=== PATIENT | male | born 1940 | race Caucasian/White ===

== ENCOUNTER 2018-11-05 20:20 | Inpatient (IN) | payer OTHER, MEDICARE ==
[2018-11-05] MEDS ORDERED: ONDANSETRON HCL INJ/PF 4 MG/2 ML SDV IV ONE (20:21)
[2018-11-05] MEDS ORDERED: NORMAL SALINE 1000 ML 1,000 ML IV ONE (20:21)
--- NOTE | 2018-11-05 20:28 | ER Document Report ---
ED Medical Screen (RME) - General Stated Complaint: VOMITING Time Seen by Provider: 11/05/18 20:21 Notes: Patient is a 78-year-old male who presents emergency department with vomiting. His son is at bedside to provide additional history. According to the son, the patient started to have right-sided abdominal pain yesterday. Today he started vomiting. Exam: Altered mental status. Tender abdomen. I have greeted and performed a rapid initial assessment of this patient. A comprehensive ED assessment and evaluation of the patient, analysis of test results and completion of medical decision making process will be conducted by an additional ED providers.
[2018-11-05] MEDS ORDERED: METHYLPREDNISOLONE INJ 125 MG/2 ML SDV IV ONE (20:29)
[2018-11-05] MEDS ORDERED: IPRATROPIUM/ALBUTEROL 0.5-2.5 MG/3 ML AMPUL NEB ONE ×2 (20:29→20:31)
[2018-11-05] MEDS ORDERED: METHYLPREDNISOLONE INJ 125 MG/2 ML SDV ONE (20:31)
[2018-11-05] MEDS ORDERED: ALBUTEROL SULFATE 0.083% NEB 2.5 MG/3 ML AMPUL NEB ONE (20:31)
[2018-11-05] MEDS: ALBUTEROL SULFATE 0.083% NEB 2.5 MG/3 ML AMPUL NEB SCH (20:34)
--- NOTE | 2018-11-05 20:57 | ER Document Report ---
ED General - General Stated Complaint: VOMITING Time Seen by Provider: 11/05/18 20:21 Information source: Relative Cannot obtain history due to: Dementia - HPI Patient complains to provider of: Abdominal pain, vomiting, respiratory distress. Associated symptoms: denies: Chest pain, Nonproductive cough, Fever Notes: This is a 38-year-old gentleman who presents today with a complaint of abdominal pain, vomiting, respiratory distress. Patient is demented and cannot give me good history. Patient's son states that he was complaining of right lower quad rant pain earlier today. He did not have any cardiopulmonary complaints at the time. Later on this evening, the patient started doing worse. He appeared confused and was moaning according to son. He was then brought to the emergency department. In route to the ED, he was vomiting. No fever or chills reported. Patient is unable to give any history. - Related Data Allergies/Adverse Reactions: No Known Allergies Allergy (Unverified 11/05/18 21:21) Past Medical History - Social History Smoking Status: Former Smoker Frequency of alcohol use: None Drug Abuse: None Family History: COPD Review of Systems - Review of Systems -: Yes ROS unobtainable due to patient's medical condition Physical Exam - Vital signs Vitals: Pulse Ox 84 L 11/05/18 20:23 Vital signs reviewed in nurse's notes. - General General appearance: Alert In distress: Moderate - Respiratory Respiratory status: Respiratory distress, Labored Chest status: Accessory muscle use Breath sounds: Rhonchi, Wheezing - Cardiovascular Rhythm: Regular Heart sounds: Normal auscultation - Abdominal Inspection: Normal Distension: No distension Bowel sounds: Normal Tenderness: Tender - Slight tenderness in the right lower quadrant. No guarding or rebound. - Back Back: Normal - Extremities General upper extremity: No: Edema - Neurological Cognition: Other - Unable to get a good neuro exam given patient distress. Nonfocal neurologic exam at this time. Course - Re-evaluation Re-evalutation: Differential diagnosis includes pneumonia versus COPD exacerbation versus bowel obstruction versus diverticulitis versus AAA rupture versus ischemic bowel. Will get CT of the abdomen and pelvis will get head CT given difficulty to give a good exam of this patient. We will also do a cardiac work-up in this patient. EKG shows normal sinus rhythm at 84 bpm. First-degree AV block. Right axis deviation. Lateral ST depression but no ST elevation. 11/05/18 20:55 11/05/18 21:27 Patient referred. He appears anxious. Blood gas suggests respiratory alkalosis secondary to hyperventilation. We will give him a small dose of Ativan. 11/05/18 22:41 Patient reevaluated. Patient states he feels better. He denies any chest pain or dyspnea. Complains of right lower quadrant/suprapubic pain. Labs reviewed. Elevated troponin may be secondary to his renal function. Will get Noncon CT given his elevated creatinine. 11/06/18 00:09 Patient has not been able to tolerate CT scan. Twice is meant to CT and he does not want to lay down flat. We absolutely need to get an abdominal CT since he complains of abdominal pain. He is not uncomfortable. He looks well. However, given his presentation, it is important. Consequently, we will place soft restraints to allow us to get a CT scan done. 11/06/18 01:38 Patient is doing well. Labs and imaging reviewed. No EKG changes to suggest hyperkalemia. Patient's care discussed with the hospitalist. Will admit. - Vital Signs Vital signs: Temp Pulse Resp BP Pulse Ox 98.6 F 85 20 112/62 91 L 11/05/18 21:02 11/05/18 20:56 11/05/18 22:16 11/05/18 22:16 11/05/18 22:16 - Laboratory Result Diagrams: 11/05/18 20:50 11/05/18 20:50 Laboratory results interpreted by me: 11/05/18 11/05/18 11/05/18 20:48 20:50 20:50 WBC 17.3 H RDW 17.4 H Lymph % (Auto) 9.4 L Absolute Neuts (auto) 14.6 H Seg Neutrophils % 84.2 H Carbonic Acid 0.93 L ABG pH 7.33 L ABG pCO2 31.0 L ABG pO2 62.4 L ABG HCO3 15.9 L ABG Total CO2 16.9 L ABG O2 Saturation 90.7 L Sodium 136.4 L Potassium 5.5 H Carbon Dioxide 17 L BUN 31 H Creatinine 2.10 H Est GFR ( Amer) 37 L Est GFR (MDRD) Non-Af 31 L Glucose 171 H Creatine Kinase 291 H CK-MB (CK-2) NT-Pro-B Natriuret Pep Total Protein 8.6 H 11/05/18 20:50 WBC RDW Lymph % (Auto) Absolute Neuts (auto) Seg Neutrophils % Carbonic Acid ABG pH ABG pCO2 ABG pO2 ABG HCO3 ABG Total CO2 ABG O2 Saturation Sodium Potassium Carbon Dioxide BUN Creatinine Est GFR ( Amer) Est GFR (MDRD) Non-Af Glucose Creatine Kinase CK-MB (CK-2) 5.16 H NT-Pro-B Natriuret Pep 969 H Total Protein Discharge - Discharge Clinical Impression: Acute kidney injury, Elevated troponin Pneumonia Qualifiers: Pneumonia type: due to unspecified organism Laterality: unspecified laterality Lung location: unspecified part of lung Qualified Code(s): J18.9 - Pneumonia, unspecified organism Condition: Fair Disposition: ADMITTED INPATIENT Admitting Provider: Margarita (Hospitalist) Unit Admitted: Telemetry
--- NOTE | 2018-11-05 21:06 | RADIOLOGY REPORT (SQ) ---
XR CHEST 1 VIEW CLINICAL STATEMENT: vomiting/abd pain COMPARISON: None FINDINGS: Heart is mildly enlarged. Aorta is uncoiled. There is no focal lung consolidation or pleural effusion. No evidence of pulmonary edema or pneumothorax. Mild left basilar atelectatic changes. IMPRESSION: No acute cardiopulmonary disease.
[2018-11-05 21:12] LABS: ARTERIAL BLOOD BASE EXCESS -8.6 mmol/L; ARTERIAL BLOOD H2CO3 0.93 mmol/L (1.05-1.35); ARTERIAL BLOOD HCO3 15.9 mmol/L (20-24); ARTERIAL BLOOD O2 SATURATION 90.7 % (94-98); ARTERIAL BLOOD PH 7.33 (7.35-7.45); ARTERIAL BLOOD PO2 62.4 mmHg (80-100); ARTERIAL BLOOD TOTAL CO2 16.9 mmol/L (23-27)
[2018-11-05 21:13] LABS: ARTERIAL BLOOD FIO2 100%
[2018-11-05] MEDS ORDERED: LORAZEPAM INJ 2 MG/1 ML VIAL IV ONE ×2 (21:16→23:16)
[2018-11-05] MEDS ORDERED: NORMAL SALINE 500 ML IV ONE (21:24)
[2018-11-05 21:41] LABS: ABSOLUTE LYMPHOCYTES (AUTO) 1.6 10^3/uL (0.5-4.7); ABSOLUTE MONOCYTES (AUTO) 1.1 10^3/uL (0.1-1.4); ABSOLUTE NEUT (AUTO) 14.6 10^3/uL (1.7-8.2); BASOPHILS % (AUTO) 0.1 % (0-2); EOSINOPHILS % (AUTO) 0.1 % (0-6); HEMATOCRIT 42.3 % (37.9-51.0); HEMOGLOBIN 14.1 g/dL (13.5-17.0); LYMPHOCYTES % (AUTO) 9.4 % (13-45); MEAN CORPUSCULAR HEMOGLOBIN 29.8 pg (27.0-33.4); MEAN CORPUSCULAR HGB CONC 33.3 g/dL (32.0-36.0); MEAN CORPUSCULAR VOLUME 89 fl (80-97); MONOCYTES % (AUTO) 6.2 % (3-13); PLATELET COUNT 256 10^3/uL (150-450); RED BLOOD COUNT 4.73 10^6/uL (4.35-5.55); RED CELL DISTRIBUTION WIDTH 17.4 % (11.5-14.0); SEGMENTED NEUTROPHILS % (AUTO) 84.2 % (42-78); TOTAL CELLS COUNTED % (AUTO) 100 %; WHITE BLOOD COUNT 17.3 10^3/uL (4.0-10.5)
[2018-11-05 21:55] LABS: ALBUMIN 4.9 g/dL (3.5-5.0); ALKALINE PHOSPHATASE 95 U/L (38-126); ASPARTATE AMINO TRANSFERASE 43 U/L (17-59); BILIRUBIN,DIRECT 0.4 mg/dL (0.0-0.4); BILIRUBIN,TOTAL 0.9 mg/dL (0.2-1.3); BLOOD UREA NITROGEN 31 mg/dL (7-20); CALCIUM 9.2 mg/dL (8.4-10.2); CREATINE KINASE 291 U/L (55-170); GLUCOSE 171 mg/dL (75-110); POTASSIUM 5.5 mmol/L (3.6-5.0); TOTAL PROTEIN 8.6 g/dL (6.3-8.2)
[2018-11-05 22:00] LABS: ANION GAP 19 (5-19); CARBON DIOXIDE 17 mmol/L (22-30); CHLORIDE 100 mmol/L (98-107)
[2018-11-05 22:18] LABS: CREATINE KINASE MB 5.16 ng/mL (<4.55)
[2018-11-05 22:19] LABS: TROPONIN I 0.496 ng/mL
[2018-11-05] MEDS ORDERED: NORMAL SALINE 1000 ML 1,000 ML IV PRN (22:39)
--- NOTE | 2018-11-05 23:55 | EKG REPORT ---
SEVERITY:- ABNORMAL ECG - SINUS RHYTHM NONSPECIFIC INTRAVENTRICULAR CONDUCTION DELAY LOW VOLTAGE IN FRONTAL LEADS ST DEPRESSION, CONSIDER ISCHEMIA, ANT-LAT LDS : Confirmed by: Cody Cummins MD 05-Nov-2018 23:54:52
--- NOTE | 2018-11-05 23:56 | EKG REPORT ---
SEVERITY:- ABNORMAL ECG - SINUS RHYTHM FIRST DEGREE AV BLOCK RIGHT AXIS DEVIATION REPOL ABNRM SUGGESTS ISCHEMIA, ANT-LAT LEADS : Confirmed by: Cody Cummins MD 05-Nov-2018 23:55:28
--- NOTE | 2018-11-06 00:09 | RADIOLOGY REPORT (SQ) ---
EXAM DESCRIPTION: CT HEAD WITHOUT IV CONTRAST COMPLETED DATE/TME: 11/05/2018 20:23 CLINICAL HISTORY: 78 years, Male, AMS COMPARISON: None. TECHNIQUE: 205 Images stored on PACS. All CT scanners at this facility use dose modulation, iterative reconstruction, and/or weight based dosing when appropriate to reduce radiation dose to as low as reasonably achievable (ALARA). [facility]: Dose Right [facility]: CareDose [facility]: Dose Right [facility]: Teradose 4D [facility]: [employer] LIMITATIONS: None. FINDINGS: Motion artifact degrades image quality. The globes appear intact. The paranasal sinuses and mastoid air cells are unremarkable. There is no displaced or depressed skull fracture. There is no intra or extra-axial hemorrhage. CT is limited for evaluation of acute infarct. There is no CT evidence for large or territorial acute infarct. There is no mass or midline shift. Mild age-appropriate atrophy and minor small vessel ischemic change IMPRESSION: Mild atrophy and small vessel ischemic change TECHNICAL DOCUMENTATION: Quality ID # 436: Final reports with documentation of one or more dose reduction techniques (e.g., Automated exposure control, adjustment of the mA and/or kV according to patient size, use of iterative reconstruction technique) copyright 2010 [employer]- All Rights Reserved
--- NOTE | 2018-11-06 01:04 | RADIOLOGY REPORT (SQ) ---
EXAM DESCRIPTION: [facility]: CT ABDOMEN PELVIS WITHOUT IV CONTRAST CLINICAL HISTORY: 78 years Male; RLQ pain. elevated creatinine TECHNIQUE: CT of the abdomen and pelvis without contrast. All CT scans at this facility use dose modulation, iterative reconstruction, and/or weight based dosing when appropriate to reduce radiation dose to as low as reasonably achievable. COMPARISON: None. FINDINGS: Partial infiltrate/atelectasis in the posterior and medial right lower lobe is noted. Moderate coronary artery calcifications as well as aortic calcifications are also partially visualized. Abdomen: Liver:No focal lesions. No intrahepatic ductal distention. Gallbladder:Nondistended Pancreas:Within normal limits Spleen:Within normal limits Right kidney:No hydronephrosis. No renal or ureteral calculi. Left kidney:No hydronephrosis. No renal or ureteral calculi. Adrenal glands:Within normal limits Vascular structures: A femoral-femoral bypass graft as well as a graft in the right lateral anterior abdominal wall are noted. There is extensive aortic and iliac calcification as well as a distal aortic stent. No retroperitoneal hematoma. Pelvis: Fat-containing 2.2 cm wide ventral hernia is noted, without acute edema or bowel involvement. Small bowel:No significant distention. Appendix: Not reliably identified. No regional edema. Colon:No distention or acute pericolonic edema. No free intraperitoneal fluid or air. Bones: Old L1 vertebral body fracture is noted. No acute bone findings. Bladder: Moderately distended, estimated 630 mL. No calculi. No pelvic mass or adenopathy. Note that evaluation of the bowel and solid organs is somewhat limited due to lack of intravenous and oral contrast. IMPRESSION: 1. Medial right lower lobe infiltrate/atelectasis, possibly a focal pneumonia. Please correlate with clinical symptoms. 2. Atherosclerosis, with partially visualized bypass grafts. 3. Moderately distended bladder (630 mL) 4. No acute inflammatory changes.
[2018-11-06] MEDS ORDERED: AZITHROMYCIN INJ 500 MG VIAL IV ONE (01:35)
[2018-11-06] MEDS ORDERED: DEXTROSE 50%-WATER 25 GM/50 ML DISP.SYRIN IV ONE (01:39)
[2018-11-06] MEDS ORDERED: INSULIN REG, HUMAN 100 UNIT/ML 3 ML VIAL (PYX) IV ONE (01:39)
[2018-11-06] MEDS ORDERED: CEFTRIAXONE 1 GM/D5W RTU 1 GM/50 ML RTUPB IV ONE (02:00)
[2018-11-06] MEDS ORDERED: LEVALBUTEROL HCL NEB 0.63 MG/3 ML AMPUL NEB PRN (02:14)
[2018-11-06] MEDS ORDERED: GUAIFENESIN SYRP 200 MG/10 ML UDC PO PRN (02:14)
[2018-11-06] MEDS ORDERED: ACETAMINOPHEN 325 MG TABLET PO PRN (02:14)
[2018-11-06] MEDS ORDERED: INSULIN REG, HUMAN 100 UNIT/ML 3 ML VIAL (PYX) SUBCUT PRN (02:25)
[2018-11-06] MEDS ORDERED: MAG HYDROX/AL HYDROX/SIMETH SUSP 30 ML UDCUP PO PRN (02:25)
[2018-11-06] MEDS ORDERED: ACETAMINOPHEN 650 MG SUPP.RECT PR PRN (02:25)
[2018-11-06] MEDS ORDERED: MAGNESIUM HYDROXIDE SUSP 30 ML UDCUP PO PRN (02:25)
[2018-11-06] MEDS ORDERED: NALBUPHINE HCL INJ 10 MG/1 ML AMPULE IV PRN ×3 (02:25→03:34)
[2018-11-06] MEDS ORDERED: DEXTROSE 50%-WATER 25 GM/50 ML DISP.SYRIN IV PRN ×2 (02:27)
[2018-11-06] MEDS ORDERED: GLUCAGON,HUMAN RECOMB 1 MG INJ IM PRN (02:27)
[2018-11-06] MEDS ORDERED: DEXTROSE 40% GEL 15 GM TUBE PO PRN ×2 (02:27)
[2018-11-06 03:46] LABS: CREATINE KINASE MB 11.6 ng/mL (<4.55)
[2018-11-06 03:52] LABS: FREE T3 2.17 pg/mL (2.77-5.27); FREE T4 (FREE THYROXINE) 0.96 ng/dL (0.78-2.19); TROPONIN I 1.24 ng/mL
[2018-11-06] MEDS ORDERED: TUBERCULIN,PURIF.PROT.DERIV. 5 TU/0.1 ML TEST 1 ML VIAL ID ONE ×2 (04:00→05:26)
[2018-11-06] MEDS: RINGERS SOLUTION,LACTATED 1,000 ML IV PRN ×3 (05:27→15:17)
[2018-11-06 05:41] LABS: APPEARANCE,URINE SLIGHTLY-CLOUDY; BILIRUBIN,URINE NEGATIVE (NEGATIVE); COLOR,URINE YELLOW; GLUCOSE, URINE 50 mg/dL (NEGATIVE); KETONES,URINE NEGATIVE (NEGATIVE); LEUKOCYTE ESTERASE,URINE NEGATIVE (NEGATIVE); NITRITE,URINE NEGATIVE (NEGATIVE); PROTEIN,URINE 30 mg/dL (NEGATIVE); URINE SPECIFIC GRAVITY 1.018; UROBILINOGEN,URINE NEGATIVE mg/dL (<2.0)
[2018-11-06] MEDS ORDERED: PANTOPRAZOLE SODIUM 40 MG TABLET.DR PO SCH (06:00)
[2018-11-06] MEDS ORDERED: HEPARIN SOD (PORCINE) 5,000 UNIT/ML 1 ML VIAL SUBCUT SCH (06:00)
--- NOTE | 2018-11-06 06:39 | PDOC H&P ---
History of Present Illness Admission Date/PCP: 11/06/2018 01:40 History of Present Illness: GAVINO PEDRAZA is a 78 year old male who presented to the emergency room from home with a 1 day history of abdominal pain. Patient has chronic dementia and is unable to provide accurate or meaningful historical data. His son provided data to the emergency room staff and at the time of my evaluation there is no one with patient. The information recorded here is the best and most reliable information available. The patient developed abdominal pain on the evening of 11/04/2018 and persisted through 11/05/2018 with a gradual increase in intensity accompanied by increased confusion and vomiting. With his worsening condition his son brought him to the emergency room. In the emergency room he was found to have an elevated white blood count of 17,000, an elevated serum troponin, an elevated creatinine and a CT scan of the abdomen and pelvis which revealed a right lower lobe pneumonia. Patient was subsequently admitted to the hospital for further evaluation treatment. Past Medical History Past Medical History: Patient has chronic dementia and is unable to provide accurate or meaningful historical data. The information recorded here is the best and most reliable information available. Cardiac Medical History: Reports: Coronary Artery Disease, Peripheral Vascular Disease Pulmonary Medical History: Denies: Asthma, Chronic Obstructive Pulmonary Disease (COPD) EENT Medical History: Denies: Eyes - Prescription lenses, Ears - Hearing aids Neurological Medical History: Denies: Multiple Sclerosis, Seizures Endocrine Medical History: Reports: Diabetes Mellitus Type 2 Denies: Diabetes Mellitus Type 1 Renal/ Medical History: Reports: Chronic Kidney Disease Denies: Nephrolithiasis Malignancy Medical History: Reports: None GI Medical History: Denies: Crohn's Disease, Ulcerative Colitis Musculoskeltal Medical History: Denies: Fibromyalgia, Gout Skin Medical History: Denies: Eczema, Psoriasis Psychiatric Medical History: Reports: Dementia Denies: Alcohol Dependency, Substance Abuse, Tobacco Dependency Traumatic Medical History: Reports: None Hematology: Reports: Anemia Denies: Bleeding Tendencies Infectious Medical History: Reports: None Past Surgical History Past Surgical History: Patient has chronic dementia and is unable to provide accurate or meaningful historical data. The information recorded here is the best and most reliable information available. Past Surgical History: Reports: Cardiac Catheterization, Coronary Stent Social History Information Source: Emergency Med Personnel, [facility] Records Lives with: Family Smoking Status: Former Smoker Frequency of Alcohol Use: None Hx Recreational Drug Use: No Drugs: None Hx Prescription Drug Abuse: No Past Social History Note: Patient has chronic dementia and is unable to provide accurate or meaningful historical data. The information recorded here is the best and most reliable information available. - Advance Directive Resuscitation Status: Full Code Surrogate healthcare decision maker:: Naveed Gonzalezruben Family History Family History: COPD Family History: Patient has chronic dementia and is unable to provide accurate or meaningful historical data. The information recorded here is the best and most reliable in formation available. Parental Family History Reviewed: Yes Children Family History Reviewed: No Sibling(s) Family History Reviewed.: Yes Medication/Allergy Allergies/Adverse Reactions: No Known Allergies Allergy (Unverified 11/05/18 21:21) Review of Systems ROS unobtainable: Due to mental status - Chronic dementia Physical Exam Vital Signs: Temp Pulse Resp BP Pulse Ox 98.6 F 85 20 112/62 91 L 11/05/18 21:02 11/05/18 20:56 11/05/18 22:16 11/05/18 22:16 11/05/18 22:16 Intake & Output 11/04/18 11/05/18 11/06/18 23:59 23:59 23:59 Intake Total 1500 Balance 1500 Results Laboratory Results: 11/05/18 20:50 11/05/18 20:50 11/05/18 11/05/18 11/05/18 20:48 20:50 20:50 WBC 17.3 H RBC 4.73 Hgb 14.1 Hct 42.3 MCV 89 MCH 29.8 MCHC 33.3 RDW 17.4 H Plt Count 256 Seg Neutrophils % 84.2 H Carbonic Acid 0.93 L HCO3/H2CO3 Ratio 17:1 ABG pH 7.33 L ABG pCO2 31.0 L ABG pO2 62.4 L ABG HCO3 15.9 L ABG O2 Saturation 90.7 L ABG Base Excess -8.6 FiO2 100% Sodium 136.4 L Potassium 5.5 H Chloride 100 Carbon Dioxide 17 L Anion Gap 19 BUN 31 H Creatinine 2.10 H Est GFR ( Amer) 37 L Glucose 171 H Calcium 9.2 Total Bilirubin 0.9 AST 43 Alkaline Phosphatase 95 Total Protein 8.6 H Albumin 4.9 11/05/18 11/05/18 20:50 20:50 Creatine Kinase 291 H CK-MB (CK-2) 5.16 H Troponin I 0.496 NT-Pro-B Natriuret Pep 969 H Impressions: Chest X-Ray 11/05/18 20:22 IMPRESSION: No acute cardiopulmonary disease. Head CT 11/05/18 20:23 IMPRESSION: Mild atrophy and small vessel ischemic change TECHNICAL DOCUMENTATION: Quality ID # 436: Final reports with documentation of one or more dose reduction techniques (e.g., Automated exposure control, adjustment of the mA and/or kV according to patient size, use of iterative reconstruction technique) copyright 2011 [employer]- All Rights Reserved Abdomen/Pelvis CT 11/05/18 22:38 IMPRESSION: 1. Medial right lower lobe infiltrate/atelectasis, possibly a focal pneumonia. Please correlate with clinical symptoms. 2. Atherosclerosis, with partially visualized bypass grafts. 3. Moderately distended bladder (630 mL) 4. No acute inflammatory changes. Assessment and Plan - Diagnosis (1) Community acquired pneumonia of right lower lobe of lung Is this a current diagnosis for this admission?: Yes Plan: Patient will be treated with intravenous azithromycin and ceftriaxone. Supplemental oxygen will be provided as required to maintain an O2 sat of greater than 93%. Nebulized treatments with Xopenex will be available on an as- needed basis and Mucomyst will be delivered via nebulizer twice daily. Daily metabolic profiles and CBCs will be obtained. (2) Abdominal pain Qualifiers: Abdominal location: right lower quadrant Qualified Code(s): R10.31 - Right lower quadrant pain Is this a current diagnosis for this admission?: Yes Plan: Patient will be observed closely throughout his hospital course. Serial CBCs will be obtained. Patient will receive Nubain 5 to 10 mg IV every three hours as needed for pain control. (3) Elevated troponin Is this a current diagnosis for this admission?: Yes Plan: Serial cardiac enzymes will be obtained. (4) Chronic renal insufficiency, stage III (moderate) Is this a current diagnosis for this admission?: Yes Plan: The patient will be treated with IV fluids. Daily metabolic profiles will be o btained. (5) Chronic dementia without behavioral disturbance Is this a current diagnosis for this admission?: Yes Plan: Patient will be carefully managed with efforts at redirection in order to avoid any need for the use of medical or physical restraints. - Time Time Spent with patient: 15-24 minutes Anticipated discharge: Home with Homehealth - Inpatient Certification Based on my medical assessment, after consideration of the patient's comorbidities, presenting symptoms, or acuity I expect that the services needed warrant INPATIENT care.: Yes I certify that my determination is in accordance with my understanding of Medicare's requirements for reasonable and necessary INPATIENT services [42 CFR 412.3e].: Yes Medical Necessity: Need Close Monitoring Due to Risk of Patient Decompensation, Need For IV Fluids, Need for Nebulizer Therapy and Monitoring of Response, Need for Pain Control, Need for IV Antibiotics, Risk of Complication if Not Cared For in Hospital
[2018-11-06] MEDS ORDERED: LEVALBUTEROL HCL NEB 1.25 MG/3 ML AMPUL NEB SCH (08:00)
[2018-11-06] MEDS: IPRATROPIUM BROMIDE 0.02% NEB 0.5 MG/2.5 ML AMPUL NEB SCH ×2 (08:09→15:22)
[2018-11-06] MEDS: ACETYLCYSTEINE 20% SOLN 800 MG/4 ML VIAL.NEB NEB SCH ×2 (08:10→20:44)
--- NOTE | 2018-11-06 08:41 | Progress Note ---
Provider Note Provider Note: Patient admitted early a.m. I have evaluated patient and reviewed labs. Will wait for the records per cardiology and make change plan of care as appropriate
[2018-11-06] MEDS ORDERED: LORAZEPAM INJ 2 MG/1 ML VIAL IV PRN (09:25)
[2018-11-06] MEDS ORDERED: LORAZEPAM INJ 2 MG/1 ML VIAL ONE (09:32)
[2018-11-06] MEDS ORDERED: DOCUSATE SODIUM 100 MG CAPSULE PO SCH (10:00)
[2018-11-06 10:45] LABS: CREATINE KINASE MB 19.3 ng/mL (<4.55)
[2018-11-06 10:47] LABS: TROPONIN I 1.87 ng/mL
[2018-11-06] MEDS ORDERED: CARVEDILOL 3.125 MG TABLET PO SCH (12:00)
[2018-11-06] MEDS ORDERED: ASPIRIN 81 MG TABLET, ENT COATED PO SCH (12:00)
[2018-11-06] MEDS ORDERED: ISOSORBIDE MONONITRATE 30 MG TAB.ER.24H PO SCH (12:00)
[2018-11-06] MEDS ORDERED: CLOPIDOGREL BISULFATE 75 MG TABLET PO SCH (12:00)
[2018-11-06] MEDS ORDERED: HEPARIN SOD (PORCINE) 1,000 UNIT/ML 10 ML VIAL IV ONE (12:00)
[2018-11-06 12:01] LABS: ARTERIAL BLOOD BASE EXCESS -10.1 mmol/L; ARTERIAL BLOOD HCO3 19.6 mmol/L (20-24); ARTERIAL BLOOD O2 SATURATION 49.9 % (94-98); ARTERIAL BLOOD PCO2 59.8 mmHg (35-45); ARTERIAL BLOOD TOTAL CO2 21.4 mmol/L (23-27)
[2018-11-06 12:04] LABS: ARTERIAL BLOOD FIO2 60%; ARTERIAL BLOOD PH 7.13 (7.35-7.45)
[2018-11-06] MEDS ORDERED: NITROGLYCERIN 2% OINTMENT 1 GM PACKET ONE ×2 (12:04→22:09)
[2018-11-06] MEDS: MORPHINE SULFATE 10 MG/ML INJ ONE ×2 (12:08→14:05)
[2018-11-06] MEDS ORDERED: MIDAZOLAM 2 MG/2 ML INJ ONE (12:12)
[2018-11-06 12:31] LABS: ABSOLUTE MONOCYTES (AUTO) 0.9 10^3/uL (0.1-1.4); ABSOLUTE NEUT (AUTO) 14.4 10^3/uL (1.7-8.2); BASOPHILS % (AUTO) 0.1 % (0-2); HEMATOCRIT 36.9 % (37.9-51.0); HEMOGLOBIN 12.2 g/dL (13.5-17.0); MEAN CORPUSCULAR HEMOGLOBIN 29.8 pg (27.0-33.4); MEAN CORPUSCULAR HGB CONC 33.2 g/dL (32.0-36.0); MEAN CORPUSCULAR VOLUME 90 fl (80-97); MONOCYTES % (AUTO) 5.8 % (3-13); PLATELET COUNT 187 10^3/uL (150-450); RED BLOOD COUNT 4.11 10^6/uL (4.35-5.55); RED CELL DISTRIBUTION WIDTH 17.2 % (11.5-14.0); SEGMENTED NEUTROPHILS % (AUTO) 88.1 % (42-78); TOTAL CELLS COUNTED % (AUTO) 100 %; WHITE BLOOD COUNT 16.4 10^3/uL (4.0-10.5)
[2018-11-06 12:37] LABS: INTERNATIONAL RATION (INR) 1.18
[2018-11-06] MEDS ORDERED: FENTANYL CITRATE INJ/PF 100 MCG/2 ML AMPUL ONE (12:37)
[2018-11-06] MEDS ORDERED: PROPOFOL 1,000 MG/100 ML INFUS..BTL IV ONE (12:38)
[2018-11-06] MEDS: PROPOFOL 1,000 MG/100 ML INFUS..BTL IV PRN ×2 (12:40→18:24)
--- NOTE | 2018-11-06 12:54 | Progress Note ---
Provider Note Provider Note: Rapid response call patient patient is very agitated on BiPAP at this time. Patient blood gas shows a pH of 7.13 PCO2 59 PO2 of 35. Decision was made to intubate patient send patient to ICU. Patient was given 6 mg of IV Versed and 5 mg of succinylcholine. Patient was intubated with a #7.5 ET tube 22 his lip. P atient was emergently transferred to ICU. Report was given to Dr. Dias back facer.
[2018-11-06] MEDS ORDERED: PHARMACY COMMUNICATION ORDER MC NR (13:15)
[2018-11-06] MEDS ORDERED: VANCOMYCIN HCL 0 MG in DEXTROSE 5%-WATER 250 ML IV NR (13:30)
[2018-11-06] MEDS ORDERED: MAGNESIUM HYDROXIDE SUSP 30 ML UDCUP NG PRN (13:30)
[2018-11-06] MEDS ORDERED: GUAIFENESIN SYRP 200 MG/10 ML UDC NG PRN (13:30)
[2018-11-06] MEDS ORDERED: MAG HYDROX/AL HYDROX/SIMETH SUSP 30 ML UDCUP NG PRN (13:30)
--- NOTE | 2018-11-06 13:42 | CRITICAL CARE ADMISSION REPORT ---
HPI Date:: 11/06/18 Time:: 13:23 Reason for ICU Reason:: acute respiratory failure HPI: Pt is a 78 yo man with dementia, CAD, COPD who presented to the ED last night with abdominal pain, nausea,and vomiting. Pt was found to have PNA and was given Rocephin and azithromycin. He was placed on bipap and admitted to the floor. He was also found to have BEBE and a NSTEMI. Today a rapid response was called for altered mental status and hypoxia. Pt was intubated on the floor by the DRUG SAFETY ASSISTANT and was transferred to the ICU. Past Medical History Cardiac Medical History: Reports: Coronary Artery Disease, Peripheral Vascular Disease Pulmonary Medical History: Reports: Chronic Obstructive Pulmonary Disease (COPD) EENT Medical History: Denies: Eyes - Prescription lenses, Ears - Hearing aids Neurological Medical History: Denies: Multiple Sclerosis, Seizures Endocrine Medical History: Reports: Diabetes Mellitus Type 2 Denies: Diabetes Mellitus Type 1 Renal/ Medical History: Reports: Chronic Kidney Disease Denies: Nephrolithiasis Malignancy Medical History: Reports: None GI Medical History: Denies: Crohn's Disease, Ulcerative Colitis Musculoskeltal Medical History: Denies: Fibromyalgia, Gout Skin Medical History: Denies: Eczema, Psoriasis Psychiatric Medical History: Reports: Dementia Denies: Alcohol Dependency, Substance Abuse, Tobacco Dependency Traumatic Medical History: Reports: None Hematology: Reports: Anemia Denies: Bleeding Tendencies Infectious Medical History: Reports: None Past Surgical History Past Surgical History: fem-fem bypass, aortic stent Past Surgical History: Reports: Cardiac Catheterization, Coronary Stent Social/Family History - Social History Lives with: Family Smoking Status: Former Smoker Cigarettes Packs Per Day: 1 Number of Years Smokin Last Time Smoked: 2007 Frequency of Alcohol Use: None Hx Recreational Drug Use: No Drugs: None Hx Prescription Drug Abuse: No - Medication/Allergies Home Medications: Acetaminophen [Tylenol 325 mg Tablet] 650 mg PO Q6HP PRN 11/06/18 Aspirin [Ecotrin 81 mg EC Tablet] 81 mg PO DAILY 11/06/18 Atorvastatin Calcium [Lipitor 80 mg Tablet] 40 mg PO QHS 11/06/18 Budesonide/Formoterol Fumarate [Symbicort Hfa 160-4.5 Mcg Inhaler 6 gm] 2 puff IH Q12 11/06/18 Cholecalciferol (Vitamin D3) [Vitamin D3] 1,000 unit PO DAILY 11/06/18 Clopidogrel Bisulfate [Plavix 75 mg Tablet] 75 mg PO DAILY 11/06/18 Docusate Sodium [Colace 100 mg Capsule] 200 mg PO BIDP PRN 11/06/18 Ferrous Sulfate 324 mg PO BID 11/06/18 Furosemide [Lasix 20 mg Tablet] 20 mg PO DAILY 11/06/18 Isosorbide Mononitrate [Imdur 30 mg Tablet.er] 30 mg PO DAILY 11/06/18 Melatonin [Melatonin 3 mg Tablet] 6 mg PO QHS 11/06/18 Metoprolol Tartrate [Lopressor 25 mg Tablet] 25 mg PO Q12 11/06/18 Nitroglycerin [Nitrostat 0.4 mg (1/150 Gr) Tabs 25/Bottle] 1 tab SL Q5MP PRN Omeprazole 40 mg PO QAM 11/06/18 Polyethylene Glycol 3350 [Gavilax] 17 gm PO DAILYP PRN 11/06/18 Prochlorperazine Maleate 5 mg PO DAILYP PRN 11/06/18 Quetiapine Fumarate [Seroquel 25 mg Tablet] 37.5 mg PO QHS 11/06/18 Tiotropium [place] [Spiriva Handihaler 5 Cap/Kit (18 Mcg/Cap)] 1 cap IH DAILY 11/06/18 Allergies/Adverse Reactions: No Known Allergies Allergy (Unverified 11/05/18 21:21) Review of Systems ROS unobtainable: Due to endotracheal tube Physical Exam Vital Signs: Temp Pulse Resp BP Pulse Ox 99.1 F 106 H 24 H 131/99 H 100 11/06/18 12:59 11/06/18 12:59 11/06/18 12:59 11/06/18 12:59 11/06/18 12:59 Intake & Output 11/05/18 11/06/18 11/07/18 06:59 06:59 06:59 Intake Total 2203 941 Output Total 1100 Balance 2203 -159 Weight 76.2 kg Weight/Height Weight 76.2 kg Height 5 ft 7 in General appearance: PRESENT: no acute distress, well-developed, well-nourished, other - intubated Head exam: PRESENT: atraumatic, normocephalic Respiratory exam: PRESENT: decreased breath sounds, unlabored Cardiovascular exam: PRESENT: RRR GI/Abdominal exam: PRESENT: soft, other - ventral hernia Extremities exam: PRESENT: other - no edema Laboratory/Radiographs Laboratory Results: 11/06/18 12:22 11/05/18 20:50 11/05/18 11/05/18 11/05/18 20:48 20:50 20:50 WBC 17.3 H RBC 4.73 Hgb 14.1 Hct 42.3 MCV 89 MCH 29.8 MCHC 33.3 RDW 17.4 H Plt Count 256 Seg Neutrophils % 84.2 H Carbonic Acid 0.93 L HCO3/H2CO3 Ratio 17:1 ABG pH 7.33 L ABG pCO2 31.0 L ABG pO2 62.4 L ABG HCO3 15.9 L ABG O2 Saturation 90.7 L ABG Base Excess -8.6 FiO2 100% Sodium 136.4 L Potassium 5.5 H Chloride 100 Carbon Dioxide 17 L Anion Gap 19 BUN 31 H Creatinine 2.10 H Est GFR ( Amer) 37 L Glucose 171 H Calcium 9.2 Total Bilirubin 0.9 AST 43 Alkaline Phosphatase 95 Total Protein 8.6 H Albumin 4.9 Free T4 Free T3 pg/mL Urine Color Urine Appearance Urine pH Ur Specific [place] Urine Protein Urine Glucose (UA) Urine Ketones Urine Blood Urine Nitrite Ur Leukocyte Esterase Urine WBC (Auto) Urine RBC (Auto) 11/06/18 11/06/18 11/06/18 03:13 05:00 11:42 WBC RBC Hgb Hct MCV MCH MCHC RDW Plt Count Seg Neutrophils % Carbonic Acid 1.80 H HCO3/H2CO3 Ratio 10:1 ABG pH 7.13 L* ABG pCO2 59.8 H ABG pO2 35.0 L* ABG HCO3 19.6 L ABG O2 Saturation 49.9 L ABG Base Excess -10.1 FiO2 60% Sodium Potassium Chloride Carbon Dioxide Anion Gap BUN Creatinine Est GFR ( Amer) Glucose Calcium Total Bilirubin AST Alkaline Phosphatase Total Protein Albumin Free T4 0.96 Free T3 pg/mL 2.17 L Urine Color YELLOW Urine Appearance SLIGHTLY-CLOUDY Urine pH 5.0 Ur Specific [place] 1.018 Urine Protein 30 H Urine Glucose (UA) 50 H Urine Ketones NEGATIVE Urine Blood SMALL H Urine Nitrite NEGATIVE Ur Leukocyte Esterase NEGATIVE Urine WBC (Auto) 11 Urine RBC (Auto) 1 11/06/18 12:22 WBC 16.4 H RBC 4.11 L Hgb 12.2 L Hct 36.9 L MCV 90 MCH 29.8 MCHC 33.2 RDW 17.2 H Plt Count 187 Seg Neutrophils % 88.1 H Carbonic Acid HCO3/H2CO3 Ratio ABG pH ABG pCO2 ABG pO2 ABG HCO3 ABG O2 Saturation ABG Base Excess FiO2 Sodium Potassium Chloride Carbon Dioxide Anion Gap BUN Creatinine Est GFR ( Amer) Glucose Calcium Total Bilirubin AST Alkaline Phosphatase Total Protein Albumin Free T4 Free T3 pg/mL Urine Color Urine Appearance Urine pH Ur Specific [place] Urine Protein Urine Glucose (UA) Urine Ketones Urine Blood Urine Nitrite Ur Leukocyte Esterase Urine WBC (Auto) Urine RBC (Auto) 11/05/18 11/05/18 11/06/18 20:50 20:50 03:13 Creatine Kinase 291 H 458 H CK-MB (CK-2) 5.16 H Troponin I 0.496 NT-Pro-B Natriuret Pep 969 H 11/06/18 11/06/18 11/06/18 03:13 09:39 09:39 Creatine Kinase 549 H CK-MB (CK-2) 11.60 H 19.30 H Troponin I 1.240 1.870 NT-Pro-B Natriuret Pep Impressions: Head CT 11/05/18 20:23 IMPRESSION: Mild atrophy and small vessel ischemic change TECHNICAL DOCUMENTATION: Quality ID # [id number]: Final reports with documentation of one or more dose reduction techniques (e.g., Automated exposure control, adjustment of the mA and/or kV according to patient size, use of iterative reconstruction technique) copyright 2011 [employer]- All Rights Reserved Abdomen/Pelvis CT 11/05/18 22:38 IMPRESSION: 1. Medial right lower lobe infiltrate/atelectasis, possibly a focal pneumonia. Please correlate with clinical symptoms. 2. Atherosclerosis, with partially visualized bypass grafts. 3. Moderately distended bladder (630 mL) 4. No acute inflammatory changes. EKG: no ST elevation Critical Time -: The care of a critically ill patient is dynamic. This note represents a static moment in the admission process. orders and treatments may be given simulataneously and urgentl, and time is not commercial sales representative of the treatment process. This patient requires Critical Care secondary to life threating organ or limb dysfunction. Without the need for Critical Care services, the patient is at risk for increasid mortality and morbidity. Provider Note Provider Note: Assessment: Critically ill 78 yo man with acute respiratory failure, aspiration PNA, BEBE, acute urinary retention, COPD, NSTEMI, dementia, PVD, severe sepsis Plan: 1. Respiratory: acute respiratory failure. Pt intubated on the floor during the rapid response by the DRUG SAFETY ASSISTANT. CXR and ABG pending 2. Pulmonary: aspiration PNA. Will start vanc, cefepime, azithromycin. COPD, wi ll continue duonebs and will resume steroids. WIll check sputum cultures. 3. CV: NSTEMI. CAD. PVD. Continue asa and plavix. Heart rate and BP acceptable. Continue home asa, plavix,lopressor. CHange imdur to another nitrate that can be given via NGT. Start heparin drip. Dr. Fields consulted. Order echo 4. Renal: BEBE, acute urinary retention. CT of abdomen and pelvis done yesterday showed around 600 cc urine in bladder. When osman was placed in the ICU, over 1 liter of urine was obtained. Renally dose meds. Monitor renal function 5. ID: severe sepsis, aspiration PNA. Vanc, cefepime, azithromycin. Cultures pending. Check for influenza 6. Neuro/psych: dementia. Resume home seroquel. 7. Nutrition: NPO. Dietary consult for tube feeds 8. Endocrine: accuchecks, SSI 9.Prophylaxis: no pharmacologic DVT neccessary b/c of heparin drip. Critical care time= 60 min, excluding procedures
--- NOTE | 2018-11-06 13:46 | RADIOLOGY REPORT (SQ) ---
EXAM DESCRIPTION: CHEST SINGLE VIEW COMPLETED DATE/TIME: 11/06/2018 1:33 pm REASON FOR STUDY: resp failure, PNA, s/p intubation COMPARISON: None. EXAM PARAMETERS: NUMBER OF VIEWS: One view. TECHNIQUE: Single frontal radiographic view of the chest acquired. RADIATION DOSE: NA LIMITATIONS: None. FINDINGS: LUNGS AND PLEURA: Mildly increased interstitial markings at the lung bases is unchanged. No focal consolidation, pleural effusion, or pneumothorax. MEDIASTINUM AND HILAR STRUCTURES: No masses. Contour normal. HEART AND VASCULAR STRUCTURES: Heart normal in size. Normal vasculature. BONES: No acute findings. HARDWARE: An endotracheal tube terminates approximately 1.5 cm cranial to the soledad. An apparent en teric tube is seen along the expected course of the esophagus, terminating subdiaphragmatically out o f the field of view. OTHER: No other significant finding. IMPRESSION: 1. No acute pulmonary findings. 2. Endotracheal tube terminates approximately 1.5 cm cranial to the soledad. Partially imaged enteri c tube without evidence of complication. TECHNICAL DOCUMENTATION: JOB ID: [id number] [employer]- All Rights Reserved Reading location - IP/workstation name: [email or web address]
--- NOTE | 2018-11-06 13:48 | RADIOLOGY REPORT (SQ) ---
EXAM DESCRIPTION: KUB/ABDOMEN (SINGLE VIEW) COMPLETED DATE/TIME: 11/06/2018 1:33 pm REASON FOR STUDY: Check Placement of NG Tube COMPARISON: None. NUMBER OF VIEWS: One view. TECHNIQUE: Supine radiographic image of the abdomen acquired. LIMITATIONS: None. FINDINGS: BOWEL GAS PATTERN: Normal bowel gas pattern. No dilated loops. CALCIFICATIONS: No suspicious calcifications. SOFT TISSUES: No gross mass or suggestion of organomegaly. HARDWARE: Endovascular stent graft is in place. NG tube is been added. Tip lies in the left upper q uadrant overlying the stomach. BONES: No acute fracture. No worrisome bone lesions. OTHER: No other significant finding. IMPRESSION: NG tube has been placed as described. Gas pattern is nonspecific. TECHNICAL DOCUMENTATION: JOB ID: [id number] [employer]- All Rights Reserved Reading location - IP/workstation name: [email or web address]
[2018-11-06] MEDS: METOPROLOL TARTRATE 25 MG TABLET NG SCH ×2 (14:33→21:22)
[2018-11-06] MEDS ORDERED: HEPARIN SOD (PORCINE) 5,000 UNIT/ML 1 ML VIAL ONE (14:53)
[2018-11-06] MEDS: METHYLPREDNISOLONE INJ 40 MG/1 ML SDV IV SCH ×3 (15:00→23:57)
[2018-11-06] MEDS ORDERED: HEPARIN SOD (PORCINE) 1,000 UNIT/ML 10 ML VIAL IV PRN ×2 (15:15→16:14)
[2018-11-06] MEDS: HEPARIN SODIUM,PORCINE/D5W 25,000 UNIT/250 ML RTUINJ IV PRN ×2 (15:33→21:36)
[2018-11-06] MEDS: INSULIN LISPRO 100 UNIT/ML 3 ML VIAL SUBCUT SCH ×2 (15:36→18:30)
[2018-11-06] MEDS: VANCOMYCIN HCL 1,000 MG in DEXTROSE 5%-WATER 250 ML IV SCH (16:06)
[2018-11-06 16:17] LABS: ARTERIAL BLOOD BASE EXCESS -3.3 mmol/L; ARTERIAL BLOOD HCO3 21.9 mmol/L (20-24); ARTERIAL BLOOD O2 SATURATION 97.2 % (94-98); ARTERIAL BLOOD PCO2 39.9 mmHg (35-45); ARTERIAL BLOOD PH 7.36 (7.35-7.45); ARTERIAL BLOOD PO2 97.8 mmHg (80-100); ARTERIAL BLOOD TOTAL CO2 23.2 mmol/L (23-27)
[2018-11-06 16:18] LABS: ARTERIAL BLOOD FIO2 80%
--- NOTE | 2018-11-06 16:39 | Progress Note ---
Provider Note Provider Note: 11/06/2018-during morning rounds I discussed patient with Dr. Benitez in regards to non-STEMI. Dr. Benitez decided to treat patient medically. Patient placed on aspirin, Plavix, beta-abner, isosorbide and heparin drip. Dr. Benitez will continue to follow
[2018-11-06 17:19] LABS: CREATINE KINASE MB 23.7 ng/mL (<4.55)
[2018-11-06 17:25] LABS: TROPONIN I 2.77 ng/mL
[2018-11-06] MEDS: DOCUSATE SODIUM 100 MG/10 ML UDC NG SCH (18:05)
[2018-11-06] MEDS ORDERED: SUCCINYLCHOLINE CHLORIDE INJ 200 MG/10 ML VIAL ONE ×2 (18:28→20:38)
--- NOTE | 2018-11-06 20:41 | XCELERA REPORT ---
[address] [address] Transthoracic Echocardiogram Report Name: GAVINO PEDRAZA Age: 78 yrs Gender: Male : 1940 Patient Status: Inpatient Patient Location: ICU^605^A Study Date: 11/06/2018 01:45 PM Height: 67 in Weight: 167 lb BSA: 1.9 m2 Procedure: A two-dimensional transthoracic echocardiogram with color flow and Doppler was performed. Study Quality: Fair. Reason For Study: NSTEMI, History: NSTEMI,. Ordering Physician: HERACLIO WILLIS Performed By: Kenna Melara Interpretation Summary The left ventricle is normal in size. There is normal left ventricular wall thickness. The left ventricular ejection fraction is within normal limits. LV EF is > than 60% Doppler measurements suggest impaired left ventricular relaxation, which is associated with grade I/IV or mild diastolic dysfunction The left ventricular wall motion is normal. There is no thrombus. No ASD ,VSD , or PFO seen. The right ventricle is mildly dilated. There is mild right ventricular hypertrophy. The right ventricular systolic function is borderline reduced. The right atrium is normal. The left atrium is mildly dilated. There is moderate mitral annular calcification. There is no evidence of mitral valve prolapse. There is no vegetation seen on the mitral valve. There is no mitral valve stenosis. There is a moderate to severe amount of mitral regurgitation There is no aortic valvular vegetation. There is aortic sclerosis without aortic stenosis. There is a moderate amount of aortic regurgitation There is no tricuspid stenosis. There is a moderate amount of tricuspid regurgitation There is moderate pulmonary hypertension by echo RVSP is at least 56 mm of HG , with at least RA mean of 20. There is no pulmonic valvular stenosis. There is no pulmonic valvular regurgitation. The aortic root is normal size. The inferior vena cava appeared dilated and did not change with respiration (RAP > 20 mmHg) There is no pericardial effusion. Small left pleural effusion. MMode/2D Measurements & Calculations RVDd: 3.8 cm LVIDd: 4.6 cm FS: 34.2 % Ao root diam: 3.6 cm IVSd: 1.1 cm LVIDs: 3.0 cm EDV(Teich): Ao root area: LVPWd: 1.0 cm 95.6 ml 10.0 cm2 ESV(Teich): LA dimension: 3.7 cm 35.1 ml EF(Teich): 63.3 % LVLd ap4: 7.6 cm SV(MOD-sp4): EDV(MOD-sp4): 67.0 ml 100.0 ml LVLs ap4: 6.1 cm ESV(MOD-sp4): 33.0 ml EF(MOD-sp4): 67.0 % Doppler Measurements & Calculations MV E max jerod: MV P1/2t max jerod: Ao V2 max: AI max jerod: 80.9 cm/sec 81.9 cm/sec 147.7 cm/sec 382.6 cm/sec MV A max jerod: MV P1/2t: 60.6 msec Ao max PG: AI max P.5 mmHg 91.3 cm/sec MVA(P1/2t): 3.6 cm2 8.7 mmHg AI dec slope: MV E/A: 0.89 MV dec slope: 247.9 cm/sec2 396.0 cm/sec2 AI P1/2t: 452.0 msec MV dec time: 0.20 sec LV V1 max PG: PA V2 max: TR max jerod: AV P1/2t-pr_phl: 2.6 mmHg 62.2 cm/sec 299.7 cm/sec 452.0 msec LV V1 max: PA max P.5 mmHg TR max P.0 cm/sec 35.9 mmHg MV P1/2t-pr_phl: 60.6 msec Left Ventricle The left ventricle is normal in size. There is normal left ventricular wall thickness. The left ventricular ejection fraction is within normal limits. LV EF is > than 60%. Doppler measurements suggest impaired left ventricular relaxation, which is associated with grade I/IV or mild diastolic dysfunction. The left ventricular wall motion is normal. There is no thrombus. No ASD ,VSD , or PFO seen. Right Ventricle The right ventricle is mildly dilated. There is mild right ventricular hypertrophy. The right ventricular systolic function is borderline reduced. Atria The right atrium is normal. The left atrium is mildly dilated. Mitral Valve There is moderate mitral annular calcification. There is no evidence of mitral valve prolapse. There is no vegetation seen on the mitral valve. There is no mitral valve stenosis. There is a moderate to severe amount of mitral regurgitation. Aortic Valve There is no aortic valvular vegetation. There is aortic sclerosis without aortic stenosis. There is a moderate amount of aortic regurgitation. Tricuspid Valve There is no tricuspid stenosis. There is a moderate amount of tricuspid regurgitation. There is moderate pulmonary hypertension by echo. RVSP is at least 56 mm of HG , with at least RA mean of 20. Pulmonic Valve There is no pulmonic valvular stenosis. There is no pulmonic valvular regurgitation. Great Vessels The aortic root is normal size. The inferior vena cava appeared dilated and did not change with respiration (RAP > 20 mmHg). Effusions There is no pericardial effusion. Small left pleural effusion. : HERACLIO WILLIS, Elvira
[2018-11-06] MEDS: IPRATROPIUM/ALBUTEROL 0.5-2.5 MG/3 ML AMPUL NEB PRN (20:44)
[2018-11-06] MEDS: AZITHROMYCIN 500 MG in DEXTROSE 5%-WATER 250 ML IV SCH (21:21)
[2018-11-06] MEDS: QUETIAPINE FUMARATE 25 MG TABLET NG SCH (21:21)
[2018-11-06] MEDS: CEFEPIME 2 GM/D5W RTU 2 GM/50 ML RTUPB IV SCH (21:21)
[2018-11-06] MEDS: ATORVASTATIN CALCIUM 80 MG TABLET NG SCH (21:22)
[2018-11-06] MEDS ORDERED: CEFTRIAXONE 1 GM/D5W RTU 1 GM/50 ML RTUPB IV SCH (22:00)
--- NOTE | 2018-11-06 22:14 | PDOC CONSULTATION ---
Consultation-Blank Consultation: CARDIOLOGY CONSULTATION Dr. Elvira Benitez on 11/06/2018. Patient seen at 1500 on 11/06/2018. REASON FOR CONSULTATION: Patient admitted with pneumonia and respiratory failure with ongoing elevations of troponin and abnormal EKG. CONSULT REQUESTING PHYSICIAN: Dr. Briseno, [facility]. HISTORY PRESENT ILLNESS: Note unable to obtain history from the patient's incident intubated. History obtained from the patient's gravity prospecting observer helper. The patient recently moved from [facility] to [place] about 3 weeks ago. The patient has a 1 day history of abdominal pain which the caregiver says that it is in the right mid quadrant to the side of the abdomen and subsequently had some confusion and vomiting. Although it is mentioned in the chart that the patient has chronic dementia, the gravity prospecting observer helper states that the patient has no evidence of dementia except when he gets acutely ill or when he is treated with narcotics or sedatives. The patient had a CAT scan which apart from urinary retention also showed that there is a right lower lobe pneumonia. The patient subsequently was on telemetry where he went into acute respiratory distress with severe respiratory acidosis and hypoxemia and was intubated. The patient's EKG shows anterolateral ST-T changes suggestive of ischemia and also the troponin is elevated and is on the rise. The patient at present is intubated and appears to be comfortable. There is no arrhythmia seen on the monitor. As per the gravity prospecting observer helper the patient is most recent chest pains or discomfort. He has no history of fever chills or Reiger's.. There is no wheezing or cough. PAST MEDICAL HISTORY: The patient has a history of coronary artery disease and a s per the gravity prospecting observer helper about a year ago he had a cardiac catheterization in the [facility] in [place], and was found to have significant coronary artery disease, but was advised against coronary bypass graft surgery in view of the patient's age and vasculopathy. The details of this are awaited. The gravity prospecting observer helper states that he will get the records from the [facility] in [place]. The patient has no history of COPD or asthma. There is no history of sleep apnea. There is a history of hypertension hyperlipidemia. The patient has a history of significant vasculopathy, and has had femoral bypass grafts and also has a right axillary artery to femoral artery bypass graft surgery which is working well. He is also had a history of abdominal aortic aneurysm that was repaired. The gravity prospecting observer helper states that the patient has significant blockages in the lower aorta and the arteries of the legs and hence the bypass. The patient does not walk much or ambulate much. As per the gravity prospecting observer helper there is no prior history of NM or anginal symptoms. There is no history of coronary bypass graft surgery or coronary percutaneous intervention. Of note the gravity prospecting observer helper states that the patient has intermittent episodes of aspiration. There is no prior history of thyroid disease, or TIA or CVA. There is no history of anxiety or depression. Although the gravity prospecting observer helper states that the patient has not been told that he has chronic kidney disease, the patient's renal function are compromised this admission it is not clear whether this is acute on chronic kidney disease or acute renal failure. PAST SURGICAL HISTORY: History of right axillofemoral bypass surgery, right femoral bypass surgery femorofemoral crossover surgery. SOCIAL HISTORY: The patient is normally smoked. There is no history of EtOH abuse. family HISTORY: Is positive for peripheral vascular disease and coronary artery disease. RESUSCITATION STATUS: The patient is a full code his gravity prospecting observer helper Mr. Naveed Cosme. is his surrogate healthcare decision maker. REVIEW SYSTEMS: Is limited as per the K gravity prospecting observer helper no anginal symptoms. No history of congestive heart failure no history of syncope or cardiac arrhythmia. History of aspiration episodes as mentioned earlier. Intermittent episodes of confusion most likely secondary to the effects of narcotics and sedatives, and also secondary to delirium due to acute infectious process. There is no history of cough or sputum production or wheezing. There is no symptoms of seizures headaches or migraines or TIA CVA. There is no history of anxiety or depression. There is no history of diabetes mellitus or thyroid disease. No no symptoms of UTI. He states that in the past there is no history of urinary retention. But the CAT scan this admission showed that the patient had 6 and 30 mL of urine in his bladder and subsequently had a Garcia placed. The patient is said to have a history of chronic constipation. He takes laxatives regularly. There is no history of GI bleed or bleeding diathesis. Hence no contraindication for full dose IV heparin or dual platelet agent therapy. Acetaminophen [Tylenol 325 mg Tablet] 650 mg PO Q6HP PRN 11/06/18 Aspirin [Ecotrin 81 mg EC Tablet] 81 mg PO DAILY 11/06/18 Atorvastatin Calcium [Lipitor 80 mg Tablet] 40 mg PO QHS 11/06/18 Budesonide/Formoterol Fumarate [Symbicort Hfa 160-4.5 Mcg Inhaler 6 gm] 2 puff IH Q12 11/06/18 Cholecalciferol (Vitamin D3) [Vitamin D3] 1,000 unit PO DAILY 11/06/18 Clopidogrel Bisulfate [Plavix 75 mg Tablet] 75 mg PO DAILY 11/06/18 Docusate Sodium [Colace 100 mg Capsule] 200 mg PO BIDP PRN 11/06/18 Ferrous Sulfate 324 mg PO BID 11/06/18 Furosemide [Lasix 20 mg Tablet] 20 mg PO DAILY 11/06/18 Isosorbide Mononitrate [Imdur 30 mg Tablet.er] 30 mg PO DAILY 11/06/18 Melatonin [Melatonin 3 mg Tablet] 6 mg PO QHS 11/06/18 Metoprolol Tartrate [Lopressor 25 mg Tablet] 25 mg PO Q12 11/06/18 Nitroglycerin [Nitrostat 0.4 mg (1/150 Gr) Tabs 25/Bottle] 1 tab SL Q5MP PRN 11/06/18 Omeprazole 40 mg PO QAM 11/06/18 Polyethylene Glycol 3350 [Gavilax] 17 gm PO DAILYP PRN 11/06/18 Prochlorperazine Maleate 5 mg PO DAILYP PRN 11/06/18 Quetiapine Fumarate [Seroquel 25 mg Tablet] 37.5 mg PO QHS 11/06/18 Tiotropium [place] [Spiriva Handihaler 5 Cap/Kit (18 Mcg/Cap)] 1 cap IH DAILY 11/06/18 Current Medications Acetaminophen (Tylenol 650 Mg Supp) 650 mg LA Q4HP PRN PRN Reason: For headache, pain or fever Stop: 12/06/18 02:24 Acetaminophen (Tylenol 325 Mg Tablet) 650 mg NG Q4HP PRN PRN Reason: Temperature greater than 101F Stop: 12/06/18 02:13 Acetylcysteine (Mucomist 20% Soln 800 Mg/4 Ml) 600 mg NEB RTBID MARGARET Stop: 12/06/18 07:59 Last Admin: 11/06/18 20:44 Dose: 600 mg Documented by: Al Hydrox/Mg Hydrox/Simethicone (Maalox Plus Susp 30 Udcup) 30 ml NG Q6HP PRN PRN Reason: HEARTBURN Stop: 12/06/18 02:24 Albuterol/Ipratropium (Duoneb 3 Ml Ampul) 3 ml NEB RTQ4HP PRN PRN Reason: SHORTNESS OF BREATH Stop: 12/06/18 13:02 Last Admin: 11/06/18 20:44 Dose: 3 ml Documented by: Aspirin (Aspirin 81 Mg Chewable Tablet) 81 mg NG DAILY MARGARET Stop: 12/07/18 09:59 Atorvastatin Calcium (Lipitor 80 Mg Tablet) 80 mg NG QHS MARGARET Stop: 12/06/18 21:59 Last Admin: 11/06/18 21:22 Dose: 80 mg Documented by: Clopidogrel Bisulfate (Plavix 75 Mg Tablet) 75 mg NG DAILY MARGARET Stop: 12/06/18 11:59 Dextrose (Dextrose Inj 50% Syringe (25 Gm/50 Ml)) 12.5 gm IV PRN PRN; Protocol PRN Reason: FOR BG 50-69 IN ALERT PATIENT Stop: 12/06/18 02:26 Dextrose (Dextrose Inj 50% Syringe (25 Gm/50 Ml)) 25 gm IV PRN PRN; Protocol PRN Reason: PER PROTOCOL Stop: 12/06/18 02:26 Docusate Sodium (Colace Udc 100 Mg/10 Ml Oral Soln) 100 mg NG BID MARGARET Stop: 12/06/18 17:59 Last Admin: 11/06/18 18:05 Dose: 100 mg Documented by: Glucagon (Glucagen Inj 1 Mg Vial) 1 mg IM PRN PRN; Protocol PRN Reason: Evaluate for BG < 70 Stop: 12/06/18 02:26 Glucose (Glutose 40% Gel 15 Gm Tube) 15 gm PO PRN PRN; Protocol PRN Reason: FOR BG 50-69 IN ALERT PATIENT Stop: 12/06/18 02:26 Glucose (Glutose 40% Gel 15 Gm Tube) 30 gm PO PRN PRN; Protocol PRN Reason: FOR BG < 50 IN ALERT PATIENT Stop: 12/06/18 02:26 Guaifenesin (Robitussin Syrup 200 Mg/10 Ml Ud Cup) 200 mg NG QIDP PRN PRN Reason: COUGH Stop: 12/06/18 02:13 Heparin Sodium (Porcine) (Heparin Inj 1,000 Unit/Ml 10 Ml Vial) 0 - 12,000 unit IV .BOLUS PER PROTOCOL PRN; Protocol PRN Reason: RESPOND TO aPTT VALUE Stop: 12/06/18 15:14 Sodium Chloride (Nacl 0.9% 1000 Ml Iv Soln) 1,000 mls @ 100 mls/hr IV ONCE PRN PRN Reason: PER PROTOCOL Stop: 12/05/18 22:38 Last Infusion: 11/06/18 05:32 Dose: Infused Documented by: Azithromycin 500 mg/ Dextrose 250 mls @ 250 mls/hr IV QHS [facility] Stop: 11/13/18 21:59 Last Infusion: 11/06/18 22:29 Dose: Infused Documented by: Cefepime HCl (Maxipime Rtu 2 Gm-D5w 50 Ml Premix Bag) 2 gm in 50 mls @ 100 mls/hr IV Q12 [facility] Stop: 11/13/18 21:59 Last Infusion: 11/06/18 21:55 Dose: Infused Documented by: Heparin Sodium/Dextrose (Heparin Rtu 25,000 Unit/250 Ml D5w Premix) 25,000 unit in 250 mls @ 0 mls/hr IV CONTINUOUS PRN; Protocol PRN Reason: THIS MED IS NOT "PRN" Stop: 12/06/18 13:11 Last Admin: 11/06/18 21:36 Dose: 10 unit/kg/hr, 7.62 mls/hr Documented by: Vancomycin HCl 1,000 mg/ (Dextrose) 250 mls @ 166.667 mls/hr IV DAILY [facility] Stop: 11/13/18 15:59 Last Infusion: 11/06/18 17:36 Dose: Infused Documented by: Propofol (Diprivan Rtu 1000 Mg/100 Ml Inf.Bottle) 1,000 mg in 100 mls @ 2.286 mls/hr IV CONTINUOUS PRN; Protocol PRN Reason: THIS MED IS NOT "PRN" Stop: 12/06/18 14:18 Last Admin: 11/06/18 18:24 Dose: 30 mcg/kg/min, 13.72 mls/hr Documented by: Lactated Ringer's (Lactated Ringers 1000 Ml Iv Soln) 1,000 mls @ 100 mls/hr IV CONTINUOUS PRN PRN Reason: THIS MED IS NOT "PRN" Stop: 12/06/18 14:53 Last Admin: 11/06/18 15:17 Dose: 100 mls/hr Documented by: Insulin Human Regular (Humulin R (Pyxis) Insulin 100 Unit/Ml 3ml) 0 - 15 unit SUBCUT [facility]; Protocol Stop: 12/06/18 02:24 Ipratropium [place] (Atrovent 0.02% Neb 0.5 Mg/2.5 Ml Ampul) 0.5 mg NEB RTQ8 MARGARET Stop: 12/06/18 07:59 Last Admin: 11/06/18 15:22 Dose: 0.5 mg Documented by: Magnesium Hydroxide (Milk Of Magnesia 30 Ml Udcup) 30 ml NG HSP PRN PRN Reason: FOR CONSTIPATION Stop: 12/06/18 02:24 Methylprednisolone Sodium Succinate (Solu-Medrol Inj/Pf 40 Mg/1 Ml Sdv) 60 mg IV Q6 [facility] Stop: 12/06/18 13:44 Last Admin: 11/06/18 18:06 Dose: 60 mg Documented by: Metoprolol Tartrate (Lopressor 25 Mg Tablet) 25 mg NG Q12 [facility] Stop: 12/06/18 13:29 Last Admin: 11/06/18 21:22 Dose: 25 mg Documented by: Nitroglycerin (Nitrol 2% Ointment 1gm Packet) 0.5 gm TP Q6 [facility]ARGARET Stop: 12/07/18 00:00 Pantoprazole Sodium (Protonix [address] Packet) 40 mg NG Q6AM MARGARET Stop: 12/07/18 05:59 Pharmacy Profile Note (Medication Communication Order) 1 each .NOTICE NR Stop: 12/06/18 13:14 Quetiapine Fumarate (Seroquel 25 Mg Tablet) 25 mg NG QHS [facility] Stop: 12/06/18 21:59 Last Admin: 11/06/18 21:21 Dose: 25 mg Documented by: Sodium Chloride (Saline Flush 2.5 Ml Monoject Prefil Syrin) 2.5 ml IV Q8 [facility]ARG[facility]ET Stop: 12/06/18 05:59 Last Admin: 11/06/18 21:22 Dose: Not Given Documented by: Discontinued Medications Acetaminophen (Tylenol 325 Mg Tablet) 650 mg PO Q4HP PRN PRN Reason: Temperature greater than 101F Stop: 12/06/18 02:13 Al Hydrox/Mg Hydrox/Simethicone (Maalox Plus Susp 30 Udcup) 30 ml PO Q6HP PRN PRN Reason: HEARTBURN Stop: 12/06/18 02:24 Albuterol (Ventolin 0.083% Neb 2.5 Mg/3 Ml Ampul) 2.5 mg NEB Q15M MARGARET Stop: 11/05/18 21:00 Last Admin: 11/05/18 20:34 Dose: 2.5 mg Documented by: Albuterol (Ventolin 0.083% Neb 2.5 Mg/3 Ml Ampul) Confirm Administered Dose 2.5 mg NEB .STK-MED ONE Stop: 11/05/18 20:32 Last Admin: 11/05/18 20:44 Dose: Not Given Documented by: Albuterol/Ipratropium (Duoneb 3 Ml Ampul) 3 ml NEB NOW ONE Stop: 11/05/18 20:30 Last Admin: 11/05/18 20:34 Dose: 3 ml Documented by: Albuterol/Ipratropium (Duoneb 3 Ml Ampul) Confirm Administered Dose 3 ml NEB .STK-MED ONE Stop: 11/05/18 20:32 Last Admin: 11/05/18 20:43 Dose: Not Given Documented by: Aspirin (Ecotrin 81 Mg Ec Tablet) 81 mg PO DAILY [facility] Stop: 12/06/18 11:59 Last Admin: 11/06/18 18:59 Dose: Not Given Documented by: Azithromycin (Zithromax Inj 500 Mg Vial) 500 mg IV IVBAG (ED) ONE Stop: 11/06/18 01:36 Last Admin: 11/06/18 02:59 Dose: 500 mg Documented by: Carvedilol (Coreg 3.125 Mg Tablet) 3.125 mg PO Q12 MARGARET Stop: 12/06/18 11:59 Last Admin: 11/06/18 18:59 Dose: Not Given Documented by: Clopidogrel Bisulfate (Plavix 75 Mg Tablet) 75 mg PO DAILY MARGARET Stop: 12/06/18 11:59 Last Admin: 11/06/18 18:59 Dose: Not Given Documented by: Dextrose (Dextrose Inj 50% Syringe (25 Gm/50 Ml)) 25 gm IV NOW ONE Stop: 11/06/18 01:40 Last Admin: 11/06/18 02:25 Dose: 25 gm Documented by: Docusate Sodium (Colace 100 Mg Capsule) 100 mg PO BID [facility] Stop: 12/06/18 09:59 Last Admin: 11/06/18 09:38 Dose: 100 mg Documented by: Fentanyl Citrate (Sublimaze Inj/Pf 100 Mcg/2 Ml Ampule) Confirm Administered Dose 100 mcg .ROUTE .STK-MED ONE Stop: 11/06/18 12:38 Last Admin: 11/06/18 12:40 Dose: 50 mcg Documented by: Guaifenesin (Robitussin Syrup 200 Mg/10 Ml Ud Cup) 200 mg PO QIDP PRN PRN Reason: COUGH Stop: 12/06/18 02:13 Heparin Sodium (Porcine) (Heparin Inj 5,000 Units/Ml 1 Ml Vial) 5,000 unit SUBCUT Q8 MARGARET Stop: 12/06/18 05:59 Last Admin: 11/06/18 05:25 Dose: 5,000 unit Documented by: Heparin Sodium (Porcine) (Heparin Inj 1,000 Unit/Ml 10 Ml Vial) 4,000 unit IV NOW ONE Stop: 11/06/18 12:01 Last Admin: 11/06/18 14:05 Dose: Not Given Documented by: Heparin Sodium (Porcine) (Heparin Inj 1,000 Unit/Ml 10 Ml Vial) 0 - 12,000 unit IV .BOLUS PER PROTOCOL PRN; Protocol PRN Reason: RESPOND TO aPTT VALUE Stop: 12/06/18 16:13 Last Admin: 11/06/18 15:24 Dose: 4,000 units Documented by: Heparin Sodium (Porcine) (Heparin Inj 5,000 Units/Ml 1 Ml Vial) Confirm Administered Dose 5,000 unit .ROUTE .STK-MED ONE Stop: 11/06/18 14:54 Last Admin: 11/06/18 15:01 Dose: Not Given Documented by: Sodium Chloride (Nacl 0.9% 1000 Ml Iv Soln) 1,000 mls @ 0 mls/hr IV BOLUS ONE Stop: 11/05/18 20:22 Last Infusion: 11/05/18 21:45 Dose: Infused Documented by: Sodium Chloride (Nacl 0.9% 500 Ml Iv Soln) 500 mls @ 0 mls/hr IV NOW ONE Stop: 11/05/18 21:25 Last Infusion: 11/05/18 21:58 Dose: Infused Documented by: Ceftriaxone Sodium/Dextrose (Rocephin Rtu 1 Gm/D5w 50 Ml Premix) 1 gm in 50 mls @ 100 mls/hr IV NOW ONE Stop: 11/06/18 02:29 Last Infusion: 11/06/18 03:05 Dose: Infused Documented by: Lactated Ringer's (Lactated Ringers 1000 Ml Iv Soln) 1,000 mls @ 167 mls/hr IV CONTINUOUS PRN PRN Reason: THIS MED IS NOT "PRN" Stop: 12/06/18 02:13 Last Infusion: 11/06/18 12:29 Dose: Infused Documented by: Ceftriaxone Sodium/Dextrose (Rocephin Rtu 1 Gm/D5w 50 Ml Premix) 1 gm in 50 mls @ 100 mls/hr IV QHS MARGARET Stop: 11/13/18 21:59 Propofol (Diprivan Rtu 1000 Mg/100 Ml Inf.Bottle) Confirm Administered Dose 1,000 mg in 100 mls @ ud IV .STK-MED ONE Stop: 11/06/18 12:39 Last Admin: 11/06/18 15:01 Dose: Not Given Documented by: Insulin Human Lispro (Humalog Insulin 100 Unit/1 Ml 3 Ml Vial) 0 - 12 unit SUBCUT Q6 MARGARET; Protocol Stop: 12/06/18 13:44 Last Admin: 11/06/18 18:30 Dose: 2 unit Documented by: Insulin Human Regular (Humulin R (Pyxis) Insulin 100 Unit/Ml 3ml) 10 unit IV NOW ONE Stop: 11/06/18 01:40 Last Admin: 11/06/18 02:25 Dose: 10 unit Documented by: Insulin Human Regular (Humulin R (Pyxis) Insulin 100 Unit/Ml 3ml) 0 - 15 unit SUBCUT ACHSP PRN; Protocol PRN Reason: PER PROTOCOL Stop: 12/06/18 02:24 Isosorbide Mononitrate (Imdur 30 Mg Tablet.Er) 30 mg PO DAILY [facility] Stop: 12/06/18 11:59 Last Admin: 11/06/18 18:59 Dose: Not Given Documented by: Levalbuterol HCl (Xopenex Neb 0.63 Mg/3 Ml Ampul) 0.63 mg NEB RTQ2HP PRN PRN Reason: SHORTNESS OF BREATH Stop: 12/06/18 02:13 Levalbuterol HCl (Xopenex Neb 1.25 Mg/3 Ml Ampul) 1.25 mg NEB RTQ8 MARGARET Stop: 12/06/18 07:59 Last Admin: 11/06/18 08:09 Dose: 1.25 mg Documented by: Lorazepam (Ativan Inj 2 Mg/1 Ml Vial) 0.5 mg IV NOW ONE Stop: 11/05/18 21:17 Last Admin: 11/05/18 21:21 Dose: 0.5 mg Documented by: Lorazepam (Ativan Inj 2 Mg/1 Ml Vial) 0.5 mg IV NOW ONE Stop: 11/05/18 23:17 Last Admin: 11/05/18 23:20 Dose: 0.5 mg Documented by: Lorazepam (Ativan Inj 2 Mg/1 Ml Vial) 1 mg IV Q4HP PRN PRN Reason: ANXIETY Stop: 11/13/18 09:24 Last Admin: 11/06/18 09:38 Dose: 1 mg Documented by: Lorazepam (Ativan Inj 2 Mg/1 Ml Vial) Confirm Administered Dose 2 mg .ROUTE .STK-MED ONE Stop: 11/06/18 09:33 Last Admin: 11/06/18 09:43 Dose: Not Given Documented by: Magnesium Hydroxide (Milk Of Magnesia 30 Ml Udcup) 30 ml PO HSP PRN PRN Reason: FOR CONSTIPATION Stop: 12/06/18 02:24 Methylprednisolone Sodium Succinate (Solu-Medrol Inj/Pf 125 Mg/2 Ml Sdv) 125 mg IV NOW ONE Stop: 11/05/18 20:30 Last Admin: 11/05/18 20:38 Dose: 125 mg Documented by: Methylprednisolone Sodium Succinate (Solu-Medrol Inj/Pf 125 Mg/2 Ml Sdv) Confirm Administered Dose 125 mg .ROUTE .STK-MED ONE Stop: 11/05/18 20:32 Last Admin: 11/05/18 20:43 Dose: Not Given Documented by: Midazolam HCl (Versed 2 Mg/2 Ml Inj) Confirm Administered Dose 2 mg .ROUTE .STK- MED ONE Stop: 11/06/18 12:13 Last Admin: 11/06/18 14:04 Dose: Not Given Documented by: Morphine Sulfate (Morphine 10 Mg/Ml Inj) Confirm Administered Dose 10 mg .ROUTE .STK-MED ONE Stop: 11/06/18 12:05 Last Admin: 11/06/18 12:08 Dose: 4 mg Documented by: Nalbuphine HCl (Nubain Inj 10 Mg/1 Ml Ampule) 5 mg IV Q3HP PRN PRN Reason: PAIN SCALE 1-3/5 Stop: 11/13/18 03:32 Nalbuphine HCl (Nubain Inj 10 Mg/1 Ml Ampule) 10 mg IV Q3HP PRN PRN Reason: PAIN SCALE 4-5/5 Stop: 11/13/18 03:33 Last Admin: 11/06/18 11:57 Dose: 10 mg Documented by: Nitroglycerin (Nitrol 2% Ointment 1gm Packet) Confirm Administered Dose 1 gm .ROUTE .STK-MED ONE Stop: 11/06/18 12:05 Last Admin: 11/06/18 14:04 Dose: Not Given Documented by: Nitroglycerin (Nitrol 2% Ointment 1gm Packet) 0.5 gm TP NOW ONE Stop: 11/06/18 23:01 Last Admin: 11/06/18 22:51 Dose: Not Given Documented by: Nitroglycerin (Nitrol 2% Ointment 1gm Packet) Confirm Administered Dose 1 gm .ROUTE .STK-MED ONE Stop: 11/06/18 22:10 Last Admin: 11/06/18 22:26 Dose: 0.5 gm Documented by: Ondansetron HCl (Zofran Inj/Pf 4 Mg/2 Ml Sdv) 8 mg IV NOW ONE Stop: 11/05/18 20:22 Last Admin: 11/05/18 20:36 Dose: 8 mg Documented by: Pantoprazole Sodium (Protonix [address] Tablet) 40 mg PO Q6AM [facility]ARGARET Stop: 12/06/18 05:59 Last Admin: 11/06/18 05:25 Dose: 40 mg Documented by: Succinylcholine Chloride (Anectine Inj 200 Mg/10 Ml Vial) 200 mg .ROUTE .STK- MED ONE Stop: 11/06/18 18:29 Succinylcholine Chloride (Anectine Inj 200 Mg/10 Ml Vial) 200 mg .ROUTE .STK- MED ONE Stop: 11/06/18 20:39 Tuberculin PPD (Tubersol Inj 5 Tu/0.1 Ml 1 Ml Vial) 5 tu ID NOW ONE Stop: 11/06/18 04:01 Last Admin: 11/06/18 05:42 Dose: 5 tu Documented by: Tuberculin PPD (Tubersol Inj 5 Tu/0.1 Ml 1 Ml Vial) Confirm Administered Dose 50 tu ID .STK-MED ONE Stop: 11/06/18 05:27 Last Admin: 11/06/18 05:40 Dose: Not Given Documented by: PHYSICAL EXAMINATION: The patient appears to be older than his stated age. He appears to be chronically ill. He is not fighting the ventilator. Selected Entries 11/06/18 11/06/18 17:35 18:00 Temperature 97.0 F Heart Rate ( 65 Monitors) Respiratory 15 Rate Blood Pressure 106/63 Blood Pressure 77 Mean Oxygen Delivery Mechanical Method ( Ventilator includes room air) Percent of 80 Oxygen HEAD: Is atraumatic normocephalic. EYES: Pupils equal regular reactive to light. ENT is negative. NECK: Is supple. There is no JVD. Carotids are equal there is no bruit there is no lymphadenopathy. There is no accessory muscle respiration use. There is no lymphadenopathy. Trachea central. LUNGS: Shows a few dry crackles in the right base. The rest of the lungs show few scattered rhonchi. There is no wheezing or rales of CHF. HEART: S1-S2 is heard. There is no S3 gallop. There is no S4 gallop. There is murmur of mitral regurgitation and tricuspid regurgitation present. The mitral regurgitation murmur is heard and the apex with radiation to the left axilla. There is no rub. ABDOMEN: Soft. There is nontender. There is no hepatospleno megaly bowel sounds are well heard. EXTREMITIES: Femoral pulses are very difficult to palpate leg pulses are absent. There is no pedal edema. There is no DVT or cellulitis. There is no signs or clubbing. Note there is a right axillofemoral bypass graft surgery on the right side which is working well. P[employer] AND COMPOSITES INSPECTOR and PSYCHIATRIC not examined since patient is intubated and sedated. EKG: The first EKG shows sinus rhythm ST depression anterolateral leads consistent with ischemia. The second EKG shows slightly improved ST changes in the anterolateral area with the patient being sinus rhythm. Labs- Entire Visit 11/05/18 11/05/18 11/05/18 20:48 20:50 20:50 WBC 17.3 H RBC 4.73 Hgb 14.1 Hct 42.3 MCV 89 MCH 29.8 MCHC 33.3 RDW 17.4 H Plt Count 256 Lymph % (Auto) 9.4 L [place] % (Auto) 6.2 Eos % (Auto) 0.1 Baso % (Auto) 0.1 Absolute Neuts (auto) 14.6 H Absolute Lymphs (auto) 1.6 Absolute Monos (auto) 1.1 Absolute Eos (auto) 0.0 Absolute Basos (auto) 0.0 Seg Neutrophils % 84.2 H PT INR APTT Carbonic Acid 0.93 L HCO3/H2CO3 Ratio 17:1 ABG pH 7.33 L ABG pCO2 31.0 L ABG pO2 62.4 L ABG HCO3 15.9 L ABG Total CO2 16.9 L ABG O2 Saturation 90.7 L ABG Base Excess -8.6 FiO2 100% Sodium 136.4 L Potassium 5.5 H Chloride 100 Carbon Dioxide 17 L Anion Gap 19 BUN 31 H Creatinine 2.10 H Est GFR ( Amer) 37 L Est GFR (MDRD) Non-Af 31 L Glucose 171 H POC Glucose Calcium 9.2 Total Bilirubin 0.9 Direct Bilirubin 0.4 Neonat Total Bilirubin Not Reportable Neonat Direct Bilirubin Not Reportable Neonat Indirect Bili Not Reportable AST 43 ALT 20 Alkaline Phosphatase 95 Creatine Kinase 291 H CK-MB (CK-2) Troponin I NT-Pro-B Natriuret Pep Total Protein 8.6 H Albumin 4.9 Free T4 Free T3 pg/mL Urine Color Urine Appearance Urine pH Ur Specific [place] Urine Protein Urine Glucose (UA) Urine Ketones Urine Blood Urine Nitrite Urine Bilirubin Urine Urobilinogen Ur Leukocyte Esterase Urine WBC (Auto) Urine RBC (Auto) U Hyaline Cast (Auto) Urine Bacteria (Auto) Squamous Epi Cells Auto Urine Mucus (Auto) Urine Ascorbic Acid 11/05/18 11/06/18 11/06/18 20:50 03:13 03:13 WBC RBC Hgb Hct MCV MCH MCHC RDW Plt Count Lymph % (Auto) [place] % (Auto) Eos % (Auto) Baso % (Auto) Absolute Neuts (auto) Absolute Lymphs (auto) Absolute Monos (auto) Absolute Eos (auto) Absolute Basos (auto) Seg Neutrophils % PT INR APTT Carbonic Acid HCO3/H2CO3 Ratio ABG pH ABG pCO2 ABG pO2 ABG HCO3 ABG Total CO2 ABG O2 Saturation ABG Base Excess FiO2 Sodium Potassium Chloride Carbon Dioxide Anion Gap BUN Creatinine Est GFR ( Amer) Est GFR (MDRD) Non-Af Glucose POC Glucose Calcium Total Bilirubin Direct Bilirubin Neonat Total Bilirubin Neonat Direct Bilirubin Neonat Indirect Bili AST ALT Alkaline Phosphatase Creatine Kinase 458 H CK-MB (CK-2) 5.16 H 11.60 H Troponin I 0.496 1.240 NT-Pro-B Natriuret Pep 969 H Total Protein Albumin Free T4 Free T3 pg/mL Urine Color Urine Appearance Urine pH Ur Specific [place] Urine Protein Urine Glucose (UA) Urine Ketones Urine Blood Urine Nitrite Urine Bilirubin Urine Urobilinogen Ur Leukocyte Esterase Urine WBC (Auto) Urine RBC (Auto) U Hyaline Cast (Auto) Urine Bacteria (Auto) Squamous Epi Cells Auto Urine Mucus (Auto) Urine Ascorbic Acid 11/06/18 11/06/18 11/06/18 03:13 03:16 05:00 WBC RBC Hgb Hct MCV MCH MCHC RDW Plt Count Lymph % (Auto) [place] % (Auto) Eos % (Auto) Baso % (Auto) Absolute Neuts (auto) Absolute Lymphs (auto) Absolute Monos (auto) Absolute Eos (auto) Absolute Basos (auto) Seg Neutrophils % PT INR APTT Carbonic Acid HCO3/H2CO3 Ratio ABG pH ABG pCO2 ABG pO2 ABG HCO3 ABG Total CO2 ABG O2 Saturation ABG Base Excess FiO2 Sodium Potassium Chloride Carbon Dioxide Anion Gap BUN Creatinine Est GFR ( Amer) Est GFR (MDRD) Non-Af Glucose POC Glucose 270 H Calcium Total Bilirubin Direct Bilirubin Neonat Total Bilirubin Neonat Direct Bilirubin Neonat Indirect Bili AST ALT Alkaline Phosphatase Creatine Kinase CK-MB (CK-2) Troponin I NT-Pro-B Natriuret Pep Total Protein Albumin Free T4 0.96 Free T3 pg/mL 2.17 L Urine Color YELLOW Urine Appearance SLIGHTLY-CLOUDY Urine pH 5.0 Ur Specific [place] 1.018 Urine Protein 30 H Urine Glucose (UA) 50 H Urine Ketones NEGATIVE Urine Blood SMALL H Urine Nitrite NEGATIVE Urine Bilirubin NEGATIVE Urine Urobilinogen NEGATIVE Ur Leukocyte Esterase NEGATIVE Urine WBC (Auto) 11 Urine RBC (Auto) 1 U Hyaline Cast (Auto) 4 Urine Bacteria (Auto) TRACE Squamous Epi Cells Auto 5 Urine Mucus (Auto) RARE Urine Ascorbic Acid NEGATIVE 11/06/18 11/06/18 11/06/18 07:32 09:39 09:39 WBC RBC Hgb Hct MCV MCH MCHC RDW Plt Count Lymph % (Auto) [place] % (Auto) Eos % (Auto) Baso % (Auto) Absolute Neuts (auto) Absolute Lymphs (auto) Absolute Monos (auto) Absolute Eos (auto) Absolute Basos (auto) Seg Neutrophils % PT INR APTT Carbonic Acid HCO3/H2CO3 Ratio ABG pH ABG pCO2 ABG pO2 ABG HCO3 ABG Total CO2 ABG O2 Saturation ABG Base Excess FiO2 Sodium Potassium Chloride Carbon Dioxide Anion Gap BUN Creatinine Est GFR ( Amer) Est GFR (MDRD) Non-Af Glucose POC Glucose 163 H Calcium Total Bilirubin Direct Bilirubin Neonat Total Bilirubin Neonat Direct Bilirubin Neonat Indirect Bili AST ALT Alkaline Phosphatase Creatine Kinase 549 H CK-MB (CK-2) 19.30 H Troponin I 1.870 NT-Pro-B Natriuret Pep Total Protein Albumin Free T4 Free T3 pg/mL Urine Color Urine Appearance Urine pH Ur Specific [place] Urine Protein Urine Glucose (UA) Urine Ketones Urine Blood Urine Nitrite Urine Bilirubin Urine Urobilinogen Ur Leukocyte Esterase Urine WBC (Auto) Urine RBC (Auto) U Hyaline Cast (Auto) Urine Bacteria (Auto) Squamous Epi Cells Auto Urine Mucus (Auto) Urine Ascorbic Acid 11/06/18 11/06/18 11/06/18 11:20 11:42 12:22 WBC 16.4 H RBC 4.11 L Hgb 12.2 L Hct 36.9 L MCV 90 MCH 29.8 MCHC 33.2 RDW 17.2 H Plt Count 187 Lymph % (Auto) 6.0 L [place] % (Auto) 5.8 Eos % (Auto) 0.0 Baso % (Auto) 0.1 Absolute Neuts (auto) 14.4 H Absolute Lymphs (auto) 1.0 Absolute Monos (auto) 0.9 Absolute Eos (auto) 0.0 Absolute Basos (auto) 0.0 Seg Neutrophils % 88.1 H PT INR APTT Carbonic Acid 1.80 H HCO3/H2CO3 Ratio 10:1 ABG pH 7.13 L* ABG pCO2 59.8 H ABG pO2 35.0 L* ABG HCO3 19.6 L ABG Total CO2 21.4 L ABG O2 Saturation 49.9 L ABG Base Excess -10.1 FiO2 60% Sodium Potassium Chloride Carbon Dioxide Anion Gap BUN Creatinine Est GFR ( Amer) Est GFR (MDRD) Non-Af Glucose POC Glucose 167 H Calcium Total Bilirubin Direct Bilirubin Neonat Total Bilirubin Neonat Direct Bilirubin Neonat Indirect Bili AST ALT Alkaline Phosphatase Creatine Kinase CK-MB (CK-2) Troponin I NT-Pro-B Natriuret Pep Total Protein Albumin Free T4 Free T3 pg/mL Urine Color Urine Appearance Urine pH Ur Specific [place] Urine Protein Urine Glucose (UA) Urine Ketones Urine Blood Urine Nitrite Urine Bilirubin Urine Urobilinogen Ur Leukocyte Esterase Urine WBC (Auto) Urine RBC (Auto) U Hyaline Cast (Auto) Urine Bacteria (Auto) Squamous Epi Cells Auto Urine Mucus (Auto) Urine Ascorbic Acid 11/06/18 11/06/18 11/06/18 12:22 15:05 15:50 WBC RBC Hgb Hct MCV MCH MCHC RDW Plt Count Lymph % (Auto) [place] % (Auto) Eos % (Auto) Baso % (Auto) Absolute Neuts (auto) Absolute Lymphs (auto) Absolute Monos (auto) Absolute Eos (auto) Absolute Basos (auto) Seg Neutrophils % PT 15.0 INR 1.18 APTT 29.0 Carbonic Acid 1.20 HCO3/H2CO3 Ratio 18:1 ABG pH 7.36 ABG pCO2 39.9 ABG pO2 97.8 ABG HCO3 21.9 ABG Total CO2 23.2 ABG O2 Saturation 97.2 ABG Base Excess -3.3 FiO2 80% Sodium Potassium Chloride Carbon Dioxide Anion Gap BUN Creatinine Est GFR ( Amer) Est GFR (MDRD) Non-Af Glucose POC Glucose 138 H Calcium Total Bilirubin Direct Bilirubin Neonat Total Bilirubin Neonat Direct Bilirubin Neonat Indirect Bili AST ALT Alkaline Phosphatase Creatine Kinase CK-MB (CK-2) Troponin I NT-Pro-B Natriuret Pep Total Protein Albumin Free T4 Free T3 pg/mL Urine Color Urine Appearance Urine pH Ur Specific [place] Urine Protein Urine Glucose (UA) Urine Ketones Urine Blood Urine Nitrite Urine Bilirubin Urine Urobilinogen Ur Leukocyte Esterase Urine WBC (Auto) Urine RBC (Auto) U Hyaline Cast (Auto) Urine Bacteria (Auto) Squamous Epi Cells Auto Urine Mucus (Auto) Urine Ascorbic Acid 11/06/18 11/06/18 11/06/18 16:20 16:20 18:08 WBC RBC Hgb Hct MCV MCH MCHC RDW Plt Count Lymph % (Auto) [place] % (Auto) Eos % (Auto) Baso % (Auto) Absolute Neuts (auto) Absolute Lymphs (auto) Absolute Monos (auto) Absolute Eos (auto) Absolute Basos (auto) Seg Neutrophils % PT INR APTT Carbonic Acid HCO3/H2CO3 Ratio ABG pH ABG pCO2 ABG pO2 ABG HCO3 ABG Total CO2 ABG O2 Saturation ABG Base Excess FiO2 Sodium Potassium Chloride Carbon Dioxide Anion Gap BUN Creatinine Est GFR ( Amer) Est GFR (MDRD) Non-Af Glucose POC Glucose 188 H Calcium Total Bilirubin Direct Bilirubin Neonat Total Bilirubin Neonat Direct Bilirubin Neonat Indirect Bili AST ALT Alkaline Phosphatase Creatine Kinase 618 H CK-MB (CK-2) 23.70 H Troponin I 2.770 NT-Pro-B Natriuret Pep Total Protein Albumin Free T4 Free T3 pg/mL Urine Color Urine Appearance Urine pH Ur Specific [place] Urine Protein Urine Glucose (UA) Urine Ketones Urine Blood Urine Nitrite Urine Bilirubin Urine Urobilinogen Ur Leukocyte Esterase Urine WBC (Auto) Urine RBC (Auto) U Hyaline Cast (Auto) Urine Bacteria (Auto) Squamous Epi Cells Auto Urine Mucus (Auto) Urine Ascorbic Acid 11/06/18 11/06/18 11/06/18 21:05 21:05 22:53 WBC RBC Hgb Hct MCV MCH MCHC RDW Plt Count Lymph % (Auto) [place] % (Auto) Eos % (Auto) Baso % (Auto) Absolute Neuts (auto) Absolute Lymphs (auto) Absolute Monos (auto) Absolute Eos (auto) Absolute Basos (auto) Seg Neutrophils % PT INR APTT 120.1 H D Carbonic Acid HCO3/H2CO3 Ratio ABG pH ABG pCO2 ABG pO2 ABG HCO3 ABG Total CO2 ABG O2 Saturation ABG Base Excess FiO2 Sodium Potassium Chloride Carbon Dioxide Anion Gap BUN Creatinine Est GFR ( Amer) Est GFR (MDRD) Non-Af Glucose POC Glucose 184 H Calcium Total Bilirubin Direct Bilirubin Neonat Total Bilirubin Neonat Direct Bilirubin Neonat Indirect Bili AST ALT Alkaline Phosphatase Creatine Kinase CK-MB (CK-2) Troponin I 4.020 NT-Pro-B Natriuret Pep Total Protein Albumin Free T4 Free T3 pg/mL Urine Color Urine Appearance Urine pH Ur Specific [place] Urine Protein Urine Glucose (UA) Urine Ketones Urine Blood Urine Nitrite Urine Bilirubin Urine Urobilinogen Ur Leukocyte Esterase Urine WBC (Auto) Urine RBC (Auto) U Hyaline Cast (Auto) Urine Bacteria (Auto) Squamous Epi Cells Auto Urine Mucus (Auto) Urine Ascorbic Acid Chest X-Ray 11/05/18 20:22 IMPRESSION: No acute cardiopulmonary disease. Head CT 11/05/18 20:23 IMPRESSION: Mild atrophy and small vessel ischemic change TECHNICAL DOCUMENTATION: Quality ID # [id number]: Final reports with documentation of one or more dose reduction techniques (e.g., Automated exposure control, adjustment of the mA and/or kV according to patient size, use of iterative reconstruction technique) copyright 2011 [employer]- All Rights Reserved Abdomen/Pelvis CT 11/05/18 22:38 IMPRESSION: 1. Medial right lower lobe infiltrate/atelectasis, possibly a focal pneumonia. Please correlate with clinical symptoms. 2. Atherosclerosis, with partially visualized bypass grafts. 3. Moderately distended bladder (630 mL) 4. No acute inflammatory changes. Chest X-Ray 11/06/18 00:00 IMPRESSION: 1. No acute pulmonary findings. 2. Endotracheal tube terminates approximately 1.5 cm cranial to the soledad. Partially imaged enteric tube without evidence of complication. ECHOCARDIOGRAM: Normal left ventricular chamber size with no regional wall motion of normality. Normal left and ejection fraction of 60%. There is mild left ventricular diastolic dysfunction. Moderate to severe mitral regurgitation. Moderate aortic regurgitation. Moderate tricuspid regurgitation. Moderate pulmonary hypertension with right ventricle systolic pressure of at least 56 mmHg KUB X-Ray 11/06/18 13:03 IMPRESSION: NG tube has been placed as described. Gas pattern is nonspecific. IMPRESSION/RECOMMENDATION: 1. Non-ST elevation NM in a patient with history of coronary artery disease. Agree with aspirin and metoprolol by the NG tube. Will add nitrates. Agree with full dose IV heparin for at least 48 hours. Will add Brilinta. The bleeding complications of multiple agents such as heparin and aspirin and Brilinta have been discussed with the patient's gravity prospecting observer helper. 2. Acute respiratory failure with hypoxia [acute hypoxemic respiratory failure] most likely secondary to pneumonia right lower lobe. Continue ventilator, antibiotics and bronchodilators. 3. Aspiration pneumonia with right lower lobe pneumonia. 4. Moderate pulmonary hypertension with right ventricle systolic pressure of at least 56 mmHg. Moderate tricuspid regurgitation 5. Moderate to severe mitral regurgitation. We will watch out for arrhythmias or heart failure. Later we will cautiously add afterload reducing agents. 6.Coronary artery disease: We will get details from the [place] in [place]. Note patient patient will be at very high risk for cardiac catheterization in view of his vasculopathy and also in view of the patient's renal failure. This has been discussed explicitly with the gravity prospecting observer helper. Hence will maximize medical treatment. 7. Moderate aortic regurgitation: There is no peripheral signs of aortic re gurgitation. Later we will try the patient on afterload reducing agents. 8.History of hypertension: Current blood pressure reasonable at present 9. Peripheral vascular disease of significance. At present seems to be stable. 10. Renal failure. The patient's GFR is 31 mL/min which is stage III chronic kidney disease. Whether this is acute on chronic kidney disease versus acute renal failure is at present not known since no prior labs available. Medications reviewed. Medications and management plan discussed with attending providers on the case. Medical decision making is of high complexity. Detailed discussions were done with the patient's gravity prospecting observer helper Mr. Cosme. Will follow. Discussed with the jitterbug operator in the ICU.
--- NOTE | 2018-11-06 22:28 | EKG REPORT ---
SEVERITY:- BORDERLINE ECG - SINUS RHYTHM LOW VOLTAGE IN FRONTAL LEADS NONSPECIFIC ANTERIOR ST-T CHANGES : Confirmed by: Cody Cummins MD 06-Nov-2018 22:27:53
[2018-11-06] MEDS ORDERED: NITROGLYCERIN 2% OINTMENT 1 GM PACKET TP ONE (23:00)
[2018-11-06] MEDS ORDERED: TICAGRELOR 90 MG TABLET ONE (23:53)
[2018-11-06] MEDS: NITROGLYCERIN 2% OINTMENT 1 GM PACKET TP SCH (23:58)
[2018-11-07] MEDS: IPRATROPIUM BROMIDE 0.02% NEB 0.5 MG/2.5 ML AMPUL NEB SCH ×3 (00:37→15:44)
[2018-11-07] MEDS: PROPOFOL 1,000 MG/100 ML INFUS..BTL IV PRN ×2 (00:51→05:50)
[2018-11-07 03:44] LABS: HEMATOCRIT 33.1 % (37.9-51.0); MEAN CORPUSCULAR HEMOGLOBIN 29.5 pg (27.0-33.4); MEAN CORPUSCULAR HGB CONC 33.4 g/dL (32.0-36.0); MEAN CORPUSCULAR VOLUME 88 fl (80-97); PLATELET COUNT 162 10^3/uL (150-450); RED BLOOD COUNT 3.75 10^6/uL (4.35-5.55); RED CELL DISTRIBUTION WIDTH 17.1 % (11.5-14.0); WHITE BLOOD COUNT 9.1 10^3/uL (4.0-10.5)
[2018-11-07 04:20] LABS: ANION GAP 9 (5-19); BLOOD UREA NITROGEN 22 mg/dL (7-20); CALCIUM 9.2 mg/dL (8.4-10.2); CARBON DIOXIDE 23 mmol/L (22-30); CHLORIDE 108 mmol/L (98-107); CHOLESTEROL 140.32 mg/dL (0-200); GLUCOSE 146 mg/dL (75-110); POTASSIUM 4.5 mmol/L (3.6-5.0); TRIGLYCERIDES 227 mg/dL (<150)
[2018-11-07 04:26] LABS: VLDL CHOLESTEROL 45.4 mg/dL (10-31)
[2018-11-07 04:54] LABS: DIRECT LDL 72 mg/dL (<100)
[2018-11-07] MEDS: RINGERS SOLUTION,LACTATED 1,000 ML IV PRN ×2 (05:14→18:44)
[2018-11-07] MEDS: PANTOPRAZOLE SODIUM 40 MG PACKET.DR NG SCH (05:16)
[2018-11-07] MEDS: NITROGLYCERIN 2% OINTMENT 1 GM PACKET TP SCH ×2 (05:17→13:16)
[2018-11-07] MEDS: METHYLPREDNISOLONE INJ 40 MG/1 ML SDV IV SCH (05:17)
[2018-11-07 05:43] LABS: ARTERIAL BLOOD BASE EXCESS -1.2 mmol/L; ARTERIAL BLOOD H2CO3 1.07 mmol/L (1.05-1.35); ARTERIAL BLOOD HCO3 22.8 mmol/L (20-24); ARTERIAL BLOOD O2 SATURATION 92.9 % (94-98); ARTERIAL BLOOD PCO2 35.4 mmHg (35-45); ARTERIAL BLOOD PH 7.43 (7.35-7.45); ARTERIAL BLOOD PO2 63.4 mmHg (80-100); ARTERIAL BLOOD TOTAL CO2 23.8 mmol/L (23-27)
[2018-11-07 05:44] LABS: ARTERIAL BLOOD FIO2 45%
[2018-11-07] MEDS ORDERED: HYDRALAZINE HCL 10 MG TABLET NG SCH (06:00)
[2018-11-07] MEDS: INSULIN REG, HUMAN 100 UNIT/ML 3 ML VIAL (PYX) SUBCUT SCH ×4 (07:23→21:40)
[2018-11-07] MEDS: ACETYLCYSTEINE 20% SOLN 800 MG/4 ML VIAL.NEB NEB SCH ×2 (08:28→20:29)
--- NOTE | 2018-11-07 08:40 | RADIOLOGY REPORT (SQ) ---
EXAM DESCRIPTION: CHEST SINGLE VIEW COMPLETED DATE/TIME: 11/07/2018 5:42 am REASON FOR STUDY: resp failure, PNA COMPARISON: 11/06/2018, 11/05/2018 EXAM PARAMETERS: NUMBER OF VIEWS: One view. TECHNIQUE: Single frontal radiographic view of the chest acquired. RADIATION DOSE: NA LIMITATIONS: None. FINDINGS: LUNGS AND PLEURA: Air bronchograms in the medial right lung base from consolidation. Lung s otherwise clear. No pleural effusions or pneumothorax. MEDIASTINUM AND HILAR STRUCTURES: No masses. Contour normal. HEART AND VASCULAR STRUCTURES: Heart normal in size. Normal vasculature. BONES: No acute findings. HARDWARE: Endotracheal tube tip 5 cm above the soledad. Nasogastric tube tip and side port in the sto mach OTHER: No other significant finding. IMPRESSION: Air bronchograms in the medial right lung base from consolidation, atelectasis versus pn eumonia Endotracheal tube, nasogastric tube in good positioning TECHNICAL DOCUMENTATION: JOB ID: [id number] [employer]- All Rights Reserved Reading location - IP/workstation name: [email or web address]
--- NOTE | 2018-11-07 09:02 | EKG REPORT ---
SEVERITY:- BORDERLINE ECG - SINUS RHYTHM LOW VOLTAGE IN FRONTAL LEADS BORDERLINE PROLONGED QT INTERVAL DIFFUSE NONSPECIFIC ST-T CHANGES. : Confirmed by: Cody Cummins MD 07-Nov-2018 09:01:20
--- NOTE | 2018-11-07 09:30 | PDOC PROGRESS REPORT ---
Subjective Progress Note for:: 11/07/18 Subjective:: Pt had no acute overnight events. I placed pt on an SBT this am. He passed, therefore I extubated the pt. Reason For Visit: COMMUNITY ACQUIRED RIGHT LOWER LOBE PNUEMONIA Physical Exam Vital Signs: Temp Pulse Resp BP Pulse Ox 98.1 F 75 20 135/66 H 95 11/07/18 07:48 11/07/18 08:25 11/07/18 08:25 11/07/18 07:48 11/07/18 08:25 Intake & Output 11/06/18 11/07/18 11/08/18 06:59 06:59 06:59 Intake Total 2203 3518 21 Output Total 3425 150 Balance 2203 93 -129 Weight 76.2 kg 78.1 kg General appearance: PRESENT: no acute distress, well-developed, well-nourished Head exam: PRESENT: atraumatic, normocephalic Cardiovascular exam: PRESENT: RRR GI/Abdominal exam: PRESENT: soft - non-tender, non distended Gentrourinary exam: PRESENT: indwelling catheter Extremities exam: PRESENT: other - no edema Neurological exam: PRESENT: awake - won't answer questions verbally, but uses hand gestures. Gives a "thumbs up". Results Laboratory Results: 11/07/18 03:29 11/07/18 03:29 11/06/18 11/06/18 11/06/18 11:42 12:22 15:50 WBC 16.4 H RBC 4.11 L Hgb 12.2 L Hct 36.9 L MCV 90 MCH 29.8 MCHC 33.2 RDW 17.2 H Plt Count 187 Seg Neutrophils % 88.1 H Carbonic Acid 1.80 H 1.20 HCO3/H2CO3 Ratio 10:1 18:1 ABG pH 7.13 L* 7.36 ABG pCO2 59.8 H 39.9 ABG pO2 35.0 L* 97.8 ABG HCO3 19.6 L 21.9 ABG O2 Saturation 49.9 L 97.2 ABG Base Excess -10.1 -3.3 FiO2 60% 80% Sodium Potassium Chloride Carbon Dioxide Anion Gap BUN Creatinine Est GFR ( Amer) Glucose Calcium Magnesium Triglycerides Cholesterol LDL Cholesterol Direct VLDL Cholesterol HDL Cholesterol 11/07/18 11/07/18 11/07/18 03:29 03:29 04:50 WBC 9.1 RBC 3.75 L Hgb 11.0 L Hct 33.1 L MCV 88 MCH 29.5 MCHC 33.4 RDW 17.1 H Plt Count 162 Seg Neutrophils % Carbonic Acid 1.07 HCO3/H2CO3 Ratio 21:1 ABG pH 7.43 ABG pCO2 35.4 ABG pO2 63.4 L ABG HCO3 22.8 ABG O2 Saturation 92.9 L ABG Base Excess -1.2 FiO2 45% Sodium 140.3 Potassium 4.5 Chloride 108 H Carbon Dioxide 23 Anion Gap 9 BUN 22 H Creatinine 0.91 Est GFR ( Amer) > 60 Glucose 146 H Calcium 9.2 Magnesium 2.6 H Triglycerides 227 H Cholesterol 140.32 LDL Cholesterol Direct 72 VLDL Cholesterol 45.4 H HDL Cholesterol 39 L 11/05/18 11/05/18 11/06/18 20:50 20:50 03:13 Creatine Kinase 291 H 458 H CK-MB (CK-2) 5.16 H Troponin I 0.496 NT-Pro-B Natriuret Pep 969 H 11/06/18 11/06/18 11/06/18 03:13 09:39 09:39 Creatine Kinase 549 H CK-MB (CK-2) 11.60 H 19.30 H Troponin I 1.240 1.870 NT-Pro-B Natriuret Pep 11/06/18 11/06/18 11/06/18 16:20 16:20 21:05 Creatine Kinase 618 H CK-MB (CK-2) 23.70 H Troponin I 2.770 4.020 NT-Pro-B Natriuret Pep 11/07/18 03:29 Creatine Kinase CK-MB (CK-2) Troponin I 4.400 NT-Pro-B Natriuret Pep Impressions: Head CT 11/05/18 20:23 IMPRESSION: Mild atrophy and small vessel ischemic change TECHNICAL DOCUMENTATION: Quality ID # [id number]: Final reports with documentation of one or more dose reduction techniques (e.g., Automated exposure control, adjustment of the mA and/or kV according to patient size, use of iterative reconstruction technique) copyright 2011 [employer]- All Rights Reserved Abdomen/Pelvis CT 11/05/18 22:38 IMPRESSION: 1. Medial right lower lobe infiltrate/atelectasis, possibly a focal pneumonia. Please correlate with clinical symptoms. 2. Atherosclerosis, with partially visualized bypass grafts. 3. Moderately distended bladder (630 mL) 4. No acute inflammatory changes. KUB X-Ray 11/06/18 13:03 IMPRESSION: NG tube has been placed as described. Gas pattern is nonspecific. Chest X-Ray 11/07/18 06:00 IMPRESSION: Air bronchograms in the medial right lung base from consolidation, atelectasis versus pneumonia Endotracheal tube, nasogastric tube in good positioning Assessment & Plan - Diagnosis (1) Acute respiratory failure Qualifiers: Respiratory failure complication: unspecified whether with hypoxia or hypercapnia Qualified Code(s): J96.00 - Acute respiratory failure, unspecified whether with hypoxia or hypercapnia Is this a current diagnosis for this admission?: Yes (2) Pneumonia Qualifiers: Pneumonia type: aspiration pneumonia Laterality: right Lung location: lower lobe of lung Qualified Code(s): J18.9 - Pneumonia, unspecified organism Is this a current diagnosis for this admission?: Yes (3) NSTEMI (non-ST elevated myocardial infarction) Is this a current diagnosis for this admission?: Yes (4) Acute kidney injury Is this a current diagnosis for this admission?: Yes (5) COPD (chronic obstructive pulmonary disease) Qualifiers: COPD type: COPD with acute lower respiratory infection Qualified Code(s): J44.0 - Chronic obstructive pulmonary disease with acute lower respiratory infection Is this a current diagnosis for this admission?: Yes (6) Encephalopathy acute Is this a current diagnosis for this admission?: Yes (7) Pulmonary hypertension Is this a current diagnosis for this admission?: Yes (8) Mitral regurgitation Qualifiers: Cardiac valve disease etiology: nonrheumatic Qualified Code(s): I34.0 - Nonrheumatic mitral (valve) insufficiency Is this a current diagnosis for this admission?: Yes (9) Aortic regurgitation Qualifiers: Cardiac valve disease etiology: nonrheumatic Qualified Code(s): I35.1 - Nonrheumatic aortic (valve) insufficiency Is this a current diagnosis for this admission?: Yes (10) Peripheral vascular disease Is this a current diagnosis for this admission?: Yes (11) Urinary retention Is this a current diagnosis for this admission?: Yes - Plan Summary Plan Summary: Assessment: Critically ill 78 yo man with acute respiratory failure, aspiration PNA, BBEE, acute urinary retention, COPD, NSTEMI, encephalopathy, PVD, severe sepsis Plan: 1. Respiratory: acute respiratory failure. Pt intubated yesterday. Did well on his SBT this am. I extubated the pt. He is doing well on nasal cannula 2. Pulmonary: aspiration PNA. Day 2 vanc, cefepime, azithromycin. COPD, will continue duonebs and will wean steroids. 3. CV: NSTEMI. CAD. PVD. Echo shows pul HTN, mod-sever MR, moderate AR. Continue heparin drip for a total of 48 hours. On asa, brilinta,lopressor, lisinopril, nitropaste. Care per Dr. Fields 4. Renal: BEBE, acute urinary retention. BEBE resolved. Cr has decrease to 0.97. Continue osman. Add flomax 5. ID: severe sepsis, aspiration PNA. Day Vanc, cefepime, azithromycin. 6. Neuro/psych: encephalopathy, resolving. Probably caused by acute urinary retention. Continue home seroquel. 7. Nutrition: bedside swallow eval 8. Endocrine: accuchecks, SSI 9.Prophylaxis: no pharmacologic DVT neccessary b/c of heparin drip. Critical care time= 50 min, excluding procedures
[2018-11-07] MEDS ORDERED: LISINOPRIL 5 MG TABLET PO SCH (10:00)
[2018-11-07] MEDS ORDERED: CLOPIDOGREL BISULFATE 75 MG TABLET NG SCH (10:00)
[2018-11-07] MEDS: METOPROLOL TARTRATE 25 MG TABLET NG SCH ×2 (10:25→21:21)
[2018-11-07] MEDS: CEFEPIME 2 GM/D5W RTU 2 GM/50 ML RTUPB IV SCH ×2 (10:25→23:30)
[2018-11-07] MEDS: ASPIRIN 81 MG TABLET, CHEWABLE NG SCH (10:26)
[2018-11-07] MEDS: VANCOMYCIN HCL 1,000 MG in DEXTROSE 5%-WATER 250 ML IV SCH (10:28)
[2018-11-07] MEDS: DOCUSATE SODIUM 100 MG/10 ML UDC NG SCH (10:28)
[2018-11-07] MEDS: TICAGRELOR 90 MG TABLET NG SCH ×2 (10:28→21:27)
[2018-11-07] MEDS ORDERED: METHYLPREDNISOLONE INJ 40 MG/1 ML SDV IV SCH (12:00)
[2018-11-07] MEDS: DOCUSATE SODIUM 100 MG CAPSULE PO SCH (17:36)
[2018-11-07] MEDS: TAMSULOSIN HCL 0.4 MG CAP.SR.24H PO SCH (17:36)
[2018-11-07] MEDS: NITROGLYCERIN 15 MG (0.6 MG/1 HR) PATCH.TD24 TD SCH (17:40)
[2018-11-07] MEDS: IPRATROPIUM/ALBUTEROL 0.5-2.5 MG/3 ML AMPUL NEB PRN (20:29)
[2018-11-07] MEDS: LISINOPRIL 5 MG TABLET PO SCH (21:22)
[2018-11-07] MEDS ORDERED: QUETIAPINE FUMARATE 25 MG TABLET ONE (21:25)
[2018-11-07] MEDS ORDERED: TICAGRELOR 90 MG TABLET ONE (21:25)
[2018-11-07] MEDS: QUETIAPINE FUMARATE 25 MG TABLET NG SCH (21:27)
[2018-11-07] MEDS ORDERED: HALOPERIDOL LACTATE INJ 5 MG/1 ML VIAL ONE (21:31)
[2018-11-07] MEDS ORDERED: HALOPERIDOL LACTATE INJ 5 MG/1 ML VIAL IV PRN (21:38)
[2018-11-07] MEDS: ATORVASTATIN CALCIUM 80 MG TABLET NG SCH (21:42)
[2018-11-07] MEDS ORDERED: HALOPERIDOL LACTATE INJ 5 MG/1 ML VIAL IV ONE (21:45)
--- NOTE | 2018-11-07 22:17 | EKG REPORT ---
SEVERITY:- ABNORMAL ECG - SINUS TACHYCARDIA LOW VOLTAGE IN FRONTAL LEADS REPOL ABNRM SUGGESTS ISCHEMIA, DIFFUSE LEADS , NEW SINCE 7:03 AM TODAY PROLONGED QT INTERVAL : Confirmed by: Cody Cummins MD 07-Nov-2018 22:17:12
--- NOTE | 2018-11-07 22:18 | Progress Note ---
Provider Note Provider Note: CARDIOLOGY PROGRESS NOTE by Dr. Elvira Benitez on 11/07/2018. SUBJECTIVE. The patient has been extubated. He seems to be in no acute distress. He states that he has a history of COPD and is on 5 L home oxygen. He denies any chest pain or discomfort. There is no PND orthopnea. He denies any shortness of breath. He denies any cough or sputum production. There is no TIA CVA symptoms. There is no bleeding on full dose IV heparin or dual antiplatelet agents. Physical EXAMINATION: The patient is well-built. In no acute distress. Selected Entries 11/07/18 11/07/18 11/07/18 14:39 15:00 15:45 Temperature 98.6 F Heart Rate ( 74 Monitors) Respiratory 22 H Rate Blood Pressure 105/64 Blood Pressure 77 Mean O2 Sat by Pulse 96 Oximetry Oxygen Flow 5 Rate HEAD: Is atraumatic normocephalic. EYES: Pupils equal regular reactive to light. ENT is negative. NECK: Is supple. There is no JVD. Carotids are equal there is no bruit there is no lymphadenopathy. There is no accessory muscle respiration use. There is no lymphadenopathy. Trachea central. LUNGS: Shows a few dry crackles in the right base. The rest of the lungs show few scattered rhonchi. There is no wheezing or rales of CHF. HEART: S1-S2 is heard. There is no S3 gallop. There is no S4 gallop. There is murmur of mitral regurgitation and tricuspid regurgitation present. The mitral regurgitation murmur is heard and the apex with radiation to the left axilla. There is no rub. ABDOMEN: Soft. There is nontender. There is no hepatospleno megaly bowel sounds are well heard. EXTREMITIES: Femoral pulses are very difficult to palpate leg pulses are absent. There is no pedal edema. There is no DVT or cellulitis. There is no signs or clubbing. Note there is a right axillofemoral bypass graft surgery on the right side which is working well. ASSISTANT CREDIT MANAGER and PSYCHIATRIC not examined since patient is intubated and sedated. Caps EKG done this morning shows sinus rhythm. Minor nonspecific ST-T changes. ST segment depression earlier EKGs is now much improved. Labs- All tests 24 hr 11/07/18 11/07/18 11/07/18 03:29 03:29 03:29 WBC 9.1 RBC 3.75 L Hgb 11.0 L Hct 33.1 L MCV 88 MCH 29.5 MCHC 33.4 RDW 17.1 H Plt Count 162 APTT Carbonic Acid HCO3/H2CO3 Ratio ABG pH ABG pCO2 ABG pO2 ABG HCO3 ABG Total CO2 ABG O2 Saturation ABG Base Excess FiO2 Sodium 140.3 Potassium 4.5 Chloride 108 H Carbon Dioxide 23 Anion Gap 9 BUN 22 H Creatinine 0.91 Est GFR ( Amer) > 60 Est GFR (MDRD) Non-Af > 60 Glucose 146 H POC Glucose Hemoglobin A1c % 6.2 H Calcium 9.2 Magnesium 2.6 H Troponin I Triglycerides 227 H Cholesterol 140.32 LDL Cholesterol Direct 72 VLDL Cholesterol 45.4 H HDL Cholesterol 39 L 11/07/18 11/07/18 11/07/18 03:29 03:29 04:50 WBC RBC Hgb Hct MCV MCH MCHC RDW Plt Count APTT 89.3 H Carbonic Acid 1.07 HCO3/H2CO3 Ratio 21:1 ABG pH 7.43 ABG pCO2 35.4 ABG pO2 63.4 L ABG HCO3 22.8 ABG Total CO2 23.8 ABG O2 Saturation 92.9 L ABG Base Excess -1.2 FiO2 45% Sodium Potassium Chloride Carbon Dioxide Anion Gap BUN Creatinine Est GFR ( Amer) Est GFR (MDRD) Non-Af Glucose POC Glucose Hemoglobin A1c % Calcium Magnesium Troponin I 4.400 Triglycerides Cholesterol LDL Cholesterol Direct VLDL Cholesterol HDL Cholesterol 11/07/18 11/07/18 11/07/18 07:01 09:00 13:10 WBC RBC Hgb Hct MCV MCH MCHC RDW Plt Count APTT 74.9 H Carbonic Acid HCO3/H2CO3 Ratio ABG pH ABG pCO2 ABG pO2 ABG HCO3 ABG Total CO2 ABG O2 Saturation ABG Base Excess FiO2 Sodium Potassium Chloride Carbon Dioxide Anion Gap BUN Creatinine Est GFR ( Amer) Est GFR (MDRD) Non-Af Glucose POC Glucose 128 H 122 H Hemoglobin A1c % Calcium Magnesium Troponin I Triglycerides Cholesterol LDL Cholesterol Direct VLDL Cholesterol HDL Cholesterol 11/07/18 11/07/18 11/07/18 17:23 20:00 21:36 WBC RBC Hgb Hct MCV MCH MCHC RDW Plt Count APTT Carbonic Acid HCO3/H2CO3 Ratio ABG pH ABG pCO2 ABG pO2 ABG HCO3 ABG Total CO2 ABG O2 Saturation ABG Base Excess FiO2 Sodium Potassium Chloride Carbon Dioxide Anion Gap BUN Creatinine Est GFR ( Amer) Est GFR (MDRD) Non-Af Glucose POC Glucose 135 H 136 H Hemoglobin A1c % Calcium Magnesium Troponin I 2.950 Triglycerides Cholesterol LDL Cholesterol Direct VLDL Cholesterol HDL Cholesterol Chest X-Ray 11/05/18 20:22 IMPRESSION: No acute cardiopulmonary disease. Head CT 11/05/18 20:23 IMPRESSION: Mild atrophy and small vessel ischemic change TECHNICAL DOCUMENTATION: Quality ID # 436: Final reports with documentation of one or more dose reduction techniques (e.g., Automated exposure control, adjustment of the mA and/or kV according to patient size, use of iterative reconstruction technique) copyright 2011 [employer]- All Rights Reserved Abdomen/Pelvis CT 11/05/18 22:38 IMPRESSION: 1. Medial right lower lobe infiltrate/atelectasis, possibly a focal pneumonia. Please correlate with clinical symptoms. 2. Atherosclerosis, with partially visualized bypass grafts. 3. Moderately distended bladder (630 mL) 4. No acute inflammatory changes. Chest X-Ray 11/06/18 00:00 IMPRESSION: 1. No acute pulmonary findings. 2. Endotracheal tube terminates approximately 1.5 cm cranial to the soledad. Partially imaged enteric tube without evidence of complication. KUB X-Ray 11/06/18 13:03 IMPRESSION: NG tube has been placed as described. Gas pattern is nonspecific. Chest X-Ray 11/07/18 06:00 IMPRESSION: Air bronchograms in the medial right lung base from consolidation, atelectasis versus pneumonia Endotracheal tube, nasogastric tube in good positioning IMPRESSION/RECOMMENDATION: 1. Non-ST elevation CT in a patient with history of coronary artery disease. The patient is without anginal symptoms. The troponin is trending down. Hence will stop the patient's IV heparin. We will continue patient on aspirin and Brilinta. Continue metoprolol. Change to Transderm-Nitro patch 0.6 mg/h. Daily 2. Acute respiratory failure with hypoxia [acute hypoxemic respiratory failure] most likely secondary to pneumonia right lower lobe. The patient has been extubated and is in no acute respiratory distress. His respiratory status he seems to be stable. 3. Aspiration pneumonia with right lower lobe pneumonia. Later would get a swallow study to see if indeed the patient has risk of aspiration. 4. Moderate pulmonary hypertension with right ventricle systolic pressure of at least 56 mmHg. Moderate tricuspid regurgitation that is inhibitors. 5. Moderate to severe mitral regurgitation. Patient has been started on VEL inhibitor, and this has been increased 6.Coronary artery disease: As per records from the [place] the patient in April 2018 had a elevated troponin I and was diagnosed as secondary to type II CT due to supply demand mismatch. His echocardiogram at that time was normal at 55 to 60% LV ejection fraction. There was moderate pulmonary hypertension with right ventricle systolic pressure of 59 mmHg. 7. COPD: Oxygen dependent. Continue bronchodilators oxygen and steroids. 8. Moderate aortic regurgitation: There is no peripheral signs of aortic regurgitation. Later we will try the patient on afterload reducing agents. 9..History of hypertension: Current blood pressure reasonable at present 10. Peripheral vascular disease of significance. At present seems to be stable. 11. Renal failure. This is resolved. Patient's GFR is now within normal limits. 12.? Dementia. At present patient seems to be awake alert and oriented x3. Patient denies any history of dementia. Medications reviewed medications adjusted. Medications and management plan discussed with marketing producer and the other caregiving providers on the case. Medical decision making is of high complexity. 40 minutes spent on this patient more than 50% time spent in direct patient care. Will follow
[2018-11-07] MEDS: AZITHROMYCIN 500 MG in DEXTROSE 5%-WATER 250 ML IV SCH (23:37)
[2018-11-08] MEDS: IPRATROPIUM BROMIDE 0.02% NEB 0.5 MG/2.5 ML AMPUL NEB SCH ×3 (00:35→15:37)
[2018-11-08] MEDS ORDERED: HALOPERIDOL LACTATE INJ 5 MG/1 ML VIAL IV PRN (00:43)
[2018-11-08] MEDS: HALOPERIDOL LACTATE INJ 5 MG/1 ML VIAL IV PRN ×3 (01:30→19:54)
[2018-11-08] MEDS ORDERED: GUAIFENESIN SYRP 200 MG/10 ML UDC PO PRN (02:00)
[2018-11-08] MEDS ORDERED: IPRATROPIUM BROMIDE 0.02% NEB 0.5 MG/2.5 ML AMPUL NEB PRN (02:00)
[2018-11-08] MEDS: PANTOPRAZOLE SODIUM 40 MG PACKET.DR NG SCH (06:06)
[2018-11-08 06:23] LABS: HEMATOCRIT 29.8 % (37.9-51.0); HEMOGLOBIN 10.3 g/dL (13.5-17.0); MEAN CORPUSCULAR HEMOGLOBIN 30.3 pg (27.0-33.4); MEAN CORPUSCULAR HGB CONC 34.4 g/dL (32.0-36.0); MEAN CORPUSCULAR VOLUME 88 fl (80-97); PLATELET COUNT 179 10^3/uL (150-450); RED BLOOD COUNT 3.39 10^6/uL (4.35-5.55); RED CELL DISTRIBUTION WIDTH 17.2 % (11.5-14.0); WHITE BLOOD COUNT 10.8 10^3/uL (4.0-10.5)
[2018-11-08 06:44] LABS: ANION GAP 11 (5-19); BLOOD UREA NITROGEN 25 mg/dL (7-20); CALCIUM 8.8 mg/dL (8.4-10.2); CARBON DIOXIDE 20 mmol/L (22-30); CHLORIDE 111 mmol/L (98-107); GLUCOSE 112 mg/dL (75-110); POTASSIUM 3.9 mmol/L (3.6-5.0)
[2018-11-08] MEDS: INSULIN REG, HUMAN 100 UNIT/ML 3 ML VIAL (PYX) SUBCUT SCH ×4 (07:41→22:17)
--- NOTE | 2018-11-08 09:03 | PDOC PROGRESS REPORT ---
Subjective Progress Note for:: 11/08/18 Subjective:: ICU Progress Note. Pt restless and agitated overnight. Today is awake and alert. Has no complaints. Reason For Visit: COMMUNITY ACQUIRED RIGHT LOWER LOBE PNUEMONIA Physical Exam Vital Signs: Temp Pulse Resp BP Pulse Ox 98.2 F 63 26 H 115/93 H 96 11/08/18 06:00 11/08/18 07:50 11/08/18 06:00 11/08/18 05:39 11/08/18 06:00 Intake & Output 11/07/18 11/08/18 11/09/18 06:59 06:59 06:59 Intake Total 3518 2175 Output Total 3425 4100 Balance 93 -1925 Weight 78.1 kg 77.5 kg General appearance: PRESENT: no acute distress, well-developed, well-nourished Head exam: PRESENT: atraumatic, normocephalic Respiratory exam: PRESENT: decreased breath sounds, unlabored Cardiovascular exam: PRESENT: RRR GI/Abdominal exam: PRESENT: soft Gentrourinary exam: PRESENT: indwelling catheter Additonal comments: ext: no edema Results Laboratory Results: 11/08/18 06:00 11/08/18 06:00 11/08/18 11/08/18 06:00 06:00 WBC 10.8 H RBC 3.39 L Hgb 10.3 L Hct 29.8 L MCV 88 MCH 30.3 MCHC 34.4 RDW 17.2 H Plt Count 179 Sodium 142.2 Potassium 3.9 Chloride 111 H Carbon Dioxide 20 L Anion Gap 11 BUN 25 H Creatinine 0.89 Est GFR ( Amer) > 60 Glucose 112 H Calcium 8.8 Magnesium 2.6 H 11/05/18 11/05/18 11/06/18 20:50 20:50 03:13 Creatine Kinase 291 H 458 H CK-MB (CK-2) 5.16 H Troponin I 0.496 NT-Pro-B Natriuret Pep 969 H 11/06/18 11/06/18 11/06/18 03:13 09:39 09:39 Creatine Kinase 549 H CK-MB (CK-2) 11.60 H 19.30 H Troponin I 1.240 1.870 NT-Pro-B Natriuret Pep 11/06/18 11/06/18 11/06/18 16:20 16:20 21:05 Creatine Kinase 618 H CK-MB (CK-2) 23.70 H Troponin I 2.770 4.020 NT-Pro-B Natriuret Pep 11/07/18 11/07/18 03:29 20:00 Creatine Kinase CK-MB (CK-2) Troponin I 4.400 2.950 NT-Pro-B Natriuret Pep Impressions: Head CT 11/05/18 20:23 IMPRESSION: Mild atrophy and small vessel ischemic change TECHNICAL DOCUMENTATION: Quality ID # 436: Final reports with documentation of one or more dose reduction techniques (e.g., Automated exposure control, adjustment of the mA and/or kV according to patient size, use of iterative reconstruction technique) copyright 2011 [employer]- All Rights Reserved Abdomen/Pelvis CT 11/05/18 22:38 IMPRESSION: 1. Medial right lower lobe infiltrate/atelectasis, possibly a focal pneumonia. Please correlate with clinical symptoms. 2. Atherosclerosis, with partially visualized bypass grafts. 3. Moderately distended bladder (630 mL) 4. No acute inflammatory changes. KUB X-Ray 11/06/18 13:03 IMPRESSION: NG tube has been placed as described. Gas pattern is nonspecific. Assessment & Plan - Diagnosis (1) Acute respiratory failure Qualifiers: Respiratory failure complication: unspecified whether with hypoxia or hypercapnia Qualified Code(s): J96.00 - Acute respiratory failure, unspecified whether with hypoxia or hypercapnia Is this a current diagnosis for this admission?: Yes (2) Pneumonia Qualifiers: Pneumonia type: aspiration pneumonia Laterality: right Lung location: lower lobe of lung Qualified Code(s): J18.9 - Pneumonia, unspecified organism Is this a current diagnosis for this admission?: Yes (3) NSTEMI (non-ST elevated myocardial infarction) Is this a current diagnosis for this admission?: Yes (4) Acute kidney injury Is this a current diagnosis for this admission?: Yes (5) COPD (chronic obstructive pulmonary disease) Qualifiers: COPD type: COPD with acute lower respiratory infection Qualified Code(s): J44.0 - Chronic obstructive pulmonary disease with acute lower respiratory in fection Is this a current diagnosis for this admission?: Yes (6) Encephalopathy acute Is this a current diagnosis for this admission?: Yes (7) Pulmonary hypertension Is this a current diagnosis for this admission?: Yes (8) Mitral regurgitation Qualifiers: Cardiac valve disease etiology: nonrheumatic Qualified Code(s): I34.0 - Nonrheumatic mitral (valve) insufficiency Is this a current diagnosis for this admission?: Yes (9) Aortic regurgitation Qualifiers: Cardiac valve disease etiology: nonrheumatic Qualified Code(s): I35.1 - Nonrheumatic aortic (valve) insufficiency Is this a current diagnosis for this admission?: Yes (10) Peripheral vascular disease Is this a current diagnosis for this admission?: Yes (11) Urinary retention Is this a current diagnosis for this admission?: Yes - Plan Summary Plan Summary: Assessment: l 78 yo man with acute respiratory failure, aspiration PNA, BEBE, acute urinary retention, COPD, NSTEMI, encephalopathy, PVD, severe sepsis Plan: 1. Respiratory: acute respiratory failure, resolved. Pt extubated yesterday. Stable on nasal cannula. Is on home O2. 2. Pulmonary: aspiration PNA. ATBX Day 3 vanc, cefepime. D/C azithromycin due to QTC prolongation on EKG. COPD, will continue duonebs and will wean steroids. 3. CV: NSTEMI. CAD. PVD. Echo shows pul HTN, mod-sever MR, moderate AR. Heparin drip stopped. On asa, brilinta,lopressor, lisinopril, nitropaste. Care per Dr. Fields 4. Renal: BEBE, acute urinary retention. BEBE resolved. Cr continues to decrease. Continue osman. Continue flomax 5. ID: sepsis, aspiration PNA. ATBX day 3. Continue vanc and cefepime. BCX positive for GPC, ?contaminant. Will repeat. 6. Neuro/psych: encephalopathy, resolved. Probably caused by acute urinary retention. Continue home seroquel. 7. Nutrition: clear liquid diet. Swallow eval pending 8. Endocrine: accuchecks, SSI 9.Prophylaxis: lovenox. 10. Disposition: stable for transfer out of ICU
--- NOTE | 2018-11-08 09:14 | RADIOLOGY REPORT (SQ) ---
EXAM DESCRIPTION: CHEST SINGLE VIEW COMPLETED DATE/TIME: 11/08/2018 5:10 am REASON FOR STUDY: resp failure, PNA COMPARISON: Chest films 11/07/2018, 11/06/2018, 11/05/2018 EXAM PARAMETERS: NUMBER OF VIEWS: One view. TECHNIQUE: Single frontal radiographic view of the chest acquired. RADIATION DOSE: NA LIMITATIONS: None. FINDINGS: LUNGS AND PLEURA: There is patchy airspace disease at the left lung base atelectasis versu s pneumonia. Minimal patchy airspace disease in the medial right lung base atelectasis versus pneumonia. No pleural effusions or pneumothorax. MEDIASTINUM AND HILAR STRUCTURES: No masses. Contour normal. HEART AND VASCULAR STRUCTURES: Heart normal in size. Normal vasculature. BONES: No acute findings. HARDWARE: None in the chest. OTHER: No other significant finding. IMPRESSION: Persistent mild bibasilar airspace atelectasis versus pneumonia TECHNICAL DOCUMENTATION: JOB ID: [id number] [employer]- All Rights Reserved Reading location - IP/workstation name: [email or web address]
[2018-11-08] MEDS ORDERED: PREDNISONE 20 MG TABLET PO SCH (10:00)
[2018-11-08] MEDS: CEFEPIME 2 GM/D5W RTU 2 GM/50 ML RTUPB IV SCH ×2 (10:47→22:14)
[2018-11-08] MEDS: ENOXAPARIN SODIUM INJ 40 MG/0.4 ML DISP.SYRIN SUBCUT SCH (10:47)
[2018-11-08] MEDS: VANCOMYCIN HCL 1,000 MG in DEXTROSE 5%-WATER 250 ML IV SCH (10:47)
[2018-11-08] MEDS: TICAGRELOR 90 MG TABLET NG SCH ×2 (10:48→22:14)
[2018-11-08] MEDS: METOPROLOL TARTRATE 25 MG TABLET NG SCH ×2 (10:48→22:15)
[2018-11-08] MEDS: ASPIRIN 81 MG TABLET, CHEWABLE NG SCH (10:48)
[2018-11-08] MEDS: DOCUSATE SODIUM 100 MG CAPSULE PO SCH ×2 (10:48→17:45)
[2018-11-08] MEDS: LISINOPRIL 5 MG TABLET PO SCH (10:48)
[2018-11-08] MEDS: NITROGLYCERIN 15 MG (0.6 MG/1 HR) PATCH.TD24 TD SCH (12:34)
[2018-11-08] MEDS ORDERED: LORAZEPAM INJ 2 MG/1 ML VIAL ONE (16:58)
[2018-11-08] MEDS ORDERED: FUROSEMIDE INJ/PF 40 MG/4 ML SDV ONE (16:58)
[2018-11-08] MEDS: LEVALBUTEROL HCL NEB 0.63 MG/3 ML AMPUL NEB PRN (17:03)
[2018-11-08] MEDS ORDERED: FUROSEMIDE INJ/PF 40 MG/4 ML SDV IV ONE (17:45)
[2018-11-08] MEDS ORDERED: LORAZEPAM INJ 2 MG/1 ML VIAL IV ONE (17:45)
--- NOTE | 2018-11-08 20:22 | Progress Note ---
Provider Note Provider Note: CARDIOLOGY PROGRESS NOTE by Dr. Elvira Benitez on 11/08/2018. Subjective: The patient is slightly anxious and appears to be slightly short of breath. But denies any cough or wheezing. There is no chest pain or discomfort. There is no arrhythmia seen on the monitor. There is no PND orthopnea. There is no bleeding on dual antiplatelet agents. The patient's heparin has been stopped. His troponin is trending down. Physical EXAMINATION: The patient is well-built. At present in no acute distress. Selected Entries 11/08/18 11/08/18 11/08/18 14:40 14:41 16:00 Temperature 98.4 F Heart Rate ( 77 Monitors) Respiratory 22 H Rate Blood Pressure 126/79 H Blood Pressure 94 Mean O2 Sat by Pulse 98 Oximetry Oxygen Flow 6 Rate HEAD: Is atraumatic normocephalic. EYES: Pupils equal regular reactive to light. ENT is negative. NECK: Is supple. There is no JVD. Carotids are equal there is no bruit there is no lymphadenopathy. There is no accessory muscle respiration use. There is no lymphadenopathy. Trachea central. LUNGS: Shows a few dry crackles in the right base. The rest of the lungs show few scattered rhonchi. There is no wheezing or rales of CHF. HEART: S1-S2 is heard. There is no S3 gallop. There is no S4 gallop. There is murmur of mitral regurgitation and tricuspid regurgitation present. The mitral regurgitation murmur is heard and the apex with radiation to the left axilla. There is no rub. ABDOMEN: Soft. There is nontender. There is no hepatospleno megaly bowel sounds are well heard. EXTREMITIES: Femoral pulses are very difficult to palpate leg pulses are absent. There is no pedal edema. There is no DVT or ce llulitis. There is no signs or clubbing. Note there is a right axillofemoral bypass graft surgery on the right side which is working well. SENIOR CATEGORY MANAGER : The patient is conscious awake alert at present with no focal deficits. PSYCHIATRIC: Patient at present does not appear to be demented. He is not agitated. His judgment and insight seem to be intact. Labs- All tests 24 hr 11/08/18 11/08/18 11/08/18 06:00 06:00 06:00 WBC 10.8 H RBC 3.39 L Hgb 10.3 L Hct 29.8 L MCV 88 MCH 30.3 MCHC 34.4 RDW 17.2 H Plt Count 179 APTT 29.3 Sodium 142.2 Potassium 3.9 Chloride 111 H Carbon Dioxide 20 L Anion Gap 11 BUN 25 H Creatinine 0.89 Est GFR ( Amer) > 60 Est GFR (MDRD) Non-Af > 60 Glucose 112 H POC Glucose Calcium 8.8 Magnesium 2.6 H 11/08/18 11/08/18 11/08/18 10:42 16:02 22:13 WBC RBC Hgb Hct MCV MCH MCHC RDW Plt Count APTT Sodium Potassium Chloride Carbon Dioxide Anion Gap BUN Creatinine Est GFR ( Amer) Est GFR (MDRD) Non-Af Glucose POC Glucose 112 H 116 H 113 H Calcium Magnesium Chest X-Ray 11/05/18 20:22 IMPRESSION: No acute cardiopulmonary disease. Head CT 11/05/18 20:23 IMPRESSION: Mild atrophy and small vessel ischemic change TECHNICAL DOCUMENTATION: Quality ID # 436: Final reports with documentation of one or more dose reduction techniques (e.g., Automated exposure control, adjustment of the mA and/or kV according to patient size, use of iterative reconstruction technique) copyright 2011 [employer]- All Rights Reserved Abdomen/Pelvis CT 11/05/18 22:38 IMPRESSION: 1. Medial right lower lobe infiltrate/atelectasis, possibly a focal pneumonia. Please correlate with clinical symptoms. 2. Atherosclerosis, with partially visualized bypass grafts. 3. Moderately distended bladder (630 mL) 4. No acute inflammatory changes. Chest X-Ray 11/06/18 00:00 IMPRESSION: 1. No acute pulmonary findings. 2. Endotracheal tube terminates approximately 1.5 cm cranial to the soledad. Partially imaged enteric tube without evidence of complication. KUB X-Ray 11/06/18 13:03 IMPRESSION: NG tube has been placed as described. Gas pattern is nonspecific. Chest X-Ray 11/07/18 06:00 IMPRESSION: Air bronchograms in the medial right lung base from consolidation, atelectasis versus pneumonia Endotracheal tube, nasogastric tube in good positioning Chest X-Ray 11/08/18 06:00 IMPRESSION: Persistent mild bibasilar airspace atelectasis versus pneumonia IMPRESSION/RECOMMENDATION: 1. Non-ST elevation ID in a patient with history of coronary artery disease. The patient is without anginal symptoms. The troponin is trending down. Hence will stop the patient's IV heparin. We will continue patient on aspirin and Brilinta. Continue metoprolol. Change to Transderm-Nitro patch 0.6 mg/h. Daily. Will rest check the patient's troponin in the morning. We will repeat an EKG in the morning. 2. Acute respiratory failure with hypoxia [acute hypoxemic respiratory failure] most likely secondary to pneumonia right lower lobe. The patient has been extubated and is in no acute respiratory distress. His respiratory status he seems to be stable. 3. Aspiration pneumonia with right lower lobe pneumonia. Later would get a swallow study to see if indeed the patient has risk of aspiration. 4. Moderate pulmonary hypertension with right ventricle systolic pressure of at least 56 mmHg. Moderate tricuspid regurgitation that is inhibitors. 5. Moderate to severe mitral regurgitation. Patient has been started on VEL inhibitor, and this has been increased 6.Coronary artery disease: As per records from the [place] the patient in April 2018 had a elevated troponin I and was diagnosed as secondary to type II ID due to supply demand mismatch. His echocardiogram at that time was normal at 55 to 60% LV ejection fraction. There was moderate pulmonary hypertension with right ventricle systolic pressure of 59 mmHg. 7. COPD: Oxygen dependent. Continue bronchodilators oxygen and steroids. 8. Moderate aortic regurgitation: There is no peripheral signs of aortic regurgitation. Later we will try the patient on afterload reducing agents. 9..History of hypertension: Current blood pressure reasonable at present 10. Peripheral vascular disease of significance. At present seems to be stable. 11. Renal failure. This is resolved. Patient's GFR is now within normal limits. 12.? Dementia. At present patient seems to be awake alert and oriented x3. Patient denies any history of dementia. Medications reviewed medications adjusted. Medications and management plan discussed with camp tender and the other caregiving providers on the case. Medical decision making is of high complexity. 40 minutes spent on this patient more than 50% time spent in direct patient care. Will follow.
[2018-11-08] MEDS ORDERED: VANCOMYCIN HCL 1,000 MG in DEXTROSE 5%-WATER 250 ML IV SCH (22:00)
[2018-11-08] MEDS: ATORVASTATIN CALCIUM 80 MG TABLET NG SCH (22:15)
[2018-11-08] MEDS: QUETIAPINE FUMARATE 25 MG TABLET NG SCH (22:15)
[2018-11-08] MEDS: LISINOPRIL 5 MG TABLET NG SCH (22:16)
[2018-11-08] MEDS: TAMSULOSIN HCL 0.4 MG CAP.SR.24H PO SCH (22:17)
[2018-11-09] MEDS: IPRATROPIUM BROMIDE 0.02% NEB 0.5 MG/2.5 ML AMPUL NEB SCH ×3 (00:44→16:29)
[2018-11-09] MEDS: HALOPERIDOL LACTATE INJ 5 MG/1 ML VIAL IV PRN ×4 (01:10→23:26)
[2018-11-09] MEDS ORDERED: CLONAZEPAM 1 MG TABLET ONE (02:37)
[2018-11-09] MEDS ORDERED: CLONAZEPAM 1 MG TABLET PO ONE (02:45)
[2018-11-09 03:00] LABS: HEMATOCRIT 33.2 % (37.9-51.0); HEMOGLOBIN 11.1 g/dL (13.5-17.0); MEAN CORPUSCULAR HEMOGLOBIN 29.5 pg (27.0-33.4); MEAN CORPUSCULAR HGB CONC 33.5 g/dL (32.0-36.0); MEAN CORPUSCULAR VOLUME 88 fl (80-97); PLATELET COUNT 225 10^3/uL (150-450); RED BLOOD COUNT 3.77 10^6/uL (4.35-5.55); RED CELL DISTRIBUTION WIDTH 17.1 % (11.5-14.0); WHITE BLOOD COUNT 11.4 10^3/uL (4.0-10.5)
[2018-11-09 03:03] LABS: ANION GAP 10 (5-19); BLOOD UREA NITROGEN 26 mg/dL (7-20); CALCIUM 9.1 mg/dL (8.4-10.2); CARBON DIOXIDE 26 mmol/L (22-30); CHLORIDE 107 mmol/L (98-107); GLUCOSE 103 mg/dL (75-110); POTASSIUM 3.6 mmol/L (3.6-5.0)
[2018-11-09] MEDS: PANTOPRAZOLE SODIUM 40 MG PACKET.DR NG SCH (07:37)
--- NOTE | 2018-11-09 09:23 | PDOC PROGRESS REPORT ---
Subjective Progress Note for:: 11/09/18 Subjective:: Pt agitated overnight. Was also c/o shortness of air and was started on bipap last night. Is back on nasal cannula this am and is more calm. Reason For Visit: COMMUNITY ACQUIRED RIGHT LOWER LOBE PNUEMONIA Physical Exam Vital Signs: Temp Pulse Resp BP Pulse Ox 98.4 F 74 24 H 107/68 93 11/09/18 08:00 11/09/18 08:00 11/09/18 08:00 11/09/18 08:00 11/09/18 08:00 Intake & Output 11/08/18 11/09/18 11/10/18 06:59 06:59 06:59 Intake Total 2475 3524 Output Total 4100 5300 Balance -1625 -1776 Weight 77.5 kg 73.5 kg General appearance: PRESENT: no acute distress, well-developed, well-nourished Head exam: PRESENT: atraumatic, normocephalic Respiratory exam: PRESENT: unlabored, wheezes Cardiovascular exam: PRESENT: RRR GI/Abdominal exam: PRESENT: soft, other - soft, non-tender, non-distended, ventral hernia Gentrourinary exam: PRESENT: indwelling catheter Extremities exam: PRESENT: other - no edema Results Laboratory Results: 11/09/18 02:15 11/09/18 02:15 11/09/18 11/09/18 02:15 02:15 WBC 11.4 H RBC 3.77 L Hgb 11.1 L Hct 33.2 L MCV 88 MCH 29.5 MCHC 33.5 RDW 17.1 H Plt Count 225 Sodium 142.7 Potassium 3.6 Chloride 107 Carbon Dioxide 26 Anion Gap 10 BUN 26 H Creatinine 0.98 Est GFR ( Amer) > 60 Glucose 103 Calcium 9.1 Magnesium 2.2 11/06/18 15:56 Tracheal Aspirate Gram Stain - Final 11/06/18 15:56 Tracheal Aspirate Sputum Culture - Final Staphylococcus Aureus Normal Starr 11/05/18 20:50 Blood Blood Culture - Final Staphylococcus Aureus 11/05/18 20:30 Blood Blood Culture - Final Staphylococcus Aureus 11/05/18 11/05/18 11/06/18 20:50 20:50 03:13 Creatine Kinase 291 H 458 H CK-MB (CK-2) 5.16 H Troponin I 0.496 NT-Pro-B Natriuret Pep 969 H 11/06/18 11/06/18 11/06/18 03:13 09:39 09:39 Creatine Kinase 549 H CK-MB (CK-2) 11.60 H 19.30 H Troponin I 1.240 1.870 NT-Pro-B Natriuret Pep 11/06/18 11/06/18 11/06/18 16:20 16:20 21:05 Creatine Kinase 618 H CK-MB (CK-2) 23.70 H Troponin I 2.770 4.020 NT-Pro-B Natriuret Pep 11/07/18 11/07/18 11/09/18 03:29 20:00 02:15 Creatine Kinase CK-MB (CK-2) Troponin I 4.400 2.950 2.980 NT-Pro-B Natriuret Pep Impressions: Head CT 11/05/18 20:23 IMPRESSION: Mild atrophy and small vessel ischemic change TECHNICAL DOCUMENTATION: Quality ID # 436: Final reports with documentation of one or more dose reduction techniques (e.g., Automated exposure control, adjustment of the mA and/or kV according to patient size, use of iterative reconstruction technique) copyright 2011 [facility]- All Rights Reserved Abdomen/Pelvis CT 11/05/18 22:38 IMPRESSION: 1. Medial right lower lobe infiltrate/atelectasis, possibly a focal pneumonia. Please correlate with clinical symptoms. 2. Atherosclerosis, with partially visualized bypass grafts. 3. Moderately distended bladder (630 mL) 4. No acute inflammatory changes. KUB X-Ray 11/06/18 13:03 IMPRESSION: NG tube has been placed as described. Gas pattern is nonspecific. Chest X-Ray 11/08/18 06:00 IMPRESSION: Persistent mild bibasilar airspace atelectasis versus pneumonia Assessment & Plan - Diagnosis (1) Acute respiratory failure Qualifiers: Respiratory failure complication: unspecified whether with hypoxia or hyperca pnia Qualified Code(s): J96.00 - Acute respiratory failure, unspecified w hether with hypoxia or hypercapnia Is this a current diagnosis for this admission?: Yes (2) Pneumonia Qualifiers: Pneumonia type: aspiration pneumonia Laterality: right Lung location: lower lobe of lung Is this a current diagnosis for this admission?: Yes (3) NSTEMI (non-ST elevated myocardial infarction) Is this a current diagnosis for this admission?: Yes (4) Acute kidney injury Is this a current diagnosis for this admission?: Yes (5) COPD (chronic obstructive pulmonary disease) Qualifiers: COPD type: COPD with acute lower respiratory infection Qualified Code(s): J44.0 - Chronic obstructive pulmonary disease with acute lower respiratory infection Is this a current diagnosis for this admission?: Yes (6) Encephalopathy acute Is this a current diagnosis for this admission?: Yes (7) Pulmonary hypertension Is this a current diagnosis for this admission?: Yes (8) Mitral regurgitation Qualifiers: Cardiac valve disease etiology: nonrheumatic Qualified Code(s): I34.0 - Nonrheumatic mitral (valve) insufficiency Is this a current diagnosis for this admission?: Yes (9) Aortic regurgitation Qualifiers: Cardiac valve disease etiology: nonrheumatic Qualified Code(s): I35.1 - Nonrheumatic aortic (valve) insufficiency Is this a current diagnosis for this admission?: Yes (10) Peripheral vascular disease Is this a current diagnosis for this admission?: Yes (11) Urinary retention Is this a current diagnosis for this admission?: Yes (12) MSSA bacteremia Is this a current diagnosis for this admission?: Yes - Plan Summary Plan Summary: Assessment: l 78 yo man with acute respiratory failure, aspiration PNA, BEBE, acute urinary retention, COPD, NSTEMI, encephalopathy, PVD, severe sepsis Plan: 1. Respiratory: acute respiratory failure, resolved. Pt extubated 2 days ago. Stable on nasal cannula 5 liters NC. Is on home O2. Continue bipap prn 2. Pulmonary: aspiration PNA. ATBX Day 4 vanc, cefepime. COPD, will continue duonebs and continue to wean steroids 3. CV: NSTEMI. CAD. PVD. Echo shows pul HTN, mod-sever MR, moderate AR. Heparin drip stopped yesterday. On asa, brilinta,lopressor, lisinopril, nitropaste. Care per Dr. Fields 4. Renal: BEBE, acute urinary retention. BEBE resolved. Continue osman. Continue flomax 5. ID: sepsis, aspiration PNA, MSSA bacteremia. ATBX day 4. Continue vanc and cefepime. WBC increasing. Persistent MSSA bacteremia. Pt may have an endograft infection. Pt needs an ID consult. Will arrange transfer to a facility with an infectious disease specialist. 6. Vascular: PVD. h/o femoral bypass, h/o right axillary to femoral artery bypass, h/o AAA repair 7 Neuro/psych: acute toxic metabolic encephalopathy, ICU delirium. Will increase seroquel to 50 mg po BID. 7. Nutrition: clear liquid diet. Swallow eval pending 8. Endocrine: accuchecks, SSI 9.Prophylaxis: lovenox. 10. Disposition: pt needs Infectious Disease consultation for possible endograft infection with MSSA. Will arrange transfer to another facility.
[2018-11-09] MEDS: INSULIN REG, HUMAN 100 UNIT/ML 3 ML VIAL (PYX) SUBCUT SCH ×4 (09:26→21:22)
[2018-11-09] MEDS: ASPIRIN 81 MG TABLET, CHEWABLE NG SCH (09:57)
[2018-11-09] MEDS: PREDNISONE 20 MG TABLET NG SCH (09:57)
[2018-11-09] MEDS: ENOXAPARIN SODIUM INJ 40 MG/0.4 ML DISP.SYRIN SUBCUT SCH (09:57)
[2018-11-09] MEDS: CEFEPIME 2 GM/D5W RTU 2 GM/50 ML RTUPB IV SCH ×2 (09:58→21:21)
[2018-11-09] MEDS: NITROGLYCERIN 15 MG (0.6 MG/1 HR) PATCH.TD24 TD SCH (09:58)
[2018-11-09] MEDS: TICAGRELOR 90 MG TABLET NG SCH ×2 (10:00→21:18)
[2018-11-09] MEDS ORDERED: CLONAZEPAM 1 MG TABLET PO SCH (10:00)
[2018-11-09] MEDS: METOPROLOL TARTRATE 25 MG TABLET NG SCH ×2 (10:00→21:16)
[2018-11-09] MEDS: DOCUSATE SODIUM 100 MG CAPSULE PO SCH ×2 (10:00→17:14)
[2018-11-09] MEDS: LISINOPRIL 5 MG TABLET NG SCH ×2 (10:06→21:18)
[2018-11-09] MEDS: QUETIAPINE FUMARATE 25 MG TABLET NG SCH ×2 (10:07→17:12)
--- NOTE | 2018-11-09 14:00 | Progress Note ---
Provider Note Provider Note: Pt has been accepted into the [facility] system. They will call back with a hospital and bed assignment.
[2018-11-09 15:43] LABS: APPEARANCE,URINE CLEAR; BILIRUBIN,URINE NEGATIVE (NEGATIVE); COLOR,URINE STRAW; GLUCOSE, URINE NEGATIVE (NEGATIVE); KETONES,URINE NEGATIVE (NEGATIVE); LEUKOCYTE ESTERASE,URINE SMALL (NEGATIVE); NITRITE,URINE NEGATIVE (NEGATIVE); PROTEIN,URINE NEGATIVE (NEGATIVE); URINE SPECIFIC GRAVITY 1.008; UROBILINOGEN,URINE NEGATIVE mg/dL (<2.0)
[2018-11-09] MEDS: TAMSULOSIN HCL 0.4 MG CAP.SR.24H PO SCH (17:13)
[2018-11-09] MEDS: VANCOMYCIN HCL 750 MG in DEXTROSE 5%-WATER 250 ML IV SCH (17:14)
[2018-11-09] MEDS: ATORVASTATIN CALCIUM 80 MG TABLET NG SCH (21:16)
[2018-11-09] MEDS: ACETAMINOPHEN 325 MG TABLET NG PRN (21:30)
--- NOTE | 2018-11-09 22:16 | EKG REPORT ---
SEVERITY:- ABNORMAL ECG - SINUS RHYTHM LOW VOLTAGE IN FRONTAL LEADS REPOL ABNRM SUGGESTS ISCHEMIA, DIFFUSE LEADS BORDERLINE PROLONGED QT INTERVAL : Confirmed by: Teresita Brady 09-Nov-2018 22:16:10
--- NOTE | 2018-11-09 23:46 | Progress Note ---
Provider Note Provider Note: [facility] cardiology PROGRESS NOTE by Dr. Elvira Benitez on 11/09/2018. SUBJECTIVE: The patient is confused and agitated. His troponin is slightly elevated compared to yesterday, but only marginally. His EKG continues to show diffuse ischemia.. There is no arrhythmia seen on the monitor. The patient's blood cultures positive for MSSA bacteremia, and hence the concern for endograft infection. He does not seem to be having any chest pain or increased shortness of breath. He is moving all 4 extremities, but is very agitated and confused. PHYSICAL EXAMINATION: The patient is agitated and confused. Apart from that he is and does not seem to be in any major distress. Selected Entries 11/09/18 16:00 Temperature 98.8 F Temperature Oral Source Pulse Rate 99 Heart Rate ( 96 Monitors) Respiratory 22 H Rate Blood Pressure 143/81 H [Right Upper Arm] Blood Pressure 101 Mean [Right Upper Arm] Blood Pressure Sitting Position [Right Upper Arm] O2 Sat by Pulse 92 Oximetry Oxygen Delivery Nasal Cannula Method ( includes room air) Oxygen Flow 6 Rate HEAD: Is atraumatic normocephalic. EYES: Pupils equal regular reactive to light. ENT is negative. NECK: Is supple. There is no JVD. Carotids are equal there is no bruit there is no lymphadenopathy. There is no accessory muscle respiration use. There is no lymphadenopathy. Trachea central. LUNGS: Shows a few dry crackles in the right base. The rest of the lungs show few scattered r honchi. There is no wheezing or rales of CHF. HEART: S1-S2 is heard. There is no S3 gallop. There is no S4 gallop. There is murmur of mitral regurgitation and tricuspid regurgitation present. The mitral regurgitation murmur is heard and the apex with radiation to the left axilla. There is no rub. ABDOMEN: Soft. There is nontender. There is no hepatospleno megaly bowel sounds are well heard. EXTREMITIES: Femoral pulses are very difficult to palpate leg pulses are absent. There is no pedal edema. There is no DVT or cellulitis. There is no signs or clubbing. Note there is a right axillofemoral bypass graft surgery on the right side which is working well. HARBOR PILOT : The patient is conscious awake alert at present with no focal deficits. PSYCHIATRIC: Patient at present does not appear to be demented. He is agitated. No further psych exam possible. Labs- All tests 24 hr 11/09/18 11/09/18 11/09/18 02:15 02:15 02:15 WBC 11.4 H RBC 3.77 L Hgb 11.1 L Hct 33.2 L MCV 88 MCH 29.5 MCHC 33.5 RDW 17.1 H Plt Count 225 Sodium 142.7 Potassium 3.6 Chloride 107 Carbon Dioxide 26 Anion Gap 10 BUN 26 H Creatinine 0.98 Est GFR ( Amer) > 60 Est GFR (MDRD) Non-Af > 60 Glucose 103 POC Glucose Calcium 9.1 Magnesium 2.2 Troponin I 2.980 Urine Color Urine Appearance Urine pH Ur Specific [place] Urine Protein Urine Glucose (UA) Urine Ketones Urine Blood Urine Nitrite Urine Bilirubin Urine Urobilinogen Ur Leukocyte Esterase Urine WBC (Auto) Urine RBC (Auto) Urine Ascorbic Acid 11/09/18 11/09/18 11/09/18 15:10 16:25 20:46 WBC RBC Hgb Hct MCV MCH MCHC RDW Plt Count Sodium Potassium Chloride Carbon Dioxide Anion Gap BUN Creatinine Est GFR ( Amer) Est GFR (MDRD) Non-Af Glucose POC Glucose 118 H 135 H Calcium Magnesium Troponin I Urine Color STRAW Urine Appearance CLEAR Urine pH 7.0 Ur Specific [place] 1.008 Urine Protein NEGATIVE Urine Glucose (UA) NEGATIVE Urine Ketones NEGATIVE Urine Blood SMALL H Urine Nitrite NEGATIVE Urine Bilirubin NEGATIVE Urine Urobilinogen NEGATIVE Ur Leukocyte Esterase SMALL H Urine WBC (Auto) 2 Urine RBC (Auto) 2 Urine Ascorbic Acid NEGATIVE Chest X-Ray 11/05/18 20:22 IMPRESSION: No acute cardiopulmonary disease. Head CT 11/05/18 20:23 IMPRESSION: Mild atrophy and small vessel ischemic change TECHNICAL DOCUMENTATION: Quality ID # 436: Final reports with documentation of one or more dose reduction techniques (e.g., Automated exposure control, adjustment of the mA and/or kV according to patient size, use of iterative reconstruction technique) copyright 2011 [email or web address]- All Rights Reserved Abdomen/Pelvis CT 11/05/18 22:38 IMPRESSION: 1. Medial right lower lobe infiltrate/atelectasis, possibly a focal pneumonia. Please correlate with clinical symptoms. 2. Atherosclerosis, with partially visualized bypass grafts. 3. Moderately distended bladder (630 mL) 4. No acute inflammatory changes. Chest X-Ray 11/06/18 00:00 IMPRESSION: 1. No acute pulmonary findings. 2. Endotracheal tube terminates approximately 1.5 cm cranial to the soledad. Partially imaged enteric tube without evidence of complication. KUB X-Ray 11/06/18 13:03 IMPRESSION: NG tube has been placed as described. Gas pattern is nonspecific. Chest X-Ray 11/07/18 06:00 IMPRESSION: Air bronchograms in the medial right lung base from consolidation, atelectasis versus pneumonia Endotracheal tube, nasogastric tube in good positioning Chest X-Ray 11/08/18 06:00 IMPRESSION: Persistent mild bibasilar airspace atelectasis versus pneumonia SINUS RHYTHM [MVSPC] . MULTIPLE PREMATURE COMPLEXES, VENT & SUPRAVEN [LVOLF] . LOW VOLTAGE IN FRONTAL LEADS [REPIDI] . REPOL ABNRM SUGGESTS ISCHEMIA, DIFFUSE LEADS [LQTB] . BORDERLINE PROLONGED QT INTERVAL IMPRESSION/RECOMMENDATION: 1. Non-ST elevation FL in a patient with history of coronary artery disease. The patient is without anginal symptoms. The troponin is trending down. Hence will stop the patient's IV heparin. We will continue patient on aspirin and Brilinta. Continue metoprolol. Change to Transderm-Nitro patch 0.6 mg/h. Daily. 2. Acute respiratory failure with hypoxia [acute hypoxemic respiratory failure] most likely secondary to pneumonia right lower lobe. The patient has been extubated and is in no acute respiratory distress. His respiratory status he seems to be stable. 3. Aspiration pneumonia with right lower lobe pneumonia. Later would get a swallow study to see if indeed the patient has risk of aspiration. 4. Moderate pulmonary hypertension with right ventricle systolic pressure of at least 56 mmHg. Moderate tricuspid regurgitation that is inhibitors. 5. Moderate to severe mitral regurgitation. Patient has been started on VEL inhibitor, and this has been increased 6.Coronary artery disease: [facility] 2018 had a elevated troponin I and was diagnosed as secondary to type II FL due to supply demand mismatch. His echocardiogram at that time was normal at 55 to 60% LV ejection fraction. There was moderate pulmonary hypertension with right ventricle systolic pressure of 59 mmHg. 7. COPD: Oxygen dependent. Continue bronchodilators oxygen and steroids. 8. Moderate aortic regurgitation: There is no peripheral signs of aortic regurgitation. Later we will try the patient on afterload reducing agents. 9..History of hypertension: Current blood pressure reasonable at present 10. Peripheral vascular disease of significance. With the positive MSSA blood cultures the concern for endograft infection has risen. Hence being made for the patient to be transferred to tertiary care center. 11. Renal failure. This is resolved. Patient's GFR is now within normal limits. 12.? Dementia. At present patient seems to be awake alert and oriented x3. Patient denies any history of dementia. Medications reviewed. Management plan discussed with fast brim pouncer. Medical decision making is of moderate to high complexity. Patient awaiting bed for transfer. 40 minutes spent on this patient more than 50% of time spent in direct patient care. Will follow.
[2018-11-10] MEDS: LEVALBUTEROL HCL NEB 0.63 MG/3 ML AMPUL NEB PRN (00:27)
[2018-11-10] MEDS: IPRATROPIUM BROMIDE 0.02% NEB 0.5 MG/2.5 ML AMPUL NEB SCH ×3 (00:27→15:48)
[2018-11-10] MEDS: HALOPERIDOL LACTATE INJ 5 MG/1 ML VIAL IV PRN (04:53)
[2018-11-10] MEDS: PANTOPRAZOLE SODIUM 40 MG PACKET.DR NG SCH (05:08)
[2018-11-10] MEDS: VANCOMYCIN HCL 750 MG in DEXTROSE 5%-WATER 250 ML IV SCH ×2 (05:09→17:16)
[2018-11-10] MEDS: INSULIN REG, HUMAN 100 UNIT/ML 3 ML VIAL (PYX) SUBCUT SCH ×4 (08:39→23:30)
[2018-11-10] MEDS: CEFEPIME 2 GM/D5W RTU 2 GM/50 ML RTUPB IV SCH ×2 (10:36→23:27)
[2018-11-10] MEDS: ENOXAPARIN SODIUM INJ 40 MG/0.4 ML DISP.SYRIN SUBCUT SCH (10:38)
[2018-11-10] MEDS: NITROGLYCERIN 15 MG (0.6 MG/1 HR) PATCH.TD24 TD SCH (10:38)
[2018-11-10] MEDS: ASPIRIN 81 MG TABLET, CHEWABLE NG SCH (10:39)
[2018-11-10] MEDS: DOCUSATE SODIUM 100 MG/10 ML UDC NG SCH ×2 (10:39→17:15)
[2018-11-10] MEDS: TICAGRELOR 90 MG TABLET NG SCH ×2 (10:39→23:27)
[2018-11-10] MEDS: METOPROLOL TARTRATE 25 MG TABLET NG SCH ×2 (10:40→23:25)
[2018-11-10] MEDS: QUETIAPINE FUMARATE 25 MG TABLET NG SCH ×2 (10:40→17:15)
[2018-11-10] MEDS: PREDNISONE 20 MG TABLET NG SCH (10:40)
[2018-11-10] MEDS: LISINOPRIL 5 MG TABLET NG SCH ×2 (10:41→23:26)
[2018-11-10] MEDS: TAMSULOSIN HCL 0.4 MG CAP.SR.24H PO SCH (17:16)
[2018-11-10] MEDS: ATORVASTATIN CALCIUM 80 MG TABLET NG SCH (23:27)
[2018-11-11] MEDS: IPRATROPIUM BROMIDE 0.02% NEB 0.5 MG/2.5 ML AMPUL NEB SCH ×3 (00:15→16:14)
[2018-11-11 06:27] LABS: ABSOLUTE EOSINOPHILS # (AUTO) 0.1 10^3/uL (0.0-0.6); ABSOLUTE LYMPHOCYTES (AUTO) 1.3 10^3/uL (0.5-4.7); ABSOLUTE MONOCYTES (AUTO) 0.8 10^3/uL (0.1-1.4); ABSOLUTE NEUT (AUTO) 9.2 10^3/uL (1.7-8.2); BASOPHILS % (AUTO) 0.3 % (0-2); EOSINOPHILS % (AUTO) 0.6 % (0-6); HEMATOCRIT 37.4 % (37.9-51.0); HEMOGLOBIN 12.5 g/dL (13.5-17.0); LYMPHOCYTES % (AUTO) 11.4 % (13-45); MEAN CORPUSCULAR HEMOGLOBIN 29.2 pg (27.0-33.4); MEAN CORPUSCULAR HGB CONC 33.5 g/dL (32.0-36.0); MEAN CORPUSCULAR VOLUME 87 fl (80-97); MONOCYTES % (AUTO) 7.4 % (3-13); PLATELET COUNT 277 10^3/uL (150-450); RED BLOOD COUNT 4.29 10^6/uL (4.35-5.55); RED CELL DISTRIBUTION WIDTH 16.3 % (11.5-14.0); SEGMENTED NEUTROPHILS % (AUTO) 80.3 % (42-78); TOTAL CELLS COUNTED % (AUTO) 100 %; WHITE BLOOD COUNT 11.4 10^3/uL (4.0-10.5)
[2018-11-11 06:42] LABS: ALBUMIN 3.6 g/dL (3.5-5.0); ALKALINE PHOSPHATASE 92 U/L (38-126); ANION GAP 10 (5-19); ASPARTATE AMINO TRANSFERASE 28 U/L (17-59); BILIRUBIN,DIRECT 0.2 mg/dL (0.0-0.4); BILIRUBIN,TOTAL 1.3 mg/dL (0.2-1.3); BLOOD UREA NITROGEN 29 mg/dL (7-20); CALCIUM 9.1 mg/dL (8.4-10.2); CARBON DIOXIDE 25 mmol/L (22-30); CHLORIDE 106 mmol/L (98-107); GLUCOSE 103 mg/dL (75-110); POTASSIUM 3.2 mmol/L (3.6-5.0); TOTAL PROTEIN 6.7 g/dL (6.3-8.2)
[2018-11-11 06:43] LABS: VANCOMYCIN,TROUGH 13.7 ug/mL (5.0-20.0)
--- NOTE | 2018-11-11 08:41 | Progress Note ---
Provider Note Provider Note: ID Consult - Brief Note Asked to review chart. Pt not seen or examined. Mr. Pulliam is a 78 year old man with PMH/PSH including CAD and PVD s/p R axillofemoral bypass and femoral- femoral bypass graft and aortic stent placement who was admitted on 11/06/18 to [facility] with 1 day hx of abdominal pain, increased confusion and vomiting reported by his son. He was afebrile. On exam no wheezing or rales, few dry crackles noted, scattered rhonchi. MR murmur was appreciated. No lower extremity cellulitis. Labs included leukocytosis, evidence of BEBE. Initial imaging - CXR w/o focal lung consolidation, only mild L basilar atelectatic changes. CT abd/pelvis w/o contrast was read as showing partial infiltr ate/atelectasis posterior and medial RML, no acute inflammatory changes, moderately distended bladder. Pt developed acute hypercapneic and hypoxic respiratory failure and required intubation after failing BiPAP and ICU transfer on 11/06/18. Was able to be extubated the following day. He was also felt to have a NSTEMI. BEBE resolved with osman placement. Was given vancomycin, cefepime and azithromycin empirically for pneumonia. Cultures showed growth in both sets (3/4 bottles) on 11/05 of MSSA. Tracheal aspirate on 11/06 had 2+ GPCs in pairs, few GPCs in clusters and few small GNRs on Gram stain and in cx grew 2+ normal wally and 2+ MSSA. Repeat BCx from 11/08 have no growth in one set x 72h and in the other set preliminarily reported GPCs in clusters. TTE on 11/06 showed mitral annual calcifications, moderate/severe MR, aortic sclerosis, moderate AR. Impression/Recommendations Complicated MSSA bacteremia in a pt with h/o vascular grafts - No other bacteria isolated from blood cultures, tracheal aspirate besides normal respiratory wally. Would focus on MSSA. - Recommend discontinuing vancomycin and cefepime and treating the patient with cefazolin 2 grams q8h IV. - Await identification of the GPCs in clusters from 11/08. Agree with plans for repeat BCx. Ryan Bhakta MD [facility] Infectious Diseases pager [phone]
[2018-11-11] MEDS: INSULIN REG, HUMAN 100 UNIT/ML 3 ML VIAL (PYX) SUBCUT SCH ×4 (09:21→21:23)
[2018-11-11] MEDS: ACETAMINOPHEN 325 MG TABLET NG PRN (09:22)
[2018-11-11] MEDS: ASPIRIN 81 MG TABLET, CHEWABLE NG SCH (09:22)
[2018-11-11] MEDS: LISINOPRIL 5 MG TABLET NG SCH ×2 (09:22→21:13)
[2018-11-11] MEDS: PREDNISONE 20 MG TABLET PO SCH (09:22)
[2018-11-11] MEDS: METOPROLOL TARTRATE 25 MG TABLET NG SCH ×2 (09:22→21:13)
[2018-11-11] MEDS: DIAZEPAM 5 MG TABLET PO SCH ×2 (09:22→17:38)
[2018-11-11] MEDS: NITROGLYCERIN 15 MG (0.6 MG/1 HR) PATCH.TD24 TD SCH (09:23)
[2018-11-11] MEDS: QUETIAPINE FUMARATE 25 MG TABLET NG SCH ×2 (09:23→17:38)
[2018-11-11] MEDS: ENOXAPARIN SODIUM INJ 40 MG/0.4 ML DISP.SYRIN SUBCUT SCH (09:23)
[2018-11-11] MEDS: CEFEPIME 2 GM/D5W RTU 2 GM/50 ML RTUPB IV SCH (09:27)
[2018-11-11] MEDS: TICAGRELOR 90 MG TABLET NG SCH ×2 (09:30→21:14)
[2018-11-11] MEDS ORDERED: PREDNISONE 10 MG TABLET PO SCH (10:00)
--- NOTE | 2018-11-11 11:00 | EKG REPORT ---
SEVERITY:- ABNORMAL ECG - SINUS RHYTHM VENTRICULAR AND ATRIAL PREMATURE COMPLEX LEFT AXIS DEVIATION REPOL ABNRM SUGGESTS ISCHEMIA, DIFFUSE LEADS PROLONGED QT INTERVAL : Confirmed by: Teresita Brady 11-Nov-2018 10:59:59
[2018-11-11] MEDS ORDERED: CEFAZOLIN 2 GM/D5W RTU 2 GM/50 ML RTUPB IV SCH (11:30)
[2018-11-11] MEDS: DOCUSATE SODIUM 100 MG/10 ML UDC NG SCH ×2 (12:01→17:38)
[2018-11-11] MEDS: CEFAZOLIN SODIUM 2 GM in DEXTROSE 5%-WATER 100 ML IV SCH ×2 (15:33→21:10)
[2018-11-11] MEDS: TAMSULOSIN HCL 0.4 MG CAP.SR.24H PO SCH (17:38)
[2018-11-11] MEDS: ATORVASTATIN CALCIUM 80 MG TABLET NG SCH (21:13)
[2018-11-11 21:42] LABS: APPEARANCE,URINE CLEAR; BILIRUBIN,URINE NEGATIVE (NEGATIVE); COLOR,URINE STRAW; GLUCOSE, URINE NEGATIVE (NEGATIVE); KETONES,URINE NEGATIVE (NEGATIVE); LEUKOCYTE ESTERASE,URINE NEGATIVE (NEGATIVE); NITRITE,URINE NEGATIVE (NEGATIVE); PROTEIN,URINE NEGATIVE (NEGATIVE); URINE SPECIFIC GRAVITY 1.008; UROBILINOGEN,URINE NEGATIVE mg/dL (<2.0)
--- NOTE | 2018-11-11 23:00 | Progress Note ---
Provider Note Provider Note: CARDIOLOGY PROGRESS NOTE by Dr. Elvira Benitez on 11/11/2018. SUBJECTIVE: The patient is intermittently confused. At present appears to be slightly short of breath. But he denies being short of breath. He denies any chest pain or discomfort. There is no PND. He has orthopnea. He has no TIA CVA symptoms. There is no leg edema. There is no arrhythmia seen on the monitor. PHYSICAL EXAMINATION: The patient is well-built in no acute distress at present. Selected Entries 11/11/18 11/11/18 11/11/18 07:14 07:18 08:45 Temperature 98.6 F Heart Rate ( 92 Monitors) Respiratory 28 H Rate Blood Pressure 105/68 Blood Pressure 80 Mean O2 Sat by Pulse 94 93 Oximetry Oxygen Delivery Nasal Cannula Method ( includes room air) Oxygen Flow 5 Rate HEAD: Is atraumatic normocephalic. EYES: Pupils equal regular reactive to light. ENT is negative. NECK: Is supple. There is no JVD. Carotids are equal there is no bruit there is no lymphadenopathy. There is no accessory muscle respiration use. There is no lymphadenopathy. Trachea central. LUNGS: Shows a few dry crackles in the right base. The rest of the lungs show few scattered rhonchi. There is no wheezing or rales of CHF. HEART: S1-S2 is heard. There is no S3 gallop. There is no S4 gallop. There is murmur of mitral regurgitation and tricuspid regurgitation present. The mitral regurgitation murmur is heard and the apex with radiation to the left axilla. There is no rub. ABDOMEN: Soft. There is nontender. There is no hepatospleno megaly bowel sounds are well heard. EXTREMITIES: Femoral pulses are very difficult to palpate leg pulses are absent. There is no pedal edema. There is no DVT or cellulitis. There is no signs or clubbing. Note there is a right axillofemoral bypass graft surgery on the right side which is working well. MASTIC MAN : The patient is conscious awake alert at present with no focal deficits. PSYCHIATRIC: Patient at present does not appear to be demented. He is agitated. No further psych exam possible. Labs- All tests 24 hr 11/10/18 11/11/18 11/11/18 23:30 06:00 06:00 WBC 11.4 H RBC 4.29 L Hgb 12.5 L Hct 37.4 L MCV 87 MCH 29.2 MCHC 33.5 RDW 16.3 H Plt Count 277 Lymph % (Auto) 11.4 L [place] % (Auto) 7.4 Eos % (Auto) 0.6 Baso % (Auto) 0.3 Absolute Neuts (auto) 9.2 H Absolute Lymphs (auto) 1.3 Absolute Monos (auto) 0.8 Absolute Eos (auto) 0.1 Absolute Basos (auto) 0.0 Seg Neutrophils % 80.3 H Sodium Potassium Chloride Carbon Dioxide Anion Gap BUN Creatinine Est GFR ( Amer) Est GFR (MDRD) Non-Af Glucose POC Glucose 130 H Calcium Total Bilirubin Direct Bilirubin Neonat Total Bilirubin Neonat Direct Bilirubin Neonat Indirect Bili AST ALT Alkaline Phosphatase Total Protein Albumin Urine Color Urine Appearance Urine pH Ur Specific [place] Urine Protein Urine Glucose (UA) Urine Ketones Urine Blood Urine Nitrite Urine Bilirubin Urine Urobilinogen Ur Leukocyte Esterase Urine WBC (Auto) Urine Mucus (Auto) Urine Ascorbic Acid Time Trough Drawn 0600 Vancomycin Trough 13.7 11/11/18 11/11/18 11/11/18 06:00 09:04 11:41 WBC RBC Hgb Hct MCV MCH MCHC RDW Plt Count Lymph % (Auto) [place] % (Auto) Eos % (Auto) Baso % (Auto) Absolute Neuts (auto) Absolute Lymphs (auto) Absolute Monos (auto) Absolute Eos (auto) Absolute Basos (auto) Seg Neutrophils % Sodium 140.8 Potassium 3.2 L Chloride 106 Carbon Dioxide 25 Anion Gap 10 BUN 29 H Creatinine 1.04 Est GFR ( Amer) > 60 Est GFR (MDRD) Non-Af > 60 Glucose 103 POC Glucose 139 H 169 H Calcium 9.1 Total Bilirubin 1.3 Direct Bilirubin 0.2 Neonat Total Bilirubin Not Reportable Neonat Direct Bilirubin Not Reportable Neonat Indirect Bili Not Reportable AST 28 ALT 36 Alkaline Phosphatase 92 Total Protein 6.7 Albumin 3.6 Urine Color Urine Appearance Urine pH Ur Specific [place] Urine Protein Urine Glucose (UA) Urine Ketones Urine Blood Urine Nitrite Urine Bilirubin Urine Urobilinogen Ur Leukocyte Esterase Urine WBC (Auto) Urine Mucus (Auto) Urine Ascorbic Acid Time Trough Drawn Vancomycin Trough 11/11/18 11/11/18 11/11/18 16:32 21:19 21:20 WBC RBC Hgb Hct MCV MCH MCHC RDW Plt Count Lymph % (Auto) [place] % (Auto) Eos % (Auto) Baso % (Auto) Absolute Neuts (auto) Absolute Lymphs (auto) Absolute Monos (auto) Absolute Eos (auto) Absolute Basos (auto) Seg Neutrophils % Sodium Potassium Chloride Carbon Dioxide Anion Gap BUN Creatinine Est GFR ( Amer) Est GFR (MDRD) Non-Af Glucose POC Glucose 149 H 128 H Calcium Total Bilirubin Direct Bilirubin Neonat Total Bilirubin Neonat Direct Bilirubin Neonat Indirect Bili AST ALT Alkaline Phosphatase Total Protein Albumin Urine Color STRAW Urine Appearance CLEAR Urine pH 7.0 Ur Specific [place] 1.008 Urine Protein NEGATIVE Urine Glucose (UA) NEGATIVE Urine Ketones NEGATIVE Urine Blood SMALL H Urine Nitrite NEGATIVE Urine Bilirubin NEGATIVE Urine Urobilinogen NEGATIVE Ur Leukocyte Esterase NEGATIVE Urine WBC (Auto) 0 Urine Mucus (Auto) RARE Urine Ascorbic Acid NEGATIVE Time Trough Drawn Vancomycin Trough Chest X-Ray 11/05/18 20:22 IMPRESSION: No acute cardiopulmonary disease. Head CT 11/05/18 20:23 IMPRESSION: Mild atrophy and small vessel ischemic change TECHNICAL DOCUMENTATION: Quality ID # 436: Final reports with documentation of one or more dose reduction techniques (e.g., Automated exposure control, adjustment of the mA and/or kV according to patient size, use of iterative reconstruction technique) copyright 2011 [employer]- All Rights Reserved Abdomen/Pelvis CT 11/05/18 22:38 IMPRESSION: 1. Medial right lower lobe infiltrate/atelectasis, possibly a focal pneumonia. Please correlate with clinical symptoms. 2. Atherosclerosis, with partially visualized bypass grafts. 3. Moderately distended bladder (630 mL) 4. No acute inflammatory changes. Chest X-Ray 11/06/18 00:00 IMPRESSION: 1. No acute pulmonary findings. 2. Endotracheal tube terminates approximately 1.5 cm cranial to the soledad. Partially imaged enteric tube without evidence of complication. KUB X-Ray 11/06/18 13:03 IMPRESSION: NG tube has been placed as described. Gas pattern is nonspecific. Chest X-Ray 11/07/18 06:00 IMPRESSION: Air bronchograms in the medial right lung base from consolidation, atelectasis versus pneumonia Endotracheal tube, nasogastric tube in good positioning Chest X-Ray 11/08/18 06:00 IMPRESSION: Persistent mild bibasilar airspace atelectasis versus pneumonia IMPRESSION/RECOMMENDATION: 1. Non-ST elevation MA in a patient with history of coronary artery disease. The patient is without anginal symptoms. The troponin is trending down. Hence will stop the patient's IV heparin. We will continue patient on aspirin and Brilinta. Continue metoprolol. Change to Transderm-Nitro patch 0.6 mg/h. Daily. 2. Acute respiratory failure with hypoxia [acute hypoxemic respiratory failure] most likely secondary to pneumonia right lower lobe. The patient has been extubated and is in no acute respiratory distress. His respiratory status he seems to be stable. 3. Aspiration pneumonia with right lower lobe pneumonia. Later would get a swallow study to see if indeed the patient has risk of aspiration. 4. Moderate pulmonary hypertension with right ventricle systolic pressure of at least 56 mmHg. Moderate tricuspid regurgitation that is inhibitors. 5. Moderate to severe mitral regurgitation. Patient has been started on VEL inhibitor, and this has been increased 6.Coronary artery disease: As per records from the [place] the patient in April 2018 had a elevated troponin I and was diagnosed as secondary to type II MA due to supply demand mismatch. His echocardiogram at that time was normal at 55 to 60% LV ejection fraction. There was moderate pulmonary hypertension with right ventricle systolic pressure of 59 mmHg. 7. COPD: Oxygen dependent. Continue bronchodilators oxygen and steroids. 8. Moderate aortic regurgitation: There is no peripheral signs of aortic regurgitation. Later we will try the patient on afterload reducing agents. 9..History of hypertension: Current blood pressure reasonable at present 10. Peripheral vascular disease of significance. With the positive MSSA blood cultures which is now thought to be a contaminant. Hence patient not being transferred 11. Renal failure. This is resolved. Patient's GFR is now within normal limits. 12.? Dementia. At present patient seems to be awake alert and oriented x3. Patient denies any history of dementia. Medications reviewed. Management plan discussed with high school biology teacher. Medical decision making is of moderate to high complexity. Patient awaiting bed for transfer. 40 minutes spent on this patient more than 50% of time spent in direct patient care. Will follow.
[2018-11-12] MEDS: IPRATROPIUM BROMIDE 0.02% NEB 0.5 MG/2.5 ML AMPUL NEB SCH ×3 (00:21→16:13)
[2018-11-12] MEDS ORDERED: LORAZEPAM INJ 2 MG/1 ML VIAL IV ONE (03:00)
[2018-11-12] MEDS: CEFAZOLIN SODIUM 2 GM in DEXTROSE 5%-WATER 100 ML IV SCH ×3 (05:54→21:34)
[2018-11-12] MEDS: INSULIN REG, HUMAN 100 UNIT/ML 3 ML VIAL (PYX) SUBCUT SCH ×4 (08:35→21:37)
--- NOTE | 2018-11-12 09:06 | EKG REPORT ---
SEVERITY:- ABNORMAL ECG - SINUS RHYTHM BORDERLINE LEFT AXIS DEVIATION NONSPECIFIC REPOL ABNORMALITY, LATERAL LEADS BORDERLINE PROLONGED QT INTERVAL : Confirmed by: Teresita Brady 12-Nov-2018 09:05:55
[2018-11-12] MEDS: NITROGLYCERIN 15 MG (0.6 MG/1 HR) PATCH.TD24 TD SCH (10:05)
[2018-11-12] MEDS: ENOXAPARIN SODIUM INJ 40 MG/0.4 ML DISP.SYRIN SUBCUT SCH (10:05)
[2018-11-12] MEDS: PREDNISONE 20 MG TABLET PO SCH (10:06)
[2018-11-12] MEDS: DIAZEPAM 5 MG TABLET PO SCH ×2 (10:06→17:40)
[2018-11-12] MEDS: TICAGRELOR 90 MG TABLET NG SCH ×2 (10:07→21:35)
[2018-11-12] MEDS: LISINOPRIL 5 MG TABLET NG SCH ×2 (10:07→21:36)
[2018-11-12] MEDS: QUETIAPINE FUMARATE 25 MG TABLET NG SCH ×2 (10:08→17:40)
[2018-11-12] MEDS: DOCUSATE SODIUM 100 MG/10 ML UDC NG SCH ×2 (10:08→17:40)
[2018-11-12] MEDS: METOPROLOL TARTRATE 25 MG TABLET NG SCH ×2 (10:08→21:35)
[2018-11-12] MEDS: ASPIRIN 81 MG TABLET, CHEWABLE NG SCH (10:08)
--- NOTE | 2018-11-12 12:31 | PDOC PROGRESS REPORT ---
Subjective Progress Note for:: 11/12/18 Subjective:: No complaints, wants to go home. Reason For Visit: COMMUNITY ACQUIRED RIGHT LOWER LOBE PNUEMONIA Physical Exam Vital Signs: Temp Pulse Resp BP Pulse Ox 98.1 F 64 18 115/65 93 11/12/18 08:00 11/12/18 08:31 11/12/18 08:31 11/12/18 08:00 11/12/18 08:31 Intake & Output 11/11/18 11/12/18 11/13/18 06:59 06:59 06:59 Intake Total 400 1007 Output Total 415 2105 Balance -15 -6444 Weight 71.5 kg 71.7 kg General appearance: PRESENT: no acute distress, hard of hearing Eye exam: PRESENT: EOMI, PERRLA Ear exam: PRESENT: normal external ear exam Mouth exam: PRESENT: moist Respiratory exam: PRESENT: clear to auscultation cristobal, prolonged expiratory phas Cardiovascular exam: PRESENT: RRR Vascular exam: PRESENT: normal capillary refill GI/Abdominal exam: PRESENT: soft Rectal exam: PRESENT: deferred Extremities exam: PRESENT: full ROM Musculoskeletal exam: PRESENT: full ROM, other - weak Neurological exam: PRESENT: alert, altered Additional comments: Normal dementia state Skin exam: PRESENT: normal color Results Laboratory Results: 11/11/18 06:00 11/11/18 06:00 11/11/18 11/12/18 21:19 10:53 C-Reactive Protein 31.5 H Urine Color STRAW Urine Appearance CLEAR Urine pH 7.0 Ur Specific [place] 1.008 Urine Protein NEGATIVE Urine Glucose (UA) NEGATIVE Urine Ketones NEGATIVE Urine Blood SMALL H Urine Nitrite NEGATIVE Ur Leukocyte Esterase NEGATIVE Urine WBC (Auto) 0 11/05/18 11/05/18 11/06/18 20:50 20:50 03:13 Creatine Kinase 291 H 458 H CK-MB (CK-2) 5.16 H Troponin I 0.496 NT-Pro-B Natriuret Pep 969 H 11/06/18 11/06/18 11/06/18 03:13 09:39 09:39 Creatine Kinase 549 H CK-MB (CK-2) 11.60 H 19.30 H Troponin I 1.240 1.870 NT-Pro-B Natriuret Pep 11/06/18 11/06/18 11/06/18 16:20 16:20 21:05 Creatine Kinase 618 H CK-MB (CK-2) 23.70 H Troponin I 2.770 4.020 NT-Pro-B Natriuret Pep 11/07/18 11/07/18 11/09/18 03:29 20:00 02:15 Creatine Kinase CK-MB (CK-2) Troponin I 4.400 2.950 2.980 NT-Pro-B Natriuret Pep 11/10/18 11/12/18 03:13 03:56 Creatine Kinase CK-MB (CK-2) Troponin I 1.670 0.985 NT-Pro-B Natriuret Pep Impressions: Head CT 11/05/18 20:23 IMPRESSION: Mild atrophy and small vessel ischemic change TECHNICAL DOCUMENTATION: Quality ID # 436: Final reports with documentation of one or more dose reduction techniques (e.g., Automated exposure control, adjustment of the mA and/or kV according to patient size, use of iterative reconstruction technique) copyright 2011 [employer]- All Rights Reserved Abdomen/Pelvis CT 11/05/18 22:38 IMPRESSION: 1. Medial right lower lobe infiltrate/atelectasis, possibly a focal pneumonia. Please correlate with clinical symptoms. 2. Atherosclerosis, with partially visualized bypass grafts. 3. Moderately distended bladder (630 mL) 4. No acute inflammatory changes. KUB X-Ray 11/06/18 13:03 IMPRESSION: NG tube has been placed as described. Gas pattern is nonspecific. Chest X-Ray 11/08/18 06:00 IMPRESSION: Persistent mild bibasilar airspace atelectasis versus pneumonia Assessment & Plan - Diagnosis (1) Aspiration into airway Qualifiers: Encounter type: initial encounter Qualified Code(s): T17.908A - Unspecified foreign body in respiratory tract, part unspecified causing other injury, initial encounter Is this a current diagnosis for this admission?: Yes Plan: Pt aspirates according to son. Aspiration witnessed while eating. Son said 'If I dont always watch him this will happen'. Pt coughed several times during lunch. On mechanical soft diet per speech therapy. No other treatmant (2) Acute kidney injury Is this a current diagnosis for this admission?: Yes Plan: Resolved. Cr 1.04. (3) Acute respiratory failure Qualifiers: Respiratory failure complication: unspecified whether with hypoxia or hypercapnia Qualified Code(s): J96.00 - Acute respiratory failure, unspecified whether with hypoxia or hypercapnia Is this a current diagnosis for this admission?: Yes Plan: Resolved. Pt has baseline COPD 5l O2 dependant. Aspiration a risk. (4) COPD (chronic obstructive pulmonary disease) Qualifiers: COPD type: COPD with acute lower respiratory infection Qualified Code(s): J44.0 - Chronic obstructive pulmonary disease with acute lower respiratory infection Is this a current diagnosis for this admission?: Yes Plan: Continue current treatment and O2 (5) Chronic dementia without behavioral disturbance Is this a current diagnosis for this admission?: Yes Plan: Seems to be at baseline according to son. (6) MSSA bacteremia Is this a current diagnosis for this admission?: Yes Plan: Plan to continue chcf abf (Ancef 2 gms Q8H) for at least a month. ID appt Friday. ESR Protein S and ESR drawn for baseline. - Time Time Spent with patient: 25-34 minutes Total Critical Time (Minutes): 0 Medications reviewed and adjusted accordingly: Yes Anticipated discharge: Home with Homehealth - Inpatient Certification Medical Necessity: Failure to Improve With Outpatient Therapy, Significant Comorbidiites Make Outpatient Treatment Too Risky
--- NOTE | 2018-11-12 12:52 | RADIOLOGY REPORT (SQ) ---
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 1 month antibiotics; IV ACCESS; JAIL ABX COMPARISON: Chest films 11/05/2018, 11/06/2018, 11/07/2018, 11/08/2018 FLUOROSCOPY TIME: 2 minutes 28 seconds 1 digital fluoroscopic, and 1 ultrasound image saved to PACS. TECHNIQUE: Fluoroscopic and ultrasound guided PICC placement. LIMITATIONS: None. PROCEDURE: After written consent and assessment were obtained, the patient was brought into the fluo roscopy room and placed supine on the table. Ultrasound evaluation of potential access sites were per formed. After successfully identifying a patent left basilic vein, the left arm was prepped and drape d in a sterile fashion along with the ultrasound probe. The entry site was anesthetized with 1% lidoc zechariah. A 21 gauge 7 cm needle was advanced through the skin and into the basilic vein under live ultra sound guidance. An ultrasound image was saved to PACS confirming access site. A .018 guide wire was then inserted through the needle and into the venous system. The needle was then removed and an 11 b lade scalpel was used to make a 1cm skin incision. A 5 fr peel-away sheath was advanced over the wir e and into the venous system. A measurement was then made using the existing wire and live fluoroscop ic guidance. The wire was then removed and trimmed. The PICC was advanced through the peel-away sheat h and into the venous system. The peel-away sheath was removed and the catheter was adhered to the pa tients arm with a stat lock. The catheter was then aspirated and flushed and a sterile bandage was pl aced over the access site. A fluoroscopic spot image was saved to PACS confirming the catheter tip w ithin the superior vena cava. IMPRESSION: SUCCESSFUL PLACEMENT OF A 5 FR DUAL LUMEN 44 CM PICC IN THE LEFT BASILIC VEIN. COMMENT: Patient medication list reviewed: Yes- Quality ID# 130:Eligible professional attests to doc umenting in the medical record they obtained, updated, or reviewed the patient's current medications. . Quality ID 145: Final reports for procedures using fluoroscopy that document radiation exposure ginny vargas, or exposure time and number of fluorographic images (if radiation exposure indices are not avail able) Quality ID #76: The patient was prepped and draped using maximum sterile barrier technique including cap, mask, sterile gown, sterile gloves, a large sterile sheet, hand hygiene, and 2% Chlorhexidine fo r cutaneous antisepsis. When ultrasound is used, sterile ultrasound techniques are followed requiring sterile gel and sterile probes. TECHNICAL DOCUMENTATION: JOB ID: [id number] [employer]- All Rights Reserved rev-07/04 Reading location - IP/workstation name: [email or web address]
--- NOTE | 2018-11-12 12:52 | RADIOLOGY REPORT (SQ) ---
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 1 month antibiotics; IV ACCESS; [facility] ABX COMPARISON: Chest films 11/05/2018, 11/06/2018, 11/07/2018, 11/08/2018 FLUOROSCOPY TIME: 2 minutes 28 seconds 1 digital fluoroscopic, and 1 ultrasound image saved to PACS. TECHNIQUE: Fluoroscopic and ultrasound guided PICC placement. LIMITATIONS: None. PROCEDURE: After written consent and assessment were obtained, the patient was brought into the fluo roscopy room and placed supine on the table. Ultrasound evaluation of potential access sites were per formed. After successfully identifying a patent left basilic vein, the left arm was prepped and drape d in a sterile fashion along with the ultrasound probe. The entry site was anesthetized with 1% lidoc zechariah. A 21 gauge 7 cm needle was advanced through the skin and into the basilic vein under live ultra sound guidance. An ultrasound image was saved to PACS confirming access site. A .018 guide wire was then inserted through the needle and into the venous system. The needle was then removed and an 11 b lade scalpel was used to make a 1cm skin incision. A 5 fr peel-away sheath was advanced over the wir e and into the venous system. A measurement was then made using the existing wire and live fluoroscop ic guidance. The wire was then removed and trimmed. The PICC was advanced through the peel-away sheat h and into the venous system. The peel-away sheath was removed and the catheter was adhered to the pa tients arm with a stat lock. The catheter was then aspirated and flushed and a sterile bandage was pl aced over the access site. A fluoroscopic spot image was saved to PACS confirming the catheter tip w ithin the superior vena cava. IMPRESSION: SUCCESSFUL PLACEMENT OF A 5 FR DUAL LUMEN 44 CM PICC IN THE LEFT BASILIC VEIN. COMMENT: Patient medication list reviewed: Yes- Quality ID# 130:Eligible professional attests to doc umenting in the medical record they obtained, updated, or reviewed the patient's current medications. . Quality ID 145: Final reports for procedures using fluoroscopy that document radiation exposure ginny vargas, or exposure time and number of fluorographic images (if radiation exposure indices are not avail able) Quality ID #76: The patient was prepped and draped using maximum sterile barrier technique including cap, mask, sterile gown, sterile gloves, a large sterile sheet, hand hygiene, and 2% Chlorhexidine fo r cutaneous antisepsis. When ultrasound is used, sterile ultrasound techniques are followed requiring sterile gel and sterile probes. TECHNICAL DOCUMENTATION: JOB ID: [id number] [employer]- All Rights Reserved rev-07/04 Reading location - IP/workstation name: [email or web address]
--- NOTE | 2018-11-12 12:52 | RADIOLOGY REPORT (SQ) ---
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 1 month antibiotics; IV ACCESS; LONG-TERM ABX COMPARISON: Chest films 11/05/2018, 11/06/2018, 11/07/2018, 11/08/2018 FLUOROSCOPY TIME: 2 minutes 28 seconds 1 digital fluoroscopic, and 1 ultrasound image saved to PACS. TECHNIQUE: Fluoroscopic and ultrasound guided PICC placement. LIMITATIONS: None. PROCEDURE: After written consent and assessment were obtained, the patient was brought into the fluo roscopy room and placed supine on the table. Ultrasound evaluation of potential access sites were per formed. After successfully identifying a patent left basilic vein, the left arm was prepped and drape d in a sterile fashion along with the ultrasound probe. The entry site was anesthetized with 1% lidoc zechariah. A 21 gauge 7 cm needle was advanced through the skin and into the basilic vein under live ultra sound guidance. An ultrasound image was saved to PACS confirming access site. A .018 guide wire was then inserted through the needle and into the venous system. The needle was then removed and an 11 b lade scalpel was used to make a 1cm skin incision. A 5 fr peel-away sheath was advanced over the wir e and into the venous system. A measurement was then made using the existing wire and live fluoroscop ic guidance. The wire was then removed and trimmed. The PICC was advanced through the peel-away sheat h and into the venous system. The peel-away sheath was removed and the catheter was adhered to the pa tients arm with a stat lock. The catheter was then aspirated and flushed and a sterile bandage was pl aced over the access site. A fluoroscopic spot image was saved to PACS confirming the catheter tip w ithin the superior vena cava. IMPRESSION: SUCCESSFUL PLACEMENT OF A 5 FR DUAL LUMEN 44 CM PICC IN THE LEFT BASILIC VEIN. COMMENT: Patient medication list reviewed: Yes- Quality ID# 130:Eligible professional attests to doc umenting in the medical record they obtained, updated, or reviewed the patient's current medications. . Quality ID 145: Final reports for procedures using fluoroscopy that document radiation exposure ginny vargas, or exposure time and number of fluorographic images (if radiation exposure indices are not avail able) Quality ID #76: The patient was prepped and draped using maximum sterile barrier technique including cap, mask, sterile gown, sterile gloves, a large sterile sheet, hand hygiene, and 2% Chlorhexidine fo r cutaneous antisepsis. When ultrasound is used, sterile ultrasound techniques are followed requiring sterile gel and sterile probes. TECHNICAL DOCUMENTATION: JOB ID: [id number] [employer]- All Rights Reserved rev-07/04 Reading location - IP/workstation name: [email or web address]
[2018-11-12] MEDS ORDERED: NORMAL SALINE 10 ML SDV (AFTER EACH USE) IV PRN (14:30)
[2018-11-12] MEDS: TAMSULOSIN HCL 0.4 MG CAP.SR.24H PO SCH (17:40)
[2018-11-12] MEDS: ACETAMINOPHEN 325 MG TABLET NG PRN (19:58)
--- NOTE | 2018-11-12 20:04 | Progress Note ---
Provider Note Provider Note: ID Consult - Brief Note Pt not seen or examined. Reviewed recent results and notes. Pt has complicated MSSA bacteremia. Source - ? Bacteremic pneumonia is certainly possible. Staph aureus is an infrequent cause of community acquired pneumonia, but pt had MSSA cultured from sputum, no imaging findings c/w septic pulmonary emboli, and R lung base consolidation seen on chest imaging, and severity of illness was such that he required intubation and ICU admission. Pt son reports aspiration as a risk factor for pneumonia. ISAEL showed no valvular vegetations. Involvement of the aortic stent or vascular grafts is another possibility, which would be best evaluated with CTA. Even if not the origin of bacteremia, hematogenous infection can occur of grafts and other endovascular prosthetic material. Earlier CT scan could not be performed with contrast due to BEBE, which has since resolved. Would consider CTA. If there is no radiographic evidence of such, agree - treatment duration should be 4 weeks of treatment from date of negative blood cultures with cefazolin 2 g q8h IV for complicated MSSA bacteremia. For a four week treatment duration, the end date should be Dec 06 (provided that the blood cultures from 11/08 are negative for MSSA). While on cefazolin, weekly monitoring of CBC and CMP would be appropriate. PICC line should be removed after completion of treatment unless otherwise directed by a provider. Ryan Bhakta MD [facility] Infectious Diseases pager [phone]
[2018-11-12] MEDS: NORMAL SALINE 10 ML SDV (SCHEDULED) IV SCH (21:36)
[2018-11-12] MEDS: ATORVASTATIN CALCIUM 80 MG TABLET NG SCH (21:36)
--- NOTE | 2018-11-12 22:32 | Progress Note ---
Provider Note Provider Note: Cardiology progress note by Dr. Elvira Britt on 11/12/2018 SUBJECTIVE: The patient is less confused. He denies any chest pain or discomfort. There is no there is no PND orthopnea or leg edema. There is no arrhythmia seen on the monitor. There is no chest pain or discomfort. Shortness of breath is much improved. The patient is EKG ST changes have improved. The patient troponin is trending down. As mentioned earlier the patient is a very high risk for cardiac catheterization. Unless the patient has intractable chest pain/angina unrelieved with medications, would not recommend cardiac catheterization. The patient also agrees with this. PHYSICAL EXAMINATION: The patient is of fair build, with no acute distress at present. Selected Entries 11/12/18 11/12/18 16:13 16:27 Temperature 98.6 F Heart Rate ( 66 Monitors) Respiratory 22 H Rate Blood Pressure 111/64 Blood Pressure 79 Mean O2 Sat by Pulse 91 L Oximetry Oxygen Flow 4 Rate HEAD: Is atraumatic normocephalic. EYES: Pupils equal regular reactive to light. ENT is negative. NECK: Is supple. There is no JVD. Carotids are equal there is no bruit there is no lymphadenopathy. There is no accessory muscle respiration use. There is no lymphadenopathy. Trachea central. LUNGS: Shows a few dry crackles in the right base. The rest of the lungs show few scattered rhonchi. There is no wheezing or rales of CHF. HEART: S1-S2 is heard. There is no S3 gallop. There is no S4 gallop. There is murmur of mitral regurgitation and tricuspid regurgitation present. The mitral regurgitation murmur is heard and the apex with radiation to the left axilla. There is no rub. ABDOMEN: Soft. There is nontender. There is no hepatospleno megaly bowel sounds are well heard. EXTREMITIES: Femoral pulses are very difficult to palpate leg pulses are absent. There is no pedal edema. There is no DVT or cellulitis. There is no signs or clubbing. Note there is a right axillofemoral bypass graft surgery on the right side which is working well. RN HOME CARE : The patient is conscious awake alert at present with no focal deficits. PSYCHIATRIC: Patient at present does not appear to be demented. He is agitated. No further psych exam possible. Labs- All tests 24 hr 11/12/18 11/12/1811/12/19 03:56 08:33 10:14 ESR POC Glucose 79 98 Troponin I 0.985 C-Reactive Protein Stl Occult Blood (ICT) 11/12/18 11/12/18 11/12/18 10:53 10:53 15:16 ESR 46 H POC Glucose 105 Troponin I C-Reactive Protein 31.5 H Stl Occult Blood (ICT) 11/12/18 17:33 ESR POC Glucose Troponin I C-Reactive Protein Stl Occult Blood (ICT) POSITIVE Chest X-Ray 11/05/18 20:22 IMPRESSION: No acute cardiopulmonary disease. Head CT 11/05/18 20:23 IMPRESSION: Mild atrophy and small vessel ischemic change TECHNICAL DOCUMENTATION: Quality ID # 436: Final reports with documentation of one or more dose reduction techniques (e.g., Automated exposure control, adjustment of the mA and/or kV according to patient size, use of iterative reconstruction technique) copyright 2011 [employer]- All Rights Reserved Abdomen/Pelvis CT 11/05/18 22:38 IMPRESSION: 1. Medial right lower lobe infiltrate/atelectasis, possibly a focal pneumonia. Please correlate with clinical symptoms. 2. Atherosclerosis, with partially visualized bypass grafts. 3. Moderately distended bladder (630 mL) 4. No acute inflammatory changes. Chest X-Ray 11/06/18 00:00 IMPRESSION: 1. No acute pulmonary findings. 2. Endotracheal tube terminates approximately 1.5 cm cranial to the soledad. Partially imaged enteric tube without evidence of complication. KUB X-Ray 11/06/18 13:03 IMPRESSION: NG tube has been placed as described. Gas pattern is nonspecific. Chest X-Ray 11/07/18 06:00 IMPRESSION: Air bronchograms in the medial right lung base from consolidation, atelectasis versus pneumonia Endotracheal tube, nasogastric tube in good positioning Chest X-Ray 11/08/18 06:00 IMPRESSION: Persistent mild bibasilar airspace atelectasis versus pneumonia Guidance Fluoroscopy 11/12/18 00:00 IMPRESSION: SUCCESSFUL PLACEMENT OF A 5 FR DUAL LUMEN 44 CM PICC IN THE LEFT BASILIC VEIN. Interventional Vascular Procedure 11/12/18 00:00 IMPRESSION: SUCCESSFUL PLACEMENT OF A 5 FR DUAL LUMEN 44 CM PICC IN THE LEFT BASILIC VEIN. PICC Line Insertion 11/12/18 10:19 IMPRESSION: SUCCESSFUL PLACEMENT OF A 5 FR DUAL LUMEN 44 CM PICC IN THE LEFT BASILIC VEIN. . SINUS RHYTHM [VALENTINE] . BORDERLINE LEFT AXIS DEVIATION [REPLA] . NONSPECIFIC REPOL ABNORMALITY, LATERAL LEADS [LQTB] . BORDERLINE PROLONGED QT INTERVAL IMPRESSION/RECOMMENDATION: 1. Non-ST elevation SC in a patient with history of coronary artery disease. The patient is without anginal symptoms. The troponin is trending down. Hence will stop the patient's IV heparin. We will continue patient on aspirin and Brilinta. Continue metoprolol. Change to Transderm-Nitro patch 0.6 mg/h. Daily. 2. Acute respiratory failure with hypoxia [acute hypoxemic respiratory failure] most likely secondary to pneumonia right lower lobe. The patient has been extubated and is in no acute respiratory distress. His respiratory status he seems to be stable. 3. Aspiration pneumonia with right lower lobe pneumonia. Later would get a swallow study to see if indeed the patient has risk of aspiration. 4. Moderate pulmonary hypertension with right ventricle systolic pressure of at least 56 mmHg. Moderate tricuspid regurgitation that is inhibitors. 5. Moderate to severe mitral regurgitation. Patient has been started on VEL inhibitor, and this has been increased 6.Coronary artery disease: [facility] 2018 had a elevated troponin I and was diagnosed as secondary to type II SC due to supply demand mismatch. His echocardiogram at that time was normal at 55 to 60% LV ejection fraction. There was moderate pulmonary hypertension with right ventricle systolic pressure of 59 mmHg. 7. COPD: Oxygen dependent. Continue bronchodilators oxygen and steroids. 8. Moderate aortic regurgitation: There is no peripheral signs of aortic regurgitation. Later we will try the patient on afterload reducing agents. 9..History of hypertension: Current blood pressure reasonable at present 10. Peripheral vascular disease of significance. With the positive MSSA blood cultures which is now thought to be a contaminant. Hence patient not being tra nsferred 11. Renal failure. This is resolved. Patient's GFR is now within normal limits. 12.? Dementia. Indications reviewed. Medication treatment and management plan discussed with the attending physician and other providers on the case. Medical decision making is of moderate complexity. 40 minutes spent on this patient more than 50% time spent in direct patient care. Will follow.
[2018-11-13] MEDS: IPRATROPIUM BROMIDE 0.02% NEB 0.5 MG/2.5 ML AMPUL NEB SCH ×3 (00:33→16:03)
[2018-11-13] MEDS ORDERED: DOCUSATE SODIUM 100 MG/10 ML UDC NG PRN (01:32)
[2018-11-13 05:03] LABS: ABSOLUTE BASOPHILS # (AUTO) 0.1 10^3/uL (0.0-0.2); ABSOLUTE EOSINOPHILS # (AUTO) 0.2 10^3/uL (0.0-0.6); ABSOLUTE LYMPHOCYTES (AUTO) 1.4 10^3/uL (0.5-4.7); ABSOLUTE MONOCYTES (AUTO) 0.7 10^3/uL (0.1-1.4); ABSOLUTE NEUT (AUTO) 10.5 10^3/uL (1.7-8.2); BASOPHILS % (AUTO) 0.8 % (0-2); EOSINOPHILS % (AUTO) 1.2 % (0-6); HEMATOCRIT 38.2 % (37.9-51.0); HEMOGLOBIN 12.8 g/dL (13.5-17.0); LYMPHOCYTES % (AUTO) 10.9 % (13-45); MEAN CORPUSCULAR HEMOGLOBIN 29.5 pg (27.0-33.4); MEAN CORPUSCULAR HGB CONC 33.6 g/dL (32.0-36.0); MEAN CORPUSCULAR VOLUME 88 fl (80-97); MONOCYTES % (AUTO) 5.4 % (3-13); PLATELET COUNT 276 10^3/uL (150-450); RED BLOOD COUNT 4.35 10^6/uL (4.35-5.55); RED CELL DISTRIBUTION WIDTH 16.2 % (11.5-14.0); SEGMENTED NEUTROPHILS % (AUTO) 81.7 % (42-78); TOTAL CELLS COUNTED % (AUTO) 100 %; WHITE BLOOD COUNT 12.8 10^3/uL (4.0-10.5)
[2018-11-13 05:19] LABS: ANION GAP 9 (5-19); BLOOD UREA NITROGEN 27 mg/dL (7-20); CARBON DIOXIDE 27 mmol/L (22-30); CHLORIDE 105 mmol/L (98-107); GLUCOSE 94 mg/dL (75-110); POTASSIUM 3.9 mmol/L (3.6-5.0)
[2018-11-13] MEDS: CEFAZOLIN SODIUM 2 GM in DEXTROSE 5%-WATER 100 ML IV SCH ×2 (06:28→13:54)
[2018-11-13] MEDS: INSULIN REG, HUMAN 100 UNIT/ML 3 ML VIAL (PYX) SUBCUT SCH ×2 (09:08→11:39)
[2018-11-13] MEDS: NITROGLYCERIN 15 MG (0.6 MG/1 HR) PATCH.TD24 TD SCH (09:08)
[2018-11-13] MEDS: METOPROLOL TARTRATE 25 MG TABLET NG SCH (09:09)
[2018-11-13] MEDS: ASPIRIN 81 MG TABLET, CHEWABLE NG SCH (09:09)
[2018-11-13] MEDS: LISINOPRIL 5 MG TABLET NG SCH (09:09)
[2018-11-13] MEDS: DIAZEPAM 5 MG TABLET PO SCH (09:09)
[2018-11-13] MEDS: QUETIAPINE FUMARATE 25 MG TABLET NG SCH (09:09)
[2018-11-13] MEDS: TICAGRELOR 90 MG TABLET NG SCH (09:09)
[2018-11-13] MEDS: PREDNISONE 20 MG TABLET PO SCH (09:09)
[2018-11-13] MEDS: NORMAL SALINE 10 ML SDV (SCHEDULED) IV SCH (09:10)
[2018-11-13] MEDS: ENOXAPARIN SODIUM INJ 40 MG/0.4 ML DISP.SYRIN SUBCUT SCH (09:10)
[2018-11-13 09:39] LABS: C DIFFICILE GDH POSITIVE (NEGATIVE)
[2018-11-13] MEDS ORDERED: VANCOMYCIN HCL INJ 500 MG VIAL PO SCH (12:00)
[2018-11-13 12:18] VITALS: BP 99/61
--- NOTE | 2018-11-13 14:53 | RADIOLOGY REPORT (SQ) ---
EXAM DESCRIPTION: CT CHEST WITH; CT ABD/PELVIS WITH IV ONLY COMPLETED DATE/TIME: 11/13/2018 1:44 pm; 11/13/2018 1:42 pm REASON FOR STUDY: Evaluate vascular grafts for infection COMPARISON: CT abdomen pelvis 11/14/2018 CONTRAST TYPE AND DOSE: contrast/concentration: Isovue 350.00 mg/ml; Total Contrast Delivered: 81.0 ml; Total Saline Delivered: 68.0 ml RENAL FUNCTION: Creatinine 0.8 TECHNIQUE: CT scan of the chest performed using helical scanning technique with dynamic intravenous contrast injection. Images reviewed with lung, soft tissue and bone windows. Reconstructed coronal a nd sagittal MPR images reviewed. All images stored on PACS. CT scan of the abdomen and pelvis performed with intravenous and without oral contrastusing helical s danielle technique with dynamic intravenous contrast injection. Images reviewed with lung, soft tissu e and bone windows. Reconstructed coronal and sagittal MPR images reviewed. Delayed images for eval uation of the urinary system also acquired and evaluated. All images stored on PACS. All CT scanners at this facility use dose modulation, iterative reconstruction, and/or weight based d osing when appropriate to reduce radiation dose to as low as reasonably achievable (ALARA). [facility]: Dose Right [facility]: CareDose [facility]: Dose Right [facility]: Teradose 4D [facility]: [employer] RADIATION DOSE: CT Rad equipment meets quality standard of care and radiation dose reduction techniq ues were employed. CTDIvol: 6.0 - 7.0 mGy. DLP: 939 mGy-cm. . LIMITATIONS: None. FINDINGS: The patient has a right sided axillary to femoral bypass. There is contrast enhancement t hroughout the right axillary to femoral bypass graft. A thin rim of fluid around the graft is presen t along the right flank on axial images 21-28 just lateral to the right 9th and 10th ribs. There is a second area of perigraft fluid, thin rim of fluid surrounds the patent graft in the right anterior superior iliac spine region on axial images 62-68. Distal anastomosis of the right axillary to femoral graft is along the right common femoral artery re gion. There is a femoral to femoral graft (right to left) which is widely patent. Retrograde filling of the bilateral distal external iliac arteries. 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 Uppermost metall ic struts from a previous aortic stent graft are seen at the level of the SMA/celiac/renal arteries o n coronal images 49-54. Moderate narrowing of the proximal celiac, SMA, and bilateral renal arteries is suspected. CHEST: LUNGS AND PLEURA: Minimal consolidation in the right posterior costophrenic sulcus atelectasis versus pneumonia. Lungs are hyperinflated and hyperlucent from obstructive disease. No pleural effusion o r pneumothorax. No worrisome pulmonary nodules. HILAR AND MEDIASTINAL STRUCTURES: No identified masses or abnormal nodes. HEART AND VASCULAR STRUCTURES: Heavily calcified thoracic aorta without aneurysm or dissection. Heav kait calcified sycuan coronary arteries. No cardiomegaly or pericardial effusion HARDWARE: Right axillary to femoral bypass graft. Left-sided pacemaker THYROID AND OTHER SOFT TISSUES: No masses. No adenopathy. BONES: Sclerosis inferior endplate of T10 with minimal central endplate depression, likely a chronic osteoporotic defect. OTHER: No other significant finding. ABDOMEN AND PELVIS: LIVER: Normal size. No masses. No dilated ducts. SPLEEN: Normal size. No focal lesions. PANCREAS: No masses. No significant calcifications. No adjacent inflammation or peripancreatic fluid collections. Pancreatic duct not dilated. GALLBLADDER: No identified stones by CT criteria. No inflammatory changes to suggest cholecystitis. ADRENAL GLANDS: No significant masses or asymmetry. RIGHT KIDNEY AND URETER: No solid masses. No significant calcification. No hydronephrosis or hydroure ter. LEFT KIDNEY AND URETER: No solid masses. No significant calcification. No hydronephrosis or hydrouret er. AORTA AND VESSELS: As above RETROPERITONEUM: No retroperitoneal adenopathy, hemorrhage or masses. BOWEL AND PERITONEAL CAVITY: No masses or inflammatory changes. No free fluid or peritoneal masses. Sigmoid colon diverticuli without CT signs of acute diverticulitis APPENDIX: Not identified. No right lower quadrant inflammatory change ABDOMINAL WALL: There are fat containing anterior abdominal wall hernias along the periumbilical suzi on PELVIS: No mass or free fluid. Normal bladder. BONES: Biconcave compression deformity at L1 with about 25% anterior loss of height. This is similar compared to 11/06/2018 CT abdomen pelvis OTHER: No other significant finding. IMPRESSION: Patent right axillary to femoral graft with trace perigraft fluid along the right lower ribs and right anterior superior iliac spine region Right basilar airspace disease atelectasis versus pneumonia TECHNICAL DOCUMENTATION: JOB ID: [id number] Quality ID # [id number]: Final reports with documentation of one or more dose reduction techniques (e.g., Au tomated exposure control, adjustment of the mA and/or kV according to patient size, use of iterative reconstruction technique) 2010 [employer]- All Rights Reserved Reading location - IP/workstation name: [email or web address]
[2018-11-13] MEDS: ACETAMINOPHEN 325 MG TABLET NG PRN (15:43)
[2018-11-14 17:35] LABS: PROTEIN S FREE 110 % (57-157); PROTEIN S FUNCTIONAL 89 % (63-140); PROTEIN S TOTAL 129 % (60-150)
--- NOTE | 2018-11-15 15:16 | Progress Note ---
Provider Note Provider Note: Pt inadvertantly discharged without vanco for Cdif. Still has diarreah. No fever or abd pain. Son coming to pick and shovel worker vanco prescription.
--- NOTE | 2018-11-17 11:16 | Progress Note Acknowledgement ---
Progress Note Acknowledgement Progess Note Acknowledgement: I, the undersigned member of the medical staff with appropriate privileges and with supervisory authority over [Milo Saeed ], a dependent practice allied health professional, acknowledge that I have reviewed the progress notes entered on this patient, and in my professional judgment believe that the assessment made and/or any care evidenced was appropriate
--- NOTE | 2018-11-24 14:21 | PDOC DISCHARGE SUMMARY ---
Impression - Admit/DC Date/PCP Admission Date/Primary Care Provider: 11/06/18 01:47 Discharge Date: 11/13/18 - Discharge Diagnosis (1) Aspiration into airway Is this a current diagnosis for this admission?: Yes (2) Acute kidney injury Is this a current diagnosis for this admission?: Yes (3) Acute respiratory failure Is this a current diagnosis for this admission?: Yes (4) COPD (chronic obstructive pulmonary disease) Is this a current diagnosis for this admission?: Yes (5) Chronic dementia without behavioral disturbance Is this a current diagnosis for this admission?: Yes (6) MSSA bacteremia Is this a current diagnosis for this admission?: Yes - Assessment Summary: This patient is a 78 yo man, recently moved here from [place]. NO primary care yet. He presented with abd pain, nausea, vomiting, posible aspiratin but treated for CAP. One day 2 he decompensated, was intubated for a day. Has been in the ICU since, awaiting transfer to [facility] which never happened but was refused tx to the [facility] 11/12. He has grown MSSA from sputum and blood 11/05, 11/08 with another set pending. 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 He will be on Ancef 2gm via PICC q8H for a month, ESR 41 and follow up with ID after he obtains a primary. Friday AM appt. He also chronically aspirate, is on a mechanical soft diet. He had a troponin leak c/w NSTEMI and has been folled by cardiology. He has severe COPD and is on 5L O2 at home. He was at the [facility] in May 2018 also for abd pain. He then moved to [place] with son and brother. Also had a remote consult by Dr. Bhakta of ID - Additional Information Resuscitation Status: Full Code Discharge Diet: As Tolerated Discharge Activity: Activity As Tolerated Prescriptions: Cefazolin Sodium [Ancef Inj 1 gm Vial] 2 gm IV Q8 #90 vial Ticagrelor [Brilinta 90 mg Tablet] 90 mg NG Q12 #60 tablet Tamsulosin HCl [Flomax 0.4 mg Cap.sr] 0.4 mg PO PCSUPPER #30 cap.sr.24h Atorvastatin Calcium [Lipitor 80 mg Tablet] 80 mg NG QHS #30 tablet Nitroglycerin [Nitro-Dur 15 mg (0.6 mg/1 Hr) Transderm Patch] 1 each TD DAILY #30 patch.td24 Lisinopril [Prinivil 5 mg Tablet] 5 mg NG Q12 #30 tablet Home Medications: Acetaminophen [Tylenol 325 mg Tablet] 650 mg PO Q6HP PRN 11/06/18 Aspirin [Ecotrin 81 mg EC Tablet] 81 mg PO DAILY 11/06/18 Budesonide/Formoterol Fumarate [Symbicort HFA 160-4.5 mcg Inhaler 6 gm] 2 puff IH Q12 11/06/18 Cholecalciferol (Vitamin D3) [Vitamin D3] 1,000 unit PO DAILY 11/06/18 Docusate Sodium [Colace 100 mg Capsule] 200 mg PO BIDP PRN 11/06/18 Ferrous Sulfate 324 mg PO BID 11/06/18 Furosemide [Lasix 20 mg Tablet] 20 mg PO DAILY 11/06/18 Melatonin [Melatonin 3 mg Tablet] 6 mg PO QHS 11/06/18 Metoprolol Tartrate [Lopressor 25 mg Tablet] 25 mg PO Q12 11/06/18 Nitroglycerin [Nitrostat 0.4 mg (1/150 Gr) Tabs 25/Bottle] 1 tab SL Q5MP PRN 11/06/18 Omeprazole 40 mg PO QAM 11/06/18 Polyethylene Glycol 3350 [Gavilax] 17 gm PO DAILYP PRN 11/06/18 Prochlorperazine Maleate 5 mg PO DAILYP PRN 11/06/18 Quetiapine Fumarate [Seroquel 25 mg Tablet] 37.5 mg PO QHS 11/06/18 Tiotropium [place] [Spiriva Handihaler 5 Cap/Kit (18 Mcg/Cap)] 1 cap IH DAILY 11/06/18 Atorvastatin Calcium [Lipitor 80 mg Tablet] 80 mg NG QHS #30 tablet 11/13/18 Cefazolin Sodium [Ancef Inj 1 gm Vial] 2 gm IV Q8 #90 vial 11/13/18 Lisinopril [Prinivil 5 mg Tablet] 5 mg NG Q12 #30 tablet 11/13/18 Nitroglycerin [Nitro-Dur 15 mg (0.6 mg/1 Hr) Transderm Patch] 1 each TD DAILY #30 patch.td24 11/13/18 Tamsulosin HCl [Flomax 0.4 mg Cap.sr] 0.4 mg PO PCSUPPER #30 cap.sr.24h 11/13/18 Ticagrelor [Brilinta 90 mg Tablet] 90 mg NG Q12 #60 tablet 11/13/18 History of Present Illiness History of Present Illness: GAVINO PEDRAZA is a 78 year old male See admission note. Hospital Course Hospital Course: His course marked by admision for abd pain N/V. No pathology note but likely aspirated. NSTEMI without symptoms. Persistent bacteremia with an echo showing no vegatations (TT echo) but with xillo-fem graft on R and cross fem. Also has had aortic stent. Will be on Ancef via PICC as described. He has severe COPD on 5L O2, dementia, delirium resolved. Wanted to get formal ID consult but never got a bed at [facility] and refused by the [facility]. Physical Exam Vital Signs: Temp Pulse Resp BP Pulse Ox 98.2 F 74 23 H 99/61 L 95 11/13/18 12:00 11/13/18 12:00 11/13/18 14:00 11/13/18 12:00 11/13/18 13:00 Intake & Output 11/12/18 11/13/18 11/14/18 06:59 06:59 06:59 Intake Total 1107 300 Output Total 2105 920 150 Balance -998 -620 -150 Weight 71.7 kg 71.3 kg General appearance: PRESENT: cooperative Head exam: PRESENT: atraumatic Eye exam: PRESENT: EOMI, PERRLA Ear exam: PRESENT: normal external ear exam Mouth exam: PRESENT: moist Respiratory exam: PRESENT: clear to auscultation cristobal, decreased breath sounds Cardiovascular exam: PRESENT: RRR Pulses: PRESENT: normal radial pulses Vascular exam: PRESENT: normal capillary refill GI/Abdominal exam: PRESENT: soft Rectal exam: PRESENT: deferred Extremities exam: PRESENT: full ROM Musculoskeletal exam: PRESENT: ambulatory Neurological exam: PRESENT: alert, altered, oriented to person Psychiatric exam: PRESENT: appropriate affect Additional comments: Ax-fem graft felt on R some pain to palpation in upper abd region no swelling or redness. Cross-fem not red either Results Laboratory Results: WBC 12.8 10^3/uL (4.0-10.5) H 11/13/18 04:55 RBC 4.35 10^6/uL (4.35-5.55) 11/13/18 04:55 Hgb 12.8 g/dL (13.5-17.0) L 11/13/18 04:55 Hct 38.2 % (37.9-51.0) 11/13/18 04:55 MCV 88 fl (80-97) 11/13/18 04:55 MCH 29.5 pg (27.0-33.4) 11/13/18 04:55 MCHC 33.6 g/dL (32.0-36.0) 11/13/18 04:55 RDW 16.2 % (11.5-14.0) H 11/13/18 04:55 Plt Count 276 10^3/uL (150-450) 11/13/18 04:55 Lymph % (Auto) 10.9 % (13-45) L 11/13/18 04:55 [place] % (Auto) 5.4 % (3-13) 11/13/18 04:55 Eos % (Auto) 1.2 % (0-6) 11/13/18 04:55 Baso % (Auto) 0.8 % (0-2) 11/13/18 04:55 Absolute Neuts (auto) 10.5 10^3/uL (1.7-8.2) H 11/13/18 04:55 Absolute Lymphs (auto) 1.4 10^3/uL (0.5-4.7) 11/13/18 04:55 Absolute Monos (auto) 0.7 10^3/uL (0.1-1.4) 11/13/18 04:55 Absolute Eos (auto) 0.2 10^3/uL (0.0-0.6) 11/13/18 04:55 Absolute Basos (auto) 0.1 10^3/uL (0.0-0.2) 11/13/18 04:55 Seg Neutrophils % 81.7 % (42-78) H 11/13/18 04:55 ESR 46 mm/hr (0-20) H 11/12/18 10:53 PT 15.0 SEC (11.4-15.4) 11/06/18 12:22 INR 1.18 11/06/18 12:22 APTT 29.3 SEC (23.5-35.8) 11/08/18 06:00 Carbonic Acid 1.07 mmol/L (1.05-1.35) 11/07/18 04:50 HCO3/H2CO3 Ratio 21:1 11/07/18 04:50 ABG pH 7.43 (7.35-7.45) 11/07/18 04:50 ABG pCO2 35.4 mmHg (35-45) 11/07/18 04:50 ABG pO2 63.4 mmHg (80-100) L 11/07/18 04:50 ABG HCO3 22.8 mmol/L (20-24) 11/07/18 04:50 ABG Total CO2 23.8 mmol/L (23-27) 11/07/18 04:50 ABG O2 Saturation 92.9 % (94-98) L 11/07/18 04:50 ABG Base Excess -1.2 mmol/L 11/07/18 04:50 FiO2 45% 11/07/18 04:50 Sodium 141.3 mmol/L (137-145) 11/13/18 04:55 Potassium 3.9 mmol/L (3.6-5.0) 11/13/18 04:55 Chloride 105 mmol/L (98-107) 11/13/18 04:55 Carbon Dioxide 27 mmol/L (22-30) 11/13/18 04:55 Anion Gap 9 (5-19) 11/13/18 04:55 BUN 27 mg/dL (7-20) H 11/13/18 04:55 Creatinine 0.84 mg/dL (0.52-1.25) 11/13/18 04:55 Est GFR ( Amer) > 60 (>60) 11/13/18 04:55 Est GFR (MDRD) Non-Af > 60 (>60) 11/13/18 04:55 Glucose 94 mg/dL (75-110) 11/13/18 04:55 POC Glucose 89 mg/dL (70-110) 11/13/18 11:13 Hemoglobin A1c % 6.2 % (4.7-6.0) H 11/07/18 03:29 Calcium 9.0 mg/dL (8.4-10.2) 11/13/18 04:55 Magnesium 2.2 mg/dL (1.6-2.3) 11/09/18 02:15 Total Bilirubin 1.3 mg/dL (0.2-1.3) 11/11/18 06:00 Direct Bilirubin 0.2 mg/dL (0.0-0.4) 11/11/18 06:00 Neonat Total Bilirubin Not Reportable 11/11/18 06:00 Neonat Direct Bilirubin Not Reportable 11/11/18 06:00 Neonat Indirect Bili Not Reportable 11/11/18 06:00 AST 28 U/L (17-59) 11/11/18 06:00 ALT 36 U/L (<50) 11/11/18 06:00 Alkaline Phosphatase 92 U/L (38-126) 11/11/18 06:00 Creatine Kinase 618 U/L (55-170) H 11/06/18 16:20 CK-MB (CK-2) 23.70 ng/mL (<4.55) H 11/06/18 16:20 Troponin I 0.985 ng/mL 11/12/18 03:56 C-Reactive Protein 31.5 mg/L (<10.0) H 11/12/18 10:53 NT-Pro-B Natriuret Pep 969 pg/mL (<450) H 11/05/18 20:50 Total Protein 6.7 g/dL (6.3-8.2) 11/11/18 06:00 Albumin 3.6 g/dL (3.5-5.0) 11/11/18 06:00 Triglycerides 227 mg/dL (<150) H 11/07/18 03:29 Cholesterol 140.32 mg/dL (0-200) 11/07/18 03:29 LDL Cholesterol Direct 72 mg/dL (<100) 11/07/18 03:29 VLDL Cholesterol 45.4 mg/dL (10-31) H 11/07/18 03:29 HDL Cholesterol 39 mg/dL (>40) L 11/07/18 03:29 Free T4 0.96 ng/dL (0.78-2.19) 11/06/18 03:13 Free T3 pg/mL 2.17 pg/mL (2.77-5.27) L 11/06/18 03:13 Urine Color STRAW 11/11/18 21:19 Urine Appearance CLEAR 11/11/18 21:19 Urine pH 7.0 (5.0-9.0) 11/11/18 21:19 Ur Specific [place] 1.008 11/11/18 21:19 Urine Protein NEGATIVE mg/dL (NEGATIVE) 11/11/18 21:19 Urine Glucose (UA) NEGATIVE mg/dL (NEGATIVE) 11/11/18 21:19 Urine Ketones NEGATIVE mg/dL (NEGATIVE) 11/11/18 21:19 Urine Blood SMALL (NEGATIVE) H 11/11/18 21:19 Urine Nitrite NEGATIVE (NEGATIVE) 11/11/18 21:19 Urine Bilirubin NEGATIVE (NEGATIVE) 11/11/18 21: Urine Urobilinogen NEGATIVE mg/dL (<2.0) 11/11/18 21:19 Ur Leukocyte Esterase NEGATIVE (NEGATIVE) 11/11/18 21:19 Urine WBC (Auto) 0 /HPF 11/11/18 21:19 Urine RBC (Auto) 2 /HPF 11/09/18 15:10 U Hyaline Cast (Auto) 4 /LPF 11/06/18 05:00 Urine Bacteria (Auto) TRACE /HPF 11/06/18 05:00 Squamous Epi Cells Auto 5 /HPF 11/06/18 05:00 Urine Mucus (Auto) RARE /LPF 11/11/18 21:19 Urine Ascorbic Acid NEGATIVE (NEGATIVE) 11/11/18 21:19 Stl Occult Blood (ICT) POSITIVE (NEGATIVE) 11/12/18 17:33 Stl C. Difficile GDH Ag POSITIVE (NEGATIVE) 11/13/18 05:30 Stl C.difficile Tox A&B NEGATIVE (NEGATIVE) 11/13/18 05:30 Stl C.difficile Tox PCR POSITIVE (NEGATIVE) 11/13/18 05:30 Time Trough Drawn 0600 11/11/18 06:00 Vancomycin Trough 13.7 ug/mL (5.0-20.0) 11/11/18 06:00 11/05/18 11/06/18 11/06/18 20:50 03:13 09:39 CK-MB (CK-2) 5.16 H 11.60 H 19.30 H Troponin I 0.496 1.240 1.870 NT-Pro-B Natriuret Pep 969 H 09/20/19 09/20/19 09/21/19 16:20 21:05 03:29 CK-MB (CK-2) 23.70 H Troponin I 2.770 4.020 4.400 NT-Pro-B Natriuret Pep 11/07/18 11/09/18 11/10/18 20:00 02:15 03:13 CK-MB (CK-2) Troponin I 2.950 2.980 1.670 NT-Pro-B Natriuret Pep 11/12/18 03:56 CK-MB (CK-2) Troponin I 0.985 NT-Pro-B Natriuret Pep Impressions: Chest X-Ray 11/05/18 20:22 IMPRESSION: No acute cardiopulmonary disease. Head CT 11/05/18 20:23 IMPRESSION: Mild atrophy and small vessel ischemic change TECHNICAL DOCUMENTATION: Quality ID # [id number]: Final reports with documentation of one or more dose reduction techniques (e.g., Automated exposure control, adjustment of the mA and/or kV according to patient size, use of iterative reconstruction technique) copyright 2011 [employer]- All Rights Reserved Abdomen/Pelvis CT 11/05/18 22:38 IMPRESSION: 1. Medial right lower lobe infiltrate/atelectasis, possibly a focal pneumonia. Please correlate with clinical symptoms. 2. Atherosclerosis, with partially visualized bypass grafts. 3. Moderately distended bladder (630 mL) 4. No acute inflammatory changes. Chest X-Ray 11/06/18 00:00 IMPRESSION: 1. No acute pulmonary findings. 2. Endotracheal tube terminates approximately 1.5 cm cranial to the soledad. Partially imaged enteric tube without evidence of complication. KUB X-Ray 11/06/18 13:03 IMPRESSION: NG tube has been placed as described. Gas pattern is nonspecific. Chest X-Ray 11/07/18 06:00 IMPRESSION: Air bronchograms in the medial right lung base from consolidation, atelectasis versus pneumonia Endotracheal tube, nasogastric tube in good positioning Chest X-Ray 11/08/18 06:00 IMPRESSION: Persistent mild bibasilar airspace atelectasis versus pneumonia Guidance Fluoroscopy 11/12/18 00:00 IMPRESSION: SUCCESSFUL PLACEMENT OF A 5 FR DUAL LUMEN 44 CM PICC IN THE LEFT BASILIC VEIN. Interventional Vascular Procedure 11/12/18 00:00 IMPRESSION: SUCCESSFUL PLACEMENT OF A 5 FR DUAL LUMEN 44 CM PICC IN THE LEFT BASILIC VEIN. PICC Line Insertion 11/12/18 10:19 IMPRESSION: SUCCESSFUL PLACEMENT OF A 5 FR DUAL LUMEN 44 CM PICC IN THE LEFT BASILIC VEIN. Abdomen/Pelvis CT 11/13/18 00:00 IMPRESSION: Patent right axillary to femoral graft with trace perigraft fluid along the right lower ribs and right anterior superior iliac spine region Right basilar airspace disease atelectasis versus pneumonia Chest CT 11/13/18 00:00 IMPRESSION: Patent right axillary to femoral graft with trace perigraft fluid along the right lower ribs and right anterior superior iliac spine region Right basilar airspace disease atelectasis versus pneumonia Plan Health Concerns: COPD, recent NSTEMI, infected vascular graft. Plan of Treatment: New cardiac medications, Ancef x 30 days to start for graft infection. Follow op at [facility] Friday AM and ID referral. Goals: Eridicate infection. Make sure cardiac status is stable. Secure primary care, ID. Time Spent: Greater than 30 Minutes Stroke Is this a Stroke Patient?: No Acute Heart Failure - Is this a Heart Failure Patient?: No
== END 2018-11-13 17:22 | disposition home or self-care (01) | DRG 208 ==
LOC: ER 20:20 → EH 11-06 01:47 → 3N 11-06 03:58 → ICU 11-06 12:27
PROVIDERS: ADMIT Emergency Medicine; ATTEND Internal Medicine
PROC: 5A1935Z Respiratory Ventilation, Less than 24 Consecutive Hours (ICD-10-PCS; principal; 2018-11-06)
PROC: 0BH17EZ Insertion of Endotracheal Airway into Trachea, Via Natural or Artificial Opening (ICD-10-PCS; 2018-11-06)
PROC: 5A09357 Assistance with Respiratory Ventilation, Less than 24 Consecutive Hours, Continuous Positive Airway Pressure (ICD-10-PCS; 2018-11-08)
PROC: 02HV33Z Insertion of Infusion Device into Superior Vena Cava, Percutaneous Approach (ICD-10-PCS; 2018-11-12)
DX: J69.0 Pneumonitis due to inhalation of food and vomit (principal); I21.4 Non-ST elevation (NSTEMI) myocardial infarction; J96.01 Acute respiratory failure with hypoxia; N17.9 Acute kidney failure, unspecified; G93.40 Encephalopathy, unspecified; A04.72 Enterocolitis due to Clostridium difficile, not specified as recurrent; E87.2 Acidosis; J44.9 Chronic obstructive pulmonary disease, unspecified; Z99.81 Dependence on supplemental oxygen; E11.22 Type 2 diabetes mellitus with diabetic chronic kidney disease; E11.51 Type 2 diabetes mellitus with diabetic peripheral angiopathy without gangrene; I27.20 Pulmonary hypertension, unspecified; I36.1 Nonrheumatic tricuspid (valve) insufficiency; N18.3 Chronic kidney disease, stage 3 (moderate); I34.0 Nonrheumatic mitral (valve) insufficiency; I35.1 Nonrheumatic aortic (valve) insufficiency; F03.90 Unspecified dementia, unspecified severity, without behavioral disturbance, psychotic disturbance, mood disturbance, and anxiety; D63.1 Anemia in chronic kidney disease; I25.10 Atherosclerotic heart disease of native coronary artery without angina pectoris; I12.9 Hypertensive chronic kidney disease with stage 1 through stage 4 chronic kidney disease, or unspecified chronic kidney disease; E78.5 Hyperlipidemia, unspecified; K59.09 Other constipation; K43.9 Ventral hernia without obstruction or gangrene; R33.9 Retention of urine, unspecified; R10.31 Right lower quadrant pain; Z22.321 Carrier or suspected carrier of Methicillin susceptible Staphylococcus aureus; Z79.02 Long term (current) use of antithrombotics/antiplatelets; Z79.82 Long term (current) use of aspirin; Z79.51 Long term (current) use of inhaled steroids; Z95.820 Peripheral vascular angioplasty status with implants and grafts; Z95.5 Presence of coronary angioplasty implant and graft; Z87.891 Personal history of nicotine dependence; Z82.49 Family history of ischemic heart disease and other diseases of the circulatory system
CPT/HCPCS: 31500; 36415; 36569; 36600; 70450; 71045; 71260; 74018; 74176; 74177; 76937; 77001; 80048; 80053; 80061; 80202; 81001; 82272; 82550; 82553; 82803; 82962; 83036; 83735; 83880; 84439; 84481; 84484; 85025; 85027; 85305; 85306; 85610; 85652; 85730; 86140; 87040; 87070; 87077; 87186; 87205; 87324; 87449; 87493; 93005; 93010; 93306; 94002; 94003; 94640; 94660; 96361; 96374; 96375; 96376; 99285; C1769; J0330; J0456; J0690; J0692; J0696; J1630; J1642; J1644; J1650; J1815; J1940; J2060; J2270; J2300; J2405; J2704; J2920; J2930; J3010; J3370; J3490; J7030; J7040; J7060; J7120; J7512; J7614; J7620

== ENCOUNTER 2018-11-25 10:59 | Emergency (ER) | payer OTHER, MEDICARE ==
--- NOTE | 2018-11-25 11:25 | ER Document Report ---
ED Medical Screen (RME) - General Chief Complaint: Other Stated Complaint: FOLLOW UP Time Seen by Provider: 11/25/18 11:21 Primary Care Provider: ALICIA BROWN MD [Primary Care Provider] - Follow up as needed Notes: Patient is a 78-year-old male who presents the emergency department for a follow-up visit. He was discharged from our ICU 5 days ago. Patient was supposed to follow[place]up with the [place] clinic, but since the [place] has not set up his primary care provider, he was referred to come to the emergency department for follow-up. Patient has been treated for pneumonia and C. difficile. He was started on Ancef and vancomycin. He has finished his vancomycin, but is currently on Ancef at home. He is getting IV infusions of his Ancef and his next dose is at 1400. Patient denies any diarrhea, chest pain, lethargy, or any other symptoms. His concert manager is at bedside and states that his diarrhea is much better than before. Denies any foul smelling stools. Exam: Alert and oriented. Oxygen dependent. Nontender abdomen. I have greeted and performed a rapid initial assessment of this patient. A comprehensive ED assessment and evaluation of the patient, analysis of test results and completion of medical decision making process will be conducted by an additional ED providers. TRAVEL OUTSIDE OF THE [place] IN LAST 30 DAYS: No - Related Data Allergies/Adverse Reactions: No Known Allergies Allergy (Verified 11/25/18 11:13) Past Medical History - Social History Chew tobacco use (# tins/day): No Frequency of alcohol use: None Drug Abuse: None - Past Medical History Cardiac Medical History: Reports: Hx Coronary Artery Disease, Hx Peripheral Vascular Disease Pulmonary Medical History: Reports: Hx COPD Denies: Hx Asthma Neurological Medical History: Denies: Hx Seizures Endocrine Medical History: Reports: Hx Diabetes Mellitus Type 2. Denies: Hx Diabetes Mellitus Type 1 GI Medical History: Denies: Hx Crohn's Disease, Hx Ulcerative Colitis Musculoskeltal Medical History: Denies Hx Fibromyalgia, Denies Hx Gout Skin Medical History: Denies Hx Eczema, Denies Hx Psoriasis Psychiatric Medical History: Reports: Hx Dementia Past Surgical History: Reports: Hx Cardiac Catheterization, Hx Coronary Stent Physical Exam - Vital signs Vitals: Temp Pulse Resp BP Pulse Ox 98.4 F 71 18 95/39 L 95 11/25/18 11:07 11/25/18 11:07 11/25/18 11:07 11/25/18 11:07 11/25/18 11:07 Course - Vital Signs Vital signs: Temp Pulse Resp BP Pulse Ox 98.4 F 71 18 95/39 L 95 11/25/18 11:07 11/25/18 11:07 11/25/18 11:07 11/25/18 11:07 11/25/18 11:07 Doctor's Discharge - Discharge Referrals: ALICIA BROWN MD [Primary Care Provider] - Follow up as needed
[2018-11-25 13:26] LABS: ABSOLUTE EOSINOPHILS # (AUTO) 0.1 10^3/uL (0.0-0.6); ABSOLUTE LYMPHOCYTES (AUTO) 1.2 10^3/uL (0.5-4.7); ABSOLUTE MONOCYTES (AUTO) 0.4 10^3/uL (0.1-1.4); ABSOLUTE NEUT (AUTO) 4.8 10^3/uL (1.7-8.2); BASOPHILS % (AUTO) 0.5 % (0-2); EOSINOPHILS % (AUTO) 1.7 % (0-6); HEMATOCRIT 36.8 % (37.9-51.0); HEMOGLOBIN 12.1 g/dL (13.5-17.0); LYMPHOCYTES % (AUTO) 17.7 % (13-45); MEAN CORPUSCULAR HEMOGLOBIN 29.7 pg (27.0-33.4); MEAN CORPUSCULAR VOLUME 90 fl (80-97); MONOCYTES % (AUTO) 6.7 % (3-13); PLATELET COUNT 243 10^3/uL (150-450); RED BLOOD COUNT 4.08 10^6/uL (4.35-5.55); RED CELL DISTRIBUTION WIDTH 16.4 % (11.5-14.0); SEGMENTED NEUTROPHILS % (AUTO) 73.4 % (42-78); TOTAL CELLS COUNTED % (AUTO) 100 %; WHITE BLOOD COUNT 6.6 10^3/uL (4.0-10.5)
[2018-11-25 13:44] LABS: ALBUMIN 4.3 g/dL (3.5-5.0); ALKALINE PHOSPHATASE 117 U/L (38-126); ANION GAP 11 (5-19); ASPARTATE AMINO TRANSFERASE 27 U/L (17-59); BILIRUBIN,DIRECT 0.1 mg/dL (0.0-0.4); BILIRUBIN,TOTAL 0.3 mg/dL (0.2-1.3); BLOOD UREA NITROGEN 17 mg/dL (7-20); CALCIUM 9.8 mg/dL (8.4-10.2); CARBON DIOXIDE 23 mmol/L (22-30); CHLORIDE 104 mmol/L (98-107); GLUCOSE 94 mg/dL (75-110); POTASSIUM 4.7 mmol/L (3.6-5.0); TOTAL PROTEIN 8.1 g/dL (6.3-8.2)
[2018-11-25] MEDS ORDERED: CEFAZOLIN 2 GM/D5W RTU 2 GM/50 ML RTUPB IV ONE (13:56)
[2018-11-25] MEDS ORDERED: CEFAZOLIN INJ 1 GM VIAL ONE (14:18)
[2018-11-25] MEDS ORDERED: CEFAZOLIN INJ 1 GM VIAL IV ONE (14:22)
--- NOTE | 2018-11-25 16:02 | ER Document Report ---
Entered by ARMANI RUIZ SCRIBE 11/25/18 1232 Acting as scribe for:JERSON KEARNEY MD ED General - General Chief Complaint: Other Stated Complaint: FOLLOW UP Time Seen by Provider: 11/25/18 11:21 Primary Care Provider: ALICIA BROWN MD [Primary Care Provider] - Follow up as needed Mode of Arrival: Ambulatory Information source: Patient, Relative, H Records Notes: Patient is a 78-year-old male that presents from the [place] "for an infectious disease doctor" according to someone from the [place] facility who called here. Patient states "I have no clue" when asked why he was sent here. The patient came to the emergency room on 11/05/2018 with low abdominal pain. He was found to have urinary retention with over liter of fluid in his bladder when a catheter was placed. At the same time he was found to have lower lobe pneumonia, felt to be aspiration pneumonia. He deteriorated quite quickly and ended up intubated in the intensive care unit. Son at bedside states that the patient gets aspiration pneumonia about once a year. Patient was empirically started on vancomycin, cefepime, and azithromycin. He was having loose stools which his son reports is a common problem. A C. difficile test was done on 11/12/2018 after he had been on vancomycin for 7 days. It tested positive for C. difficile on the PCR test, so follow-up testing was done showing positive antigen but negative A and B toxins, suggesting previous infection, and probable colonization without active infection. The patient was inadvertently discharged without the C. difficile diagnosis or the vancomycin. 2 days later his son was called back to grain picker a prescription for a 10-day course of oral vancomycin. He finished the 10-day course of vancomycin yesterday. Patient and his son at bedside state that the patient chronically has loose or runny stools, but they did notice that the day he was discharged and for the next few days at home his stool was very foul-smelling and black which is not normal for him. His stool is now back to baseline. Patient had a PICC line placed in his left upper extremity because of a possible staph infection in the right axillofemoral graft. Patient has been getting PICC line infusions of Ancef every 8 hours and has not missed any of these dosages. He has not been having any diarrhea recently. Patient states "I do not feel bad at all anymore, I feel great". TRAVEL OUTSIDE OF THE [place] IN LAST 30 DAYS: No - Related Data Allergies/Adverse Reactions: No Known Allergies Allergy (Verified 11/25/18 11:13) Past Medical History - General Information source: [facility] Records - Social History Smoking Status: Former Smoker Cigarette use (# per day): No Chew tobacco use (# tins/day): No Frequency of alcohol use: None Drug Abuse: None Lives with: Family Family History: Reviewed & Not Pertinent, COPD Patient has suicidal ideation: No Patient has homicidal ideation: No - Past Medical History Cardiac Medical History: Reports: Hx Coronary Artery Disease, Hx Peripheral Vascular Disease Pulmonary Medical History: Reports: Hx COPD Endocrine Medical History: Reports: Hx Diabetes Mellitus Type 2 Musculoskeletal Medical History: Denies Hx Fibromyalgia, Denies Hx Gout Skin Medical History: Denies Hx Eczema, Denies Hx Psoriasis Psychiatric Medical History: Reports: Hx Dementia Past Surgical History: Reports: Hx Cardiac Catheterization, Hx Coronary Stent Review of Systems - Review of Systems Constitutional: No symptoms reported EENT: No symptoms reported Cardiovascular: No symptoms reported Respiratory: No symptoms reported Gastrointestinal: No symptoms reported Genitourinary: No symptoms reported Male Genitourinary: No symptoms reported Musculoskeletal: No symptoms reported Skin: No symptoms reported Hematologic/Lymphatic: No symptoms reported Neurological/Psychological: No symptoms reported -: Yes All other systems reviewed and negative Physical Exam - Vital signs Vitals: Temp Pulse Resp BP Pulse Ox 98.4 F 71 18 95/39 L 95 11/25/18 11:07 11/25/18 11:07 11/25/18 11:07 11/25/18 11:07 11/25/18 11:07 - Notes Notes: Physical Exam: General: Alert, appears at baseline according to son. Patient resting comfortably on 3L oxygen via nasal cannula which is what he is on at home as well. Patient has absolutely no complaints at all and he states he feels great today. HEENT: Normocephalic. Atraumatic. PERRL. Extraocular movements intact. Oropharynx clear. Neck: Supple. Non-tender. Respiratory: No respiratory distress after being put on 3L nasal cannula. Clear and equal breath sounds bilaterally. Cardiovascular: Regular rate and rhythm. Abdominal: Normal Inspection. Non-tender. No distension. Normal Bowel Sounds. Back: No gross abnormalities. Extremities: Moves all four extremities. Upper extremities: Normal inspection. Normal ROM. Lower extremities: Normal inspection. No edema. Normal ROM. Neurological: Normal cognition. AAOx4. Normal speech. Psychological: Normal affect. Normal Mood. Skin: Warm. Dry. Normal color. Course - Re-evaluation Re-evalutation: 11/25/18 16:33 [address] to [address]. Mancilla who is the infectious disease doctor with the [place] system in [place]. He is aware of the patient, but will not take on his care because he was not properly discharged from the hospital after his most recent admission. He was discharged with instructions to follow-up with the [place] clinic in [place] on November 16, he went to the [place] clinic in [place] on November 16 and was scheduled for a follow-up appointment on December 10. I did have our counter caser Freddy Robertson involved to on sort the problems. The [facility] home care system that was caring for his PICC line and antibiotics, with sending his lab work to 1 of our legal officer on staff, I suspect this is because the computerized medical record lists this legal officer as the patient's primary care provider, even though he was only a consult on the patient's most recent admission. She talked with the [place] [facility] and [facility] the [place] [facility] for management of this problem, and they are making arrangements for him to see Dr. Wadsworth in [place] who is an infectious disease doctor. I also learned that the patient did see a PA within the [place] system who will be his primary care provider, and at this time I was told that the patient needs to see that PA to get a referral to the infectious disease doctor in [place]. The patient does not look ill at all, he is not had diarrhea now and a few days, his lab work is normal. He is anxious to go home, and despite the recommendation from Dr. Saravia to admit the patient for echoes and further evaluation of his graft, I do think it safe for him to return home and continue his Ancef infusions, and follow-up with his doctors to get all of his appropriate appointments set up in a timely fashion. - Vital Signs Vital signs: Temp Pulse Resp BP Pulse Ox 98.4 F 71 18 95/39 L 95 11/25/18 11:07 11/25/18 11:07 11/25/18 11:07 11/25/18 11:07 11/25/18 11:07 - Laboratory Result Diagrams: 11/25/18 13:05 11/25/18 13:05 Laboratory results interpreted by me: 11/25/18 13:05 RBC 4.08 L Hgb 12.1 L Hct 36.8 L RDW 16.4 H Discharge - Discharge Clinical Impression: Bacteremia due to methicillin susceptible Staphylococcus aureus (MSSA), History of Clostridium difficile infection Condition: Stable Disposition: HOME, SELF-CARE Additional Instructions: Continue your Ancef infusions through the PICC line. Follow-up with your primary care provider tomorrow to arrange referral to Dr. Andrade in [place]. RETURN TO THE EMERGENCY ROOM IF ANY NEW OR WORSENING SYMPTOMS. Scribe Attestation: 11/25/18 16:40 I personally performed the services described in the documentation, reviewed and edited the documentation which was dictated to the scribe in my presence, and it accurately records my words and actions. I personally performed the services described in the documentation, reviewed and edited the documentation which was dictated to the scribe in my presence, and it accurately records my words and actions.
[2018-11-25 16:59] VITALS: BP 103/42
== END 2018-11-25 16:50 | disposition home or self-care (01) ==
LOC: ER 10:59
DX: A49.01 Methicillin susceptible Staphylococcus aureus infection, unspecified site (principal); R78.81 Bacteremia; I25.10 Atherosclerotic heart disease of native coronary artery without angina pectoris; J44.9 Chronic obstructive pulmonary disease, unspecified; E11.9 Type 2 diabetes mellitus without complications
CPT/HCPCS: 99283; 96365; 36415; 85025; 80053; J0690

== ENCOUNTER 2019-01-02 01:03 | Inpatient (IN) | payer OTHER, MEDICARE ==
--- NOTE | 2019-01-02 01:56 | RADIOLOGY REPORT (SQ) ---
CLINICAL HISTORY: pain COMPARISON: None. TECHNIQUE: XR KNEE 4 OR MORE VIEWS 01/02/2019 1:25 AM CASHIER RECEPTIONIST FINDINGS: There is no fracture. Joint spaces are preserved. Soft tissues are unremarkable. IMPRESSION: No acute osseous findings.
[2019-01-02] MEDS ORDERED: NORMAL SALINE 500 ML IV ONE (01:58)
[2019-01-02] MEDS ORDERED: DEXAMETHASONE SOD PHOS INJ 10 MG/1 ML VIAL IV ONE (01:59)
[2019-01-02] MEDS ORDERED: KETOROLAC TROMETHAMINE INJ/PF 30 MG/1 ML SDV IV ONE (01:59)
--- NOTE | 2019-01-02 02:27 | RADIOLOGY REPORT (SQ) ---
EXAM DESCRIPTION: XR KNEE 3 VIEWS COMPLETED DATE/TME: 01/02/2019 02:00 CLINICAL HISTORY: 78 years, Male, Pain COMPARISON: None. NUMBER OF VIEWS: 1 TECHNIQUE: Sunset view of the left knee LIMITATIONS: None. FINDINGS: Osteopenia. No evidence for patellar dislocation or subluxation. IMPRESSION: Unremarkable sunrise view copyright 2010 [employer]- All Rights Reserved
--- NOTE | 2019-01-02 04:17 | ER Document Report ---
ED Extremity Problem, Lower - General Mode of Arrival: Ambulatory Information source: Patient TRAVEL OUTSIDE OF THE [place] IN LAST 30 DAYS: No - Related Data Home Medications: albuterol, ASA, atorvastatin, ancef, doxepin, ferrous sulfate, ptotonix, flomax, ticagrelor <LCU SEBASTIAN - Last Filed: 01/02/19 06:35> <TICO BAUMAN IV - Last Filed: 01/02/19 11:04> - General Chief Complaint: Knee Pain Stated Complaint: LEFT KNEE PAIN Time Seen by Provider: 01/02/19 01:58 Primary Care Provider: ALICIA BROWN MD [Primary Care Provider] - Follow up as needed Notes: 78-year-old male presents to the emergency department with a complaint of left knee pain. Apparently fell yesterday onto his left knee and has been having pain since the occurrence. He states that it hurts to bend the knee and it also hurts to touch. He denies any other associated injuries. (LUC SEBASTIAN) - Related Data Allergies/Adverse Reactions: No Known Allergies Allergy (Verified 01/02/19 01:23) Past Medical History - Social History Smoking Status: Unknown if Ever Smoked Family History: Reviewed & Not Pertinent, COPD Patient has suicidal ideation: No Patient has homicidal ideation: No - Past Medical History Cardiac Medical History: Reports: Hx Coronary Artery Disease, Hx Peripheral Vascular Disease Pulmonary Medical History: Reports: Hx COPD Denies: Hx Asthma Neurological Medical History: Denies: Hx Seizures Endocrine Medical History: Reports: Hx Diabetes Mellitus Type 2. Denies: Hx Diabetes Mellitus Type 1 GI Medical History: Denies: Hx Crohn's Disease, Hx Ulcerative Colitis Musculoskeletal Medical History: Denies Hx Fibromyalgia, Denies Hx Gout Skin Medical History: Denies Hx Eczema, Denies Hx Psoriasis Psychiatric Medical History: Reports: Hx Dementia Past Surgical History: Reports: Hx Cardiac Catheterization, Hx Coronary Stent <LUC SEBASTIAN - Last Filed: 01/02/19 06:35> Review of Systems <LUC SEBASTIAN - Last Filed: 01/02/19 06:35> - Review of Systems Notes: Constitutional: Negative for fever. HENT: Negative for sore throat. Eyes: Negative for visual changes. Cardiovascular: Negative for chest pain. Respiratory: Negative for shortness of breath. Gastrointestinal: Negative for abdominal pain, vomiting or diarrhea. Genitourinary: Negative for dysuria. Musculoskeletal: + Tenderness left knee Skin: Negative for rash. Neurological: Negative for headaches, weakness or numbness. 10 point ROS negative except as marked above and in HPI. (LUC SEBASTIAN) Physical Exam <LUC SEBASTIAN - Last Filed: 01/02/19 06:35> - Vital signs Vitals: Temp Pulse Resp BP Pulse Ox 97.9 F 99 18 124/73 93 01/02/19 01:15 01/02/19 01:15 01/02/19 01:15 01/02/19 01:15 01/02/19 01:15 - Notes Notes: Reviewed vital signs and nursing note as charted by RN. CONSTITUTIONAL: Chronically ill appearing 78-year-old male HEAD: Normocephalic; atraumatic; No swelling EYES: PERRL; Conjunctivae clear, no drainage; EOMI ENT: External ears without lesions; External auditory canal is patent; TMs without erythema, landmarks clear and well visualized; no rhinorrhea; Pharynx without erythema or lesions, no tonsillar hypertrophy, airway patent, mucous membranes pink and moist NECK: Supple, no cervical lymphadenopathy, no masses CARD: Regular rate and rhythm; no murmurs, no rubs, no gallops, capillary refill < 2 seconds, symmetric pulses RESP: Respiratory rate and effort are normal. There is normal chest excursion. No respiratory distress, no retractions, no stridor, no nasal flaring, no accessory muscle use. The lungs are clear to auscultation bilaterally, no wheezing, no rales, no rhonchi. ABD/GI: Normal bowel sounds; non-distended; soft, non-tender, no rebound, no guarding, no palpable organomegaly EXT: Tenderness in the left anterior patellar region, erythema on the top of the patella, tenderness along the joint line, decreased range of motion secondary to tenderness, no ballotable fluid noted. Stable knee joint. SKIN: Normal color for age and race; warm; dry; good turgor; no acute lesions noted NEURO: No facial asymmetry; Moves all extremities equally; Motor and sensory function intact (LUC SEBASTIAN) Course - Diagnostic Test Radiology reviewed: Image reviewed, Reports reviewed - X-ray left knee: No fracture no dislocation, osteopenia. X-ray left knee sunrise: No acute patella injury. <LUC SEBASTIAN - Last Filed: 01/02/19 06:35> - Laboratory Result Diagrams: 01/02/19 06:43 01/02/19 09:55 - Consults DR. VAUGHN Consulted provider: will see as inpatient <TICO BAUMAN IV - Last Filed: 01/02/19 11:04> - Re-evaluation Re-evalutation: 01/02/19 04:24 Patient is resting quietly in bed, states that the medication has helped his pain and I have informed him that the x-rays negative. He will be discharged home with left knee pain, inflammation/arthritis, patella chondritis, he is instructed to follow-up with his primary doctor as needed. 01/02/19 05:58 Patient's family arrived to take him home and states that they cannot take him home like this. Apparently, he has had a history of recurrent infections when he has had dental work performed. They states that he had dental work earlier in the week and is been on a declining course since that time. It is felt that the fall that occurred yesterday was due to weakness related to the post dental procedure. Patient had a PICC line until last week and completed a 6-week course of IV antibiotics., 01/02/19 06:35 Dr Bauman will assume the care of this patient and discussed the details as relayed from the family member. (LUC SEBASTIAN) - Vital Signs Vital signs: Temp Pulse Resp BP Pulse Ox 97.9 F 74 19 126/85 H 96 01/02/19 06:38 01/02/19 05:20 01/02/19 10:01 01/02/19 10:00 01/02/19 10:01 - Laboratory Laboratory results interpreted by me: 01/02/19 01/02/19 01/02/19 06:18 06:43 06:43 WBC 12.4 H RBC 4.34 L Hgb 13.0 L RDW 16.5 H Lymph % (Auto) 6.5 L Absolute Neuts (auto) 10.8 H Seg Neutrophils % 87.4 H Carbonic Acid 1.03 L ABG pCO2 34.3 L ABG pO2 37.5 L* ABG Total CO2 21.6 L ABG O2 Saturation 71.7 L Chloride Carbon Dioxide BUN Glucose POC Glucose 134 H Albumin Urine Protein Urine Blood 01/02/19 01/02/19 06:55 09:55 WBC RBC Hgb RDW Lymph % (Auto) Absolute Neuts (auto) Seg Neutrophils % Carbonic Acid ABG pCO2 ABG pO2 ABG Total CO2 ABG O2 Saturation Chloride 114 H Carbon Dioxide 16 L BUN 25 H Glucose 144 H POC Glucose Albumin 3.2 L Urine Protein 100 H Urine Blood SMALL H - Consults DR. VAUGHN Reason for consultation: 01/02/19 11:02 ADMISSION FOR AMS, LEUKOCYTOSIS (TICO BAUMAN IV) Discharge <LUC SEBASTIAN - Last Filed: 01/02/19 06:35> - Discharge Admitting Provider: Lucie (Hospitalist) Unit Admitted: Medical Floor <TICO BAUMAN IV - Last Filed: 01/02/19 11:04> - Discharge Clinical Impression: Left anterior knee pain, Leukocytosis, unspecified, Altered mental status, unspecified Disposition: ADMITTED INPATIENT Instructions: Sprained Knee ([facility]) Prescriptions: Naproxen [Naprosyn 375 Mg Tablet] 375 mg PO BID #14 tablet Referrals: ALICIA BROWN MD [Primary Care Provider] - Follow up as needed
[2019-01-02] MEDS ORDERED: NORMAL SALINE IV PRN (05:53)
--- NOTE | 2019-01-02 06:39 | RADIOLOGY REPORT (SQ) ---
CT head without contrast on 01/02/2019 at 6:00 AM CLINICAL INDICATION: Altered mental status TECHNIQUE: Multiple axial images are obtained throughout the head without the administration of contrast. This exam was performed according to our departmental dose-optimization program, which includes automated exposure control, adjustment of the mA and/or kV according to patient size and/or use of iterative reconstruction technique. Total DLP is 963.96 mGy*cm. COMPARISON: 11/05/2018 FINDINGS: There is generalized cerebral atrophy. There is low density in the periventricular white matter consistent with chronic small vessel ischemic changes. There is no hydrocephalus. There is no hemorrhage. There are no abnormal extra-axial fluid collections. There is no mass, mass effect or midline shift. There is no CT evidence of acute infarct. No bony abnormality is noted. Mild right sphenoid sinus disease is noted. IMPRESSION: Atrophy and chronic small vessel ischemic changes with no acute intracranial abnormality.
[2019-01-02] MEDS: PIPERACILLIN SODIUM/TAZOBACTAM 3.375 GM in NORMAL SALINE 100 ML IV SCH ×4 (06:52→23:30)
[2019-01-02 06:59] LABS: ARTERIAL BLOOD BASE EXCESS -3.6 mmol/L; ARTERIAL BLOOD H2CO3 1.03 mmol/L (1.05-1.35); ARTERIAL BLOOD HCO3 20.5 mmol/L (20-24); ARTERIAL BLOOD O2 SATURATION 71.7 % (94-98); ARTERIAL BLOOD PCO2 34.3 mmHg (35-45); ARTERIAL BLOOD TOTAL CO2 21.6 mmol/L (23-27)
[2019-01-02 07:03] LABS: ABSOLUTE LYMPHOCYTES (AUTO) 0.8 10^3/uL (0.5-4.7); ABSOLUTE MONOCYTES (AUTO) 0.7 10^3/uL (0.1-1.4); ABSOLUTE NEUT (AUTO) 10.8 10^3/uL (1.7-8.2); BASOPHILS % (AUTO) 0.1 % (0-2); HEMATOCRIT 38.9 % (37.9-51.0); LYMPHOCYTES % (AUTO) 6.5 % (13-45); MEAN CORPUSCULAR HGB CONC 33.5 g/dL (32.0-36.0); MEAN CORPUSCULAR VOLUME 90 fl (80-97); PLATELET COUNT 177 10^3/uL (150-450); RED BLOOD COUNT 4.34 10^6/uL (4.35-5.55); RED CELL DISTRIBUTION WIDTH 16.5 % (11.5-14.0); SEGMENTED NEUTROPHILS % (AUTO) 87.4 % (42-78); TOTAL CELLS COUNTED % (AUTO) 100 %; WHITE BLOOD COUNT 12.4 10^3/uL (4.0-10.5)
[2019-01-02 07:14] LABS: APPEARANCE,URINE SLIGHTLY-CLOUDY; BILIRUBIN,URINE NEGATIVE (NEGATIVE); COLOR,URINE YELLOW; GLUCOSE, URINE NEGATIVE (NEGATIVE); KETONES,URINE NEGATIVE (NEGATIVE); PROTEIN,URINE 100 mg/dL (NEGATIVE); UROBILINOGEN,URINE NEGATIVE mg/dL (<2.0)
[2019-01-02 07:17] LABS: ARTERIAL BLOOD FIO2 5
[2019-01-02 07:19] LABS: ARTERIAL BLOOD PO2 37.5 mmHg (80-100)
[2019-01-02 10:31] LABS: ALBUMIN 3.2 g/dL (3.5-5.0); ALKALINE PHOSPHATASE 89 U/L (38-126); ANION GAP 12 (5-19); ASPARTATE AMINO TRANSFERASE 49 U/L (17-59); BILIRUBIN,DIRECT 0.2 mg/dL (0.0-0.4); BILIRUBIN,TOTAL 0.6 mg/dL (0.2-1.3); BLOOD UREA NITROGEN 25 mg/dL (7-20); CALCIUM 8.7 mg/dL (8.4-10.2); CARBON DIOXIDE 16 mmol/L (22-30); CHLORIDE 114 mmol/L (98-107); GLUCOSE 144 mg/dL (75-110); POTASSIUM 3.8 mmol/L (3.6-5.0); TOTAL PROTEIN 6.6 g/dL (6.3-8.2)
[2019-01-02] MEDS ORDERED: NORMAL SALINE 1000 ML 1,000 ML IV PRN (11:32)
--- NOTE | 2019-01-02 11:36 | EKG REPORT ---
SEVERITY:- BORDERLINE ECG - SINUS ARRHYTHMIA, RATE 62-83 LOW VOLTAGE IN FRONTAL LEADS BORDERLINE PROLONGED QT INTERVAL : Confirmed by: Elvira Benitez MD 02-Jan-2019 11:35:59
[2019-01-02] MEDS ORDERED: ACETAMINOPHEN 325 MG TABLET PO PRN (11:56)
[2019-01-02] MEDS ORDERED: ONDANSETRON HCL INJ/PF 4 MG/2 ML SDV IV PRN (11:56)
[2019-01-02] MEDS ORDERED: PROMETHAZINE HCL INJ 25 MG/1 ML VIAL IV PRN (11:56)
--- NOTE | 2019-01-02 14:17 | PDOC H&P ---
History of Present Illness Admission Date/PCP: 01/02/19 11:19 ALICIA BROWN MD History of Present Illness: GAVINO PEDRAZA is a 78 year old male Medical history of dementia, COPD, CAD, MSSA bacteremia, BPH, hypertension, CHF, brought into ED by family after a witnessed fall, bilateral knee pain and mental status changes. Last hospitalization at [facility] . Hospitalized for BEBE, acute respiratory failure, COPD exacerbation, MSSA bacteremia. Transferred to ICU. W as not intubated. Discharged on cefazolin 2 g IV q. 8 for 30 days for MSSA bacteremia. As per ED physician patient fell yesterday onto his knees, on admission was complaining of knee pains upon bending. Family who was present at the time had a stated that he did not look like himself, has been declining in his ADLs, had a dental procedure yesterday and they think he is bacteremic as this had johnson ppened before. On my encounter patient is very somnolent, arousable briefly, falls back to sleep, does not provide much information. Family not at bedside. Based on last hospitalization patient is full code. In ED he was found to have leukocytosis, hypoxemia, elevated BNP, tachypnic Past Medical History Cardiac Medical History: Reports: Coronary Artery Disease, Peripheral Vascular Disease Pulmonary Medical History: Reports: Chronic Obstructive Pulmonary Disease (COPD) Denies: Asthma Neurological Medical History: Denies: Seizures Endocrine Medical History: Reports: Diabetes Mellitus Type 2 Denies: Diabetes Mellitus Type 1 GI Medical History: Denies: Crohn's Disease, Ulcerative Colitis Musculoskeltal Medical History: Denies: Fibromyalgia, Gout Skin Medical History: Denies: Eczema, Psoriasis Psychiatric Medical History: Reports: Dementia Hematology: Reports: Anemia Denies: Bleeding Tendencies Past Surgical History Past Surgical History: Reports: Cardiac Catheterization, Coronary Stent Social History Smoking Status: Unknown if Ever Smoked Frequency of Alcohol Use: None Hx Recreational Drug Use: No Drugs: None Hx Prescription Drug Abuse: No Family History Family History: Reviewed & Not Pertinent, COPD Parental Family History Reviewed: Yes Children Family History Reviewed: Yes Sibling(s) Family History Reviewed.: Yes Medication/Allergy Home Medications: Acetaminophen [Tylenol 325 mg Tablet] 650 mg PO Q6HP PRN 11/06/18 Aspirin [Ecotrin 81 mg EC Tablet] 81 mg PO DAILY 11/06/18 Budesonide/Formoterol Fumarate [Symbicort HFA 160-4.5 mcg Inhaler 6 gm] 2 puff IH Q12 11/06/18 Cholecalciferol (Vitamin D3) [Vitamin D3] 1,000 unit PO DAILY 11/06/18 Docusate Sodium [Colace 100 mg Capsule] 200 mg PO BIDP PRN 11/06/18 Ferrous Sulfate 324 mg PO BID 11/06/18 Furosemide [Lasix 20 mg Tablet] 20 mg PO DAILY 11/06/18 Melatonin [Melatonin 3 mg Tablet] 6 mg PO QHS 11/06/18 Metoprolol Tartrate [Lopressor 25 mg Tablet] 25 mg PO Q12 11/06/18 Nitroglycerin [Nitrostat 0.4 mg (1/150 Gr) Tabs 25/Bottle] 1 tab SL Q5MP PRN 11/06/18 Omeprazole 40 mg PO QAM 11/06/18 Polyethylene Glycol 3350 [Gavilax] 17 gm PO DAILYP PRN 11/06/18 Prochlorperazine Maleate 5 mg PO DAILYP PRN 11/06/18 Quetiapine Fumarate [Seroquel 25 mg Tablet] 37.5 mg PO QHS 11/06/18 Tiotropium [place] [Spiriva Handihaler 5 Cap/Kit (18 Mcg/Cap)] 1 cap IH DAILY 11/06/18 Atorvastatin Calcium [Lipitor 80 mg Tablet] 80 mg NG QHS #30 tablet 11/13/18 Cefazolin Sodium [Ancef Inj 1 gm Vial] 2 gm IV Q8 #90 vial 11/13/18 Lisinopril [Prinivil 5 mg Tablet] 5 mg NG Q12 #30 tablet 11/13/18 Nitroglycerin [Nitro-Dur 15 mg (0.6 mg/1 Hr) Transderm Patch] 1 each TD DAILY #30 patch.td24 11/13/18 Tamsulosin HCl [Flomax 0.4 mg Cap.sr] 0.4 mg PO PCSUPPER #30 cap.sr.24h 11/13/18 Ticagrelor [Brilinta 90 mg Tablet] 90 mg NG Q12 #60 tablet 11/13/18 Naproxen [Naprosyn 375 Mg Tablet] 375 mg PO BID #14 tablet 01/02/19 Allergies/Adverse Reactions: No Known Allergies Allergy (Verified 01/02/19 01:23) Physical Exam Vital Signs: Temp Pulse Resp BP Pulse Ox 97.9 F 74 19 127/70 H 96 01/02/19 06:38 01/02/19 05:20 01/02/19 14:01 01/02/19 14:00 01/02/19 13:03 Intake & Output 01/01/19 01/02/19 01/03/19 06:59 06:59 06:59 Intake Total 500 2270 Balance 500 2270 Weight 69 kg Results Laboratory Results: 01/02/19 06:43 01/02/19 09:55 01/02/19 01/02/19 01/02/19 06:43 06:43 06:43 WBC 12.4 H RBC 4.34 L Hgb 13.0 L Hct 38.9 MCV 90 MCH 30.0 MCHC 33.5 RDW 16.5 H Plt Count 177 Seg Neutrophils % 87.4 H Carbonic Acid HCO3/H2CO3 Ratio ABG pH ABG pCO2 ABG pO2 ABG HCO3 ABG O2 Saturation ABG Base Excess FiO2 Sodium Cancelled Potassium Cancelled Chloride Cancelled Carbon Dioxide Cancelled Anion Gap Cancelled BUN Cancelled Creatinine Cancelled Est GFR ( Amer) Cancelled Est GFR (Non-Af Amer) Cancelled Glucose Cancelled Lactic Acid 1.2 Calcium Cancelled Total Bilirubin Cancelled AST Cancelled Alkaline Phosphatase Cancelled Total Protein Cancelled Albumin Cancelled Urine Color Urine Appearance Urine pH Ur Specific [place] Urine Protein Urine Glucose (UA) Urine Ketones Urine Blood Urine RBC (Auto) 01/02/19 01/02/19 01/02/19 06:43 06:55 09:55 WBC RBC Hgb Hct MCV MCH MCHC RDW Plt Count Seg Neutrophils % Carbonic Acid 1.03 L HCO3/H2CO3 Ratio 19:1 ABG pH 7.40 ABG pCO2 34.3 L ABG pO2 37.5 L* ABG HCO3 20.5 ABG O2 Saturation 71.7 L ABG Base Excess -3.6 FiO2 5 Sodium 141.8 Potassium 3.8 Chloride 114 H Carbon Dioxide 16 L Anion Gap 12 BUN 25 H Creatinine 0.95 Est GFR ( Amer) > 60 Est GFR (Non-Af Amer) Glucose 144 H Lactic Acid Calcium 8.7 Total Bilirubin 0.6 AST 49 Alkaline Phosphatase 89 Total Protein 6.6 Albumin 3.2 L Urine Color YELLOW Urine Appearance SLIGHTLY-CLOUDY Urine pH 5.0 Ur Specific [place] 1.020 Urine Protein 100 H Urine Glucose (UA) NEGATIVE Urine Ketones NEGATIVE Urine Blood SMALL H Urine RBC (Auto) 3 01/02/19 09:55 NT-Pro-B Natriuret Pep 4340 H Impressions: Knee X-Ray 01/02/19 02:00 IMPRESSION: Unremarkable sunrise view copyright 2010 [employer]- All Rights Reserved Head CT 01/02/19 05:48 IMPRESSION: Atrophy and chronic small vessel ischemic changes with no acute intracranial abnormality. Assessment and Plan - Diagnosis (1) Acute respiratory failure with hypoxemia Is this a current diagnosis for this admission?: Yes Plan: Most likely due to COPD exacerbation complicated by history of pulmonary hypertension, CAD, CHF. Noted to be tachycardic, hypoxic with ABG pH: 7.40, CO2 34.3, PO2 37.5, bicarb 20.5 FiO2 5 L on admission 10/27/2018. 2D echo LVEF greater than 60%. Grade I/IV diastolic dysfunction. PHT RVSP 56 mmHg. BNP 4040 up from 969 from 11/04/2018. Admit to ICU, DuoNeb's, BiPAP, IV steroids, IV antibiotics, LMA, LABA, ICS, pulmonary toileting, incentive spirometry, flutter valve, blood culture, sputum culture. 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 10/27/2018. 2D echo LVEF greater than 60%. Grade I/IV diastolic dysfunction. PHT RVSP 56 mmHg. BNP 4040 up from 969 from 11/04/2018. Cardiac diet, IV diuresis guided by volume status, Garcia catheter, strict in and out, daily weight, VEL, beta-blockers. Outpatient PCP and cardiology follow-up. (3) Accident due to mechanical fall without injury Qualifiers: Encounter type: initial encounter Qualified Code(s): W19.XXXA - Unspecified fall, initial encounter Is this a current diagnosis for this admission?: Yes Plan: Accidental fall. Bilateral knee x-rays unremarkable. CT negative for any acute changes. Continue supportive measures. Outpatient PCP follow-up. Fall and seizure precautions. (4) CAD (coronary artery disease) Is this a current diagnosis for this admission?: Yes Plan: History of CAD and PCI. Stents placed. Restart DAPT, beta-blockers, statins, VEL. Outpatient PCP and cardiology follow-up. (5) BPH (benign prostatic hyperplasia) Is this a current diagnosis for this admission?: Yes Plan: Restart home meds. (6) Altered mental status, unspecified Qualifiers: Altered mental status type: somnolence Qualified Code(s): R40.0 - Somnolence Is this a current diagnosis for this admission?: Yes Plan: Acute metabolic encephalopathy due to hypoxia caused by acute CHF/COPD exacerbation. At baseline patient has dementia. Lives with family. Electrolytes WNL. Plan as per #1.
--- NOTE | 2019-01-02 14:44 | RADIOLOGY REPORT (SQ) ---
EXAM DESCRIPTION: CTA CHEST COMPLETED DATE/TIME: 01/02/2019 1:48 pm REASON FOR STUDY: hypoxia shortness of breath COMPARISON: CT chest abdomen and pelvis 11/13/2018 AP chest 11/08/2018 TECHNIQUE: CT scan of the chest performed using helical scanning technique with dynamic intravenous contrast injection. Images reviewed with lung, soft tissue and bone windows. Reconstructed coronal and sagittal MPR images reviewed. Additional 3 dimensional post-processing performed to develop Maximal Intensity Projection images (AR P). All images stored on PACS. All CT scanners at this facility use dose modulation, iterative reconstruction, and/or weight based d osing when appropriate to reduce radiation dose to as low as reasonably achievable (ALARA). [facility]: Dose Right [facility]: CareDose [facility]: Dose Right [facility]: Teradose 4D [facility]: Little Borrowed Dress CONTRAST TYPE AND DOSE: contrast/concentration: Isovue 350.00 mg/ml; Total Contrast Delivered: 54.0 ml; Total Saline Delivered: 79.0 ml Contrast bolus optimized for the pulmonary arteries. Not diagnostic for the aorta. RENAL FUNCTION: Creatinine 0.95 RADIATION DOSE: CT Rad equipment meets quality standard of care and radiation dose reduction techniq ues were employed. CTDIvol: 9.9 - 15.8 mGy. DLP: 566 mGy-cm. . LIMITATIONS: None. FINDINGS: LUNGS AND PLEURA: Upper lobes are hyperlucent from obstructive disease. Minimal chronic s carring in the right posterior costophrenic sulcus. No acute infiltrates pleural effusions or pneumo thorax. No worrisome pulmonary nodules AORTA AND GREAT VESSELS: Ascending thoracic aorta is 4 cm in diameter, stable. Descending thoracic a joe normal caliber, 3 cm in diameter HEART: No pericardial effusion. Moderate coronary artery calcifications PULMONARY ARTERIES: No emboli visualized in the main pulmonary arteries or the segmental branches. HILAR AND MEDIASTINAL STRUCTURES: No identified masses or abnormal nodes. HARDWARE: Right axillary to femoral bypass graft. It is difficult to discern whether this is patent due to the timing of the contrast bolus UPPER ABDOMEN: Small hiatal hernia. Abdominal aorta stent graft is seen at the very bottom edge of t he field of view THYROID AND OTHER SOFT TISSUES: No masses. No adenopathy. BONES: Stable T10 and L1 compression deformities 3D MIPS: Confirm above findings. OTHER: No other significant finding. IMPRESSION: No CT angio evidence of acute pulmonary emboli. Obstructive lung disease. COMMENT: Quality ID # [id number]: Final reports with documentation of one or more dose reduction techniques (e.g., Automated exposure control, adjustment of the mA and/or kV according to patient size, use of iterative reconstruction technique) TECHNICAL DOCUMENTATION: JOB ID: [id number] [employer]- All Rights Reserved Reading location - IP/workstation name: [email or web address]
[2019-01-02] MEDS: HEPARIN SOD (PORCINE) 5,000 UNIT/ML 1 ML VIAL SUBCUT SCH ×2 (15:04→21:53)
[2019-01-02] MEDS: METHYLPREDNISOLONE INJ 40 MG/1 ML SDV IV SCH ×2 (15:28→21:53)
[2019-01-02] MEDS: FUROSEMIDE INJ/PF 20 MG/2 ML SDV IV SCH ×2 (15:28→21:53)
[2019-01-02] MEDS: IPRATROPIUM/ALBUTEROL 0.5-2.5 MG/3 ML AMPUL NEB SCH ×2 (16:16→19:38)
[2019-01-02] MEDS ORDERED: INFLUENZA QUAD (6MOS+) 2019-20 VAC 0.5 ML SYR IM ONE (16:40)
[2019-01-02] MEDS: LISINOPRIL 5 MG TABLET PO SCH (17:21)
[2019-01-02] MEDS: PANTOPRAZOLE SODIUM 40 MG TABLET.DR PO SCH (17:21)
[2019-01-02 18:05] LABS: ARTERIAL BLOOD BASE EXCESS -5.3 mmol/L; ARTERIAL BLOOD H2CO3 0.73 mmol/L (1.05-1.35); ARTERIAL BLOOD HCO3 16.8 mmol/L (20-24); ARTERIAL BLOOD O2 SATURATION 98.9 % (94-98); ARTERIAL BLOOD PCO2 24.2 mmHg (35-45); ARTERIAL BLOOD PH 7.46 (7.35-7.45); ARTERIAL BLOOD PO2 139.5 mmHg (80-100); ARTERIAL BLOOD TOTAL CO2 17.5 mmol/L (23-27)
[2019-01-02 18:22] LABS: ARTERIAL BLOOD FIO2 40%
[2019-01-02] MEDS: ZOLPIDEM TARTRATE 5 MG TABLET PO PRN (21:53)
[2019-01-02] MEDS: OXYCODONE-ACETAMINOPHEN 5-325 MG TABLET PO PRN (21:53)
[2019-01-03 04:47] LABS: HEMATOCRIT 34.7 % (37.9-51.0); HEMOGLOBIN 11.8 g/dL (13.5-17.0); MEAN CORPUSCULAR HEMOGLOBIN 30.2 pg (27.0-33.4); MEAN CORPUSCULAR HGB CONC 34.1 g/dL (32.0-36.0); MEAN CORPUSCULAR VOLUME 89 fl (80-97); PLATELET COUNT 177 10^3/uL (150-450); RED BLOOD COUNT 3.92 10^6/uL (4.35-5.55); RED CELL DISTRIBUTION WIDTH 16.1 % (11.5-14.0); WHITE BLOOD COUNT 8.9 10^3/uL (4.0-10.5)
[2019-01-03 05:03] LABS: ANION GAP 16 (5-19); BLOOD UREA NITROGEN 31 mg/dL (7-20); CARBON DIOXIDE 20 mmol/L (22-30); CHLORIDE 107 mmol/L (98-107); CHOLESTEROL 119.53 mg/dL (0-200); GLUCOSE 166 mg/dL (75-110); TRIGLYCERIDES 228 mg/dL (<150)
[2019-01-03 05:05] LABS: VLDL CHOLESTEROL 45.6 mg/dL (10-31)
[2019-01-03 05:13] LABS: DIRECT LDL 51 mg/dL (<100)
[2019-01-03 05:24] LABS: ABSOLUTE LYMPHOCYTES# (MANUAL) 0.6 10^3/uL (0.5-4.7); BAND NEUTROPHILS % (MANUAL) 2 % (3-5); BASOPHILS % (MANUAL) 0 % (0-2); EOSINOPHILS % (MANUAL) 0 % (0-6); LYMPHOCYTES % (MANUAL) 7 % (13-45); MONOCYTES % (MANUAL) 0 % (3-13); SEGMENTED NEUTROPHILS % (MAN) 91 % (42-78); TOTAL CELLS COUNTED 100
[2019-01-03 05:25] LABS: ANISOCYTOSIS 1+; PLATELET COMMENT ADEQUATE
[2019-01-03] MEDS: PIPERACILLIN SODIUM/TAZOBACTAM 3.375 GM in NORMAL SALINE 100 ML IV SCH (05:34)
[2019-01-03] MEDS: HEPARIN SOD (PORCINE) 5,000 UNIT/ML 1 ML VIAL SUBCUT SCH ×3 (05:36→22:25)
[2019-01-03] MEDS: PANTOPRAZOLE SODIUM 40 MG TABLET.DR PO SCH ×2 (05:36→16:56)
[2019-01-03] MEDS: METHYLPREDNISOLONE INJ 40 MG/1 ML SDV IV SCH ×3 (05:36→22:23)
[2019-01-03 06:48] LABS: ARTERIAL BLOOD BASE EXCESS -4.4 mmol/L; ARTERIAL BLOOD H2CO3 0.87 mmol/L (1.05-1.35); ARTERIAL BLOOD HCO3 18.8 mmol/L (20-24); ARTERIAL BLOOD O2 SATURATION 93.6 % (94-98); ARTERIAL BLOOD PH 7.43 (7.35-7.45); ARTERIAL BLOOD PO2 64.9 mmHg (80-100); ARTERIAL BLOOD TOTAL CO2 19.7 mmol/L (23-27)
[2019-01-03 06:53] LABS: ARTERIAL BLOOD FIO2 40%
[2019-01-03] MEDS: IPRATROPIUM/ALBUTEROL 0.5-2.5 MG/3 ML AMPUL NEB SCH ×4 (08:02→20:14)
[2019-01-03] MEDS ORDERED: DEXTROSE 50%-WATER 25 GM/50 ML DISP.SYRIN IV PRN ×2 (09:27)
[2019-01-03] MEDS ORDERED: DEXTROSE 40% GEL 15 GM TUBE PO PRN ×2 (09:27)
[2019-01-03] MEDS ORDERED: GLUCAGON,HUMAN RECOMB 1 MG INJ IM PRN (09:27)
[2019-01-03] MEDS ORDERED: VANCOMYCIN HCL 0 MG in DEXTROSE 5%-WATER 250 ML IV NR (09:30)
[2019-01-03] MEDS: OXYCODONE-ACETAMINOPHEN 5-325 MG TABLET PO PRN ×3 (09:57→18:20)
[2019-01-03] MEDS: LISINOPRIL 5 MG TABLET PO SCH (09:57)
[2019-01-03] MEDS: FUROSEMIDE INJ/PF 20 MG/2 ML SDV IV SCH ×2 (09:57→22:23)
--- NOTE | 2019-01-03 11:36 | PDOC PROGRESS REPORT ---
Subjective Progress Note for:: 01/03/19 Subjective:: GAVINO PEDRAZA is a 78 year old male Medical history of dementia, COPD, CAD, MSSA bacteremia, BPH, hypertension, CHF, brought into ED by family after a witnessed fall, bilateral knee pain and mental status changes. Last hospitalization at [facility] . Hospitalized for BEBE, acute respiratory failure, COPD exacerbation, MSSA bacteremia. Transferred to ICU. Was not intubated. Discharged on cefazolin 2 g IV q. 8 for 30 days for MSSA bacteremia. As per ED physician patient fell yesterday onto his knees, on admission was complaining of knee pains upon bending. Family who was present at the time had a stated that he did not look like himself, has been declining in his ADLs, had a dental procedure yesterday and they think he is bacteremic as this had happened before. On my encounter patient is very somnolent, arousable briefly, falls back to sleep, does not provide much information. Family not at bedside. Based on last hospitalization patient is full code. In ED he was found to have leukocytosis, hypoxemia, elevated BNP, tachypnia 01/03/2019. No acute events overnight. Significant improvement of patient's status. Patient is awake, alert oriented x3, in no apparent distress, very pleasant and cooperative with physical examination. Denies any fever, chills, nausea, vomiting, diarrhea, constipation or any urinary symptoms. Reason For Visit: ACUTE HYPOXIC RESPIRATORY FAILURE Physical Exam Vital Signs: Temp Pulse Resp BP Pulse Ox 97.3 F 61 18 94/49 L 95 01/03/19 07:45 01/03/19 08:02 01/03/19 08:02 01/03/19 07:45 01/03/19 08:02 Intake & Output 01/02/19 01/03/19 01/04/19 06:59 06:59 06:59 Intake Total 500 2570 Output Total 200 Balance 500 2370 Weight 69 kg 74.9 kg General appearance: PRESENT: no acute distress, well-developed, well-nourished Head exam: PRESENT: atraumatic, normocephalic Respiratory exam: PRESENT: clear to auscultation cristobal. ABSENT: rales, rhonchi, wheezes Cardiovascular exam: PRESENT: RRR. ABSENT: diastolic murmur, rubs, systolic murmur GI/Abdominal exam: PRESENT: normal bowel sounds, soft. ABSENT: distended, guarding, mass, organolmegaly, rebound, tenderness Neurological exam: PRESENT: alert, awake, oriented to person, oriented to place, CN II-XII grossly intact Results Laboratory Results: 01/03/19 04:23 01/03/19 04:23 01/02/19 01/03/19 01/03/19 17:55 04:23 04:23 WBC 8.9 RBC 3.92 L Hgb 11.8 L Hct 34.7 L MCV 89 MCH 30.2 MCHC 34.1 RDW 16.1 H Plt Count 177 Seg Neutrophils % Not Reportable Carbonic Acid 0.73 L HCO3/H2CO3 Ratio 23:1 ABG pH 7.46 H ABG pCO2 24.2 L ABG pO2 139.5 H ABG HCO3 16.8 L ABG O2 Saturation 98.9 H ABG Base Excess -5.3 FiO2 40% Sodium 143.2 Potassium 4.0 Chloride 107 Carbon Dioxide 20 L Anion Gap 16 BUN 31 H Creatinine 1.09 Est GFR ( Amer) > 60 Glucose 166 H Calcium 9.0 Magnesium 2.2 Triglycerides 228 H Cholesterol 119.53 LDL Cholesterol Direct 51 VLDL Cholesterol 45.6 H HDL Cholesterol 21 L 01/03/19 06:25 WBC RBC Hgb Hct MCV MCH MCHC RDW Plt Count Seg Neutrophils % Carbonic Acid 0.87 L HCO3/H2CO3 Ratio 21:1 ABG pH 7.43 ABG pCO2 29.0 L ABG pO2 64.9 L ABG HCO3 18.8 L ABG O2 Saturation 93.6 L ABG Base Excess -4.4 FiO2 40% Sodium Potassium Chloride Carbon Dioxide Anion Gap BUN Creatinine Est GFR ( Amer) Glucose Calcium Magnesium Triglycerides Cholesterol LDL Cholesterol Direct VLDL Cholesterol HDL Cholesterol 01/02/19 08:32 Blood Blood Culture (PCR) - Final Staphylococcus Aureus 01/02/19 09:55 NT-Pro-B Natriuret Pep 4340 H Impressions: Chest/Abdomen CTA 01/02/19 00:00 IMPRESSION: No CT angio evidence of acute pulmonary emboli. Obstructive lung disease. Knee X-Ray 01/02/19 02:00 IMPRESSION: Unremarkable sunrise view copyright 2011 [employer]- All Rights Reserved Head CT 01/02/19 05:48 IMPRESSION: Atrophy and chronic small vessel ischemic changes with no acute intracranial abnormality. Assessment and Plan - Diagnosis (1) Acute respiratory failure with hypoxemia Is this a current diagnosis for this admission?: Yes Plan: Significant improvement. ABG: pH 7.43, PCO2 29.0, PO2 64, bicarb 18, FiO2 40%. Most likely due to COPD exacerbation complicated by history of pulmonary hypertension, CAD, CHF. Noted to be tachycardic, hypoxic with ABG pH: 7.40, CO2 34.3, PO2 37.5, bicarb 20.5 FiO2 5 L on admission 10/27/2018. 2D echo LVEF greater than 60%. Grade I/IV diastolic dysfunction. PHT RVSP 56 mmHg. BNP 4040 up from 969 from 11/04/2018. Continue DuoNeb's, BiPAP, IV steroids, IV antibiotics, LMA, LABA, ICS, pulmonary toileting, incentive spirometry, flutter valve, blood culture, sputum culture. (2) Acute exacerbation of CHF (congestive heart failure) Qualifiers: Heart failure type: combined systolic and diastolic Qualified Code(s): I50.43 - Acute on chronic combined systolic (congestive) and diastolic (congestive) heart failure Is this a current diagnosis for this admission?: Yes Plan: Appears euvolemic. Likely due to acute COPD exacerbation. 10/27/2018. 2D echo LVEF greater than 60%. Grade I/IV diastolic dysfunction. PHT RVSP 56 mmHg. BNP 4040 up from 969 from 11/04/2018. Cardiac diet, IV diuresis guided by volume status, Garcia catheter, strict in and out, daily weight, VEL, beta-blockers. Outpatient PCP and cardiology follow-up. (3) Accident due to mechanical fall without injury Qualifiers: Encounter type: initial encounter Qualified Code(s): W19.XXXA - Unspecified fall, initial encounter Is this a current diagnosis for this admission?: Yes Plan: Accidental fall. Bilateral knee x-rays unremarkable. CT negative for any acute changes. Continue supportive measures. Outpatient PCP follow-up. Fall and seizure precautions. (4) CAD (coronary artery disease) Is this a current diagnosis for this admission?: Yes Plan: History of CAD and PCI. Stents placed. Restart DAPT, beta-blockers, statins, VEL. Outpatient PCP and cardiology follow-up. (5) BPH (benign prostatic hyperplasia) Is this a current diagnosis for this admission?: Yes Plan: Restart home meds. (6) Altered mental status, unspecified Qualifiers: Altered mental status type: somnolence Qualified Code(s): R40.0 - Somnolence Is this a current diagnosis for this admission?: Yes Plan: Resolved. Back to baseline. Acute metabolic encephalopathy due to hypoxia caused by acute CHF/COPD exa cerbation. At baseline patient has dementia. Lives with family. Electrolytes WNL. Plan as per #1. (7) Gram-positive bacteremia Is this a current diagnosis for this admission?: Yes Plan: History of MSSA bacteremia. Was discharged on 30 days of IV cefazolin 2 g every 8 on 11/13/2018. Had recent dental procedure. Blood culture positive for gram-positive cocci in clusters. Methicillin gene negative. Day 2 IV antibiotics. Received 1 day of IV Zosyn. Received 1 day of IV vancomycin. Day 1 IV cefazolin. Repeat blood culture. Follow-up culture and sensitivity.
[2019-01-03] MEDS: INSULIN LISPRO 100 UNIT/ML 3 ML VIAL SUBCUT SCH ×3 (12:21→22:24)
[2019-01-03] MEDS: CEFAZOLIN SODIUM 2 GM in DEXTROSE 5%-WATER 100 ML IV SCH ×2 (14:26→22:24)
[2019-01-03] MEDS: ZOLPIDEM TARTRATE 5 MG TABLET PO PRN (22:24)
[2019-01-04] MEDS: METHYLPREDNISOLONE INJ 40 MG/1 ML SDV IV SCH ×3 (05:14→21:52)
[2019-01-04] MEDS: OXYCODONE-ACETAMINOPHEN 5-325 MG TABLET PO PRN ×3 (05:14→21:53)
[2019-01-04] MEDS: PANTOPRAZOLE SODIUM 40 MG TABLET.DR PO SCH ×2 (05:14→17:33)
[2019-01-04] MEDS: HEPARIN SOD (PORCINE) 5,000 UNIT/ML 1 ML VIAL SUBCUT SCH ×3 (05:15→21:54)
[2019-01-04] MEDS: CEFAZOLIN SODIUM 2 GM in DEXTROSE 5%-WATER 100 ML IV SCH ×3 (05:15→21:53)
[2019-01-04] MEDS: IPRATROPIUM/ALBUTEROL 0.5-2.5 MG/3 ML AMPUL NEB SCH ×4 (07:55→20:01)
[2019-01-04] MEDS: INSULIN LISPRO 100 UNIT/ML 3 ML VIAL SUBCUT SCH ×4 (10:27→21:54)
[2019-01-04] MEDS: LISINOPRIL 5 MG TABLET PO SCH (10:45)
[2019-01-04] MEDS: FUROSEMIDE INJ/PF 20 MG/2 ML SDV IV SCH ×2 (10:45→21:53)
--- NOTE | 2019-01-04 14:11 | PDOC PROGRESS REPORT ---
Subjective Progress Note for:: 01/04/19 Subjective:: GAVINO PEDRAZA is a 78 year old male Medical history of dementia, COPD, CAD, MSSA bacteremia, BPH, hypertension, CHF, brought into ED by family after a witnessed fall, bilateral knee pain and mental status changes. Last hospitalization at [facility] . Hospitalized for BEBE, acute respiratory failure, COPD exacerbation, MSSA bacteremia. Transferred to ICU. Was not intubated. Discharged on cefazolin 2 g IV q. 8 for 30 days for MSSA bacteremia. As per ED physician patient fell yesterday onto his knees, on admission was complaining of knee pains upon bending. Family who was present at the time had a stated that he did not look like himself, has been declining in his ADLs, had a dental procedure yesterday and they think he is bacteremic as this had happened before. On my encounter patient is very somnolent, arousable briefly, falls back to sleep, does not provide much information. Family not at bedside. Based on last hospitalization patient is full code. In ED he was found to have leukocytosis, hypoxemia, elevated BNP, tachypnia 01/03/2019. No acute events overnight. Significant improvement of patient's status. Patient is awake, alert oriented x3, in no apparent distress, very pleasant and cooperative with physical examination. Denies any fever, chills, nausea, vomiting, diarrhea, constipation or any urinary symptoms. 01/04/2019. No acute events overnight. Patient complaining of knee pain. Mental status is improved. Back to baseline. Alert and dysarthria. Denies any fever, chills, nausea, vomiting, diarrhea, constipation or any urinary symptoms. Reason For Visit: ACUTE HYPOXIC RESPIRATORY FAILURE Physical Exam Vital Signs: Temp Pulse Resp BP Pulse Ox 97.4 F 87 18 133/62 H 90 L 01/04/19 07:52 01/04/19 11:38 01/04/19 11:38 01/04/19 07:52 01/04/19 11:38 Intake & Output 01/03/19 01/04/19 01/05/19 06:59 06:59 06:59 Intake Total 2570 1162 100 Output Total 200 3350 Balance 2370 -2188 100 Weight 74.9 kg 74.6 kg General appearance: PRESENT: no acute distress, well-developed, well-nourished Head exam: PRESENT: atraumatic, normocephalic Cardiovascular exam: PRESENT: RRR. ABSENT: diastolic murmur, rubs, systolic murmur GI/Abdominal exam: PRESENT: normal bowel sounds, soft. ABSENT: distended, guarding, mass, organolmegaly, rebound, tenderness Rectal exam: PRESENT: deferred Extremities exam: PRESENT: tenderness - Bilateral knee tenderness. No effusion. No erythema. Neurovascularly intact. Neurological exam: PRESENT: alert, awake, oriented to person, oriented to place, CN II-XII grossly intact. ABSENT: motor sensory deficit Results Laboratory Results: 01/03/19 04:23 01/03/19 04:23 01/03/19 11:25 Blood Blood Culture (PCR) - Final Staphylococcus Aureus 01/03/19 10:44 Blood Blood Culture (PCR) - Final Staphylococcus Aureus 01/02/19 08:32 Blood Blood Culture (PCR) - Final Staphylococcus Aureus 01/02/19 08:32 Blood Blood Culture - Final Staphylococcus Aureus 01/02/19 06:43 Blood Blood Culture - Final Staphylococcus Aureus 01/02/19 09:55 NT-Pro-B Natriuret Pep 4340 H Impressions: Chest/Abdomen CTA 01/02/19 00:00 IMPRESSION: No CT angio evidence of acute pulmonary emboli. Obstructive lung disease. Knee X-Ray 01/02/19 02:00 IMPRESSION: Unremarkable sunrise view copyright 2010 [employer]- All Rights Reserved Head CT 01/02/19 05:48 IMPRESSION: Atrophy and chronic small vessel ischemic changes with no acute intracranial abnormality. Assessment and Plan - Diagnosis (1) Gram-positive bacteremia Is this a current diagnosis for this admission?: Yes Plan: History of history of MSSA bacteremia. Has had 9 postive blood cultures from 11/05/2018 to 01/03/2019. Was discharged on 30 days of IV cefazolin 2 g every 8 on 11/13/2018. I have had extensive discussion with his son who is the POA about his recurrent MSSA bacteremia. As per son he thinks his recurrent bacteremia is caused by his bad teeth which the dentists they have not been able to remove because each time the use anesthetics patient becomes very agitated. As per him several dentists have been declining to remove his teeth for the above reason. Source of recurrent bacteremia could very well be from bad teeth but patient also has aortic graft placement for aortic aneurysm which could very likely be colonized and be the source of his recurrent bacteremia. I have tried to explain this patient's son but unfortunately he insists that the source of bacteremia is his teeth and once this has teeth are pulled out he will not be bacteremic anymore. Blood cultures positive /4 bottles for Staphylococcus hominis pansensitive. Day 3 IV antibiotics. Received 1 day of IV Zosyn. Received 1 day of IV vancomycin. Day 2 IV cefazolin. Continue current antibiotics. Will ask radiology for PICC line placement and possibly discharge tomorrow on 4 weeks of IV antibiotics. As per patient's son he had a ISAEL as outpatient very recently and he was told that he did not have endocarditis. We will obtain records for outpatient ISAEL. If not possible will need to get another 2D echo/ISAEL if suspicion of endocarditis remains high. (2) Acute respiratory failure with hypoxemia Is this a current diagnosis for this admission?: Yes Plan: Significant improvement. ABG: pH 7.43, PCO2 29.0, PO2 64, bicarb 18, FiO2 40%. Most likely due to COPD exacerbation complicated by history of pulmonary hypertension, CAD, CHF. Noted to be tachycardic, hypoxic with ABG pH: 7.40, CO2 34.3, PO2 37.5, bicarb 20.5 FiO2 5 L on admission 10/27/2018. 2D echo LVEF greater than 60%. Grade I/IV diastolic dysfunction. PHT RVSP 56 mmHg. BNP 4040 up from 969 from 11/04/2018. Continue DuoNeb's, BiPAP, IV steroids, IV antibiotics, LMA, LABA, ICS, pulmonary toileting, incentive spirometry, flutter valve, blood culture, sputum culture. (3) Acute exacerbation of CHF (congestive heart failure) Qualifiers: Heart failure type: combined systolic and diastolic Qualified Code(s): I50.43 - Acute on chronic combined systolic (congestive) and diastolic (congestive) heart failure Is this a current diagnosis for this admission?: Yes Plan: Appears euvolemic. Likely due to acute COPD exacerbation. 10/27/2018. 2D echo LVEF greater than 60%. Grade I/IV diastolic dysfunction. PHT RVSP 56 mmHg. BNP 4040 up from 969 from 11/04/2018. Cardiac diet, IV diuresis guided by volume status, Garcia catheter, strict in and out, daily weight, VEL, beta-blockers. Outpatient PCP and cardiology follow-up. (4) Accident due to mechanical fall without injury Qualifiers: Encounter type: initial encounter Qualified Code(s): W19.XXXA - Unspecified fall, initial encounter Is this a current diagnosis for this admission?: Yes Plan: Accidental fall. Bilateral knee x-rays unremarkable. CT negative for any acute changes. Continue supportive measures. Outpatient PCP follow-up. Fall and seizure precautions. (5) CAD (coronary artery disease) Is this a current diagnosis for this admission?: Yes Plan: History of CAD and PCI. Stents placed. Restart DAPT, beta-blockers, statins, VEL. Outpatient PCP and cardiology follow-up. (6) BPH (benign prostatic hyperplasia) Is this a current diagnosis for this admission?: Yes Plan: Restart home meds. (7) Altered mental status, unspecified Qualifiers: Altered mental status type: somnolence Qualified Code(s): R40.0 - Somnolence Is this a current diagnosis for this admission?: Yes Plan: Resolved. Back to baseline. Acute metabolic encephalopathy due to hypoxia caused by acute CHF/COPD exacerbation. At baseline patient has dementia. Lives with family. Electrolytes WNL. Plan as per #1.
[2019-01-04 15:21] LABS: ANION GAP 19 (5-19); BLOOD UREA NITROGEN 37 mg/dL (7-20); CARBON DIOXIDE 21 mmol/L (22-30); CHLORIDE 101 mmol/L (98-107); GLUCOSE 246 mg/dL (75-110); POTASSIUM 3.5 mmol/L (3.6-5.0)
[2019-01-04 15:46] LABS: HEMATOCRIT 33.5 % (37.9-51.0); HEMOGLOBIN 11.5 g/dL (13.5-17.0); MEAN CORPUSCULAR HEMOGLOBIN 30.3 pg (27.0-33.4); MEAN CORPUSCULAR HGB CONC 34.3 g/dL (32.0-36.0); MEAN CORPUSCULAR VOLUME 88 fl (80-97); RED BLOOD COUNT 3.79 10^6/uL (4.35-5.55); RED CELL DISTRIBUTION WIDTH 16.4 % (11.5-14.0); WHITE BLOOD COUNT 9.3 10^3/uL (4.0-10.5)
[2019-01-04 16:26] LABS: ABSOLUTE LYMPHOCYTES# (MANUAL) 0.3 10^3/uL (0.5-4.7); ABSOLUTE MONOCYTES # (MANUAL) 0.5 10^3/uL (0.1-1.4); ANISOCYTOSIS 1+; BAND NEUTROPHILS % (MANUAL) 1 % (3-5); BASOPHILS % (MANUAL) 0 % (0-2); EOSINOPHILS % (MANUAL) 0 % (0-6); LYMPHOCYTES % (MANUAL) 3 % (13-45); MONOCYTES % (MANUAL) 5 % (3-13); PLATELET CLUMPS PRESENT; PLATELET COMMENT ADEQUATE; SEGMENTED NEUTROPHILS % (MAN) 91 % (42-78); TEAR DROP CELLS 1+; TOTAL CELLS COUNTED 100
[2019-01-04 16:27] LABS: PLATELET COUNT 174 10^3/uL (150-450)
[2019-01-05] MEDS: PANTOPRAZOLE SODIUM 40 MG TABLET.DR PO SCH ×2 (05:34→17:24)
[2019-01-05] MEDS: CEFAZOLIN SODIUM 2 GM in DEXTROSE 5%-WATER 100 ML IV SCH ×3 (05:34→21:55)
[2019-01-05] MEDS: METHYLPREDNISOLONE INJ 40 MG/1 ML SDV IV SCH (05:34)
[2019-01-05] MEDS: HEPARIN SOD (PORCINE) 5,000 UNIT/ML 1 ML VIAL SUBCUT SCH ×3 (05:34→21:55)
[2019-01-05 06:34] LABS: HEMATOCRIT 30.6 % (37.9-51.0); HEMOGLOBIN 10.5 g/dL (13.5-17.0); MEAN CORPUSCULAR HEMOGLOBIN 30.1 pg (27.0-33.4); MEAN CORPUSCULAR HGB CONC 34.4 g/dL (32.0-36.0); MEAN CORPUSCULAR VOLUME 87 fl (80-97); PLATELET COUNT 176 10^3/uL (150-450); RED BLOOD COUNT 3.51 10^6/uL (4.35-5.55); RED CELL DISTRIBUTION WIDTH 16.3 % (11.5-14.0); WHITE BLOOD COUNT 5.7 10^3/uL (4.0-10.5)
[2019-01-05 07:05] LABS: ABSOLUTE LYMPHOCYTES# (MANUAL) 0.2 10^3/uL (0.5-4.7); ABSOLUTE MONOCYTES # (MANUAL) 0.2 10^3/uL (0.1-1.4); ANION GAP 14 (5-19); BAND NEUTROPHILS % (MANUAL) 2 % (3-5); BASOPHILS % (MANUAL) 0 % (0-2); BLOOD UREA NITROGEN 37 mg/dL (7-20); CALCIUM 8.8 mg/dL (8.4-10.2); CARBON DIOXIDE 24 mmol/L (22-30); CHLORIDE 102 mmol/L (98-107); EOSINOPHILS % (MANUAL) 3 % (0-6); GLUCOSE 172 mg/dL (75-110); LYMPHOCYTES % (MANUAL) 3 % (13-45); MONOCYTES % (MANUAL) 4 % (3-13); POTASSIUM 3.8 mmol/L (3.6-5.0); SEGMENTED NEUTROPHILS % (MAN) 88 % (42-78); TOTAL CELLS COUNTED 100
[2019-01-05 07:06] LABS: ANISOCYTOSIS 1+; PLATELET COMMENT ADEQUATE; POLYCHROMASIA 1+
[2019-01-05] MEDS: IPRATROPIUM/ALBUTEROL 0.5-2.5 MG/3 ML AMPUL NEB SCH ×4 (08:16→20:02)
[2019-01-05] MEDS: INSULIN LISPRO 100 UNIT/ML 3 ML VIAL SUBCUT SCH ×4 (08:17→21:54)
[2019-01-05] MEDS: FUROSEMIDE INJ/PF 20 MG/2 ML SDV IV SCH ×2 (09:41→21:55)
[2019-01-05] MEDS: LISINOPRIL 5 MG TABLET PO SCH (09:41)
--- NOTE | 2019-01-05 11:15 | RADIOLOGY REPORT (SQ) ---
EXAM DESCRIPTION: PICC INSERTION; FLUORO/CV PLACEMENT; U/S GUIDE FOR VASCULAR ACCESS COMPLETED DATE/TIME: 01/05/2019 10:57 am REASON FOR STUDY: MSSA bacteremia; IV ABX COMPARISON: None. FLUOROSCOPY TIME: 0.51 minutes 2 images saved to PACS. TECHNIQUE: Fluoroscopic and ultrasound guided PICC placement. LIMITATIONS: None. PROCEDURE: After written consent and assessment were obtained, the patient was brought into the fluo roscopy room and placed supine on the table. Ultrasound evaluation of potential access sites were per formed. After successfully identifying a patent left basilic vein, the left arm was prepped and drape d in a sterile fashion along with the ultrasound probe. The entry site was anesthetized with 1% lidoc zechariah. A 21 gauge 7 cm needle was advanced through the skin and into the basilic vein under live ultra sound guidance. An ultrasound image was saved to PACS confirming access site. A .018 guide wire was then inserted through the needle and into the venous system. The needle was then removed and an 11 b lade scalpel was used to make a 1cm skin incision. A 5 fr peel-away sheath was advanced over the wir e and into the venous system. A measurement was then made using the existing wire and live fluoroscop ic guidance. The wire was then removed and trimmed. The PICC was advanced through the peel-away sheat h and into the venous system. The peel-away sheath was removed and the catheter was adhered to the pa tients arm with a stat lock. The catheter was then aspirated and flushed and a sterile bandage was pl aced over the access site. A fluoroscopic spot image was saved to PACS confirming the catheter tip w ithin the superior vena cava. IMPRESSION: SUCCESSFUL PLACEMENT OF A 5 FR DUAL LUMEN 44 CM PICC IN THE LEFT BASILIC VEIN. COMMENT: Patient medication list reviewed: Yes- Quality ID# [id number]:Eligible professional attests to doc umenting in the medical record they obtained, updated, or reviewed the patient's current medications. . Quality ID 145: Final reports for procedures using fluoroscopy that document radiation exposure ginny vargas, or exposure time and number of fluorographic images (if radiation exposure indices are not avail able) Quality ID #[id number]: The patient was prepped and draped using maximum sterile barrier technique including cap, mask, sterile gown, sterile gloves, a large sterile sheet, hand hygiene, and 2% Chlorhexidine fo r cutaneous antisepsis. When ultrasound is used, sterile ultrasound techniques are followed requiring sterile gel and sterile probes. TECHNICAL DOCUMENTATION: JOB ID: [id number] [employer]- All Rights Reserved rev-07/04 Reading location - IP/workstation name: [email or web address]
--- NOTE | 2019-01-05 14:36 | PDOC PROGRESS REPORT ---
Subjective Progress Note for:: 01/05/19 Subjective:: This is a 78 year old male with a past medical history of dementia, COPD, CAD, MSSA bacteremia, BPH, hypertension, aortic aneurysm with prior aortic graft placement, and CHF who was brought to the ED by family after a witnessed fall, bilateral knee pain and mental status changes. Patient was admitted and discharged on 11/13/18 and was sent home on 4 days of cefazolin for MSSA bacteremia. He was found to have persistent MSSA bacteremia again on this admission. Repeat blood cultures are persistently grew MSSA despite being on cefazolin. Otherwise no acute event overnight. Upon encounter, he appears comfortable. He denies chest pain or shortness of breath. Will consult ID for further recommendations. Reason For Visit: ACUTE HYPOXIC RESPIRATORY FAILURE Physical Exam Vital Signs: Temp Pulse Resp BP Pulse Ox 97.4 F 70 20 124/50 L 99 01/05/19 11:29 01/05/19 11:59 01/05/19 11:59 01/05/19 11:29 01/05/19 11:59 Intake & Output 01/04/19 01/05/19 01/06/19 06:59 06:59 06:59 Intake Total 1162 1800 Output Total 3350 2900 Balance -2188 -1100 Weight 164 lb 7.437 oz 166 lb 10.711 oz General appearance: PRESENT: no acute distress, well-developed, well-nourished Head exam: PRESENT: atraumatic, normocephalic Eye exam: PRESENT: conjunctiva pink, EOMI, PERRLA. ABSENT: scleral icterus Ear exam: PRESENT: normal external ear exam Mouth exam: PRESENT: other - poor oral dentition Neck exam: ABSENT: carotid bruit, JVD, lymphadenopathy, thyromegaly Respiratory exam: PRESENT: clear to auscultation cristobal. ABSENT: rales, rhonchi, wheezes Cardiovascular exam: PRESENT: RRR. ABSENT: diastolic murmur, rubs, systolic murmur Pulses: PRESENT: normal dorsalis pedis pul GI/Abdominal exam: PRESENT: normal bowel sounds, soft. ABSENT: distended, guarding, mass, organolmegaly, rebound, tenderness Rectal exam: PRESENT: deferred Neurological exam: PRESENT: alert, awake, oriented to person, oriented to place, CN II-XII grossly intact. ABSENT: motor sensory deficit Results Laboratory Results: 01/05/19 05:43 01/05/19 05:43 01/04/19 01/04/19 01/05/19 14:49 15:30 05:43 WBC 9.3 5.7 RBC 3.79 L 3.51 L Hgb 11.5 L 10.5 L Hct 33.5 L 30.6 L MCV 88 87 MCH 30.3 30.1 MCHC 34.3 34.4 RDW 16.4 H 16.3 H Plt Count 174 176 Seg Neutrophils % Not Reportable Not Reportable Sodium 140.9 Potassium 3.5 L Chloride 101 Carbon Dioxide 21 L Anion Gap 19 BUN 37 H Creatinine 0.96 Est GFR ( Amer) > 60 Glucose 246 H Calcium 9.0 01/05/19 05:43 WBC RBC Hgb Hct MCV MCH MCHC RDW Plt Count Seg Neutrophils % Sodium 139.7 Potassium 3.8 Chloride 102 Carbon Dioxide 24 Anion Gap 14 BUN 37 H Creatinine 0.87 Est GFR ( Amer) > 60 Glucose 172 H Calcium 8.8 01/03/19 10:44 Blood Blood Culture (PCR) - Final Staphylococcus Aureus 01/03/19 11:25 Blood Blood Culture (PCR) - Final Staphylococcus Aureus 01/02/19 08:32 Blood Blood Culture (PCR) - Final Staphylococcus Aureus 01/02/19 08:32 Blood Blood Culture - Final Staphylococcus Aureus 01/02/19 06:43 Blood Blood Culture - Final Staphylococcus Aureus 01/02/19 09:55 NT-Pro-B Natriuret Pep 4340 H Impressions: Chest/Abdomen CTA 01/02/19 00:00 IMPRESSION: No CT angio evidence of acute pulmonary emboli. Obstructive lung disease. Knee X-Ray 01/02/19 02:00 IMPRESSION: Unremarkable sunrise view copyright 2011 [email or web address]- All Rights Reserved Head CT 01/02/19 05:48 IMPRESSION: Atrophy and chronic small vessel ischemic changes with no acute intracranial abnormality. Guidance Fluoroscopy 01/05/19 00:00 IMPRESSION: SUCCESSFUL PLACEMENT OF A 5 FR DUAL LUMEN 44 CM PICC IN THE LEFT BASILIC VEIN. Interventional Vascular Procedure 01/05/19 00:00 IMPRESSION: SUCCESSFUL PLACEMENT OF A 5 FR DUAL LUMEN 44 CM PICC IN THE LEFT BASILIC VEIN. PICC Line Insertion 01/05/19 11:00 IMPRESSION: SUCCESSFUL PLACEMENT OF A 5 FR DUAL LUMEN 44 CM PICC IN THE LEFT BASILIC VEIN. Assessment and Plan - Diagnosis (1) MSSA bacteremia Is this a current diagnosis for this admission?: Yes Plan: Continue cefazolin. Repeat blood cultures. Will consult ID for further recommendations. (2) COPD (chronic obstructive pulmonary disease) Qualifiers: COPD type: COPD with acute lower respiratory infection Qualified Code(s): J44.0 - Chronic obstructive pulmonary disease with (acute) lower respiratory infection Is this a current diagnosis for this admission?: Yes Plan: Not in exacerbation. Continue breathing treatments as needed. (3) Peripheral vascular disease Is this a current diagnosis for this admission?: Yes Plan: Stable. Continue home meds. (4) Pulmonary hypertension Is this a current diagnosis for this admission?: Yes - Time Time Spent with patient: 25-34 minutes
[2019-01-05] MEDS: PREDNISONE 20 MG TABLET PO SCH (17:24)
[2019-01-05] MEDS: NORMAL SALINE 10 ML SDV (SCHEDULED) IV SCH (22:05)
[2019-01-06] MEDS: CEFAZOLIN SODIUM 2 GM in DEXTROSE 5%-WATER 100 ML IV SCH ×3 (05:32→21:51)
[2019-01-06] MEDS: PANTOPRAZOLE SODIUM 40 MG TABLET.DR PO SCH ×2 (05:33→17:37)
[2019-01-06] MEDS: HEPARIN SOD (PORCINE) 5,000 UNIT/ML 1 ML VIAL SUBCUT SCH ×3 (05:33→21:46)
[2019-01-06] MEDS: IPRATROPIUM/ALBUTEROL 0.5-2.5 MG/3 ML AMPUL NEB SCH ×4 (08:00→19:40)
[2019-01-06] MEDS: INSULIN LISPRO 100 UNIT/ML 3 ML VIAL SUBCUT SCH ×4 (08:32→21:45)
[2019-01-06] MEDS: LISINOPRIL 5 MG TABLET PO SCH (09:40)
[2019-01-06] MEDS: PREDNISONE 20 MG TABLET PO SCH ×2 (09:41→17:37)
[2019-01-06] MEDS: FUROSEMIDE INJ/PF 20 MG/2 ML SDV IV SCH ×2 (09:42→21:46)
[2019-01-06] MEDS: NORMAL SALINE 10 ML SDV (SCHEDULED) IV SCH ×2 (09:42→21:48)
[2019-01-06] MEDS: OXYCODONE-ACETAMINOPHEN 5-325 MG TABLET PO PRN ×3 (10:53→23:55)
--- NOTE | 2019-01-06 11:54 | Progress Note ---
Provider Note Provider Note: [facility] Telephone Advice Consultation Chart reviewed. Patient has multiple comorbidities including dementia, COPD, CAD, BPH, Hypertension, CHF. He was recently admitted to the hospital in October due to MSSA bacteremia and hypoxic respiratory failure. His respiratory culture was positive for MSSA as well. As it was a complicated MSSA bacteremia, he received 4 weeks of cefazolin, which he completed in late November. Patient has a right axillo-femoral bypass graft. After completion of antibiotics, he was doing fair, he had a dental procedure the day before the admission. He had a witnessed fall and was taken to the hospital and admitted on 01/02 with hypoxemia, elevated BNP, leukocytosis. He received vancomycin and zosyn in the ED, transitioned to cefazolin once cultures became positive and mecA gene was not identified. He had repeated cultures from 01/03 and 01/04 and they are positive despite antibiotics therapy. HE had a CTA of chest and abdomen but unable to evaluate the axillo-femoral graft. Patient is afebrile and stable, a new PICC line was placed yesterday. ID consulted for recommendations regarding recurrent MSSA bacteremia. PMH: CAD COPD CHF BPH Hypertension Dementia MSSA bactermia 10/2018 PSH: Axillo-femoral bypass graft Allergies: No Known Allergies Allergy (Verified 01/02/19 01:23) Medications: Acetaminophen [Tylenol 325 mg Tablet] 650 mg PO Q6HP PRN 01/04/19 Albuterol Sulfate [Proair HFA Inhalation Aerosol 8.5 gm MDI] 2 puff IH Q6HP PRN 01/04/19 Aspirin [Adult Low Dose Aspirin EC] 81 mg PO DAILY 01/04/19 Atorvastatin Calcium [Lipitor 80 mg Tablet] 80 mg PO QHS 01/04/19 Budesonide/Formoterol Fumarate [Symbicort HFA 160-4.5 mcg Inhaler 6 gm] 2 puff IH BID 01/04/19 Cholecalciferol (Vitamin D3) [Vitamin D3 1000 Unit Tablet] 1,000 unit PO DAILY 01/04/19 Clopidogrel Bisulfate [Plavix 75 mg Tablet] 75 mg PO DAILY 01/04/19 Docusate Sodium [Colace 100 mg Capsule] 200 mg PO BIDP PRN 01/04/19 Doxepin HCl [Sinequan 10 mg Capsule] 10 mg PO QPM 01/04/19 Ferrous Sulfate 324 mg PO DAILY 01/04/19 Furosemide [Lasix 20 mg Tablet] 20 mg PO DAILY 01/04/19 Isosorbide Mononitrate [Imdur 30 mg Tablet.er] 30 mg PO DAILY 01/04/19 Lisinopril [Zestril] 5 mg PO DAILY 01/04/19 Melatonin [Melatonin 3 mg Tablet] 3 mg PO QHS 01/04/19 Metoprolol Tartrate [Lopressor 25 mg Tablet] 25 mg PO BID 01/04/19 Nitroglycerin [Nitro-Dur 15 mg (0.6 mg/1 Hr) Transderm Patch] 1 patch TD DAILY 01/04/19 Nitroglycerin [Nitrostat 0.4 mg (1/150 Gr) Tabs 25/Bottle] 0.4 mg SL Q5MP PRN 01/04/19 Omeprazole 40 mg PO ACBRKFST 01/04/19 Pantoprazole Sodium [Protonix [address] Tablet] 40 mg PO BID 01/04/19 Polyethylene Glycol 3350 [Miralax Powder 17 gm/Packet] 17 gm PO DAILYP PRN 01/04/19 Prochlorperazine Maleate [Compazine 5 mg Tablet] 5 mg PO DAILYP PRN 01/04/19 Quetiapine Fumarate [Seroquel 25 mg Tablet] 37.5 mg PO QHS 01/04/19 Tamsulosin HCl [Flomax 0.4 mg Cap.sr] 0.4 mg PO QPM 01/04/19 Tiotropium [place] [Spiriva Handihaler 5 Cap/Kit (18 Mcg/Cap)] 1 cap IH DAILY 01/04/19 Vancomycin HCl [Vancocin HCl] 125 mg PO TID 01/04/19 Vital Signs: Temp Pulse Resp BP Pulse Ox 98.4 F 65 20 107/64 96 01/06/19 03:02 01/06/19 08:00 01/06/19 08:00 01/06/19 07:15 01/06/19 08:00 Intake & Output 01/05/19 01/06/19 01/07/19 06:59 06:59 06:59 Intake Total 1800 1720 Output Total 2900 2325 Balance -1100 -605 Weight 75.6 kg 74.9 kg Weight/Height Weight 74.9 kg Height 5 ft 6 in Laboratories: 01/05/19 05:43 11/19/19 05:43 MCV 87 fl (80-97) 01/05/19 05:43 MCH 30.1 pg (27.0-33.4) 01/05/19 05:43 MCHC 34.4 g/dL (32.0-36.0) 01/05/19 05:43 RDW 16.3 % (11.5-14.0) H 01/05/19 05:43 Seg Neutrophils % Not Reportable 01/05/19 05:43 Carbonic Acid 0.87 mmol/L (1.05-1.35) L 01/03/19 06:25 HCO3/H2CO3 Ratio 21:1 01/03/19 06:25 ABG pH 7.43 (7.35-7.45) 01/03/19 06:25 ABG pCO2 29.0 mmHg (35-45) L 01/03/19 06:25 ABG pO2 64.9 mmHg (80-100) L 01/03/19 06:25 ABG HCO3 18.8 mmol/L (20-24) L 01/03/19 06:25 ABG O2 Saturation 93.6 % (94-98) L 01/03/19 06:25 ABG Base Excess -4.4 mmol/L 01/03/19 06:25 FiO2 40% 01/03/19 06:25 Chloride 102 mmol/L (98-107) 01/05/19 05:43 Carbon Dioxide 24 mmol/L (22-30) 01/05/19 05:43 Anion Gap 14 (5-19) 01/05/19 05:43 Est GFR ( Amer) > 60 (>60) 01/05/19 05:43 Est GFR (Non-Af Amer) Cancelled 01/02/19 06:43 Glucose 172 mg/dL (75-110) H 01/05/19 05:43 Lactic Acid 1.2 mmol/L (0.7-2.1) 01/02/19 06:43 Calcium 8.8 mg/dL (8.4-10.2) 01/05/19 05:43 Magnesium 2.2 mg/dL (1.6-2.3) 01/03/19 04:23 Total Bilirubin 0.6 mg/dL (0.2-1.3) 01/02/19 09:55 AST 49 U/L (17-59) 01/02/19 09:55 Alkaline Phosphatase 89 U/L (38-126) 01/02/19 09:55 Total Protein 6.6 g/dL (6.3-8.2) 01/02/19 09:55 Albumin 3.2 g/dL (3.5-5.0) L 01/02/19 09:55 Triglycerides 228 mg/dL (<150) H 01/03/19 04:23 Cholesterol 119.53 mg/dL (0-200) 01/03/19 04:23 LDL Cholesterol Direct 51 mg/dL (<100) 01/03/19 04:23 VLDL Cholesterol 45.6 mg/dL (10-31) H 01/03/19 04:23 HDL Cholesterol 21 mg/dL (>40) L 01/03/19 04:23 Urine Color YELLOW 01/02/19 06:55 Urine Appearance SLIGHTLY-CLOUDY 01/02/19 06:55 Urine pH 5.0 (5.0-9.0) 01/02/19 06:55 Ur Specific [place] 1.020 01/02/19 06:55 Urine Protein 100 mg/dL (NEGATIVE) H 01/02/19 06:55 Urine Glucose (UA) NEGATIVE mg/dL (NEGATIVE) 01/02/19 06:55 Urine Ketones NEGATIVE mg/dL (NEGATIVE) 01/02/19 06:55 Urine Blood SMALL (NEGATIVE) H 01/02/19 06:55 Urine RBC (Auto) 3 /HPF 01/02/19 06:55 01/03/19 10:44 Blood Blood Culture (PCR) - Final Staphylococcus Aureus 01/03/19 10:44 Blood Blood Culture - Final Staphylococcus Aureus 01/03/19 11:25 Blood Blood Culture (PCR) - Final Staphylococcus Aureus 01/03/19 11:25 Blood Blood Culture - Final Staphylococcus Aureus 01/02/19 06:43 Blood Blood Culture - Final Staphylococcus Aureus 01/04/19 14:49 Blood Blood Culture (PCR) - Final Staphylococcus Aureus 01/04/19 14:43 Blood Blood Culture (PCR) - Final Staphylococcus Aureus 01/02/19 09:55 NT-Pro-B Natriuret Pep 4340 H Radiology: Chest/Abdomen CTA 01/02/19 00:00 IMPRESSION: No CT angio evidence of acute pulmonary emboli. Obstructive lung disease. Knee X-Ray 01/02/19 02:00 IMPRESSION: Unremarkable sunrise view Head CT 01/02/19 05:48 IMPRESSION: Atrophy and chronic small vessel ischemic changes with no acute intracranial abnormality. Guidance Fluoroscopy 01/05/19 00:00 IMPRESSION: SUCCESSFUL PLACEMENT OF A 5 FR DUAL LUMEN 44 CM PICC IN THE LEFT BASILIC VEIN. Interventional Vascular Procedure 01/05/19 00:00 IMPRESSION: SUCCESSFUL PLACEMENT OF A 5 FR DUAL LUMEN 44 CM PICC IN THE LEFT BA SILIC VEIN. PICC Line Insertion 01/05/19 11:00 IMPRESSION: SUCCESSFUL PLACEMENT OF A 5 FR DUAL LUMEN 44 CM PICC IN THE LEFT BASILIC VEIN. 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 Patient is s/p 4 weeks of cefazolin and apparently had a ISAEL that was negative for endocarditis. Even after completion of theapy, he returns with high grade bacteremia. CTA chest/a/p unable to assess the vascular graft patency. He had a PICC line placed while he was bacteremic, this needs to be removed and wait until cultures are negative for 48 hr before placing a new PICC line. Will recommend to continue cefazolin 2g every 8 hr, TTE, vascular surgery opinion regarding the possibility of vascular graft infection (might need to transfer). He might be high risk for surgery, but if graft infection is confirmed, he may need lifelong suppressive therapy after IV antibiotics. Please look for other potential sites of infection as septic arthritis, vertebral OM, discitis or epid ural abscess, etc. Repeat blood cultures in 48 hr. Jennifer Shannon MD [facility] [phone]
--- NOTE | 2019-01-06 14:05 | PDOC PROGRESS REPORT ---
Subjective Progress Note for:: 01/06/19 Subjective:: This is a 78 year old male with a past medical history of dementia, COPD, CAD, MSSA bacteremia, BPH, hypertension, aortic aneurysm with prior aortic graft placement, and CHF who was brought to the ED by family after a witnessed fall, bilateral knee pain and mental status changes. Patient was admitted and discharged on 11/13/18 and was sent home on 4 days of cefazolin for MSSA bacteremia. He was found to have persistent MSSA bacteremia again on this admission. Repeat blood cultures are persistently grew MSSA despite being on cefazolin. 01/06: No acute event overnight. Upon encounter, he appears comfortable. He denies chest pain or shortness of breath. Noted ID recommendations. Will request records about patient's aortic graft placement. Repeat blood cultures still pending. Reason For Visit: ACUTE HYPOXIC RESPIRATORY FAILURE Physical Exam Vital Signs: Temp Pulse Resp BP Pulse Ox 97.4 F 66 16 123/60 97 01/06/19 11:58 01/06/19 12:43 01/06/19 12:43 01/06/19 11:58 01/06/19 11:58 Intake & Output 01/05/19 01/06/19 01/07/19 06:59 06:59 06:59 Intake Total 1800 1720 Output Total 2900 2325 Balance -1100 -605 Weight 166 lb 10.711 oz 165 lb 2.02 oz General appearance: PRESENT: no acute distress, well-developed, well-nourished Head exam: PRESENT: atraumatic, normocephalic Eye exam: PRESENT: conjunctiva pink, EOMI, PERRLA. ABSENT: scleral icterus Ear exam: PRESENT: normal external ear exam Mouth exam: PRESENT: moist, tongue midline Teeth exam: PRESENT: other - poor oral dentition Neck exam: ABSENT: carotid bruit, JVD, lymphadenopathy, thyromegaly Respiratory exam: PRESENT: clear to auscultation cristobal. ABSENT: rales, rhonchi, wheezes Cardiovascular exam: PRESENT: RRR. ABSENT: diastolic murmur, rubs, systolic murmur Pulses: PRESENT: normal dorsalis pedis pul GI/Abdominal exam: PRESENT: normal bowel sounds, soft. ABSENT: distended, guarding, mass, organolmegaly, rebound, tenderness Rectal exam: PRESENT: deferred Extremities exam: PRESENT: full ROM. ABSENT: calf tenderness, clubbing, pedal edema Neurological exam: PRESENT: alert, awake, oriented to person, oriented to place, oriented to time, oriented to situation, CN II-XII grossly intact. ABSENT: motor sensory deficit Results Laboratory Results: 01/05/19 05:43 01/05/19 05:43 01/03/19 10:44 Blood Blood Culture (PCR) - Final Staphylococcus Aureus 01/03/19 10:44 Blood Blood Culture - Final Staphylococcus Aureus 01/03/19 11:25 Blood Blood Culture (PCR) - Final Staphylococcus Aureus 01/03/19 11:25 Blood Blood Culture - Final Staphylococcus Aureus 01/02/19 06:43 Blood Blood Culture - Final Staphylococcus Aureus 01/04/19 14:49 Blood Blood Culture (PCR) - Final Staphylococcus Aureus 01/04/19 14:43 Blood Blood Culture (PCR) - Final Staphylococcus Aureus 01/02/19 09:55 NT-Pro-B Natriuret Pep 4340 H Impressions: Chest/Abdomen CTA 01/02/19 00:00 IMPRESSION: No CT angio evidence of acute pulmonary emboli. Obstructive lung disease. Knee X-Ray 01/02/19 02:00 IMPRESSION: Unremarkable sunrise view copyright 2010 [employer]- All Rights Reserved Head CT 01/02/19 05:48 IMPRESSION: Atrophy and chronic small vessel ischemic changes with no acute intracranial abnormality. Guidance Fluoroscopy 01/05/19 00:00 IMPRESSION: SUCCESSFUL PLACEMENT OF A 5 FR DUAL LUMEN 44 CM PICC IN THE LEFT BASILIC VEIN. Interventional Vascular Procedure 01/05/19 00:00 IMPRESSION: SUCCESSFUL PLACEMENT OF A 5 FR DUAL LUMEN 44 CM PICC IN THE LEFT BASILIC VEIN. PICC Line Insertion 01/05/19 11:00 IMPRESSION: SUCCESSFUL PLACEMENT OF A 5 FR DUAL LUMEN 44 CM PICC IN THE LEFT BASILIC VEIN. Assessment and Plan - Diagnosis (1) MSSA bacteremia Is this a current diagnosis for this admission?: Yes Plan: Continue cefazolin. Noted ID recommendations. Will request records about patient's aortic graft placement. Repeat blood cultures still pending. (2) COPD (chronic obstructive pulmonary disease) Qualifiers: COPD type: COPD with acute lower respiratory infection Qualified Code(s): J44.0 - Chronic obstructive pulmonary disease with (acute) lower respiratory infection Is this a current diagnosis for this admission?: Yes Plan: Not in exacerbation. Continue breathing treatments as needed. (3) Peripheral vascular disease Is this a current diagnosis for this admission?: Yes Plan: Stable. Continue home meds. (4) Pulmonary hypertension Is this a current diagnosis for this admission?: Yes - Time Time Spent with patient: 25-34 minutes
[2019-01-06] MEDS: ACETAMINOPHEN 325 MG TABLET PO PRN (16:07)
[2019-01-07] MEDS: HEPARIN SOD (PORCINE) 5,000 UNIT/ML 1 ML VIAL SUBCUT SCH ×3 (05:40→21:34)
[2019-01-07] MEDS: PANTOPRAZOLE SODIUM 40 MG TABLET.DR PO SCH ×2 (05:55→17:03)
[2019-01-07] MEDS: CEFAZOLIN SODIUM 2 GM in DEXTROSE 5%-WATER 100 ML IV SCH ×3 (05:55→21:34)
[2019-01-07] MEDS: INSULIN LISPRO 100 UNIT/ML 3 ML VIAL SUBCUT SCH ×4 (08:03→21:35)
[2019-01-07] MEDS: IPRATROPIUM/ALBUTEROL 0.5-2.5 MG/3 ML AMPUL NEB SCH (08:28)
[2019-01-07] MEDS ORDERED: LORAZEPAM INJ 2 MG/1 ML VIAL IV PRN (08:51)
[2019-01-07] MEDS ORDERED: IPRATROPIUM/ALBUTEROL 0.5-2.5 MG/3 ML AMPUL NEB PRN (09:26)
[2019-01-07] MEDS: PREDNISONE 20 MG TABLET PO SCH ×2 (09:39→17:03)
[2019-01-07] MEDS: LISINOPRIL 5 MG TABLET PO SCH (09:41)
[2019-01-07] MEDS: NORMAL SALINE 10 ML SDV (SCHEDULED) IV SCH ×2 (09:43→21:37)
[2019-01-07] MEDS: FUROSEMIDE INJ/PF 20 MG/2 ML SDV IV SCH ×2 (09:44→21:35)
--- NOTE | 2019-01-07 14:26 | PDOC PROGRESS REPORT ---
Subjective Progress Note for:: 01/07/19 Subjective:: This is a 78 year old male with a past medical history of dementia, COPD, CAD, MSSA bacteremia, BPH, hypertension, aortic aneurysm with prior aortic graft placement, and CHF who was brought to the ED by family after a witnessed fall, bilateral knee pain and mental status changes. Patient was admitted and discharged on 11/13/18 and was sent home on 4 days of cefazolin for MSSA bacteremia. He was found to have persistent MSSA bacteremia again on this admission. Repeat blood cultures are persistently grew MSSA despite being on cefazolin. 01/06: Upon encounter, he appears comfortable. He denies chest pain or shortness of breath. Noted ID recommendations. Will request records about patient's aortic graft placement. Repeat blood cultures still pending. 01/07: No acute event overnight. She denies acute complaints. Repeat blood cultures have been persistently positive. Will pursue whole body WBC tagging to try to localize source of infection. Reason For Visit: ACUTE HYPOXIC RESPIRATORY FAILURE Physical Exam Vital Signs: Temp Pulse Resp BP Pulse Ox 97.8 F 68 18 116/52 L 94 01/07/19 02:59 01/07/19 08:28 01/07/19 08:28 01/07/19 02:59 01/07/19 08:28 Intake & Output 01/06/19 01/07/19 01/08/19 06:59 06:59 06:59 Intake Total 1720 1025 Output Total 2325 1850 Balance -605 -825 Weight 165 lb 2.02 oz 161 lb 6.054 oz General appearance: PRESENT: no acute distress, well-developed, well-nourished Head exam: PRESENT: atraumatic, normocephalic Eye exam: PRESENT: conjunctiva pink, EOMI, PERRLA. ABSENT: scleral icterus Ear exam: PRESENT: normal external ear exam Mouth exam: PRESENT: moist, tongue midline Neck exam: ABSENT: carotid bruit, JVD, lymphadenopathy, thyromegaly Respiratory exam: PRESENT: clear to auscultation cristobal. ABSENT: rales, rhonchi, wheezes Cardiovascular exam: PRESENT: RRR. ABSENT: diastolic murmur, rubs, systolic murmur Pulses: PRESENT: normal dorsalis pedis pul GI/Abdominal exam: PRESENT: normal bowel sounds, soft. ABSENT: distended, gua rding, mass, organolmegaly, rebound, tenderness Rectal exam: PRESENT: deferred Extremities exam: PRESENT: full ROM. ABSENT: calf tenderness, clubbing, pedal edema Neurological exam: PRESENT: alert, awake, oriented to person, oriented to place, CN II-XII grossly intact. ABSENT: motor sensory deficit Results Laboratory Results: 01/05/19 05:43 01/05/19 05:43 01/02/19 06:43 Blood Blood Culture - Final Staphylococcus Aureus 01/03/19 10:44 Blood Blood Culture (PCR) - Final Staphylococcus Aureus 01/03/19 10:44 Blood Blood Culture - Final Staphylococcus Aureus 01/03/19 11:25 Blood Blood Culture (PCR) - Final Staphylococcus Aureus 01/03/19 11:25 Blood Blood Culture - Final Staphylococcus Aureus 01/04/19 14:49 Blood Blood Culture (PCR) - Final Staphylococcus Aureus 01/04/19 14:43 Blood Blood Culture (PCR) - Final Staphylococcus Aureus 01/02/19 09:55 NT-Pro-B Natriuret Pep 4340 H Impressions: Chest/Abdomen CTA 01/02/19 00:00 IMPRESSION: No CT angio evidence of acute pulmonary emboli. Obstructive lung disease. Knee X-Ray 01/02/19 02:00 IMPRESSION: Unremarkable sunrise view copyright 2011 [email or web address]- All Rights Reserved Head CT 01/02/19 05:48 IMPRESSION: Atrophy and chronic small vessel ischemic changes with no acute intracranial abnormality. Guidance Fluoroscopy 01/05/19 00:00 IMPRESSION: SUCCESSFUL PLACEMENT OF A 5 FR DUAL LUMEN 44 CM PICC IN THE LEFT BASILIC VEIN. Interventional Vascular Procedure 01/05/19 00:00 IMPRESSION: SUCCESSFUL PLACEMENT OF A 5 FR DUAL LUMEN 44 CM PICC IN THE LEFT BASILIC VEIN. PICC Line Insertion 01/05/19 11:00 IMPRESSION: SUCCESSFUL PLACEMENT OF A 5 FR DUAL LUMEN 44 CM PICC IN THE LEFT BASILIC VEIN. Assessment and Plan - Diagnosis (1) MSSA bacteremia Is this a current diagnosis for this admission?: Yes Plan: Continue cefazolin. Noted ID recommendations. 01/07: Repeat blood cultures have been persistently positive. Will pursue whole body WBC tagging to try to localize source of infection. (2) COPD (chronic obstructive pulmonary disease) Qualifiers: COPD type: COPD with acute lower respiratory infection Qualified Code(s): J44.0 - Chronic obstructive pulmonary disease with (acute) lower respiratory inf ection Is this a current diagnosis for this admission?: Yes Plan: Not in exacerbation. Continue breathing treatments as needed. (3) Peripheral vascular disease Is this a current diagnosis for this admission?: Yes Plan: Stable. Continue home meds. (4) Pulmonary hypertension Is this a current diagnosis for this admission?: Yes - Time Time Spent with patient: 25-34 minutes
[2019-01-07] MEDS: OXYCODONE-ACETAMINOPHEN 5-325 MG TABLET PO PRN ×2 (16:09→21:51)
[2019-01-08] MEDS: CEFAZOLIN SODIUM 2 GM in DEXTROSE 5%-WATER 100 ML IV SCH ×4 (05:33→21:39)
[2019-01-08] MEDS: HEPARIN SOD (PORCINE) 5,000 UNIT/ML 1 ML VIAL SUBCUT SCH ×3 (05:35→21:40)
[2019-01-08] MEDS: PANTOPRAZOLE SODIUM 40 MG TABLET.DR PO SCH ×2 (05:35→16:43)
[2019-01-08] MEDS: INSULIN LISPRO 100 UNIT/ML 3 ML VIAL SUBCUT SCH ×4 (09:00→21:41)
[2019-01-08] MEDS: FUROSEMIDE INJ/PF 20 MG/2 ML SDV IV SCH ×2 (09:48→21:41)
[2019-01-08] MEDS: PREDNISONE 20 MG TABLET PO SCH ×2 (09:48→18:18)
[2019-01-08] MEDS ORDERED: LORAZEPAM INJ 2 MG/1 ML VIAL IV PRN ×2 (09:48→12:22)
[2019-01-08] MEDS: LISINOPRIL 5 MG TABLET PO SCH (09:49)
[2019-01-08] MEDS: OXYCODONE-ACETAMINOPHEN 5-325 MG TABLET PO PRN ×2 (09:50→13:51)
[2019-01-08] MEDS: NORMAL SALINE 10 ML SDV (SCHEDULED) IV SCH ×2 (09:59→23:10)
[2019-01-08] MEDS ORDERED: LORAZEPAM INJ 2 MG/1 ML VIAL IV ONE (10:00)
--- NOTE | 2019-01-08 12:58 | PDOC PROGRESS REPORT ---
Subjective Progress Note for:: 01/08/19 Subjective:: This is a 78 year old male with a past medical history of dementia, COPD, CAD, MSSA bacteremia, BPH, hypertension, aortic aneurysm with prior aortic graft placement, and CHF who was brought to the ED by family after a witnessed fall, bilateral knee pain and mental status changes. Patient was admitted and discharged on 11/13/18 and was sent home on 4 days of cefazolin for MSSA bacteremia. He was found to have persistent MSSA bacteremia again on this admission. Repeat blood cultures are persistently grew MSSA despite being on cefazolin. 01/06: Upon encounter, he appears comfortable. He denies chest pain or shortness of breath. Noted ID recommendations. Will request records about patient's aortic graft placement. Repeat blood cultures still pending. 01/07: She denies acute complaints. Repeat blood cultures have been persistently positive. Will pursue whole body WBC tagging to try to localize source of infection. 01/08: No acute event overnight. He denies acute complaints. He will be going for WBC tagged scan today. Reason For Visit: ACUTE HYPOXIC RESPIRATORY FAILURE Physical Exam Vital Signs: Temp Pulse Resp BP Pulse Ox 98.1 F 95 16 137/67 H 90 L 01/08/19 07:53 01/08/19 07:53 01/08/19 07:53 01/08/19 07:53 01/08/19 07:53 Intake & Output 01/07/19 01/08/19 01/09/19 06:59 06:59 06:59 Intake Total 1125 1780 100 Output Total 1850 2500 Balance -725 -720 100 Weight 161 lb 6.054 oz 162 lb 7.691 oz General appearance: PRESENT: no acute distress, well-developed, well-nourished Head exam: PRESENT: atraumatic, normocephalic Eye exam: PRESENT: conjunctiva pink, EOMI, PERRLA. ABSENT: scleral icterus Ear exam: PRESENT: normal external ear exam Mouth exam: PRESENT: moist, tongue midline Neck exam: ABSENT: carotid bruit, JVD, lymphadenopathy, thyromegaly Respiratory exam: PRESENT: clear to auscultation cristobal. ABSENT: rales, rhonchi, wheezes Cardiovascular exam: PRESENT: RRR. ABSENT: diastolic murmur, rubs, systolic murmur Pulses: PRESENT: normal dorsalis pedis pul GI/Abdominal exam: PRESENT: normal bowel sounds, soft. ABSENT: distended, guarding, mass, organolmegaly, rebound, tenderness Rectal exam: PRESENT: deferred Neurological exam: PRESENT: alert, awake, oriented to person, CN II-XII grossly intact. ABSENT: motor sensory deficit Results Laboratory Results: 01/05/19 05:43 01/05/19 05:43 01/04/19 14:49 Blood Blood Culture (PCR) - Final Staphylococcus Aureus 01/04/19 14:49 Blood Blood Culture - Final Staphylococcus Aureus 01/04/19 14:43 Blood Blood Culture (PCR) - Final Staphylococcus Aureus 01/04/19 14:43 Blood Blood Culture - Final Staphylococcus Aureus 01/02/19 06:43 Blood Blood Culture - Final Staphylococcus Aureus 01/02/19 09:55 NT-Pro-B Natriuret Pep 4340 H Impressions: Chest/Abdomen CTA 01/02/19 00:00 IMPRESSION: No CT angio evidence of acute pulmonary emboli. Obstructive lung disease. Knee X-Ray 01/02/19 02:00 IMPRESSION: Unremarkable sunrise view copyright 2011 [employer]- All Rights Reserved Head CT 01/02/19 05:48 IMPRESSION: Atrophy and chronic small vessel ischemic changes with no acute intracranial abnormality. Guidance Fluoroscopy 01/05/19 00:00 IMPRESSION: SUCCESSFUL PLACEMENT OF A 5 FR DUAL LUMEN 44 CM PICC IN THE LEFT BASILIC VEIN. Interventional Vascular Procedure 01/05/19 00:00 IMPRESSION: SUCCESSFUL PLACEMENT OF A 5 FR DUAL LUMEN 44 CM PICC IN THE LEFT BASILIC VEIN. PICC Line Insertion 01/05/19 11:00 IMPRESSION: SUCCESSFUL PLACEMENT OF A 5 FR DUAL LUMEN 44 CM PICC IN THE LEFT BASILIC VEIN. Assessment and Plan - Diagnosis (1) MSSA bacteremia Is this a current diagnosis for this admission?: Yes Plan: Continue cefazolin. Noted ID recommendations. 01/07: Repeat blood cultures have been persistently positive. Will pursue whole body WBC tagging to try to localize source of infection. 01/08:Continue Ancef. He will be going for WBC tagged scan today. (2) COPD (chronic obstructive pulmonary disease) Qualifiers: COPD type: COPD with acute lower respiratory infection Qualified Code(s): J44.0 - Chronic obstructive pulmonary disease with (acute) lower respiratory infection Is this a current diagnosis for this admission?: Yes Plan: Not in exacerbation. Continue breathing treatments as needed. (3) Peripheral vascular disease Is this a current diagnosis for this admission?: Yes Plan: Stable. Continue home meds. (4) Pulmonary hypertension Is this a current diagnosis for this admission?: Yes - Time Time Spent with patient: 25-34 minutes
--- NOTE | 2019-01-08 16:52 | RADIOLOGY REPORT (SQ) ---
EXAM DESCRIPTION: NM TAGGED WBC WHOLE BODY COMPLETED DATE/TIME: 01/08/2019 3:07 pm REASON FOR STUDY: persiste bacteremia (unknown source) COMPARISON: CT chest 01/02/2019 CT abdomen pelvis 11/13/2018 RADIONUCLIDE AND DOSE: 28 millicuries Tc99m labeled white blood cells The route of agent administration: Intravenous. ADDITIONAL DRUGS AND DOSES: None. TECHNIQUE: Routine immediate and delayed post radionuclide injection acquired of the bony skeleton i ncluding anterior and posterior whole-body projections and additional focused images as needed. LIMITATIONS: None. FINDINGS: Tagged white cell scan was performed to evaluate for source of bacteremia. There is no ectopic accumulation of the tagged white blood cells over the expected location of the ri ght axillary to femoral bypass graft. Normal liver and spleen activity is present, normal bone marrow activity, normal blood pool activity. IMPRESSION: Unremarkable tight white blood cell scan. No ectopic accumulation of activity over the right axillary to femoral bypass graft region. COMMENT: Quality measure 147: Current bone scan is compared with any available plain radiographs, p rior bone scans, and CT/MRI. TECHNICAL DOCUMENTATION: JOB ID: [id number] [employer]- All Rights Reserved Reading location - IP/workstation name: [email or web address]
[2019-01-09] MEDS: PANTOPRAZOLE SODIUM 40 MG TABLET.DR PO SCH ×2 (06:10→17:28)
[2019-01-09] MEDS: HEPARIN SOD (PORCINE) 5,000 UNIT/ML 1 ML VIAL SUBCUT SCH ×3 (06:10→21:50)
[2019-01-09] MEDS: CEFAZOLIN SODIUM 2 GM in DEXTROSE 5%-WATER 100 ML IV SCH ×3 (06:10→22:20)
[2019-01-09] MEDS: INSULIN LISPRO 100 UNIT/ML 3 ML VIAL SUBCUT SCH ×4 (08:05→22:08)
[2019-01-09] MEDS: PREDNISONE 20 MG TABLET PO SCH ×2 (09:40→17:29)
[2019-01-09] MEDS: LISINOPRIL 5 MG TABLET PO SCH (09:40)
[2019-01-09] MEDS: FUROSEMIDE INJ/PF 20 MG/2 ML SDV IV SCH ×2 (09:42→22:20)
[2019-01-09] MEDS: NORMAL SALINE 10 ML SDV (SCHEDULED) IV SCH ×2 (09:44→22:21)
--- NOTE | 2019-01-09 13:15 | PDOC PROGRESS REPORT ---
Subjective Progress Note for:: 01/09/19 Subjective:: This is a 78 year old male with a past medical history of dementia, COPD, CAD, MSSA bacteremia, BPH, hypertension, aortic aneurysm with prior aortic graft placement, and CHF who was brought to the ED by family after a witnessed fall, bilateral knee pain and mental status changes. Patient was admitted and discharged on 11/13/18 and was sent home on 4 days of cefazolin for MSSA bacteremia. He was found to have persistent MSSA bacteremia again on this admission. Repeat blood cultures are persistently grew MSSA despite being on cefazolin. 01/06: Upon encounter, he appears comfortable. He denies chest pain or shortness of breath. Noted ID recommendations. Will request records about patient's aortic graft placement. Repeat blood cultures still pending. 01/07: She denies acute complaints. Repeat blood cultures have been persistently positive. Will pursue whole body WBC tagging to try to localize source of infection. 01/08: He denies acute complaints. He will be going for WBC tagged scan today. 01/09: No acute event overnight. He denies acute complaints. WBC tagged scan unremarkable. Will repeat blood cultures today. Reason For Visit: ACUTE HYPOXIC RESPIRATORY FAILURE Physical Exam Vital Signs: Temp Pulse Resp BP Pulse Ox 98.0 F 66 16 128/67 H 99 01/09/19 07:30 01/09/19 07:30 01/09/19 07:30 01/09/19 07:30 01/09/19 07:30 Intake & Output 01/08/19 01/09/19 01/10/19 06:59 06:59 06:59 Intake Total 1780 2130 100 Output Total 2500 3650 Balance -720 -1520 100 Weight 162 lb 7.691 oz 161 lb 13.109 oz General appearance: PRESENT: no acute distress, well-developed, well-nourished Head exam: PRESENT: atraumatic, normocephalic Eye exam: PRESENT: conjunctiva pink, EOMI, PERRLA. ABSENT: scleral icterus Ear exam: PRESENT: normal external ear exam Mouth exam: PRESENT: moist, tongue midline Neck exam: ABSENT: carotid bruit, JVD, lymphadenopathy, thyromegaly Respiratory exam: PRESENT: clear to auscultation cristobal. ABSENT: rales, rhonchi, wheezes Cardiovascular exam: PRESENT: RRR. ABSENT: diastolic murmur, rubs, systolic murmur Pulses: PRESENT: normal dorsalis pedis pul GI/Abdominal exam: PRESENT: normal bowel sounds, soft. ABSENT: distended, guarding, mass, organolmegaly, rebound, tenderness Rectal exam: PRESENT: deferred Neurological exam: PRESENT: alert, awake, oriented to person, oriented to place, CN II-XII grossly intact. ABSENT: motor sensory deficit Results Laboratory Results: 01/05/19 05:43 01/05/19 05:43 01/05/19 15:15 Blood Blood Culture - Final Staphylococcus Epidermidis 01/02/19 09:55 NT-Pro-B Natriuret Pep 4340 H Impressions: Chest/Abdomen CTA 01/02/19 00:00 IMPRESSION: No CT angio evidence of acute pulmonary emboli. Obstructive lung disease. Knee X-Ray 01/02/19 02:00 IMPRESSION: Unremarkable sunrise view copyright 2010 [employer]- All Rights Reserved Head CT 01/02/19 05:48 IMPRESSION: Atrophy and chronic small vessel ischemic changes with no acute intracranial abnormality. Guidance Fluoroscopy 01/05/19 00:00 IMPRESSION: SUCCESSFUL PLACEMENT OF A 5 FR DUAL LUMEN 44 CM PICC IN THE LEFT BASILIC VEIN. Interventional Vascular Procedure 01/05/19 00:00 IMPRESSION: SUCCESSFUL PLACEMENT OF A 5 FR DUAL LUMEN 44 CM PICC IN THE LEFT BASILIC VEIN. PICC Line Insertion 01/05/19 11:00 IMPRESSION: SUCCESSFUL PLACEMENT OF A 5 FR DUAL LUMEN 44 CM PICC IN THE LEFT BASILIC VEIN. WBC Scan Nuclear Medicine 01/08/19 00:00 IMPRESSION: Unremarkable tight white blood cell scan. No ectopic accumulation of activity over the right axillary to femoral bypass graft region. Assessment and Plan - Diagnosis (1) MSSA bacteremia Is this a current diagnosis for this admission?: Yes Plan: Continue cefazolin. Noted ID recommendations. 01/07: Repeat blood cultures have been persistently positive. Will pursue whole body WBC tagging to try to localize source of infection. 01/08:Continue Ancef. He will be going for WBC tagged scan today. 01/09: WBC tagged scan unremarkable. Will repeat blood cultures today. (2) COPD (chronic obstructive pulmonary disease) Qualifiers: COPD type: COPD with acute lower respiratory infection Qualified Code(s): J44.0 - Chronic obstructive pulmonary disease with (acute) lower respiratory infection Is this a current diagnosis for this admission?: Yes Plan: Not in exacerbation. Continue breathing treatments as needed. (3) Peripheral vascular disease Is this a current diagnosis for this admission?: Yes Plan: Stable. Continue home meds. (4) Pulmonary hypertension Is this a current diagnosis for this admission?: Yes - Time Time Spent with patient: 25-34 minutes
[2019-01-09] MEDS: ACETAMINOPHEN 325 MG TABLET PO PRN (17:31)
[2019-01-10] MEDS: HEPARIN SOD (PORCINE) 5,000 UNIT/ML 1 ML VIAL SUBCUT SCH ×3 (05:53→22:11)
[2019-01-10] MEDS: CEFAZOLIN SODIUM 2 GM in DEXTROSE 5%-WATER 100 ML IV SCH (05:56)
[2019-01-10] MEDS: PANTOPRAZOLE SODIUM 40 MG TABLET.DR PO SCH ×2 (05:56→18:15)
[2019-01-10 06:21] LABS: HEMATOCRIT 29.3 % (37.9-51.0); HEMOGLOBIN 9.9 g/dL (13.5-17.0); MEAN CORPUSCULAR HEMOGLOBIN 30.3 pg (27.0-33.4); MEAN CORPUSCULAR HGB CONC 33.9 g/dL (32.0-36.0); MEAN CORPUSCULAR VOLUME 89 fl (80-97); PLATELET COUNT 121 10^3/uL (150-450); RED BLOOD COUNT 3.27 10^6/uL (4.35-5.55); RED CELL DISTRIBUTION WIDTH 16.3 % (11.5-14.0)
[2019-01-10 06:37] LABS: ALBUMIN 2.5 g/dL (3.5-5.0); ALKALINE PHOSPHATASE 62 U/L (38-126); ANION GAP 9 (5-19); ASPARTATE AMINO TRANSFERASE 14 U/L (17-59); BILIRUBIN,DIRECT 0.1 mg/dL (0.0-0.4); BILIRUBIN,TOTAL 0.3 mg/dL (0.2-1.3); BLOOD UREA NITROGEN 28 mg/dL (7-20); CARBON DIOXIDE 22 mmol/L (22-30); CHLORIDE 109 mmol/L (98-107); GLUCOSE 139 mg/dL (75-110); POTASSIUM 3.3 mmol/L (3.6-5.0); TOTAL PROTEIN 5.1 g/dL (6.3-8.2)
[2019-01-10 06:40] LABS: CALCIUM 6.5 mg/dL (8.4-10.2)
[2019-01-10 07:04] LABS: ABSOLUTE LYMPHOCYTES# (MANUAL) 0.3 10^3/uL (0.5-4.7); ABSOLUTE MONOCYTES # (MANUAL) 0.3 10^3/uL (0.1-1.4); ANISOCYTOSIS 1+; BASOPHILS % (MANUAL) 0 % (0-2); EOSINOPHILS % (MANUAL) 0 % (0-6); LYMPHOCYTES % (MANUAL) 4 % (13-45); MONOCYTES % (MANUAL) 4 % (3-13); PLATELET COMMENT ADEQUATE; SEGMENTED NEUTROPHILS % (MAN) 92 % (42-78); TOTAL CELLS COUNTED 100
[2019-01-10] MEDS ORDERED: POTASSIUM CHLORIDE 10 MEQ TABLET.ER PO ONE (07:29)
[2019-01-10] MEDS: INSULIN LISPRO 100 UNIT/ML 3 ML VIAL SUBCUT SCH ×4 (07:47→22:11)
[2019-01-10] MEDS: CALCIUM GLUCONATE 1000 MG/10 ML INJ IV ONE ×2 (08:14→09:15)
[2019-01-10] MEDS ORDERED: CALCIUM GLUCONATE 2,000 MG in DEXTROSE 5%-WATER 50 ML IV ONE ×2 (08:15→09:00)
[2019-01-10] MEDS: ACETAMINOPHEN 325 MG TABLET PO PRN (09:14)
[2019-01-10] MEDS: LISINOPRIL 5 MG TABLET PO SCH (09:14)
[2019-01-10] MEDS: PREDNISONE 20 MG TABLET PO SCH ×2 (09:14→18:10)
[2019-01-10] MEDS ORDERED: CALCIUM GLUCONATE 1000 MG/10 ML INJ IV ONE (09:15)
[2019-01-10] MEDS ORDERED: CALCIUM CHLORIDE 10% PF/INJ 1000 MG/10 ML SDV IV ONE (09:15)
[2019-01-10] MEDS: NORMAL SALINE 10 ML SDV (SCHEDULED) IV SCH ×2 (09:19→22:26)
--- NOTE | 2019-01-10 10:26 | RADIOLOGY REPORT (SQ) ---
EXAM DESCRIPTION: CT THORACIC SPINE WITH COMPLETED DATE/TIME: 01/10/2019 10:00 am REASON FOR STUDY: midback tenderness, bacteremia COMPARISON: None. TECHNIQUE: Axial images acquired through the thoracic spine after intravenous contrast. Images revi ewed with lung, soft tissue and bone windows. Reconstructed coronal and sagittal MPR images reviewed . Images stored on PACS. All CT scanners at this facility use dose modulation, iterative reconstruction, and/or weight based d osing when appropriate to reduce radiation dose to as low as reasonably achievable (ALARA). [facility]: Dose Right [facility]: CareDose [facility]: Dose Right [facility]: Teradose 4D [facility]: Smart [employer] RADIATION DOSE: CT Rad equipment meets quality standard of care and radiation dose reduction techniq ues were employed. CTDIvol: 99.2 mGy. DLP: 3315 mGy-cm. mGy. LIMITATIONS: None. FINDINGS: Bones are osteopenic. Mild height loss at multiple levels. No acute compression fracture . No paraspinal mass. No aneurysm. IMPRESSION: No acute findings. TECHNICAL DOCUMENTATION: JOB ID: [id number] Quality ID # [id number]: Final reports with documentation of one or more dose reduction techniques (e.g., Au tomated exposure control, adjustment of the mA and/or kV according to patient size, use of iterative reconstruction technique) 2010 [employer]- All Rights Reserved Reading location - IP/workstation name: [email or web address]
--- NOTE | 2019-01-10 10:30 | RADIOLOGY REPORT (SQ) ---
EXAM DESCRIPTION: CT LUMBAR SPINE WITH COMPLETED DATE/TIME: 01/10/2019 10:00 am REASON FOR STUDY: midback tenderness, bacteremia COMPARISON: CT abdomen pelvis 11/13/2018. TECHNIQUE: Axial images acquired through the lumbar spine after intravenous contrast. Images review ed with lung, soft tissue and bone windows. Reconstructed coronal and sagittal MPR images reviewed. All images stored on PACS. All CT scanners at this facility use dose modulation, iterative reconstruction, and/or weight based d osing when appropriate to reduce radiation dose to as low as reasonably achievable (ALARA). [facility]: Dose Right [facility]: CareDose [facility]: Dose Right [facility]: Teradose 4D [facility]: [employer] RADIATION DOSE: mGy. LIMITATIONS: None. FINDINGS: Bones are osteopenic. 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 Multilevel spondylosis without high-grade Send stenosis. Chronic occlusion of the distal aorta . No paraspinal mass the IMPRESSION: No acute findings. TECHNICAL DOCUMENTATION: JOB ID: [id number] Quality ID # [id number]: Final reports with documentation of one or more dose reduction techniques (e.g., Au tomated exposure control, adjustment of the mA and/or kV according to patient size, use of iterative reconstruction technique) 2010 [email or web address]- All Rights Reserved Reading location - IP/workstation name: [email or web address]
--- NOTE | 2019-01-10 11:57 | PDOC PROGRESS REPORT ---
Subjective Progress Note for:: 01/10/19 Subjective:: This is a 78 year old male with a past medical history of dementia, COPD, CAD, MSSA bacteremia, BPH, hypertension, aortic aneurysm with prior aortic graft placement, and CHF who was brought to the ED by family after a witnessed fall, bilateral knee pain and mental status changes. Patient was admitted and discharged on 11/13/18 and was sent home on 4 days of cefazolin for MSSA bacteremia. He was found to have persistent MSSA bacteremia again on this admission. Repeat blood cultures are persistently grew MSSA despite being on cefazolin. 01/06: Upon encounter, he appears comfortable. He denies chest pain or shortness of breath. Noted ID recommendations. Will request records about patient's aortic graft placement. Repeat blood cultures still pending. 01/07: She denies acute complaints. Repeat blood cultures have been persistently positive. Will pursue whole body WBC tagging to try to localize source of infection. 01/08: He denies acute complaints. He will be going for WBC tagged scan today. 01/09: He denies acute complaints. WBC tagged scan unremarkable. Will repeat blood cultures today. 01/10: No acute event overnight. Repeat blood cultures have been negative so far after 24 hours. Discussed CODE STATUS with patient. He verbalizes he actually does not want to receive chest compressions, defibrillation or be intubated if the need arises. Discussed the possibility of an infected aortic graft if his blood cultures continue to remain positive. When asked if he is amenable to surgery if it would be deemed warranted for an infected aortic graft, he verbalizes he does not want any more surgery done on him. Will discuss this further with his son/DPOA. 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 Son willow torrez that this has been replaced twice by vascular surgeons in [place]. Reason For Visit: ACUTE HYPOXIC RESPIRATORY FAILURE Physical Exam Vital Signs: Temp Pulse Resp BP Pulse Ox 98.0 F 59 L 16 127/67 H 99 01/10/19 07:11 01/10/19 07:11 01/10/19 07:11 01/10/19 07:11 01/10/19 08:24 Intake & Output 01/09/19 01/10/19 01/11/19 06:59 06:59 06:59 Intake Total 2130 1000 Output Total 3650 1725 Balance -1520 -725 Weight 161 lb 13.109 oz 155 lb 6.814 oz General appearance: PRESENT: no acute distress, well-developed, well-nourished Head exam: PRESENT: atraumatic, normocephalic Eye exam: PRESENT: conjunctiva pink, EOMI, PERRLA. ABSENT: scleral icterus Ear exam: PRESENT: normal external ear exam Mouth exam: PRESENT: moist, tongue midline Neck exam: ABSENT: carotid bruit, JVD, lymphadenopathy, thyromegaly Respiratory exam: PRESENT: clear to auscultation cristobal. ABSENT: rales, rhonchi, wheezes Cardiovascular exam: PRESENT: RRR. ABSENT: diastolic murmur, rubs, systolic murmur Pulses: PRESENT: normal dorsalis pedis pul GI/Abdominal exam: PRESENT: normal bowel sounds, soft. ABSENT: distended, guarding, mass, organolmegaly, rebound, tenderness Rectal exam: PRESENT: deferred Extremities exam: PRESENT: full ROM. ABSENT: calf tenderness, clubbing, pedal edema Neurological exam: PRESENT: alert, awake, oriented to person, oriented to place, CN II-XII grossly intact. ABSENT: motor sensory deficit Results Laboratory Results: 01/10/19 06:00 01/10/19 06:00 01/10/19 01/10/19 06:00 06:00 WBC 8.0 RBC 3.27 L Hgb 9.9 L Hct 29.3 L MCV 89 MCH 30.3 MCHC 33.9 RDW 16.3 H Plt Count 121 L Seg Neutrophils % Not Reportable Sodium 140.2 Potassium 3.3 L Chloride 109 H Carbon Dioxide 22 Anion Gap 9 BUN 28 H Creatinine 0.61 Est GFR ( Amer) > 60 Glucose 139 H Calcium 6.5 L* Total Bilirubin 0.3 AST 14 L Alkaline Phosphatase 62 Total Protein 5.1 L Albumin 2.5 L 01/05/19 15:15 Blood Blood Culture - Final Staphylococcus Epidermidis 01/02/19 09:55 NT-Pro-B Natriuret Pep 4340 H Impressions: Chest/Abdomen CTA 01/02/19 00:00 IMPRESSION: No CT angio evidence of acute pulmonary emboli. Obstructive lung disease. Knee X-Ray 01/02/19 02:00 IMPRESSION: Unremarkable sunrise view copyright 2011 [employer]- All Rights Reserved Head CT 01/02/19 05:48 IMPRESSION: Atrophy and chronic small vessel ischemic changes with no acute intracranial abnormality. Guidance Fluoroscopy 01/05/19 00:00 IMPRESSION: SUCCESSFUL PLACEMENT OF A 5 FR DUAL LUMEN 44 CM PICC IN THE LEFT BASILIC VEIN. Interventional Vascular Procedure 01/05/19 00:00 IMPRESSION: SUCCESSFUL PLACEMENT OF A 5 FR DUAL LUMEN 44 CM PICC IN THE LEFT BASILIC VEIN. PICC Line Insertion 01/05/19 11:00 IMPRESSION: SUCCESSFUL PLACEMENT OF A 5 FR DUAL LUMEN 44 CM PICC IN THE LEFT BASILIC VEIN. WBC Scan Nuclear Medicine 01/08/19 00:00 IMPRESSION: Unremarkable tight white blood cell scan. No ectopic accumulation of activity over the right axillary to femoral bypass graft region. Lumbar Spine CT 01/10/19 07:30 IMPRESSION: No acute findings. Thoracic Spine CT 01/10/19 07:31 IMPRESSION: No acute findings. Assessment and Plan - Diagnosis (1) MSSA bacteremia Is this a current diagnosis for this admission?: Yes Plan: Continue cefazolin. Noted ID recommendations. 01/07: Repeat blood cultures have been persistently positive. Will pursue whole body WBC tagging to try to localize source of infection. 01/08:Continue Ancef. He will be going for WBC tagged scan today. 01/09: WBC tagged scan unremarkable. Will repeat blood cultures today. 01/10: Upon reassessment today, no signs or symptoms of septic arthritis. No joint pain, tenderness or limitation of motion. He has some chronic mid back pain and tenderness but spinal CT has ruled out spinal abscess or infections. His chest x-ray and urinalysis have been unremarkable. He reportedly had a recent ISAEL which was normal. Will obtain the actual report of the recent ISAEL. Records from [facility] from [facility] was obtained. He had a ruptured aortic aneurysm in 2009 hence underwent aortic graft placement. This appeared to have developed complication that time when he d eveloped discharge after surgery and grew MSSA and also had MSSA bacteremia at that time. Possibility of aortic vascular graft infection is being considered with his poor dentition as possible source of initial bacteremia at this time. Repeat blood cultures pending. Continue cefazolin for now. Will discuss with son/DPOA for about further plan and direction of care. We will also await further recommendations from ID. (2) COPD (chronic obstructive pulmonary disease) Qualifiers: COPD type: COPD with acute lower respiratory infection Qualified Code(s): J44.0 - Chronic obstructive pulmonary disease with (acute) lower respiratory infection Is this a current diagnosis for this admission?: Yes Plan: Not in exacerbation. Continue breathing treatments as needed. (3) Peripheral vascular disease Is this a current diagnosis for this admission?: Yes Plan: Stable. Continue home meds. (4) Pulmonary hypertension Is this a current diagnosis for this admission?: Yes - Time Time Spent with patient: 25-34 minutes
[2019-01-10] MEDS: CEFAZOLIN SODIUM 1 GM in DEXTROSE 5%-WATER 50 ML IV SCH ×2 (13:45→22:23)
--- NOTE | 2019-01-10 14:51 | RADIOLOGY REPORT (SQ) ---
EXAM DESCRIPTION: CT CERVICAL SPINE WITH COMPLETED DATE/TIME: 01/10/2019 10:00 am REASON FOR STUDY: midback tenderness, bacteremia COMPARISON: None. TECHNIQUE: Axial images acquired through the cervical spine following the uncomplicated IV administr ation of 75 mL Omnipaque 350 iodinated contrast IV. Images reviewed with lung, soft tissue and bone windows. Reconstructed coronal and sagittal MPR images reviewed. Images stored on PACS. All CT scanners at this facility use dose modulation, iterative reconstruction, and/or weight based d osing when appropriate to reduce radiation dose to as low as reasonably achievable (ALARA). [facility]: Dose Right [facility]: CareDose [facility]: Dose Right [facility]: Teradose 4D [facility]: [employer] RADIATION DOSE: CT Rad equipment meets quality standard of care and radiation dose reduction techniq ues were employed. CTDIvol: 24.2 mGy. DLP: 490 mGy-cm. mGy. LIMITATIONS: None. FINDINGS: ALIGNMENT: Degenerative straightening of the normal cervical lordosis. MINERALIZATION: Normal. VERTEBRAL BODIES: No fractures or dislocation. DISCS: Severe multilevel disc degenerative disease and osteophytosis of the cervical spine. FACETS, LATERAL MASSES, POSTERIOR ELEMENTS: No fractures. No dislocation. No acute findings. HARDWARE: None in the spine. VISUALIZED RIBS: No fractures. LUNG APICES AND SOFT TISSUES: No significant or acute findings. OTHER: No other significant finding. IMPRESSION: 1. No fracture or static subluxation of the cervical spine. Severe multilevel disc de generative disease and osteophytosis. 2. No abnormal contrast enhancement about the cervical spine. Please note that MRI is substantially more sensitive for evaluation of discitis/osteomyelitis and epidural abscess if clinically suspected . TECHNICAL DOCUMENTATION: JOB ID: [id number] Quality ID # [id number]: Final reports with documentation of one or more dose reduction techniques (e.g., Au tomated exposure control, adjustment of the mA and/or kV according to patient size, use of iterative reconstruction technique) 2010 [employer]- All Rights Reserved Reading location - IP/workstation name: [email or web address]
[2019-01-10] MEDS: NORMAL SALINE 10 ML SDV (AFTER EACH USE) IV PRN (22:23)
[2019-01-11] MEDS: HEPARIN SOD (PORCINE) 5,000 UNIT/ML 1 ML VIAL SUBCUT SCH ×3 (06:12→21:33)
[2019-01-11] MEDS: CEFAZOLIN SODIUM 1 GM in DEXTROSE 5%-WATER 50 ML IV SCH ×3 (06:12→22:51)
[2019-01-11] MEDS: PANTOPRAZOLE SODIUM 40 MG TABLET.DR PO SCH ×2 (06:12→17:34)
[2019-01-11] MEDS: ACETAMINOPHEN 325 MG TABLET PO PRN ×2 (06:12→18:28)
[2019-01-11] MEDS: INSULIN LISPRO 100 UNIT/ML 3 ML VIAL SUBCUT SCH ×4 (08:08→21:35)
[2019-01-11] MEDS: LISINOPRIL 5 MG TABLET PO SCH (10:21)
[2019-01-11] MEDS: PREDNISONE 20 MG TABLET PO SCH ×2 (10:21→17:34)
[2019-01-11] MEDS: NORMAL SALINE 10 ML SDV (SCHEDULED) IV SCH ×2 (10:25→22:58)
--- NOTE | 2019-01-11 12:57 | ADVANCED CARE ---
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 Patient verbalizes he does not want any form of resuscitation. He says he does not want us to just compressions or getting defibrillation. He also verbalizes he does not want to be on his throat. Trixie progressed and got upset verbalizing he does not agree with his father's decision. He does recognize that patient able to make his own decision and judgment at this time hence will respect his father's wishes albeit reluctantly. Patient also verbalizes he does not want to pursue any form of surgery if his endograft needs surgical intervention.
--- NOTE | 2019-01-11 15:24 | PDOC PROGRESS REPORT ---
Subjective Progress Note for:: 01/11/19 Subjective:: This is a 78 year old male with a past medical history of dementia, COPD, CAD, MSSA bacteremia, BPH, hypertension, aortic aneurysm with prior aortic graft placement, and CHF who was brought to the ED by family after a witnessed fall, bilateral knee pain and mental status changes. Patient was admitted and discharged on 11/13/18 and was sent home on 4 days of cefazolin for MSSA bacteremia. He was found to have persistent MSSA bacteremia again on this admission. Repeat blood cultures are persistently grew MSSA despite being on cefazolin. 01/06: Upon encounter, he appears comfortable. He denies chest pain or shortness of breath. Noted ID recommendations. Will request records about patient's aortic graft placement. Repeat blood cultures still pending. 01/07: She denies acute complaints. Repeat blood cultures have been persistently positive. Will pursue whole body WBC tagging to try to localize source of infection. 01/08: He denies acute complaints. He will be going for WBC tagged scan today. 01/09: He denies acute complaints. WBC tagged scan unremarkable. Will repeat blood cultures today. 01/10: Repeat blood cultures have been negative so far after 24 hours. Discussed CODE STATUS with patient. He verbalizes he actually does not want to receive chest compressions, defibrillation or be intubated if the need arises. Discussed the possibility of an infected aortic graft if his blood cultures continue to remain positive. When asked if he is amenable to surgery if it would be deemed warranted for an infected aortic graft, he verbalizes he does not want any more surgery done on him. Will discuss this further with his son/DPOA. 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 Son verbalizes that this has been replaced twice by vascular surgeons in [place]. 01/11: No acute event overnight. Case was discussed with [facility] vascular surgery. Vascular surgeon, Dr. Grubbs recommends surgical removal and replac ement of aortic graft. Patient's repeat blood cultures continue to be positive MSSA. Discussed in length with patient and family on bedside including his DPOA and cork wirer. Discussed recommendations from vascular surgery. Patient is oriented to person, place and knows the month and th year on encounter. Patient clearly verbalizes he does not want any more surgeries done on him. He is able to verbalize the risk of not pursuing surgical intervention. Explained more than likely that the bacteremia will not completely clear with IV antibiotics alone. He is able to verbalize understanding. He says he prefers to just try doing IV antibiotics at home again. Patient's family does express their frustration but verbalizes they will respect his wishes not to pursue surgery. They understand the risk of just treating this with IV antibiotics alone. We discussed possible complications of the bacteremia likely from an infected aortic graft including the high risk of endocarditis and septic shock. We also discussed palliative consult and possibly transitioning him to hospice later if he does develop complications later from the bacteremia. They will discuss hospice later depending on how he does at home but is amenable to a palliative consult. Patient will be discharged home once home health and IV antibiotics is set up. Unfortunately, [facility] and this may take a few days to set up. Reason For Visit: ACUTE HYPOXIC RESPIRATORY FAILURE Physical Exam Vital Signs: Temp Pulse Resp BP Pulse Ox 98.3 F 88 18 107/67 92 01/11/19 07:16 01/11/19 07:16 01/11/19 07:16 01/11/19 07:16 01/11/19 07:16 Intake & Output 01/10/19 01/11/19 01/12/19 06:59 06:59 06:59 Intake Total 1000 340 50 Output Total 1725 1475 Balance -725 -1135 50 Weight 155 lb 6.814 oz 159 lb 13.362 oz General appearance: PRESENT: no acute distress, well-developed, well-nourished Head exam: PRESENT: atraumatic, normocephalic Eye exam: PRESENT: conjunctiva pink, EOMI, PERRLA. ABSENT: scleral icterus Ear exam: PRESENT: normal external ear exam Mouth exam: PRESENT: moist, tongue midline Neck exam: ABSENT: carotid bruit, JVD, lymphadenopathy, thyromegaly Respiratory exam: PRESENT: clear to auscultation cristobal. ABSENT: rales, rhonchi, wheezes Cardiovascular exam: PRESENT: RRR. ABSENT: diastolic murmur, rubs, systolic murmur Pulses: PRESENT: normal dorsalis pedis pul GI/Abdominal exam: PRESENT: normal bowel sounds, soft. ABSENT: distended, guarding, mass, organolmegaly, rebound, tenderness Rectal exam: PRESENT: deferred Extremities exam: PRESENT: full ROM. ABSENT: calf tenderness, clubbing, pedal edema Neurological exam: PRESENT: alert, awake, oriented to person, oriented to place, oriented to time, CN II-XII grossly intact. ABSENT: motor sensory deficit Results Laboratory Results: 01/10/19 06:00 01/10/19 06:00 01/05/19 15:13 Blood Blood Culture - Final NO GROWTH IN 5 DAYS 01/02/19 09:55 NT-Pro-B Natriuret Pep 4340 H Impressions: Chest/Abdomen CTA 01/02/19 00:00 IMPRESSION: No CT angio evidence of acute pulmonary emboli. Obstructive lung disease. Knee X-Ray 01/02/19 02:00 IMPRESSION: Unremarkable sunrise view copyright 2010 [employer]- All Rights Reserved Head CT 01/02/19 05:48 IMPRESSION: Atrophy and chronic small vessel ischemic changes with no acute intracranial abnormality. Guidance Fluoroscopy 01/05/19 00:00 IMPRESSION: SUCCESSFUL PLACEMENT OF A 5 FR DUAL LUMEN 44 CM PICC IN THE LEFT BASILIC VEIN. Interventional Vascular Procedure 01/05/19 00:00 IMPRESSION: SUCCESSFUL PLACEMENT OF A 5 FR DUAL LUMEN 44 CM PICC IN THE LEFT BASILIC VEIN. PICC Line Insertion 01/05/19 11:00 IMPRESSION: SUCCESSFUL PLACEMENT OF A 5 FR DUAL LUMEN 44 CM PICC IN THE LEFT BASILIC VEIN. WBC Scan Nuclear Medicine 01/08/19 00:00 IMPRESSION: Unremarkable tight white blood cell scan. No ectopic accumulation of activity over the right axillary to femoral bypass graft region. Lumbar Spine CT 01/10/19 07:30 IMPRESSION: No acute findings. Cervical Spine CT 01/10/19 07:31 IMPRESSION: 1. No fracture or static subluxation of the cervical spine. Severe multilevel disc degenerative disease and osteophytosis. 2. No abnormal contrast enhancement about the cervical spine. Please note that MRI is substantially more sensitive for evaluation of discitis/osteomyelitis and epidural abscess if clinically suspected. Thoracic Spine CT 01/10/19 07:31 IMPRESSION: No acute findings. Assessment and Plan - Diagnosis (1) MSSA bacteremia Is this a current diagnosis for this admission?: Yes Plan: Continue cefazolin. Noted ID recommendations. 01/07: Repeat blood cultures have been persistently positive. Will pursue whole body WBC tagging to try to localize source of infection. 01/08:Continue Ancef. He will be going for WBC tagged scan today. 01/09: WBC tagged scan unremarkable. Will repeat blood cultures today. 01/10: Upon reassessment today, no signs or symptoms of septic arthritis. No joint pain, tenderness or limitation of motion. He has some chronic mid back pain and tenderness but spinal CT has ruled out spinal abscess or infections. His chest x-ray and urinalysis have been unremarkable. He reportedly had a recent ISAEL which was normal. Will obtain the actual report of the recent ISAEL. Records from [facility] from [facility] was obtained. He had a ruptured aortic aneurysm in 2009 hence underwent aortic graft placement. This appeared to have developed complication that time when he developed discharge after surgery and grew MSSA and also had MSSA bacteremia at that time. Possibility of aortic vascular graft infection is being considered with his poor dentition as possible source of initial bacteremia at this time. Repeat blood cultures pending. Continue cefazolin for now. Will discuss with son/DPOA for about further plan and direction of care. Reviewed recent ISAEL report from [facility] which was normal. 01/11: Discussed in length with patient and family on bedside including his DPOA and cork wirer. Discussed recommendations from vascular surgery. Patient clearly verbalizes he does not want any more surgeries done on him. He is able to verbalize the risk of not pursuing surgical intervention. Explained more than likely that the bacteremia will not completely clear with IV antibiotics alone. He is able to verbalize understanding. He says he prefers to just try doing IV antibiotics at home again. Patient's family does express their frustration but verbalizes they will respect his wishes not to pursue surgery. They understand the risk of just treating this with IV antibiotics alone. We discussed possible complications of the bacteremia likely from an infected aortic graft including the high risk of endocarditis and septic shock. We also discussed palliative consult and possibly transitioning him to hospice later if he does develop complications later from the bacteremia. They will discuss hospice later depending on how he does at home but is amenable to a palliative consult. Patient will be discharged home once home health and IV antibiotics is set up. Unfortunately, [facility] and this may take a few days to set up. (2) COPD (chronic obstructive pulmonary disease) Qualifiers: COPD type: COPD with acute lower respiratory infection Qualified Code(s): J44.0 - Chronic obstructive pulmonary disease with (acute) lower respiratory infection Is this a current diagnosis for this admission?: Yes Plan: Not in exacerbation. Continue breathing treatments as needed. (3) Infected aortic graft Is this a current diagnosis for this admission?: Yes Plan: As per number 1. (4) Peripheral vascular disease Is this a current diagnosis for this admission?: Yes Plan: Stable. Continue home meds. (5) Pulmonary hypertension Is this a current diagnosis for this admission?: Yes - Time Time Spent with patient: 25-34 minutes
[2019-01-11] MEDS: OXYCODONE-ACETAMINOPHEN 5-325 MG TABLET PO PRN (21:43)
[2019-01-12] MEDS: HEPARIN SOD (PORCINE) 5,000 UNIT/ML 1 ML VIAL SUBCUT SCH ×3 (05:24→21:18)
[2019-01-12] MEDS: PANTOPRAZOLE SODIUM 40 MG TABLET.DR PO SCH ×2 (05:33→17:08)
[2019-01-12] MEDS: CEFAZOLIN SODIUM 1 GM in DEXTROSE 5%-WATER 50 ML IV SCH ×3 (05:33→21:26)
[2019-01-12] MEDS: INSULIN LISPRO 100 UNIT/ML 3 ML VIAL SUBCUT SCH ×4 (09:42→21:18)
[2019-01-12] MEDS: PREDNISONE 20 MG TABLET PO SCH ×2 (09:44→17:08)
[2019-01-12] MEDS: LISINOPRIL 5 MG TABLET PO SCH (09:44)
[2019-01-12] MEDS: NORMAL SALINE 10 ML SDV (SCHEDULED) IV SCH ×2 (09:45→21:26)
[2019-01-12] MEDS: ACETAMINOPHEN 325 MG TABLET PO PRN ×2 (12:45→21:32)
--- NOTE | 2019-01-12 13:23 | PDOC PROGRESS REPORT ---
Subjective Progress Note for:: 01/12/19 Reason For Visit: ACUTE HYPOXIC RESPIRATORY FAILURE 01/12/2019 Family members are in the room. We are currently waiting on the [facility] facility to assist with IV antibiotics for home Physical Exam Vital Signs: Temp Pulse Resp BP Pulse Ox 97.1 F 51 L 18 128/84 H 97 01/12/19 11:51 01/12/19 11:51 01/12/19 11:51 01/12/19 11:51 01/12/19 11:51 Intake & Output 01/11/19 01/12/19 01/13/19 06:59 06:59 06:59 Intake Total 340 1050 50 Output Total 1475 3150 Balance -1135 -2100 50 Weight 72.5 kg 73.5 kg General appearance: PRESENT: no acute distress, other - Awake alert in no distress Respiratory exam: PRESENT: clear to auscultation cristobal. ABSENT: rales, rhonchi, wheezes Cardiovascular exam: PRESENT: RRR. ABSENT: diastolic murmur, rubs, systolic murmur Neurological exam: PRESENT: alert, awake, oriented to person, oriented to place, oriented to time, oriented to situation, CN II-XII grossly intact. ABSENT: motor sensory deficit Psychiatric exam: PRESENT: appropriate affect, normal mood. ABSENT: homicidal ideation, suicidal ideation Results Laboratory Results: 01/10/19 06:00 01/10/19 06:00 01/02/19 09:55 NT-Pro-B Natriuret Pep 4340 H Impressions: Chest/Abdomen CTA 01/02/19 00:00 IMPRESSION: No CT angio evidence of acute pulmonary emboli. Obstructive lung disease. Knee X-Ray 01/02/19 02:00 IMPRESSION: Unremarkable sunrise view copyright 2011 [employer]- All Rights Reserved Head CT 01/02/19 05:48 IMPRESSION: Atrophy and chronic small vessel ischemic changes with no acute intracranial abnormality. Guidance Fluoroscopy 01/05/19 00:00 IMPRESSION: SUCCESSFUL PLACEMENT OF A 5 FR DUAL LUMEN 44 CM PICC IN THE LEFT BASILIC VEIN. Interventional Vascular Procedure 01/05/19 00:00 IMPRESSION: SUCCESSFUL PLACEMENT OF A 5 FR DUAL LUMEN 44 CM PICC IN THE LEFT BASILIC VEIN. PICC Line Insertion 01/05/19 11:00 IMPRESSION: SUCCESSFUL PLACEMENT OF A 5 FR DUAL LUMEN 44 CM PICC IN THE LEFT BASILIC VEIN. WBC Scan Nuclear Medicine 01/08/19 00:00 IMPRESSION: Unremarkable tight white blood cell scan. No ectopic accumulation of activity over the right axillary to femoral bypass graft region. Lumbar Spine CT 01/10/19 07:30 IMPRESSION: No acute findings. Cervical Spine CT 01/10/19 07:31 IMPRESSION: 1. No fracture or static subluxation of the cervical spine. Severe multilevel disc degenerative disease and osteophytosis. 2. No abnormal contrast enhancement about the cervical spine. Please note that MRI is substantially more sensitive for evaluation of discitis/osteomyelitis and epidural abscess if clinically suspected. Thoracic Spine CT 01/10/19 07:31 IMPRESSION: No acute findings. Assessment and Plan - Diagnosis (1) Infected aortic graft Is this a current diagnosis for this admission?: Yes (2) COPD (chronic obstructive pulmonary disease) Qualifiers: COPD type: COPD with acute lower respiratory infection Qualified Code(s): J44.0 - Chronic obstructive pulmonary disease with (acute) lower respiratory in fection Is this a current diagnosis for this admission?: Yes (3) MSSA bacteremia Is this a current diagnosis for this admission?: Yes (4) Peripheral vascular disease Is this a current diagnosis for this admission?: Yes (5) Pulmonary hypertension Is this a current diagnosis for this admission?: Yes - Plan Summary Summary: 01/12/2019 Once again patient stated his desire for no surgery for his aortic graft that appears to be infected. She wants to go home on IV antibiotics Patient had a PICC line placed approximately 7 days ago. Client does not appear to be infected therefore we will continue using the site for IV antibiotics Currently on IV Ancef Vital signs are stable patient's oxygen saturation is 99% on 4 L nasal cannula . Family is aware [facility]. We will recheck labs tomorrow to include calcium which was low 2 days ago. Renal functions appear normal. Calcium also slightly low at 3.3 will recheck this tomorrow as well,, labs are ordered - Time Time Spent with patient: 25-34 minutes
[2019-01-12] MEDS: OXYCODONE-ACETAMINOPHEN 5-325 MG TABLET PO PRN (17:10)
[2019-01-13] MEDS ORDERED: HALOPERIDOL LACTATE INJ 5 MG/1 ML VIAL IV PRN (00:11)
[2019-01-13] MEDS: HEPARIN SOD (PORCINE) 5,000 UNIT/ML 1 ML VIAL SUBCUT SCH ×2 (05:54→13:01)
[2019-01-13] MEDS: PANTOPRAZOLE SODIUM 40 MG TABLET.DR PO SCH (05:58)
[2019-01-13] MEDS: CEFAZOLIN SODIUM 1 GM in DEXTROSE 5%-WATER 50 ML IV SCH ×2 (05:58→13:03)
[2019-01-13 06:19] LABS: ABSOLUTE LYMPHOCYTES (AUTO) 0.6 10^3/uL (0.5-4.7); ABSOLUTE MONOCYTES (AUTO) 0.4 10^3/uL (0.1-1.4); ABSOLUTE NEUT (AUTO) 9.5 10^3/uL (1.7-8.2); BASOPHILS % (AUTO) 0.2 % (0-2); HEMATOCRIT 33.5 % (37.9-51.0); HEMOGLOBIN 11.3 g/dL (13.5-17.0); LYMPHOCYTES % (AUTO) 5.4 % (13-45); MEAN CORPUSCULAR HEMOGLOBIN 30.1 pg (27.0-33.4); MEAN CORPUSCULAR HGB CONC 33.7 g/dL (32.0-36.0); MEAN CORPUSCULAR VOLUME 89 fl (80-97); MONOCYTES % (AUTO) 4.2 % (3-13); PLATELET COUNT 142 10^3/uL (150-450); RED BLOOD COUNT 3.76 10^6/uL (4.35-5.55); SEGMENTED NEUTROPHILS % (AUTO) 90.2 % (42-78); TOTAL CELLS COUNTED % (AUTO) 100 %; WHITE BLOOD COUNT 10.5 10^3/uL (4.0-10.5)
[2019-01-13 06:30] LABS: ALBUMIN 3.1 g/dL (3.5-5.0); ALKALINE PHOSPHATASE 73 U/L (38-126); ANION GAP 9 (5-19); ASPARTATE AMINO TRANSFERASE 20 U/L (17-59); BILIRUBIN,TOTAL 0.3 mg/dL (0.2-1.3); BLOOD UREA NITROGEN 19 mg/dL (7-20); CALCIUM 8.5 mg/dL (8.4-10.2); CARBON DIOXIDE 25 mmol/L (22-30); CHLORIDE 106 mmol/L (98-107); GLUCOSE 108 mg/dL (75-110); POTASSIUM 4.4 mmol/L (3.6-5.0)
[2019-01-13] MEDS: INSULIN LISPRO 100 UNIT/ML 3 ML VIAL SUBCUT SCH ×2 (08:02→12:20)
[2019-01-13] MEDS: PREDNISONE 20 MG TABLET PO SCH (09:30)
[2019-01-13] MEDS: LISINOPRIL 5 MG TABLET PO SCH (09:30)
[2019-01-13] MEDS: NORMAL SALINE 10 ML SDV (SCHEDULED) IV SCH (09:31)
[2019-01-13] MEDS: NORMAL SALINE 10 ML SDV (AFTER EACH USE) IV PRN (13:48)
[2019-01-13 13:55] VITALS: BP 108/83
--- NOTE | 2019-01-18 17:16 | PDOC DISCHARGE SUMMARY ---
Impression - Admit/DC Date/PCP Admission Date/Primary Care Provider: 01/02/19 11:19 ALICIA BROWN MD Discharge Date: 01/13/19 - Discharge Diagnosis (1) Infected aortic graft Is this a current diagnosis for this admission?: Yes (2) COPD (chronic obstructive pulmonary disease) Is this a current diagnosis for this admission?: Yes (3) MSSA bacteremia Is this a current diagnosis for this admission?: Yes (4) Peripheral vascular disease Is this a current diagnosis for this admission?: Yes (5) Pulmonary hypertension Is this a current diagnosis for this admission?: Yes - Assessment Summary: 01/12/2019 Once again patient stated his desire for no surgery for his aortic graft that appears to be infected. She wants to go home on IV antibiotics Patient had a PICC line placed approximately 7 days ago. Client does not appear to be infected therefore we will continue using the site for IV antibiotics Currently on IV Ancef Vital signs are stable patient's oxygen saturation is 99% on 4 L nasal cannula . Family is aware that we are working with the [place] concerning home antibiotics. We will recheck labs tomorrow to include calcium which was low 2 days ago. Renal functions appear normal. Calcium also slightly low at 3.3 will recheck this tomorrow as well,, labs are ordered 01/13/2019 Antibiotics have been arranged at home. We will continue Ancef 1 g IV every 8 hours for 30 days This is for a infected aortic graft, surgeon at [facility] is aware of this. And is medically stable and family wants him to go home. Family is able to care for him - Additional Information Resuscitation Status: Do Not Resuscitate Discharge Diet: As Tolerated, Cardiac, Diabetic Discharge Activity: Activity As Tolerated, Balance Activity w/Rest, Weigh Daily Referrals: ALICIA BROWN MD [Primary Care Provider] - 01/18/19 10:00 am Prescriptions: Cefazolin 1 gm/D5w RTU [Ancef RTU 1 gm/D5w 50 ml Premix Bag] 1 gm IV Q8 30 Days #90 ml Home Medications: Acetaminophen [Tylenol 325 mg Tablet] 650 mg PO Q6HP PRN 01/04/19 Albuterol Sulfate [Proair HFA Inhalation Aerosol 8.5 gm MDI] 2 puff IH Q6HP PRN 01/04/19 Aspirin [Adult Low Dose Aspirin EC] 81 mg PO DAILY 01/04/19 Atorvastatin Calcium [Lipitor 80 mg Tablet] 80 mg PO QHS 01/04/19 Budesonide/Formoterol Fumarate [Symbicort HFA 160-4.5 mcg Inhaler 6 gm] 2 puff IH BID 01/04/19 Cholecalciferol (Vitamin D3) [Vitamin D3 1000 Unit Tablet] 1,000 unit PO DAILY 01/04/19 Clopidogrel Bisulfate [Plavix 75 mg Tablet] 75 mg PO DAILY 01/04/19 Docusate Sodium [Colace 100 mg Capsule] 200 mg PO BIDP PRN 01/04/19 Doxepin HCl [Sinequan 10 mg Capsule] 10 mg PO QPM 01/04/19 Ferrous Sulfate 324 mg PO DAILY 01/04/19 Furosemide [Lasix 20 mg Tablet] 20 mg PO DAILY 01/04/19 Isosorbide Mononitrate [Imdur 30 mg Tablet.er] 30 mg PO DAILY 01/04/19 Lisinopril [Zestril] 5 mg PO DAILY 01/04/19 Melatonin [Melatonin 3 mg Tablet] 3 mg PO QHS 01/04/19 Metoprolol Tartrate [Lopressor 25 mg Tablet] 25 mg PO BID 01/04/19 Nitroglycerin [Nitro-Dur 15 mg (0.6 mg/1 Hr) Transderm Patch] 1 patch TD DAILY 01/04/19 Nitroglycerin [Nitrostat 0.4 mg (1/150 Gr) Tabs 25/Bottle] 0.4 mg SL Q5MP PRN 01/04/19 Omeprazole 40 mg PO ACBRKFST 01/04/19 Pantoprazole Sodium [Protonix [address] Tablet] 40 mg PO BID 01/04/19 Polyethylene Glycol 3350 [Miralax Powder 17 gm/Packet] 17 gm PO DAILYP PRN 01/04/19 Prochlorperazine Maleate [Compazine 5 mg Tablet] 5 mg PO DAILYP PRN 01/04/19 Quetiapine Fumarate [Seroquel 25 mg Tablet] 37.5 mg PO QHS 01/04/19 Tamsulosin HCl [Flomax 0.4 mg Cap.sr] 0.4 mg PO QPM 01/04/19 Tiotropium [place] [Spiriva Handihaler 5 Cap/Kit (18 Mcg/Cap)] 1 cap IH DAILY 01/04/19 Vancomycin HCl [Vancocin HCl] 125 mg PO TID 01/04/19 Cefazolin 1 gm/D5w RTU [Ancef RTU 1 gm/D5w 50 ml Premix Bag] 1 gm IV Q8 30 Days #90 ml 01/13/19 History of Present Illiness History of Present Illness: GAVINO PEDRAZA is a 78 year old male Physical Exam Vital Signs: Temp Pulse Resp BP Pulse Ox 97.5 F 65 18 108/83 94 01/13/19 13:53 01/13/19 13:53 01/13/19 13:53 01/13/19 13:53 01/13/19 13:53 Results Laboratory Results: WBC 10.5 10^3/uL (4.0-10.5) 01/13/19 06:03 RBC 3.76 10^6/uL (4.35-5.55) L 01/13/19 06:03 Hgb 11.3 g/dL (13.5-17.0) L 01/13/19 06:03 Hct 33.5 % (37.9-51.0) L 01/13/19 06:03 MCV 89 fl (80-97) 01/13/19 06:03 MCH 30.1 pg (27.0-33.4) 01/13/19 06:03 MCHC 33.7 g/dL (32.0-36.0) 01/13/19 06:03 RDW 16.0 % (11.5-14.0) H 01/13/19 06:03 Plt Count 142 10^3/uL (150-450) L 01/13/19 06:03 Lymph % (Auto) 5.4 % (13-45) L 01/13/19 06:03 [place] % (Auto) 4.2 % (3-13) 01/13/19 06:03 Eos % (Auto) 0.0 % (0-6) 01/13/19 06:03 Baso % (Auto) 0.2 % (0-2) 01/13/19 06:03 Absolute Neuts (auto) 9.5 10^3/uL (1.7-8.2) H 01/13/19 06:03 Absolute Lymphs (auto) 0.6 10^3/uL (0.5-4.7) 01/13/19 06:03 Absolute Monos (auto) 0.4 10^3/uL (0.1-1.4) 01/13/19 06:03 Absolute Eos (auto) 0.0 10^3/uL (0.0-0.6) 01/13/19 06:03 Absolute Basos (auto) 0.0 10^3/uL (0.0-0.2) 01/13/19 06:03 Total Counted 100 01/10/19 06:00 Seg Neutrophils % 90.2 % (42-78) H 01/13/19 06:03 Seg Neuts % (Manual) 92 % (42-78) H 01/10/19 06:00 Band Neutrophils % 2 % (3-5) L 01/05/19 05:43 Lymphocytes % (Manual) 4 % (13-45) L 01/10/19 06:00 Monocytes % (Manual) 4 % (3-13) 01/10/19 06:00 Eosinophils % (Manual) 0 % (0-6) 01/10/19 06:00 Basophils % (Manual) 0 % (0-2) 01/10/19 06:00 Abs Neuts (Manual) 7.4 10^3/uL (1.7-8.2) 01/10/19 06:00 Abs Lymphs (Manual) 0.3 10^3/uL (0.5-4.7) L 01/10/19 06:00 Abs Monocytes (Manual) 0.3 10^3/uL (0.1-1.4) 01/10/19 06:00 Absolute Eos (Manual) 0.0 10^3/uL (0.0-0.6) 01/10/19 06:00 Abs Basophils (Manual) 0.0 10^3/uL (0.0-0.2) 01/10/19 06:00 Clumped Platelets PRESENT 01/04/19 15:30 Platelet Comment ADEQUATE 01/10/19 06:00 Polychromasia 1+ 01/05/19 05:43 Anisocytosis 1+ 01/10/19 06:00 Tear Drop Cells 1+ 01/04/19 15:30 Carbonic Acid 0.87 mmol/L (1.05-1.35) L 01/03/19 06:25 HCO3/H2CO3 Ratio 21:1 01/03/19 06:25 ABG pH 7.43 (7.35-7.45) 01/03/19 06:25 ABG pCO2 29.0 mmHg (35-45) L 01/03/19 06:25 ABG pO2 64.9 mmHg (80-100) L 01/03/19 06:25 ABG HCO3 18.8 mmol/L (20-24) L 01/03/19 06:25 ABG Total CO2 19.7 mmol/L (23-27) L 01/03/19 06:25 ABG O2 Saturation 93.6 % (94-98) L 01/03/19 06:25 ABG Base Excess -4.4 mmol/L 01/03/19 06:25 FiO2 40% 01/03/19 06:25 Sodium 140.3 mmol/L (137-145) 01/13/19 06:03 Potassium 4.4 mmol/L (3.6-5.0) 01/13/19 06:03 Chloride 106 mmol/L (98-107) 01/13/19 06:03 Carbon Dioxide 25 mmol/L (22-30) 01/13/19 06:03 Anion Gap 9 (5-19) 01/13/19 06:03 BUN 19 mg/dL (7-20) 01/13/19 06:03 Creatinine 0.76 mg/dL (0.52-1.25) 01/13/19 06:03 Est GFR ( Amer) > 60 (>60) 01/13/19 06:03 Est GFR (Non-Af Amer) Cancelled 01/02/19 06:43 Est GFR (MDRD) Non-Af > 60 (>60) 01/13/19 06:03 Glucose 108 mg/dL (75-110) 01/13/19 06:03 POC Glucose 119 mg/dL (70-110) H 01/11/19 22:22 Hemoglobin A1c % 5.6 % (4.7-6.0) 01/03/19 04:23 Lactic Acid 1.2 mmol/L (0.7-2.1) 01/02/19 06:43 Calcium 8.5 mg/dL (8.4-10.2) 01/13/19 06:03 Magnesium 2.3 mg/dL (1.6-2.3) 01/13/19 06:03 Total Bilirubin 0.3 mg/dL (0.2-1.3) 01/13/19 06:03 Direct Bilirubin 0.0 mg/dL (0.0-0.4) 01/13/19 06:03 Neonat Total Bilirubin Not Reportable 01/13/19 06:03 Neonat Direct Bilirubin Not Reportable 01/13/19 06:03 Neonat Indirect Bili Not Reportable 01/13/19 06:03 AST 20 U/L (17-59) 01/13/19 06:03 ALT 13 U/L (<50) 01/13/19 06:03 Alkaline Phosphatase 73 U/L (38-126) 01/13/19 06:03 NT-Pro-B Natriuret Pep 4340 pg/mL (<450) H 01/02/19 09:55 Total Protein 6.0 g/dL (6.3-8.2) L 01/13/19 06:03 Albumin 3.1 g/dL (3.5-5.0) L 01/13/19 06:03 Triglycerides 228 mg/dL (<150) H 01/03/19 04:23 Cholesterol 119.53 mg/dL (0-200) 01/03/19 04:23 LDL Cholesterol Direct 51 mg/dL (<100) 01/03/19 04:23 VLDL Cholesterol 45.6 mg/dL (10-31) H 01/03/19 04:23 HDL Cholesterol 21 mg/dL (>40) L 01/03/19 04:23 EGFR Cancelled 01/02/19 06:43 Urine Color YELLOW 01/02/19 06:55 Urine Appearance SLIGHTLY-CLOUDY 01/02/19 06:55 Urine pH 5.0 (5.0-9.0) 01/02/19 06:55 Ur Specific [place] 1.020 01/02/19 06:55 Urine Protein 100 mg/dL (NEGATIVE) H 01/02/19 06:55 Urine Glucose (UA) NEGATIVE mg/dL (NEGATIVE) 01/02/19 06:55 Urine Ketones NEGATIVE mg/dL (NEGATIVE) 01/02/19 06:55 Urine Blood SMALL (NEGATIVE) H 01/02/19 06:55 Urine Nitrite (Reflex) NEGATIVE (NEGATIVE) 01/02/19 06:55 Urine Bilirubin NEGATIVE (NEGATIVE) 01/02/19 06:55 Urine Urobilinogen NEGATIVE mg/dL (<2.0) 01/02/19 06:55 Leukocyte Esterase Rfl NEGATIVE (NEGATIVE) 01/02/19 06:55 Urine RBC (Auto) 3 /HPF 01/02/19 06:55 Urine Bacteria (Auto) TRACE /HPF 01/02/19 06:55 Urine WBC (Reflex) 1 /HPF 01/02/19 06:55 Urine Mucus (Auto) OCC /LPF 01/02/19 06:55 Urine Ascorbic Acid NEGATIVE (NEGATIVE) 01/02/19 06:55 01/02/19 09:55 NT-Pro-B Natriuret Pep 4340 H Impressions: Chest/Abdomen CTA 01/02/19 00:00 IMPRESSION: No CT angio evidence of acute pulmonary emboli. Obstructive lung disease. Knee X-Ray 01/02/19 01:25 IMPRESSION: No acute osseous findings. Knee X-Ray 01/02/19 02:00 IMPRESSION: Unremarkable sunrise view copyright 2011 [employer]- All Rights Reserved Head CT 01/02/19 05:48 IMPRESSION: Atrophy and chronic small vessel ischemic changes with no acute intracranial abnormality. Guidance Fluoroscopy 01/05/19 00:00 IMPRESSION: SUCCESSFUL PLACEMENT OF A 5 FR DUAL LUMEN 44 CM PICC IN THE LEFT BASILIC VEIN. Interventional Vascular Procedure 01/05/19 00:00 IMPRESSION: SUCCESSFUL PLACEMENT OF A 5 FR DUAL LUMEN 44 CM PICC IN THE LEFT BASILIC VEIN. PICC Line Insertion 01/05/19 11:00 IMPRESSION: SUCCESSFUL PLACEMENT OF A 5 FR DUAL LUMEN 44 CM PICC IN THE LEFT BASILIC VEIN. WBC Scan Nuclear Medicine 01/08/19 00:00 IMPRESSION: Unremarkable tight white blood cell scan. No ectopic accumulation of activity over the right axillary to femoral bypass graft region. Lumbar Spine CT 01/10/19 07:30 IMPRESSION: No acute findings. Cervical Spine CT 01/10/19 07:31 IMPRESSION: 1. No fracture or static subluxation of the cervical spine. Severe multilevel disc degenerative disease and osteophytosis. 2. No abnormal contrast enhancement about the cervical spine. Please note that MRI is substantially more sensitive for evaluation of discitis/osteomyelitis and epidural abscess if clinically suspected. Thoracic Spine CT 01/10/19 07:31 IMPRESSION: No acute findings. Stroke Is this a Stroke Patient?: No Acute Heart Failure - Is this a Heart Failure Patient?: No
== END 2019-01-13 14:29 | disposition home health service (06) | DRG 189 ==
LOC: ER 01:03 → EH 11:19 → 3N 15:40 → 3S 01-10 17:12
PROVIDERS: ADMIT Internal Medicine; ATTEND Internal Medicine
PROC: 5A09557 Assistance with Respiratory Ventilation, Greater than 96 Consecutive Hours, Continuous Positive Airway Pressure (ICD-10-PCS; principal; 2019-01-02)
PROC: 02HV33Z Insertion of Infusion Device into Superior Vena Cava, Percutaneous Approach (ICD-10-PCS; 2019-01-05)
PROC: B518ZZA Fluoroscopy of Superior Vena Cava, Guidance (ICD-10-PCS; 2019-01-05)
PROC: B548ZZA Ultrasonography of Superior Vena Cava, Guidance (ICD-10-PCS; 2019-01-05)
PROC: 3E02340 Introduction of Influenza Vaccine into Muscle, Percutaneous Approach (ICD-10-PCS; 2019-01-13)
DX: J96.01 Acute respiratory failure with hypoxia (principal); I50.43 Acute on chronic combined systolic (congestive) and diastolic (congestive) heart failure; G93.41 Metabolic encephalopathy; J44.0 Chronic obstructive pulmonary disease with (acute) lower respiratory infection; R78.81 Bacteremia; T82.7XXA Infection and inflammatory reaction due to other cardiac and vascular devices, implants and grafts, initial encounter; B95.61 Methicillin susceptible Staphylococcus aureus infection as the cause of diseases classified elsewhere; I27.20 Pulmonary hypertension, unspecified; Z66 Do not resuscitate; F03.90 Unspecified dementia, unspecified severity, without behavioral disturbance, psychotic disturbance, mood disturbance, and anxiety; I25.10 Atherosclerotic heart disease of native coronary artery without angina pectoris; N40.0 Benign prostatic hyperplasia without lower urinary tract symptoms; I11.0 Hypertensive heart disease with heart failure; E11.51 Type 2 diabetes mellitus with diabetic peripheral angiopathy without gangrene; D64.9 Anemia, unspecified; W19.XXXA Unspecified fall, initial encounter; M25.562 Pain in left knee; K02.9 Dental caries, unspecified; Z99.81 Dependence on supplemental oxygen; Z23 Encounter for immunization; Z95.5 Presence of coronary angioplasty implant and graft; Z79.82 Long term (current) use of aspirin; Z79.899 Other long term (current) drug therapy; Z98.890 Other specified postprocedural states; Y83.2 Surgical operation with anastomosis, bypass or graft as the cause of abnormal reaction of the patient, or of later complication, without mention of misadventure at the time of the procedure; Y92.9 Unspecified place or not applicable
CPT/HCPCS: 36415; 36569; 36600; 51702; 70450; 71275; 72126; 72129; 72132; 76937; 77001; 78806; 80048; 80053; 80061; 81001; 82803; 82962; 83036; 83605; 83735; 83880; 85025; 87040; 87077; 87150; 87186; 93005; 93010; 94640; 94660; 96361; 96365; 96375; 99285; A9521; J0610; J0690; J1100; J1642; J1644; J1815; J1885; J1940; J2060; J2543; J2550; J2920; J3490; J7030; J7040; J7050; J7060; J7512; J7620

== ENCOUNTER 2019-02-22 18:33 | Inpatient (IN) | payer MEDICARE ==
[2019-02-22 19:06] LABS: ABSOLUTE EOSINOPHILS # (AUTO) 0.1 10^3/uL (0.0-0.6); ABSOLUTE MONOCYTES (AUTO) 0.7 10^3/uL (0.1-1.4); ABSOLUTE NEUT (AUTO) 8.1 10^3/uL (1.7-8.2); BASOPHILS % (AUTO) 0.5 % (0-2); EOSINOPHILS % (AUTO) 1.2 % (0-6); HEMATOCRIT 30.5 % (37.9-51.0); LYMPHOCYTES % (AUTO) 9.6 % (13-45); MEAN CORPUSCULAR HEMOGLOBIN 28.5 pg (27.0-33.4); MEAN CORPUSCULAR VOLUME 86 fl (80-97); MONOCYTES % (AUTO) 7.3 % (3-13); PLATELET COUNT 330 10^3/uL (150-450); RED BLOOD COUNT 3.54 10^6/uL (4.35-5.55); RED CELL DISTRIBUTION WIDTH 16.9 % (11.5-14.0); SEGMENTED NEUTROPHILS % (AUTO) 81.4 % (42-78); TOTAL CELLS COUNTED % (AUTO) 100 %
[2019-02-22 19:20] LABS: ALBUMIN 3.7 g/dL (3.5-5.0); ALKALINE PHOSPHATASE 135 U/L (38-126); ANION GAP 17 (5-19); ASPARTATE AMINO TRANSFERASE 25 U/L (17-59); BILIRUBIN,DIRECT 0.4 mg/dL (0.0-0.4); BILIRUBIN,TOTAL 0.5 mg/dL (0.2-1.3); BLOOD UREA NITROGEN 18 mg/dL (7-20); CARBON DIOXIDE 19 mmol/L (22-30); CHLORIDE 99 mmol/L (98-107); CREATINE KINASE 81 U/L (55-170); GLUCOSE 91 mg/dL (75-110); POTASSIUM 4.7 mmol/L (3.6-5.0); TOTAL PROTEIN 7.6 g/dL (6.3-8.2)
[2019-02-22 19:26] LABS: HEMOGLOBIN 10.1 g/dL (13.5-17.0)
[2019-02-22 19:37] LABS: CREATINE KINASE MB 2.61 ng/mL (<4.55)
--- NOTE | 2019-02-22 19:54 | RADIOLOGY REPORT (SQ) ---
EXAM DESCRIPTION: CHEST SINGLE VIEW COMPLETED DATE/TIME: 02/22/2019 7:32 pm REASON FOR STUDY: DIFFICULTY BREATHING COMPARISON: None. EXAM PARAMETERS: NUMBER OF VIEWS: One view. TECHNIQUE: Single frontal radiographic view of the chest acquired. RADIATION DOSE: NA LIMITATIONS: None. FINDINGS: LUNGS AND PLEURA: Hyperexpansion of the lungs. No infiltrate, effusion, or mass. . MEDIASTINUM AND HILAR STRUCTURES: No masses. Contour normal. HEART AND VASCULAR STRUCTURES: Heart normal in size. Normal vasculature. BONES: No acute findings. HARDWARE: Left-sided PICC with the tip in the superior vena cava. OTHER: No other significant finding. IMPRESSION: Chronic lung changes with no acute cardiopulmonary finding. TECHNICAL DOCUMENTATION: JOB ID: [id number] [employer]- All Rights Reserved Reading location - IP/workstation name: [email or web address]
[2019-02-22 19:56] LABS: APPEARANCE,URINE CLOUDY; BILIRUBIN,URINE NEGATIVE (NEGATIVE); COLOR,URINE YELLOW; GLUCOSE, URINE NEGATIVE (NEGATIVE); KETONES,URINE NEGATIVE (NEGATIVE); LEUKOCYTE ESTERASE,URINE LARGE (NEGATIVE); NITRITE,URINE NEGATIVE (NEGATIVE); PROTEIN,URINE NEGATIVE (NEGATIVE); URINE SPECIFIC GRAVITY 1.006; UROBILINOGEN,URINE NEGATIVE mg/dL (<2.0)
[2019-02-22 20:03] LABS: TROPONIN I 0.041 ng/mL
[2019-02-22] MEDS ORDERED: CEFTRIAXONE 1 GM/D5W RTU 1 GM/50 ML RTUPB IV ONE (20:41)
[2019-02-22 21:06] LABS: ARTERIAL BLOOD BASE EXCESS -3.1 mmol/L; ARTERIAL BLOOD H2CO3 0.83 mmol/L (1.05-1.35); ARTERIAL BLOOD HCO3 19.5 mmol/L (20-24); ARTERIAL BLOOD O2 SATURATION 95.7 % (94-98); ARTERIAL BLOOD PCO2 27.6 mmHg (35-45); ARTERIAL BLOOD PH 7.47 (7.35-7.45); ARTERIAL BLOOD PO2 72.5 mmHg (80-100); ARTERIAL BLOOD TOTAL CO2 20.3 mmol/L (23-27)
[2019-02-22 21:08] LABS: ARTERIAL BLOOD FIO2 5
--- NOTE | 2019-02-22 22:10 | EKG REPORT ---
SEVERITY:- ABNORMAL ECG - SINUS TACHYCARDIA VENTRICULAR PREMATURE COMPLEX NONSPECIFIC INTRAVENTRICULAR CONDUCTION DELAY MINIMAL ST DEPRESSION, LATERAL LEADS : Confirmed by: Teresita Brady 22-Feb-2019 22:10:10
[2019-02-22] MEDS ORDERED: LORAZEPAM INJ 2 MG/1 ML VIAL IV ONE (22:33)
--- NOTE | 2019-02-23 | RADIOLOGY REPORT (SQ) ---
EXAM DESCRIPTION: CT CHEST ANGIOGRAPHY WITHOUT THEN WITH IV CONTRAST, CT ABDOMEN PELVIS WITHOUT THEN WITH IV CONTRAST COMPLETED DATE/TME: 02/22/2019 21:31 CLINICAL HISTORY: 78 years, Male, HYPOXIC COMPARISON: 01/02/2019 CTA TECHNIQUE: [id number] Images stored on PACS. All CT scanners at this facility use dose modulation, iterative reconstruction, and/or weight based dosing when appropriate to reduce radiation dose to as low as reasonably achievable (ALARA). Axial CTA images with coronal and sagittal MIPS [facility]: Dose Right [facility]: CareDose [facility]: Dose Right [facility]: Teradose 4D [facility]: [employer] LIMITATIONS: None. FINDINGS: CTA chest: Negative for thoracic aortic aneurysm or dissection. There is only minimal opacification of the pulmonary arterial tree. No large or central pulmonary embolus, however assessment of remaining arterial branches is nondiagnostic. There is stable eccentric atheromatous plaque involving the descending thoracic aorta. Heavy coronary artery calcification. No mediastinal or hilar adenopathy. Osseous structures of the thorax are grossly intact. No pneumothorax. Severe emphysematous changes, particularly in the upper lobes and apices. Minor scarring in each lung base. CTA abdomen/pelvis: Stable compression fracture deformity of L1. Osseous structures are otherwise grossly intact. There is extensive motion artifact which degrades image quality. Probable fatty infiltrative change to the liver. The visualized spleen, adrenal glands, pancreas, kidneys are grossly unremarkable. Gallbladder is present. No gross evidence for bowel obstruction. No free air or free fluid in the abdomen or pelvis. Endovascular stent graft of the proximal abdominal aorta, beginning at the level of the superior mesenteric artery and extending slightly distal to the renal arteries. The celiac axis and superior mesenteric arteries appear patent. 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 This was also noted previously. Severe atheromatous calcifications Limited assessment of the iliac vessels. However these also appear occluded. 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 Femorofemoral bypass graft appears patent with contrast in the visualized common and superficial femoral arteries. Graft extends along the right lateral abdominal wall, to the femorofemoral graft, as before. IMPRESSION: Significantly limited due to motion however no evidence for acute intrathoracic process. No evidence for acute intra-abdominal/pelvic process. Severe atheromatous changes with stable postsurgical changes. Femorofemoral bypass graft appears patent. TECHNICAL DOCUMENTATION: Quality ID # [id number]: Final reports with documentation of one or more dose reduction techniques (e.g., Automated exposure control, adjustment of the mA and/or kV according to patient size, use of iterative reconstruction technique) copyright 2011 [employer]- All Rights Reserved
--- NOTE | 2019-02-23 01:00 | ER Document Report ---
ED Respiratory Problem - General Chief Complaint: Breathing Difficulty Stated Complaint: DIFFICULTY BREATHING Time Seen by Provider: 02/22/19 19:03 TRAVEL OUTSIDE OF THE [place] IN LAST 30 DAYS: No - HPI Onset: Just prior to arrival Quality of pain: No pain Severity: Moderate Pain Level: Denies Short of Breath: Moderate Cough: Nonproductive Sputum amount: None Associated symptoms: None Notes: 78 year old male with a past medical history of dementia, COPD, CAD, MSSA bacteremia, BPH, hypertension, aortic aneurysm with prior aortic graft placement, and CHF who was brought to the ED via EMS with complaints of SOB. He has a h/o chronic respiratory failure and is on 2L O2 all the time. EMS noted increased resp rate and confusion and sats in the 60's. His resp status improvd with O2 and ativan. - Related Data Allergies/Adverse Reactions: No Known Allergies Allergy (Verified 01/02/19 01:23) Past Medical History - Social History Smoking Status: Unknown if Ever Smoked Family History: Reviewed & Not Pertinent, COPD Patient has suicidal ideation: No Patient has homicidal ideation: No - Past Medical History Cardiac Medical History: Reports: Hx Coronary Artery Disease, Hx Peripheral Vascular Disease Pulmonary Medical History: Reports: Hx COPD Denies: Hx Asthma Neurological Medical History: Denies: Hx Seizures Endocrine Medical History: Reports: Hx Diabetes Mellitus Type 2. Denies: Hx Diabetes Mellitus Type 1 GI Medical History: Denies: Hx Crohn's Disease, Hx Ulcerative Colitis Musculoskeletal Medical History: Denies Hx Fibromyalgia, Denies Hx Gout Skin Medical History: Denies Hx Eczema, Denies Hx Psoriasis Psychiatric Medical History: Reports: Hx Dementia Past Surgical History: Reports: Hx Cardiac Catheterization, Hx Coronary Stent Review of Systems - Review of Systems Constitutional: No symptoms reported EENT: No symptoms reported Cardiovascular: No symptoms reported Respiratory: See HPI, Cough, Short of breath Gastrointestinal: No symptoms reported Genitourinary: No symptoms reported Male Genitourinary: No symptoms reported Musculoskeletal: No symptoms reported Skin: No symptoms reported Hematologic/Lymphatic: No symptoms reported Neurological/Psychological: No symptoms reported Physical Exam - Vital signs Vitals: Resp Pulse Ox 24 H 94 02/22/19 18:50 02/22/19 18:50 Interpretation: Normal - General General appearance: Appears well, Alert - HEENT Head: Normocephalic, Atraumatic Eyes: Normal Pupils: PERRL - Respiratory Respiratory status: No respiratory distress Chest status: Nontender Breath sounds: Normal Chest palpation: Normal - Cardiovascular Rhythm: Regular Heart sounds: Normal auscultation Murmur: No - Abdominal Inspection: Normal Distension: No distension Bowel sounds: Normal Tenderness: Nontender Organomegaly: No organomegaly - Back Back: Normal, Nontender - Extremities General upper extremity: Normal inspection, Nontender, Normal color, Normal ROM, Normal temperature General lower extremity: Normal inspection, Nontender, Normal color, Normal ROM, Normal temperature, Normal weight bearing. No: Tyron's sign - Neurological Neuro grossly intact: Yes Cognition: Normal Orientation: AAOx4 [place] Coma Scale Eye Opening: Spontaneous [place] Coma Scale Verbal: Oriented [place] Coma Scale Motor: Obeys Commands [place] Coma Scale Total: 15 Speech: Normal Motor strength normal: LUE, RUE, LLE, RLE Sensory: Normal - Psychological Associated symptoms: Normal affect, Normal mood - Skin Skin Temperature: Warm Skin Moisture: Dry Skin Color: Normal Course - Re-evaluation Re-evalutation: 02/23/19 02:51 MDM Complex 78 year old male with chronic resp failure had worsening resp status today. May have COPD exac. Also with UTI and an anion gap acidosis here. I have discussed the pt with Dr. Diaz who has graciously agreed to see and evaluate for admission. - Vital Signs Vital signs: Temp Pulse Resp BP Pulse Ox 22 H 118/39 L 93 02/23/19 00:00 02/22/19 23:43 02/23/19 00:00 - Laboratory Result Diagrams: 02/22/19 18:45 02/22/19 18:45 Laboratory results interpreted by me: 02/22/19 02/22/19 02/22/19 18:45 18:45 18:45 RBC 3.54 L Hgb 10.1 L D Hct 30.5 L RDW 16.9 H Lymph % (Auto) 9.6 L Seg Neutrophils % 81.4 H Carbonic Acid ABG pH ABG pCO2 ABG pO2 ABG HCO3 ABG Total CO2 Sodium 135.1 L Carbon Dioxide 19 L Alkaline Phosphatase 135 H NT-Pro-B Natriuret Pep 1180 H Urine Blood Ur Leukocyte Esterase 02/22/19 02/22/19 19:34 20:47 RBC Hgb Hct RDW Lymph % (Auto) Seg Neutrophils % Carbonic Acid 0.83 L ABG pH 7.47 H ABG pCO2 27.6 L ABG pO2 72.5 L ABG HCO3 19.5 L ABG Total CO2 20.3 L Sodium Carbon Dioxide Alkaline Phosphatase NT-Pro-B Natriuret Pep Urine Blood SMALL H Ur Leukocyte Esterase LARGE H - Diagnostic Test Radiology reviewed: Reports reviewed - EKG Interpretation by Me EKG shows normal: Sinus rhythm Rate: Normal Rhythm: Other - sinus tachy 105 BPM Repol Ab Poor R wave progression my interpretation Discharge - Discharge Clinical Impression: COPD exacerbation UTI (urinary tract infection) Qualifiers: Urinary tract infection type: site unspecified Hematuria presence: with hematuria Qualified Code(s): N39.0 - Urinary tract infection, site not specified Condition: Fair Disposition: ADMITTED OBSERVATION Admitting Provider: Joe (Hospitalist) Unit Admitted: Telemetry
[2019-02-23] MEDS ORDERED: LACTULOSE SYRUP 20 GM/30 ML UDCUP PO ONE (01:07)
[2019-02-23] MEDS ORDERED: HYDRALAZINE HCL INJ/PF 20 MG/1 ML SDV IV PRN (01:07)
[2019-02-23] MEDS ORDERED: GUAIFENESIN SYRP 200 MG/10 ML UDC PO PRN (01:08)
[2019-02-23] MEDS ORDERED: METHYLPREDNISOLONE INJ 125 MG/2 ML SDV IV ONE (01:09)
[2019-02-23] MEDS ORDERED: PREDNISONE 20 MG TABLET PO ONE (01:30)
[2019-02-23] MEDS: CHLORPHENIRAMINE MALEATE 4 MG TABLET PO SCH ×4 (01:43→20:04)
[2019-02-23] MEDS: ACETAMINOPHEN 325 MG TABLET PO PRN (01:43)
[2019-02-23] MEDS ORDERED: IPRATROPIUM/ALBUTEROL 0.5-2.5 MG/3 ML AMPUL NEB PRN (02:28)
--- NOTE | 2019-02-23 04:44 | PDOC H&P ---
History of Present Illness Admission Date/PCP: 02/23/19 01:57 Patient complains of: Shortness of breath History of Present Illness: GAVINO PEDRAZA is a 78 year old male with past medical history of dementia, delirium, COPD, coronary artery disease, aortic aneurysm with graft and recent MSSA bacteremia, BPH, hypertension, and congestive heart failure. He presents with vague shortness of breath. He is tachypneic with use of a sensory muscles, work-up reveals hypoxia on ABG though an unremarkable chest x-ray. He is refusing or unable to participate in physical exam. He appears in no acute distress lying flat arms and legs crossed with a pulse ox of 90% on 2 L. Past Medical History Cardiac Medical History: Reports: Coronary Artery Disease, Peripheral Vascular Disease Pulmonary Medical History: Reports: Chronic Obstructive Pulmonary Disease (COPD) Denies: Asthma Neurological Medical History: Denies: Seizures Endocrine Medical History: Reports: Diabetes Mellitus Type 2 Denies: Diabetes Mellitus Type 1 GI Medical History: Denies: Crohn's Disease, Ulcerative Colitis Musculoskeltal Medical History: Denies: Fibromyalgia, Gout Skin Medical History: Denies: Eczema, Psoriasis Psychiatric Medical History: Reports: Dementia Hematology: Reports: Anemia Denies: Bleeding Tendencies Past Surgical History Past Surgical History: Reports: Cardiac Catheterization, Coronary Stent Social History Information Source: [facility] Records Smoking Status: Unknown if Ever Smoked Frequency of Alcohol Use: None Hx Recreational Drug Use: Yes Drugs: Marijuana Hx Prescription Drug Abuse: No - Advance Directive Resuscitation Status: Do Not Resuscitate Family History Family History: COPD Parental Family History Reviewed: No - Unobtainable Children Family History Reviewed: No - Unobtainable Sibling(s) Family History Reviewed.: No - Unobtainable Medication/Allergy Home Medications: Acetaminophen [Tylenol 325 mg Tablet] 650 mg PO Q6HP PRN 01/04/19 Albuterol Sulfate [Proair HFA Inhalation Aerosol 8.5 gm MDI] 2 puff IH Q6HP PRN 01/04/19 Aspirin [Adult Low Dose Aspirin EC] 81 mg PO DAILY 01/04/19 Atorvastatin Calcium [Lipitor 80 mg Tablet] 80 mg PO QHS 01/04/19 Budesonide/Formoterol Fumarate [Symbicort HFA 160-4.5 mcg Inhaler 6 gm] 2 puff IH BID 01/04/19 Cholecalciferol (Vitamin D3) [Vitamin D3 1000 Unit Tablet] 1,000 unit PO DAILY 01/04/19 Clopidogrel Bisulfate [Plavix 75 mg Tablet] 75 mg PO DAILY 01/04/19 Docusate Sodium [Colace 100 mg Capsule] 200 mg PO BIDP PRN 01/04/19 Doxepin HCl [Sinequan 10 mg Capsule] 10 mg PO QPM 01/04/19 Ferrous Sulfate 324 mg PO DAILY 01/04/19 Furosemide [Lasix 20 mg Tablet] 20 mg PO DAILY 01/04/19 Isosorbide Mononitrate [Imdur 30 mg Tablet.er] 30 mg PO DAILY 01/04/19 Lisinopril [Zestril] 5 mg PO DAILY 01/04/19 Melatonin [Melatonin 3 mg Tablet] 3 mg PO QHS 01/04/19 Metoprolol Tartrate [Lopressor 25 mg Tablet] 25 mg PO BID 01/04/19 Nitroglycerin [Nitro-Dur 15 mg (0.6 mg/1 Hr) Transderm Patch] 1 patch TD DAILY 01/04/19 Nitroglycerin [Nitrostat 0.4 mg (1/150 Gr) Tabs 25/Bottle] 0.4 mg SL Q5MP PRN 01/04/19 Omeprazole 40 mg PO ACBRKFST 01/04/19 Pantoprazole Sodium [Protonix [address] Tablet] 40 mg PO BID 01/04/19 Polyethylene Glycol 3350 [Miralax Powder 17 gm/Packet] 17 gm PO DAILYP PRN 01/04/19 Prochlorperazine Maleate [Compazine 5 mg Tablet] 5 mg PO DAILYP PRN 01/04/19 Quetiapine Fumarate [Seroquel 25 mg Tablet] 37.5 mg PO QHS 01/04/19 Tamsulosin HCl [Flomax 0.4 mg Cap.sr] 0.4 mg PO QPM 01/04/19 Tiotropium Squire [Spiriva Handihaler 5 Cap/Kit (18 Mcg/Cap)] 1 cap IH DAILY 01/04/19 Vancomycin HCl [Vancocin HCl] 125 mg PO TID 01/04/19 Cefazolin 1 gm/D5w RTU [Ancef RTU 1 gm/D5w 50 ml Premix Bag] 1 gm IV Q8 30 Days #90 ml 01/13/19 Allergies/Adverse Reactions: No Known Allergies Allergy (Verified 01/02/19 01:23) Review of Systems ROS unobtainable: Due to mental status Physical Exam Vital Signs: Temp Pulse Resp BP Pulse Ox 22 H 118/39 L 93 02/23/19 00:00 02/22/19 23:43 02/23/19 00:00 Intake & Output 02/21/19 02/22/19 02/23/19 11:59 11:59 11:59 Intake Total 50 Balance 50 Weight 69.7 kg General appearance: PRESENT: no acute distress, well-developed, well-nourished. ABSENT: cooperative, disheveled Head exam: PRESENT: atraumatic, normocephalic Eye exam: PRESENT: conjunctiva pink, EOMI, PERRLA. ABSENT: scleral icterus Ear exam: PRESENT: normal external ear exam Mouth exam: PRESENT: moist, tongue midline Neck exam: ABSENT: carotid bruit, JVD, lymphadenopathy, thyromegaly Respiratory exam: PRESENT: crackles, decreased breath sounds. ABSENT: accessory muscle use, chest wall tenderness, rales, rhonchi, wheezes Cardiovascular exam: PRESENT: RRR. ABSENT: diastolic murmur, rubs, systolic murmur Pulses: PRESENT: normal dorsalis pedis pul Vascular exam: PRESENT: normal capillary refill GI/Abdominal exam: PRESENT: normal bowel sounds, soft. ABSENT: distended, gu arding, mass, organolmegaly, rebound, tenderness Rectal exam: PRESENT: deferred Extremities exam: PRESENT: full ROM. ABSENT: calf tenderness, clubbing, pedal edema Neurological exam: PRESENT: alert, altered, awake, CN II-XII grossly intact. ABSENT: motor sensory deficit Psychiatric exam: PRESENT: flat affect, unusual affect Skin exam: PRESENT: dry, intact, warm. ABSENT: cyanosis, rash Results Laboratory Results: 02/22/19 18:45 02/22/19 18:45 02/22/19 02/22/19 02/22/19 18:45 18:45 18:45 WBC 10.0 RBC 3.54 L Hgb 10.1 L D Hct 30.5 L MCV 86 MCH 28.5 MCHC 33.0 RDW 16.9 H Plt Count 330 Seg Neutrophils % 81.4 H Carbonic Acid HCO3/H2CO3 Ratio ABG pH ABG pCO2 ABG pO2 ABG HCO3 ABG O2 Saturation ABG Base Excess FiO2 Sodium 135.1 L Potassium 4.7 Chloride 99 Carbon Dioxide 19 L Anion Gap 17 BUN 18 Creatinine 0.90 Est GFR ( Amer) > 60 Glucose 91 Lactic Acid Calcium 9.0 Magnesium 1.6 Total Bilirubin 0.5 AST 25 Alkaline Phosphatase 135 H Total Protein 7.6 Albumin 3.7 Urine Color Urine Appearance Urine pH Ur Specific [place] Urine Protein Urine Glucose (UA) Urine Ketones Urine Blood Urine Nitrite Ur Leukocyte Esterase Urine WBC (Auto) Urine RBC (Auto) 02/22/19 02/22/19 02/22/19 19:34 20:11 20:47 WBC RBC Hgb Hct MCV MCH MCHC RDW Plt Count Seg Neutrophils % Carbonic Acid 0.83 L HCO3/H2CO3 Ratio 23:1 ABG pH 7.47 H ABG pCO2 27.6 L ABG pO2 72.5 L ABG HCO3 19.5 L ABG O2 Saturation 95.7 ABG Base Excess -3.1 FiO2 5 Sodium Potassium Chloride Carbon Dioxide Anion Gap BUN Creatinine Est GFR ( Amer) Glucose Lactic Acid 2.1 Calcium Magnesium Total Bilirubin AST Alkaline Phosphatase Total Protein Albumin Urine Color YELLOW Urine Appearance CLOUDY Urine pH 5.0 Ur Specific [place] 1.006 Urine Protein NEGATIVE Urine Glucose (UA) NEGATIVE Urine Ketones NEGATIVE Urine Blood SMALL H Urine Nitrite NEGATIVE Ur Leukocyte Esterase LARGE H Urine WBC (Auto) 163 Urine RBC (Auto) 3 02/22/19 02/22/19 02/22/19 18:45 18:45 18:45 Creatine Kinase 81 CK-MB (CK-2) 2.61 Troponin I 0.041 NT-Pro-B Natriuret Pep 1180 H Impressions: Chest X-Ray 02/22/19 18:52 IMPRESSION: Chronic lung changes with no acute cardiopulmonary finding. Abdomen/Pelvis CTA 02/22/19 21:31 IMPRESSION: Significantly limited due to motion however no evidence for acute intrathoracic process. No evidence for acute intra-abdominal/pelvic process. Severe atheromatous changes with stable postsurgical changes. Femorofemoral bypass graft appears patent. TECHNICAL DOCUMENTATION: Quality ID # [id number]: Final reports with documentation of one or more dose reduction techniques (e.g., Automated exposure control, adjustment of the mA and/or kV according to patient size, use of iterative reconstruction technique) copyright 2011 [employer]- All Rights Reserved Chest/Abdomen CTA 02/22/19 21:31 IMPRESSION: Significantly limited due to motion however no evidence for acute intrathoracic process. No evidence for acute intra-abdominal/pelvic process. Severe atheromatous changes with stable postsurgical changes. Femorofemoral bypass graft appears patent. TECHNICAL DOCUMENTATION: Quality ID # [id number]: Final reports with documentation of one or more dose reduction techniques (e.g., Automated exposure control, adjustment of the mA and/or kV according to patient size, use of iterative reconstruction technique) copyright 2011 [employer]- All Rights Reserved Assessment and Plan - Diagnosis (1) COPD exacerbation Is this a current diagnosis for this admission?: Yes Plan: CTA chest unremarkable, supplemental oxygen, albuterol, Atrovent, prednisone and Rocephin given prolonged QT (2) UTI (urinary tract infection) Qualifiers: Urinary tract infection type: site unspecified Hematuria presence: with hematuria Qualified Code(s): N39.0 - Urinary tract infection, site not specif ied; R31.9 - Hematuria, unspecified Is this a current diagnosis for this admission?: Yes Plan: Empiric Rocephin, follow-up blood and urine culture (3) Anemia Is this a current diagnosis for this admission?: Yes Plan: Follow-up anemia labs and CBC. (4) Dementia Is this a current diagnosis for this admission?: Yes Plan: Supportive care, advance care planning on previous admission clearly delineated patient's wishes for DNR. - Time Time Spent with patient: 25-34 minutes - Inpatient Certification Medical Necessity: Need Close Monitoring Due to Risk of Patient Decompensation
[2019-02-23] MEDS ORDERED: HEPARIN SOD (PORCINE) 5,000 UNIT/ML 1 ML VIAL SUBCUT SCH (06:00)
[2019-02-23 06:32] LABS: ABSOLUTE LYMPHOCYTES (AUTO) 0.5 10^3/uL (0.5-4.7); ABSOLUTE MONOCYTES (AUTO) 0.1 10^3/uL (0.1-1.4); ABSOLUTE NEUT (AUTO) 7.4 10^3/uL (1.7-8.2); ABSOLUTE RETICS # 0.076 10^6/uL (0.028-0.122); BASOPHILS % (AUTO) 0.1 % (0-2); EOSINOPHILS % (AUTO) 0.1 % (0-6); HEMATOCRIT 31.5 % (37.9-51.0); HEMOGLOBIN 10.8 g/dL (13.5-17.0); LYMPHOCYTES % (AUTO) 6.2 % (13-45); MEAN CORPUSCULAR HGB CONC 34.2 g/dL (32.0-36.0); MEAN CORPUSCULAR VOLUME 85 fl (80-97); MONOCYTES % (AUTO) 1.3 % (3-13); PLATELET COUNT 343 10^3/uL (150-450); RED BLOOD COUNT 3.72 10^6/uL (4.35-5.55); RETICULOCYTE COUNT (AUTO) 2.05 % (0.66-2.85); SEGMENTED NEUTROPHILS % (AUTO) 92.3 % (42-78); TOTAL CELLS COUNTED % (AUTO) 100 %; WHITE BLOOD COUNT 8.1 10^3/uL (4.0-10.5)
[2019-02-23 07:00] LABS: IRON(TIBC) 28.8 ug/dL (49-181)
[2019-02-23 07:04] LABS: ANION GAP 14 (5-19); BLOOD UREA NITROGEN 14 mg/dL (7-20); CALCIUM 9.9 mg/dL (8.4-10.2); CARBON DIOXIDE 22 mmol/L (22-30); CHLORIDE 105 mmol/L (98-107); GLUCOSE 117 mg/dL (75-110); POTASSIUM 4.3 mmol/L (3.6-5.0)
[2019-02-23] MEDS ORDERED: IPRATROPIUM/ALBUTEROL 0.5-2.5 MG/3 ML AMPUL NEB SCH (08:00)
[2019-02-23 08:01] LABS: FOLATE 7.89 ng/mL (>2.76)
[2019-02-23] MEDS: IPRATROPIUM/ALBUTEROL 0.5-2.5 MG/3 ML AMPUL NEB SCH ×2 (08:10→18:59)
[2019-02-23] MEDS: PREDNISONE 20 MG TABLET PO SCH ×2 (10:31→19:54)
[2019-02-23] MEDS: FLUTICASONE NASAL SPRAY 50 MCG/SPRY 120 SPRAY/16 GM NASL SCH ×2 (10:34→22:04)
[2019-02-23] MEDS ORDERED: ACETAMINOPHEN 325 MG TABLET PO PRN (10:53)
[2019-02-23] MEDS ORDERED: DOCUSATE SODIUM 100 MG CAPSULE PO PRN (10:53)
[2019-02-23] MEDS ORDERED: NITROGLYCERIN 0.4 MG/TAB 25 TAB/BOTTLE SL PRN (10:53)
[2019-02-23] MEDS ORDERED: PROCHLORPERAZINE MALEATE 5 MG TABLET PO PRN (10:53)
[2019-02-23] MEDS ORDERED: POLYETHYLENE GLYCOL 3350 POWDER 17 GM/1 PACKET PO PRN (10:53)
--- NOTE | 2019-02-23 11:02 | PDOC PROGRESS REPORT ---
Subjective Progress Note for:: 02/23/19 Subjective:: The patient is sitting in the chair at the bedside in the emergency department. They are changing his linens. Evidently he had an episode of urinary incontinence. Staff reports that he was sleeping earlier but he is awake and conversant at this time. In fact he is from [place] and we had an excellent discussion about growing up in [place]. Reason For Visit: COPD EXACERBATION Physical Exam Vital Signs: Temp Pulse Resp BP Pulse Ox 81 17 118/39 L 98 02/23/19 08:10 02/23/19 08:10 02/22/19 23:43 02/23/19 08:10 Intake & Output 02/22/19 02/23/19 02/24/19 06:59 06:59 06:59 Intake Total 50 Balance 50 Weight 69.7 kg General appearance: PRESENT: mild distress, well-developed - Well-developed but very frail appearing 78-year-old patient sitting in the chair. Head exam: PRESENT: atraumatic, normocephalic Mouth exam: PRESENT: moist, tongue midline Respiratory exam: PRESENT: clear to auscultation cristobal, symmetrical, unlabored. ABSENT: rales, rhonchi, tachypnea, wheezes Cardiovascular exam: PRESENT: RRR, +S1, +S2 GI/Abdominal exam: PRESENT: normal bowel sounds, soft. ABSENT: distended, tenderness Rectal exam: PRESENT: deferred Gentrourinary exam: ABSENT: indwelling catheter Extremities exam: ABSENT: joint swelling, pedal edema Neurological exam: PRESENT: alert, awake, oriented to person, oriented to place, oriented to situation Psychiatric exam: PRESENT: flat affect. ABSENT: agitated, anxious Skin exam: PRESENT: dry, pallor, warm. ABSENT: rash Results Laboratory Results: 02/23/19 06:05 02/23/19 06:05 02/22/19 02/22/19 02/22/19 18:45 18:45 18:45 WBC 10.0 RBC 3.54 L Hgb 10.1 L D Hct 30.5 L MCV 86 MCH 28.5 MCHC 33.0 RDW 16.9 H Plt Count 330 Seg Neutrophils % 81.4 H Retic Count (auto) Absolute Retic Carbonic Acid HCO3/H2CO3 Ratio ABG pH ABG pCO2 ABG pO2 ABG HCO3 ABG O2 Saturation ABG Base Excess FiO2 Sodium 135.1 L Potassium 4.7 Chloride 99 Carbon Dioxide 19 L Anion Gap 17 BUN 18 Creatinine 0.90 Est GFR ( Amer) > 60 Glucose 91 Lactic Acid Calcium 9.0 Magnesium 1.6 Iron TIBC % Saturation Ferritin Total Bilirubin 0.5 AST 25 Alkaline Phosphatase 135 H Total Protein 7.6 Albumin 3.7 Vitamin B12 Folate Urine Color Urine Appearance Urine pH Ur Specific [place] Urine Protein Urine Glucose (UA) Urine Ketones Urine Blood Urine Nitrite Ur Leukocyte Esterase Urine WBC (Auto) Urine RBC (Auto) 02/22/19 02/22/19 02/22/19 19:34 20:11 20:47 WBC RBC Hgb Hct MCV MCH MCHC RDW Plt Count Seg Neutrophils % Retic Count (auto) Absolute Retic Carbonic Acid 0.83 L HCO3/H2CO3 Ratio 23:1 ABG pH 7.47 H ABG pCO2 27.6 L ABG pO2 72.5 L ABG HCO3 19.5 L ABG O2 Saturation 95.7 ABG Base Excess -3.1 FiO2 5 Sodium Potassium Chloride Carbon Dioxide Anion Gap BUN Creatinine Est GFR ( Amer) Glucose Lactic Acid 2.1 Calcium Magnesium Iron TIBC % Saturation Ferritin Total Bilirubin AST Alkaline Phosphatase Total Protein Albumin Vitamin B12 Folate Urine Color YELLOW Urine Appearance CLOUDY Urine pH 5.0 Ur Specific [place] 1.006 Urine Protein NEGATIVE Urine Glucose (UA) NEGATIVE Urine Ketones NEGATIVE Urine Blood SMALL H Urine Nitrite NEGATIVE Ur Leukocyte Esterase LARGE H Urine WBC (Auto) 163 Urine RBC (Auto) 3 02/23/19 02/23/19 02/23/19 06:05 06:05 06:05 WBC 8.1 RBC 3.72 L Hgb 10.8 L Hct 31.5 L MCV 85 MCH 29.0 MCHC 34.2 RDW 17.0 H Plt Count 343 Seg Neutrophils % 92.3 H Retic Count (auto) 2.05 Cancelled Absolute Retic Cancelled Carbonic Acid HCO3/H2CO3 Ratio ABG pH ABG pCO2 ABG pO2 ABG HCO3 ABG O2 Saturation ABG Base Excess FiO2 Sodium 141.2 Potassium 4.3 Chloride 105 Carbon Dioxide 22 Anion Gap 14 BUN 14 Creatinine 0.85 Est GFR ( Amer) > 60 Glucose 117 H Lactic Acid Calcium 9.9 Magnesium Iron TIBC % Saturation Ferritin Total Bilirubin AST Alkaline Phosphatase Total Protein Albumin Vitamin B12 Folate Urine Color Urine Appearance Urine pH Ur Specific [place] Urine Protein Urine Glucose (UA) Urine Ketones Urine Blood Urine Nitrite Ur Leukocyte Esterase Urine WBC (Auto) Urine RBC (Auto) 02/23/19 06:05 WBC RBC Hgb Hct MCV MCH MCHC RDW Plt Count Seg Neutrophils % Retic Count (auto) Absolute Retic Carbonic Acid HCO3/H2CO3 Ratio ABG pH ABG pCO2 ABG pO2 ABG HCO3 ABG O2 Saturation ABG Base Excess FiO2 Sodium Potassium Chloride Carbon Dioxide Anion Gap BUN Creatinine Est GFR ( Amer) Glucose Lactic Acid Calcium Magnesium Iron 28.8 L TIBC 252 % Saturation 11 Ferritin 71.80 Total Bilirubin AST Alkaline Phosphatase Total Protein Albumin Vitamin B12 748.0 Folate 7.89 Urine Color Urine Appearance Urine pH Ur Specific [place] Urine Protein Urine Glucose (UA) Urine Ketones Urine Blood Urine Nitrite Ur Leukocyte Esterase Urine WBC (Auto) Urine RBC (Auto) 02/22/19 02/22/19 02/22/19 18:45 18:45 18:45 Creatine Kinase 81 CK-MB (CK-2) 2.61 Troponin I 0.041 NT-Pro-B Natriuret Pep 1180 H 02/23/19 06:05 Creatine Kinase CK-MB (CK-2) Troponin I 0.153 NT-Pro-B Natriuret Pep Impressions: Chest X-Ray 02/22/19 18:52 IMPRESSION: Chronic lung changes with no acute cardiopulmonary finding. Abdomen/Pelvis CTA 02/22/19 21:31 IMPRESSION: Significantly limited due to motion however no evidence for acute intrathoracic process. No evidence for acute intra-abdominal/pelvic process. Severe atheromatous changes with stable postsurgical changes. Femorofemoral bypass graft appears patent. TECHNICAL DOCUMENTATION: Quality ID # [id number]: Final reports with documentation of one or more dose reduction techniques (e.g., Automated exposure control, adjustment of the mA and/or kV according to patient size, use of iterative reconstruction technique) copyright 2010 [employer]- All Rights Reserved Chest/Abdomen CTA 02/22/19 21:31 IMPRESSION: Significantly limited due to motion however no evidence for acute intrathoracic process. No evidence for acute intra-abdominal/pelvic process. Severe atheromatous changes with stable postsurgical changes. Femorofemoral bypass graft appears patent. TECHNICAL DOCUMENTATION: Quality ID # [id number]: Final reports with documentation of one or more dose reduction techniques (e.g., Automated exposure control, adjustment of the mA and/or kV according to patient size, use of iterative reconstruction technique) copyright 2011 [employer]- All Rights Reserved Assessment and Plan - Diagnosis (1) COPD exacerbation Is this a current diagnosis for this admission?: Yes Plan: The patient is on oxygen at home. Continue oxygen supplementation. Keep oxygen saturation between 90% and 94%. Nebulizer regimen and oral steroids. No evidence of pneumonia by chest x-ray. (2) UTI (urinary tract infection) Qualifiers: Urinary tract infection type: site unspecified Hematuria presence: with hematuria Qualified Code(s): N39.0 - Urinary tract infection, site not specified; R31.9 - Hematuria, unspecified Is this a current diagnosis for this admission?: Yes Plan: Markedly positive urinalysis. No culture requested. I will order a culture. The patient was started on ceftriaxone. (3) MSSA bacteremia Is this a current diagnosis for this admission?: Yes Plan: The patient was hospitalized in December. He was found to have methicillin sensitive staph aureus bacteremia. This is not the first time. He has a history of an infected arterial graft and has been working with Dr. Mancilla, his infectious disease physician, for months now. Because of his multiple exposures to antibiotic therapy he was started on the Zyvox. (4) Infected aortic graft Qualifiers: Encounter type: subsequent encounter Qualified Code(s): T82.7XXD - Infection and inflammatory reaction due to other cardiac and vascular devices, implants and grafts, subsequent encounter Is this a current diagnosis for this admission?: Yes Plan: This is his third treatment for staph bacteremia that most likely is originating in the infected graft. He is an extremely high risk/poor candidate for any surgical intervention. (5) Anemia, iron deficiency, inadequate dietary intake Is this a current diagnosis for this admission?: Yes Plan: Initiate iron supplement (6) Dementia Qualifiers: Dementia type: unspecified type Dementia behavioral disturbance: without behavioral disturbance Qualified Code(s): F03.90 - Unspecified dementia without behavioral disturbance Is this a current diagnosis for this admission?: Yes Plan: Considering his extensive atherosclerotic disease his dementia may be related to cerebral atherosclerosis. Conservative care at this time. Continue his home regimen of bedtime Seroquel and doxepin. - Time Time Spent with patient: 15-24 minutes Medications reviewed and adjusted accordingly: Yes
[2019-02-23] MEDS: HEPARIN SOD (PORCINE) 5,000 UNIT/ML 1 ML VIAL SUBCUT SCH ×2 (13:27→22:06)
[2019-02-23] MEDS: FERROUS SULFATE 325 MG TABLET PO SCH (13:27)
[2019-02-23] MEDS ORDERED: NORMAL SALINE 10 ML SDV (AFTER EACH USE) IV PRN (14:00)
[2019-02-23] MEDS: DOXEPIN HCL 10 MG CAPSULE PO SCH (19:54)
[2019-02-23] MEDS: TAMSULOSIN HCL 0.4 MG CAP.SR.24H PO SCH (19:54)
[2019-02-23] MEDS: PANTOPRAZOLE SODIUM 40 MG TABLET.DR PO SCH (19:54)
[2019-02-23] MEDS ORDERED: CEFTRIAXONE 1 GM/D5W RTU 1 GM/50 ML RTUPB IV SCH (22:00)
[2019-02-23] MEDS: NORMAL SALINE 10 ML SDV (SCHEDULED) IV SCH (22:01)
[2019-02-23] MEDS: QUETIAPINE FUMARATE 25 MG TABLET PO SCH (22:03)
[2019-02-23] MEDS: ATORVASTATIN CALCIUM 80 MG TABLET PO SCH (22:03)
[2019-02-23] MEDS: MELATONIN 3 MG TABLET PO SCH (22:04)
[2019-02-23] MEDS: NORMAL SALINE INJ/PF 0.9% 10 ML SDV IV SCH (22:06)
[2019-02-23] MEDS: METOPROLOL TARTRATE 25 MG TABLET PO SCH (22:11)
[2019-02-24] MEDS: IPRATROPIUM/ALBUTEROL 0.5-2.5 MG/3 ML AMPUL NEB SCH ×4 (00:35→23:58)
[2019-02-24] MEDS ORDERED: LINEZOLID 600 MG/300 ML RTUPB IV ONE ×2 (03:30→04:14)
[2019-02-24 04:42] LABS: ABSOLUTE MONOCYTES (AUTO) 0.6 10^3/uL (0.1-1.4); ABSOLUTE NEUT (AUTO) 7.8 10^3/uL (1.7-8.2); BASOPHILS % (AUTO) 0.1 % (0-2); HEMATOCRIT 28.4 % (37.9-51.0); HEMOGLOBIN 9.7 g/dL (13.5-17.0); LYMPHOCYTES % (AUTO) 10.4 % (13-45); MEAN CORPUSCULAR HEMOGLOBIN 29.1 pg (27.0-33.4); MEAN CORPUSCULAR HGB CONC 34.1 g/dL (32.0-36.0); MEAN CORPUSCULAR VOLUME 86 fl (80-97); MONOCYTES % (AUTO) 6.7 % (3-13); PLATELET COUNT 349 10^3/uL (150-450); RED BLOOD COUNT 3.32 10^6/uL (4.35-5.55); RED CELL DISTRIBUTION WIDTH 16.9 % (11.5-14.0); SEGMENTED NEUTROPHILS % (AUTO) 82.8 % (42-78); TOTAL CELLS COUNTED % (AUTO) 100 %; WHITE BLOOD COUNT 9.5 10^3/uL (4.0-10.5)
[2019-02-24 04:59] LABS: ANION GAP 12 (5-19); BLOOD UREA NITROGEN 21 mg/dL (7-20); CALCIUM 9.1 mg/dL (8.4-10.2); CARBON DIOXIDE 24 mmol/L (22-30); CHLORIDE 105 mmol/L (98-107); GLUCOSE 124 mg/dL (75-110); POTASSIUM 4.3 mmol/L (3.6-5.0)
[2019-02-24] MEDS: HEPARIN SOD (PORCINE) 5,000 UNIT/ML 1 ML VIAL SUBCUT SCH ×3 (05:11→21:13)
[2019-02-24] MEDS ORDERED: NORMAL SALINE 10 ML SDV (AFTER EACH USE) IV PRN (09:00)
[2019-02-24] MEDS ORDERED: NORMAL SALINE 10 ML SDV (SCHEDULED) IV SCH (10:00)
[2019-02-24] MEDS ORDERED: LISINOPRIL 5 MG TABLET PO SCH (10:00)
[2019-02-24] MEDS: NORMAL SALINE INJ/PF 0.9% 10 ML SDV IV SCH ×2 (10:16→22:33)
[2019-02-24] MEDS: METOPROLOL TARTRATE 25 MG TABLET PO SCH ×2 (10:17→21:14)
[2019-02-24] MEDS: PANTOPRAZOLE SODIUM 40 MG TABLET.DR PO SCH ×2 (10:24→18:00)
[2019-02-24] MEDS: NORMAL SALINE 10 ML SDV (SCHEDULED) IV SCH ×2 (10:26→22:33)
[2019-02-24] MEDS: PREDNISONE 20 MG TABLET PO SCH ×2 (10:27→18:00)
[2019-02-24] MEDS: FLUTICASONE NASAL SPRAY 50 MCG/SPRY 120 SPRAY/16 GM NASL SCH ×2 (10:27→21:13)
[2019-02-24] MEDS: ASPIRIN 81 MG TABLET, ENT COATED PO SCH (10:27)
[2019-02-24] MEDS: CLOPIDOGREL BISULFATE 75 MG TABLET PO SCH (10:27)
[2019-02-24] MEDS: FERROUS SULFATE 325 MG TABLET PO SCH (10:27)
[2019-02-24] MEDS: ISOSORBIDE MONONITRATE 30 MG TAB.ER.24H PO SCH (10:27)
[2019-02-24] MEDS: ACETAMINOPHEN 325 MG TABLET PO PRN ×2 (13:20→19:49)
[2019-02-24] MEDS: FUROSEMIDE 20 MG TABLET PO SCH (14:25)
[2019-02-24] MEDS ORDERED: LINEZOLID 600 MG/300 ML RTUPB IV SCH (18:00)
[2019-02-24] MEDS: TAMSULOSIN HCL 0.4 MG CAP.SR.24H PO SCH (18:00)
[2019-02-24] MEDS: DOXEPIN HCL 10 MG CAPSULE PO SCH (18:00)
--- NOTE | 2019-02-24 20:29 | PDOC PROGRESS REPORT ---
Subjective Progress Note for:: 02/24/19 Subjective:: The patient was sleeping. He awakens easily. He states that he feels tired but his breathing is comfortable. He has no other complaints this morning. Reason For Visit: BACTEREMMIA, CYSTITIS, COPD Physical Exam Vital Signs: Temp Pulse Resp BP Pulse Ox 98.1 F 76 22 H 106/55 L 95 02/24/19 15:01 02/24/19 15:01 02/24/19 15:01 02/24/19 15:01 02/24/19 15:01 Intake & Output 02/23/19 02/24/19 02/25/19 06:59 06:59 06:59 Intake Total 50 1051 1405 Output Total 700 300 Balance 50 351 1105 Weight 69.7 kg 58.4 kg General appearance: PRESENT: no acute distress, cooperative, thin, well- developed - Well-developed but frail-appearing 78-year-old patient who appears older than his stated age Head exam: PRESENT: atraumatic, normocephalic Eye exam: PRESENT: conjunctiva pale. ABSENT: scleral icterus Mouth exam: PRESENT: moist, tongue midline Respiratory exam: PRESENT: clear to auscultation cristobal, prolonged expiratory phas, symmetrical, unlabored. ABSENT: accessory muscle use, rales, rhonchi, tachypnea Cardiovascular exam: PRESENT: RRR, +S1, +S2 GI/Abdominal exam: PRESENT: normal bowel sounds, soft. ABSENT: distended, guarding, tenderness Rectal exam: PRESENT: deferred Neurological exam: PRESENT: alert, awake, oriented to person, oriented to place, oriented to situation Psychiatric exam: PRESENT: flat affect. ABSENT: agitated, anxious Skin exam: PRESENT: dry, pallor, warm. ABSENT: rash Results Laboratory Results: 02/24/19 04:30 02/24/19 04:30 02/24/19 02/24/19 04:30 04:30 WBC 9.5 RBC 3.32 L Hgb 9.7 L Hct 28.4 L MCV 86 MCH 29.1 MCHC 34.1 RDW 16.9 H Plt Count 349 Seg Neutrophils % 82.8 H Sodium 141.3 Potassium 4.3 Chloride 105 Carbon Dioxide 24 Anion Gap 12 BUN 21 H Creatinine 0.87 Est GFR ( Amer) > 60 Glucose 124 H Calcium 9.1 02/22/19 20:11 Blood Blood Culture (PCR) - Final Staphylococcus Aureus 02/22/19 02/22/19 02/22/19 18:45 18:45 18:45 Creatine Kinase 81 CK-MB (CK-2) 2.61 Troponin I 0.041 NT-Pro-B Natriuret Pep 1180 H 02/23/19 06:05 Creatine Kinase CK-MB (CK-2) Troponin I 0.153 NT-Pro-B Natriuret Pep Impressions: Chest X-Ray 02/22/19 18:52 IMPRESSION: Chronic lung changes with no acute cardiopulmonary finding. Abdomen/Pelvis CTA 02/22/19 21:31 IMPRESSION: Significantly limited due to motion however no evidence for acute intrathoracic process. No evidence for acute intra-abdominal/pelvic process. Severe atheromatous changes with stable postsurgical changes. Femorofemoral bypass graft appears patent. TECHNICAL DOCUMENTATION: Quality ID # 436: Final reports with documentation of one or more dose reduction techniques (e.g., Automated exposure control, adjustment of the mA and/or kV according to patient size, use of iterative reconstruction technique) copyright 2010 [employer]- All Rights Reserved Chest/Abdomen CTA 02/22/19 21:31 IMPRESSION: Significantly limited due to motion however no evidence for acute intrathoracic process. No evidence for acute intra-abdominal/pelvic process. Severe atheromatous changes with stable postsurgical changes. Femorofemoral bypass graft appears patent. TECHNICAL DOCUMENTATION: Quality ID # 436: Final reports with documentation of one or more dose reduction techniques (e.g., Automated exposure control, adjustment of the mA and/or kV according to patient size, use of iterative reconstruction technique) copyright 2011 [employer]- All Rights Reserved Assessment and Plan - Diagnosis (1) COPD exacerbation Is this a current diagnosis for this admission?: Yes Plan: Continue current regimen. Taper oxygen to keep saturation 90% to 94%. (2) UTI (urinary tract infection) Qualifiers: Urinary tract infection type: site unspecified Hematuria presence: with hematuria Qualified Code(s): N39.0 - Urinary tract infection, site not specified; R31.9 - Hematuria, unspecified Is this a current diagnosis for this admission?: Yes Plan: Discussed the case with Dr. Mitch Mancilla the patient's infectious disease physician. We reviewed the culture results thus far. Because the patient was on Ancef for many weeks the most likely bacteria in the urine would be gram- negative bacilli that have developed a resistance to the first generation cephalosporins. We will place the patient on Zosyn at this time and discontinue all other antibiotics pending results of the urine culture. Urine culture is being processed in the lab today. (3) MSSA bacteremia Is this a current diagnosis for this admission?: Yes Plan: So far only 1 of the first 2 bottles are positive. Unfortunately it is staph aureus and this is consistent with the multiple previous cultures. With an infe cted graft it is likely that he will constantly seeded his bloodstream. In my discussion with Dr. Mancilla we will treat with IV antibiotics and Dr. Mancilla will convert him to lifelong oral suppressive therapy after discharge. (4) Infected aortic graft Qualifiers: Encounter type: subsequent encounter Qualified Code(s): T82.7XXD - Infection and inflammatory reaction due to other cardiac and vascular devices, implants and grafts, subsequent encounter Is this a current diagnosis for this admission?: Yes Plan: As above (5) Anemia, iron deficiency, inadequate dietary intake Is this a current diagnosis for this admission?: Yes Plan: Increase iron to twice daily (6) Dementia Qualifiers: Dementia type: unspecified type Dementia behavioral disturbance: without behavioral disturbance Qualified Code(s): F03.90 - Unspecified dementia without behavioral disturbance Is this a current diagnosis for this admission?: Yes Plan: Stable on current regimen (7) Peripheral vascular disease Is this a current diagnosis for this admission?: Yes Plan: Continue Plavix and antihypertensive medications as well as statin therapy. (8) Hypertension Qualifiers: Hypertension type: essential hypertension Qualified Code(s): I10 - Essential (primary) hypertension Is this a current diagnosis for this admission?: Yes Plan: Because the patient's blood pressures are tending toward the low side. I will decrease his lisinopril to 2.5 mg but continue the metoprolol at its current dose. - Plan Summary Summary: 02/24/2019-I was able to contact Dr. Mitch Mancilla the patient's infectious disease specialist. We reviewed all of the current results and treatment plan. Per Dr. Mancilla's suggestion we are going to discontinue Zyvox and ceftriaxone. With the possibility of a gram-negative bacillus in the urine we will institute Zosyn therapy. As soon as all of the culture results are available I will reach out to Dr. Mancilla and we will adjust the patient's antibiotic regimen accordingly. - Time Time Spent with patient: 25-34 minutes Medications reviewed and adjusted accordingly: Yes Anticipated discharge: Home with Homehealth
[2019-02-24] MEDS: QUETIAPINE FUMARATE 25 MG TABLET PO SCH (21:13)
[2019-02-24] MEDS: MELATONIN 3 MG TABLET PO SCH (21:14)
[2019-02-24] MEDS: ATORVASTATIN CALCIUM 80 MG TABLET PO SCH (21:14)
[2019-02-25] MEDS: PIPERACILLIN SODIUM/TAZOBACTAM 3.375 GM in NORMAL SALINE 100 ML IV SCH ×5 (00:09→23:58)
[2019-02-25] MEDS: ACETAMINOPHEN 325 MG TABLET PO PRN ×3 (05:52→18:27)
[2019-02-25] MEDS: HEPARIN SOD (PORCINE) 5,000 UNIT/ML 1 ML VIAL SUBCUT SCH ×3 (05:54→21:45)
[2019-02-25] MEDS: IPRATROPIUM/ALBUTEROL 0.5-2.5 MG/3 ML AMPUL NEB SCH ×2 (07:40→17:25)
[2019-02-25] MEDS: METOPROLOL TARTRATE 25 MG TABLET PO SCH ×2 (10:00→22:00)
[2019-02-25] MEDS: CLOPIDOGREL BISULFATE 75 MG TABLET PO SCH (10:01)
[2019-02-25] MEDS: ISOSORBIDE MONONITRATE 30 MG TAB.ER.24H PO SCH (10:01)
[2019-02-25] MEDS: FERROUS SULFATE 325 MG TABLET PO SCH ×2 (10:03→17:46)
[2019-02-25] MEDS: LISINOPRIL 5 MG TABLET PO SCH (10:03)
[2019-02-25] MEDS: ASPIRIN 81 MG TABLET, ENT COATED PO SCH (10:03)
[2019-02-25] MEDS: FUROSEMIDE 20 MG TABLET PO SCH (10:04)
[2019-02-25] MEDS: PREDNISONE 20 MG TABLET PO SCH ×2 (10:04→17:46)
[2019-02-25] MEDS: PANTOPRAZOLE SODIUM 40 MG TABLET.DR PO SCH ×2 (10:04→17:46)
[2019-02-25] MEDS: FLUTICASONE NASAL SPRAY 50 MCG/SPRY 120 SPRAY/16 GM NASL SCH ×2 (10:07→21:49)
[2019-02-25] MEDS: NORMAL SALINE INJ/PF 0.9% 10 ML SDV IV SCH ×2 (10:07→22:34)
[2019-02-25] MEDS: NORMAL SALINE 10 ML SDV (SCHEDULED) IV SCH ×2 (10:08→22:34)
[2019-02-25] MEDS ORDERED: SUMATRIPTAN SUCCINATE INJ/PF 6 MG/0.5 ML SDV SUBCUT PRN (11:13)
--- NOTE | 2019-02-25 11:23 | PDOC PROGRESS REPORT ---
Subjective Progress Note for:: 02/25/19 Subjective:: Patient is complaining of a headache. He has a history of migraines. He does believe that Imitrex has been helpful in the past. He also has been exhibiting sundowning. Reason For Visit: BACTEREMMIA, CYSTITIS, COPD Physical Exam Vital Signs: Temp Pulse Resp BP Pulse Ox 98.1 F 84 18 117/56 L 94 02/24/19 20:00 02/25/19 08:00 02/25/19 08:00 02/24/19 20:00 02/24/19 20:00 Intake & Output 02/24/19 02/25/19 02/26/19 06:59 06:59 06:59 Intake Total 1051 1760 0 Output Total 700 300 Balance 351 1460 0 Weight 58.4 kg 60.3 kg General appearance: PRESENT: cooperative, mild distress - Currently with migraine headache, well-developed - Well-developed but frail appearing 78-year-old gentleman who looks older than his stated age Eye exam: PRESENT: conjunctiva pale. ABSENT: scleral icterus Ear exam: PRESENT: normal external ear exam. ABSENT: bleeding, drainage Mouth exam: PRESENT: moist, tongue midline Teeth exam: PRESENT: poor dentation Respiratory exam: PRESENT: clear to auscultation cristobal, symmetrical, unlabored. ABSENT: accessory muscle use, rales, rhonchi, tachypnea, wheezes Cardiovascular exam: PRESENT: RRR, +S1, +S2 GI/Abdominal exam: PRESENT: distended, normal bowel sounds, soft. ABSENT: tenderness Rectal exam: PRESENT: deferred Extremities exam: ABSENT: pedal edema Neurological exam: PRESENT: alert, awake, oriented to person, oriented to place, oriented to situation Results Laboratory Results: 02/24/19 04:30 02/24/19 04:30 02/22/19 20:11 Blood Blood Culture (PCR) - Final Staphylococcus Aureus 02/22/19 02/22/19 02/22/19 18:45 18:45 18:45 Creatine Kinase 81 CK-MB (CK-2) 2.61 Troponin I 0.041 NT-Pro-B Natriuret Pep 1180 H 02/23/19 06:05 Creatine Kinase CK-MB (CK-2) Troponin I 0.153 NT-Pro-B Natriuret Pep Impressions: Chest X-Ray 02/22/19 18:52 IMPRESSION: Chronic lung changes with no acute cardiopulmonary finding. Abdomen/Pelvis CTA 02/22/19 21:31 IMPRESSION: Significantly limited due to motion however no evidence for acute intrathoracic process. No evidence for acute intra-abdominal/pelvic process. Severe atheromatous changes with stable postsurgical changes. Femorofemoral bypass graft appears patent. TECHNICAL DOCUMENTATION: Quality ID # 436: Final reports with documentation of one or more dose reduction techniques (e.g., Automated exposure control, adjustment of the mA and/or kV according to patient size, use of iterative reconstruction technique) copyright 2010 [employer]- All Rights Reserved Chest/Abdomen CTA 02/22/19 21:31 IMPRESSION: Significantly limited due to motion however no evidence for acute intrathoracic process. No evidence for acute intra-abdominal/pelvic process. Severe atheromatous changes with stable postsurgical changes. Femorofemoral bypass graft appears patent. TECHNICAL DOCUMENTATION: Quality ID # 436: Final reports with documentation of one or more dose reduction techniques (e.g., Automated exposure control, adjustment of the mA and/or kV according to patient size, use of iterative reconstruction technique) copyright 2010 [employer]- All Rights Reserved Assessment and Plan - Diagnosis (1) COPD exacerbation Is this a current diagnosis for this admission?: Yes Plan: Tapering back to baseline oxygen requirement (2) UTI (urinary tract infection) Qualifiers: Urinary tract infection type: site unspecified Hematuria presence: with hematuria Qualified Code(s): N39.0 - Urinary tract infection, site not specified; R31.9 - Hematuria, unspecified Is this a current diagnosis for this admission?: Yes Plan: Possibly sterile pyuria. Culture results still pending. (3) MSSA bacteremia Is this a current diagnosis for this admission?: Yes Plan: Discussed with patient's ID physician. Continue current regimen. We will update Dr. Mancilla regularly. We may even consider starting oral suppressive therapy at the time of his discharge and discontinue his PICC line. (4) Infected aortic graft Qualifiers: Encounter type: subsequent encounter Qualified Code(s): T82.7XXD - Infection and inflammatory reaction due to other cardiac and vascular devices, implants and grafts, subsequent encounter Is this a current diagnosis for this admission?: Yes Plan: Not a surgical candidate. Per Dr. Mancilla the patient will require chronic suppressive antibiotic therapy. I did explain that there is a possibility of the bacteria developing resistance. (5) Anemia, iron deficiency, inadequate dietary intake Is this a current diagnosis for this admission?: Yes Plan: Continue iron supplement (6) Dementia Qualifiers: Dementia type: unspecified type Dementia behavioral disturbance: without behavioral disturbance Qualified Code(s): F03.90 - Unspecified dementia without behavioral disturbance Is this a current diagnosis for this admission?: Yes Plan: Stable. Continue current medications. The patient did have sundowning last night despite his medications. I will increase his Seroquel to 75 mg at bedtime. (7) Peripheral vascular disease Is this a current diagnosis for this admission?: Yes Plan: Continue current medications (8) Hypertension Qualifiers: Hypertension type: essential hypertension Qualified Code(s): I10 - Essential (primary) hypertension Is this a current diagnosis for this admission?: Yes Plan: Blood pressures were low normal. With peripheral vascular disease I do not want to lose perfusion pressure. I did decrease the lisinopril to 2.5 mg daily. (9) Migraine Qualifiers: Migraine type: without aura Status migrainosus presence: without status migrainosus Intractability: not intractable Qualified Code(s): G43.009 - Migraine without aura, not intractable, without status migrainosus Is this a current diagnosis for this admission?: Yes Plan: The patient has a long history of migraine headaches. He has had headaches almost daily during this hospitalization. He has utilized Imitrex in the past. I have ordered a dose to see if this is effective. You might consider Topamax for migraine suppression. - Plan Summary Summary: - THIS PATIENT HAS MULTIPLE APPTS SCHEDULED AT THE [facility] - *THE FIRST APPT IS AT THE [facility] 03/25/19 @1000 *THE SECOND APPT IS ON 04/13/19 @1PM AT THE [facility] *THE 3RD APPT IS ON 04/21/19 @ 1PM AT THE [facility] *THE 4TH APPT IS ON 04/21/19 @115 AT THE [facility] 02/24/2019-I was able to contact Dr. Mitch Mancilla the patient's infectious disease specialist. We reviewed all of the current results and treatment plan. Per Dr. Mancilla's suggestion we are going to discontinue Zyvox and ceftriaxone. With the possibility of a gram-negative bacillus in the urine we will institute Zosyn therapy. As soon as all of the culture results are available I will reach out to Dr. Mancilla and we will adjust the patient's antibiotic regimen accordingly. 02/25/2019-I spoke to Rik, who is the patient's caregiver, and updated him on the current treatment plan. See details above. We discussed and reviewed my discussions with Dr. Mancilla last night. We discussed potential options based on the culture results. We did call Rik back regarding the migraine headaches. He informed me that they have been trying to get a medication approved for the patient. He has used Imitrex in the past. We will order a dose as noted above. - Time Time Spent with patient: 25-34 minutes Medications reviewed and adjusted accordingly: Yes Anticipated discharge: Home with Homehealth
[2019-02-25] MEDS ORDERED: SUMATRIPTAN SUCCINATE INJ/PF 6 MG/0.5 ML SDV SUBCUT ONE (12:00)
[2019-02-25] MEDS: TAMSULOSIN HCL 0.4 MG CAP.SR.24H PO SCH (17:46)
[2019-02-25] MEDS: DOXEPIN HCL 10 MG CAPSULE PO SCH (17:46)
[2019-02-25] MEDS: MELATONIN 3 MG TABLET PO SCH (21:47)
[2019-02-25] MEDS: ATORVASTATIN CALCIUM 80 MG TABLET PO SCH (21:47)
[2019-02-25] MEDS: QUETIAPINE FUMARATE 25 MG TABLET PO SCH (21:47)
[2019-02-26] MEDS: IPRATROPIUM/ALBUTEROL 0.5-2.5 MG/3 ML AMPUL NEB SCH ×3 (00:39→16:44)
[2019-02-26] MEDS: PIPERACILLIN SODIUM/TAZOBACTAM 3.375 GM in NORMAL SALINE 100 ML IV SCH ×2 (06:28→11:49)
[2019-02-26] MEDS: HEPARIN SOD (PORCINE) 5,000 UNIT/ML 1 ML VIAL SUBCUT SCH ×3 (06:32→21:43)
[2019-02-26] MEDS: NORMAL SALINE 10 ML SDV (SCHEDULED) IV SCH ×2 (10:06→21:43)
[2019-02-26] MEDS: LISINOPRIL 5 MG TABLET PO SCH (10:07)
[2019-02-26] MEDS: ASPIRIN 81 MG TABLET, ENT COATED PO SCH (11:46)
[2019-02-26] MEDS: FERROUS SULFATE 325 MG TABLET PO SCH ×2 (11:47→18:10)
[2019-02-26] MEDS: PANTOPRAZOLE SODIUM 40 MG TABLET.DR PO SCH ×2 (11:47→18:10)
[2019-02-26] MEDS: METOPROLOL TARTRATE 25 MG TABLET PO SCH ×2 (11:47→21:42)
[2019-02-26] MEDS: FUROSEMIDE 20 MG TABLET PO SCH (11:47)
[2019-02-26] MEDS: PREDNISONE 20 MG TABLET PO SCH ×2 (11:48→18:10)
[2019-02-26] MEDS: ISOSORBIDE MONONITRATE 30 MG TAB.ER.24H PO SCH (11:48)
[2019-02-26] MEDS: FLUTICASONE NASAL SPRAY 50 MCG/SPRY 120 SPRAY/16 GM NASL SCH ×2 (11:48→21:42)
[2019-02-26] MEDS: CLOPIDOGREL BISULFATE 75 MG TABLET PO SCH (11:48)
[2019-02-26] MEDS: NORMAL SALINE INJ/PF 0.9% 10 ML SDV IV SCH ×2 (11:52→21:43)
[2019-02-26] MEDS: ACETAMINOPHEN 325 MG TABLET PO PRN ×2 (13:33→20:06)
--- NOTE | 2019-02-26 13:45 | PDOC PROGRESS REPORT ---
Subjective Progress Note for:: 02/26/19 Subjective:: Patient is resting in bed. He has multiple visitors. He appears to be in good spirits. We discussed the recommended plan from Dr. Mancilla the patient's infectious disease doctor. Reason For Visit: BACTEREMMIA, CYSTITIS, COPD Physical Exam Vital Signs: Temp Pulse Resp BP Pulse Ox 97.6 F 68 18 95/54 L 93 02/26/19 07:17 02/26/19 07:44 02/26/19 07:44 02/26/19 07:17 02/26/19 12:03 Intake & Output 02/25/19 02/26/19 02/27/19 06:59 06:59 06:59 Intake Total 1760 1824 Output Total 300 Balance 1460 1824 Weight 60.3 kg 57.9 kg General appearance: PRESENT: no acute distress, cooperative, well-developed Head exam: PRESENT: atraumatic, normocephalic Eye exam: PRESENT: conjunctiva pale. ABSENT: scleral icterus Ear exam: PRESENT: normal external ear exam. ABSENT: bleeding, drainage Mouth exam: PRESENT: dry mucosa, tongue midline Respiratory exam: PRESENT: clear to auscultation cristobal, symmetrical, unlabored. ABSENT: accessory muscle use, prolonged expiratory phas, rales, rhonchi, tachypnea, wheezes Cardiovascular exam: PRESENT: RRR, +S1, +S2 GI/Abdominal exam: PRESENT: normal bowel sounds, soft. ABSENT: distended, tenderness Rectal exam: PRESENT: deferred Gentrourinary exam: ABSENT: indwelling catheter Extremities exam: ABSENT: pedal edema Musculoskeletal exam: PRESENT: normal inspection Neurological exam: PRESENT: alert, awake, oriented to person, oriented to place, oriented to situation, CN II-XII grossly intact Psychiatric exam: PRESENT: appropriate affect. ABSENT: agitated, anxious Focused psych exam: ABSENT: delusional, restlessness Skin exam: PRESENT: dry, pallor, warm Results Laboratory Results: 02/24/19 04:30 02/24/19 04:30 02/24/19 15:30 Clean Catch Midstream Urine Culture - Final NO GROWTH 2 DAYS 02/22/19 20:11 Blood Blood Culture (PCR) - Final Staphylococcus Aureus 02/22/19 20:11 Blood Blood Culture - Final Staphylococcus Aureus 02/22/19 02/22/19 02/22/19 18:45 18:45 18:45 Creatine Kinase 81 CK-MB (CK-2) 2.61 Troponin I 0.041 NT-Pro-B Natriuret Pep 1180 H 02/23/19 06:05 Creatine Kinase CK-MB (CK-2) Troponin I 0.153 NT-Pro-B Natriuret Pep Impressions: Chest X-Ray 02/22/19 18:52 IMPRESSION: Chronic lung changes with no acute cardiopulmonary finding. Abdomen/Pelvis CTA 02/22/19 21:31 IMPRESSION: Significantly limited due to motion however no evidence for acute intrathoracic process. No evidence for acute intra-abdominal/pelvic process. Severe atheromatous changes with stable postsurgical changes. Femorofemoral bypass graft appears patent. TECHNICAL DOCUMENTATION: Quality ID # 436: Final reports with documentation of one or more dose reduction techniques (e.g., Automated exposure control, adjustment of the mA and/or kV according to patient size, use of iterative reconstruction technique) copyright 2010 [employer]- All Rights Reserved Chest/Abdomen CTA 02/22/19 21:31 IMPRESSION: Significantly limited due to motion however no evidence for acute intrathoracic process. No evidence for acute intra-abdominal/pelvic process. Severe atheromatous changes with stable postsurgical changes. Femorofemoral bypass graft appears patent. TECHNICAL DOCUMENTATION: Quality ID # [id number]: Final reports with documentation of one or more dose reduction techniques (e.g., Automated exposure control, adjustment of the mA and/or kV according to patient size, use of iterative reconstruction technique) copyright 2010 [employer]- All Rights Reserved Assessment and Plan - Diagnosis (1) COPD exacerbation Is this a current diagnosis for this admission?: Yes (2) UTI (urinary tract infection) Qualifiers: Urinary tract infection type: site unspecified Hematuria presence: with hematuria Qualified Code(s): N39.0 - Urinary tract infection, site not specified; R31.9 - Hematuria, unspecified Is this a current diagnosis for this admission?: Yes (3) MSSA bacteremia Is this a current diagnosis for this admission?: Yes (4) Infected aortic graft Qualifiers: Encounter type: subsequent encounter Qualified Code(s): T82.7XXD - Infection and inflammatory reaction due to other cardiac and vascular devices, implants and grafts, subsequent encounter Is this a current diagnosis for this admission?: Yes (5) Anemia, iron deficiency, inadequate dietary intake Is this a current diagnosis for this admission?: Yes (6) Dementia Qualifiers: Dementia type: unspecified type Dementia behavioral disturbance: without behavioral disturbance Qualified Code(s): F03.90 - Unspecified dementia without behavioral disturbance Is this a current diagnosis for this admission?: Yes (7) Peripheral vascular disease Is this a current diagnosis for this admission?: Yes (8) Hypertension Qualifiers: Hypertension type: essential hypertension Qualified Code(s): I10 - Es sential (primary) hypertension Is this a current diagnosis for this admission?: Yes (9) Migraine Qualifiers: Migraine type: without aura Status migrainosus presence: without status migrainosus Intractability: not intractable Qualified Code(s): G43.009 - Migraine without aura, not intractable, without status migrainosus Is this a current diagnosis for this admission?: Yes - Plan Summary Summary: - THIS PATIENT HAS MULTIPLE APPTS SCHEDULED AT THE [facility] - *THE FIRST APPT IS AT THE [facility] 03/25/19 @1000 *THE SECOND APPT IS ON 04/13/19 @1PM AT THE [facility] *THE 3RD APPT IS ON 04/21/19 @ 1PM AT THE [facility] *THE 4TH APPT IS ON 04/21/19 @115 AT THE [facility] 02/24/2019-I was able to contact Dr. Mitch Mancilla the patient's infectious disease specialist. We reviewed all of the current results and treatment plan. Per Dr. Mancilla's suggestion we are going to discontinue Zyvox and ceftriaxone. With the possibility of a gram-negative bacillus in the urine we will institute Zosyn therapy. As soon as all of the culture results are available I will reach out to Dr. Mancilla and we will adjust the patient's antibiotic regimen a ccordingly. 02/25/2019-I spoke to Rik, who is the patient's caregiver, and updated him on the current treatment plan. See details above. We discussed and reviewed my discussions with Dr. Mancilla last night. We discussed potential options based on the culture results. We did call Rik back regarding the migraine headaches. He informed me that they have been trying to get a medication approved for the patient. He has used Imitrex in the past. We will order a dose as noted above. 02/26/2019-I discussed the case with Dr. Mancilla the patient's infectious disease physician. The staph aureus has the same sensitivity pattern as before. Only 1 of 2 blood culture bottles were positive. This is an atypical presentation however he has been on multiple courses of antibiotics in the infected graft could be sporadically leaking bacteria into the bloodstream. He has no headache today. Blood pressure still varies but is reasonably controlled as is his heart rate. No complaints of claudication in his legs. We will arrange for the patient to resume home antibiotics with [facility]. He will be on the Ancef 3 times a day for a total of 2 weeks (through March 12). I will fax the microbiology results and labs to Dr. Mancilla. We will also resume home health. I did order monitoring labs and asked Lukas to send those to Dr. Mancilla as well. The patient and his caregiver are in fact in agreement with this plan. We will continue with the current PICC line and Dr. Mancilla will discontinue this at his office. All are in agreement with this plan. - Time Time Spent with patient: 25-34 minutes Medications reviewed and adjusted accordingly: Yes Anticipated discharge: Home with Homehealth Within: within 24 hours
[2019-02-26] MEDS ORDERED: CEFAZOLIN 1 GM/D5W RTU 1 GM/50 ML RTUPB IV SCH (18:00)
[2019-02-26] MEDS: DOXEPIN HCL 10 MG CAPSULE PO SCH (18:10)
[2019-02-26] MEDS: TAMSULOSIN HCL 0.4 MG CAP.SR.24H PO SCH (18:11)
[2019-02-26] MEDS: CEFAZOLIN SODIUM 1 GM in DEXTROSE 5%-WATER 50 ML IV SCH (18:18)
[2019-02-26] MEDS: QUETIAPINE FUMARATE 25 MG TABLET PO SCH (21:42)
[2019-02-26] MEDS: ATORVASTATIN CALCIUM 80 MG TABLET PO SCH (21:42)
[2019-02-26] MEDS: MELATONIN 3 MG TABLET PO SCH (21:42)
[2019-02-27] MEDS: IPRATROPIUM/ALBUTEROL 0.5-2.5 MG/3 ML AMPUL NEB SCH ×2 (00:32→08:41)
[2019-02-27] MEDS: CEFAZOLIN SODIUM 1 GM in DEXTROSE 5%-WATER 50 ML IV SCH ×3 (01:02→11:32)
[2019-02-27] MEDS: HEPARIN SOD (PORCINE) 5,000 UNIT/ML 1 ML VIAL SUBCUT SCH (06:26)
[2019-02-27 09:16] VITALS: BP 115/62
[2019-02-27] MEDS ORDERED: PREDNISONE 20 MG TABLET PO SCH (10:00)
[2019-02-27] MEDS: FERROUS SULFATE 325 MG TABLET PO SCH (11:23)
[2019-02-27] MEDS: ASPIRIN 81 MG TABLET, ENT COATED PO SCH (11:23)
[2019-02-27] MEDS: METOPROLOL TARTRATE 25 MG TABLET PO SCH (11:25)
[2019-02-27] MEDS: NORMAL SALINE 10 ML SDV (SCHEDULED) IV SCH (11:25)
[2019-02-27] MEDS: ISOSORBIDE MONONITRATE 30 MG TAB.ER.24H PO SCH (11:25)
[2019-02-27] MEDS: FUROSEMIDE 20 MG TABLET PO SCH (11:25)
[2019-02-27] MEDS: PANTOPRAZOLE SODIUM 40 MG TABLET.DR PO SCH (11:26)
[2019-02-27] MEDS: CLOPIDOGREL BISULFATE 75 MG TABLET PO SCH (11:26)
[2019-02-27] MEDS: NORMAL SALINE INJ/PF 0.9% 10 ML SDV IV SCH (11:26)
[2019-02-27] MEDS: LISINOPRIL 5 MG TABLET PO SCH (11:26)
[2019-02-27] MEDS: FLUTICASONE NASAL SPRAY 50 MCG/SPRY 120 SPRAY/16 GM NASL SCH (11:59)
[2019-02-27] MEDS: ACETAMINOPHEN 325 MG TABLET PO PRN (13:34)
--- NOTE | 2019-02-27 13:52 | PDOC DISCHARGE SUMMARY ---
Impression - Admit/DC Date/PCP Admission Date/Primary Care Provider: 02/24/19 11:31 Discharge Date: 02/27/19 - Discharge Diagnosis (1) COPD exacerbation Is this a current diagnosis for this admission?: Yes (2) UTI (urinary tract infection) Is this a current diagnosis for this admission?: Yes (3) MSSA bacteremia Is this a current diagnosis for this admission?: Yes (4) Infected aortic graft Is this a current diagnosis for this admission?: Yes (5) Anemia, iron deficiency, inadequate dietary intake Is this a current diagnosis for this admission?: Yes (6) Dementia Is this a current diagnosis for this admission?: Yes (7) Peripheral vascular disease Is this a current diagnosis for this admission?: Yes (8) Hypertension Is this a current diagnosis for this admission?: Yes (9) Migraine Is this a current diagnosis for this admission?: Yes - Assessment Summary: - THIS PATIENT HAS MULTIPLE APPTS SCHEDULED AT THE [facility] - *THE FIRST APPT IS AT THE [facility] 03/25/19 @1000 *THE SECOND APPT IS ON 04/13/19 @1PM AT THE [facility] *THE 3RD APPT IS ON 04/21/19 @ 1PM AT THE [facility] *THE 4TH APPT IS ON 04/21/19 @115 AT THE [facility]ICE 02/24/2019-I was able to contact Dr. Mitch Mancilla the patient's infectious disease specialist. We reviewed all of the current results and treatment plan. Per Dr. Mancilla's suggestion we are going to discontinue Zyvox and ceftriaxone. With the possibility of a gram-negative bacillus in the urine we will institute Zosyn therapy. As soon as all of the culture results are available I will reach out to Dr. Mancilla and we will adjust the patient's antibiotic regimen accordingly. 02/25/2019-I spoke to Bill, who is the patient's caregiver, and updated him on the current treatment plan. See details above. We discussed and reviewed my discussions with Dr. Mancilla last night. We discussed potential options based on the culture results. We did call Bill back regarding the migraine headaches. He informed me that they have been trying to get a medication approved for the patient. He has used Imitrex in the past. We will order a dose as noted above. 02/26/2019-I discussed the case with Dr. Mancilla the patient's infectious disease physician. The staph aureus has the same sensitivity pattern as before. Only 1 of 2 blood culture bottles were positive. This is an atypical presentation however he has been on multiple courses of antibiotics in the infected graft could be sporadically leaking bacteria into the bloodstream. He has no headache today. Blood pressure still varies but is reasonably controlled as is his heart rate. No complaints of claudication in his legs. We will arrange for the patient to resume home antibiotics with [facility]. He will be on the Ancef 3 times a day for a total of 2 weeks (through March 12). I will fax the microbiology results and labs to Dr. Mancilla. We will also resume home health. I did order monitoring labs and asked Lukas to send those to Dr. Mancilla as well. The patient and his caregiver are in fact in agreement with this plan. We will continue with the current PICC line and Dr. Mancilla will discontinue this at his office. All are in agreement with this plan. - Additional Information Resuscitation Status: Do Not Resuscitate Discharge Diet: Cardiac, Other (Comments) - Soft Discharge Activity: Activity As Tolerated, Balance Activity w/Rest Referrals: MITCH MANCILLA MD [NO LOCAL MD] - 03/25/19 10:00 am (-YOUR FIRST APPT IS AT THE [facility] OFFICE 03/25/19 @1000 -ANOTHER APPT IS ON 04/13/19 @1PM AT THE [facility] -YOUR 3RD APPT IS ON 04/21/19 @ 1PM AT THE [facility] -YOUR 4TH APPT IS ON 04/21/19 @115 AT THE [facility]ICE) Home Medications: Acetaminophen [Tylenol 325 mg Tablet] 650 mg PO Q6HP PRN 01/04/19 Albuterol Sulfate [Proair HFA Inhalation Aerosol 8.5 gm MDI] 2 puff IH Q6HP PRN 01/04/19 Aspirin [Adult Low Dose Aspirin EC] 81 mg PO DAILY 01/04/19 Atorvastatin Calcium [Lipitor 80 mg Tablet] 80 mg PO QHS 01/04/19 Budesonide/Formoterol Fumarate [Symbicort HFA 160-4.5 mcg Inhaler 6 gm] 2 puff IH Q12 01/04/19 Cholecalciferol (Vitamin D3) [Vitamin D3 1000 Unit Tablet] 1,000 unit PO DAILY 01/04/19 Clopidogrel Bisulfate [Plavix 75 mg Tablet] 75 mg PO DAILY 01/04/19 Docusate Sodium [Colace 100 mg Capsule] 200 mg PO BIDP PRN 01/04/19 Doxepin HCl [Sinequan 10 mg Capsule] 10 mg PO QPM 01/04/19 Ferrous Sulfate 324 mg PO DAILY 01/04/19 Furosemide [Lasix 20 mg Tablet] 20 mg PO DAILY 01/04/19 Isosorbide Mononitrate [Imdur 30 mg Tablet.er] 30 mg PO DAILY 01/04/19 Lisinopril [Zestril] 5 mg PO DAILY 01/04/19 Melatonin [Melatonin 3 mg Tablet] 3 mg PO QHS 01/04/19 Metoprolol Tartrate [Lopressor 25 mg Tablet] 25 mg PO Q12 01/04/19 Nitroglycerin [Nitro-Dur 15 mg (0.6 mg/1 Hr) Transderm Patch] 1 patch TD DAILY 01/04/19 Nitroglycerin [Nitrostat 0.4 mg (1/150 Gr) Tabs 25/Bottle] 0.4 mg SL Q5MP PRN 01/04/19 Pantoprazole Sodium [Protonix [address] Tablet] 40 mg PO BID 01/04/19 Polyethylene Glycol 3350 [Miralax Powder 17 gm/Packet] 17 gm PO DAILYP PRN 01/04/19 Prochlorperazine Maleate [Compazine 5 mg Tablet] 5 mg PO DAILYP PRN 01/04/19 Quetiapine Fumarate [Seroquel 25 mg Tablet] 37.5 mg PO QHS 01/04/19 Tamsulosin HCl [Flomax 0.4 mg Cap.sr] 0.4 mg PO QPM 01/04/19 Tiotropium [place] [Spiriva Handihaler 5 Cap/Kit (18 Mcg/Cap)] 1 cap IH DAILY 01/04/19 Cefazolin Sodium [Ancef Inj 1 gm Vial] 1 gm IV Q6 vial 02/27/19 Fluticasone Propionate [Flonase Nasal [place] 50 Mcg/[place] 16 gm] 2 spray NASL Q12 spray.pump 02/27/19 Guaifenesin [Robitussin Syrup 200 mg/10 ml Ud Cup] 200 mg PO Q4HP PRN udc 02/27/19 History of Present Illiness History of Present Illness: GAVINO PEDRAZA is a 78 year old male who has been struggling with staph aureus bacteremia for several months. He has an infected aortic graft. He is not a candidate for surgery. He was not feeling well and so he was brought to the emergency department. He was found to have an elevated white blood cell count, longstanding indwelling PICC line and some shortness of breath. He was referred to the hospital service for admission Hospital Course Hospital Course: 1 of 2 blood cultures revealed the same staph aureus from previous cultures and December. I had a discussion with his infectious disease doctor. Once the patient was a stable we are going to resume his home antibiotic therapy with [facility] as well as home health. The patient's hospital course in fact was fairly unremarkable and that he responded to the broader spectrum antibiotics. These were used as we were suspicious of a resistant organism that would have developed while on long-term Ancef. Because this was not the case, he was reverted back to the Ancef and in fact was back to his baseline breathing as well as feeling back to his baseline and therefore discharged. Physical Exam Vital Signs: Temp Pulse Resp BP Pulse Ox 97.9 F 70 20 115/62 100 02/27/19 09:15 02/27/19 09:15 02/27/19 09:15 02/27/19 09:15 02/27/19 09:15 Intake & Output 02/26/19 02/27/19 02/28/19 06:59 06:59 06:59 Intake Total 1824 960 50 Balance 1824 960 50 Weight 57.9 kg 61.2 kg Results Laboratory Results: WBC 9.5 10^3/uL (4.0-10.5) 02/24/19 04:30 RBC 3.32 10^6/uL (4.35-5.55) L 02/24/19 04:30 Hgb 9.7 g/dL (13.5-17.0) L 02/24/19 04:30 Hct 28.4 % (37.9-51.0) L 02/24/19 04:30 MCV 86 fl (80-97) 02/24/19 04:30 MCH 29.1 pg (27.0-33.4) 02/24/19 04:30 MCHC 34.1 g/dL (32.0-36.0) 02/24/19 04:30 RDW 16.9 % (11.5-14.0) H 02/24/19 04:30 Plt Count 349 10^3/uL (150-450) 02/24/19 04:30 Lymph % (Auto) 10.4 % (13-45) L 02/24/19 04:30 [place] % (Auto) 6.7 % (3-13) 02/24/19 04:30 Eos % (Auto) 0.0 % (0-6) 02/24/19 04:30 Baso % (Auto) 0.1 % (0-2) 02/24/19 04:30 Reticulocyte # 0.076 10^6/uL (0.028-0.122) 02/23/19 06:05 Reticulocyte # Cancelled 02/23/19 06:05 Absolute Neuts (auto) 7.8 10^3/uL (1.7-8.2) 02/24/19 04:30 Absolute Lymphs (auto) 1.0 10^3/uL (0.5-4.7) 02/24/19 04:30 Absolute Monos (auto) 0.6 10^3/uL (0.1-1.4) 02/24/19 04:30 Absolute Eos (auto) 0.0 10^3/uL (0.0-0.6) 02/24/19 04:30 Absolute Basos (auto) 0.0 10^3/uL (0.0-0.2) 02/24/19 04:30 Seg Neutrophils % 82.8 % (42-78) H 02/24/19 04:30 Reticulocyte # (manual) Cancelled 02/23/19 06:05 Retic Count Cancelled 02/23/19 06:05 Retic Count (manual) Cancelled 02/23/19 06:05 Retic Count (auto) 2.05 % (0.66-2.85) 02/23/19 06:05 Retic Count (auto) Cancelled 02/23/19 06:05 Absolute Retic Cancelled 02/23/19 06:05 Carbonic Acid 0.83 mmol/L (1.05-1.35) L 02/22/19 20:47 HCO3/H2CO3 Ratio 23:1 02/22/19 20:47 ABG pH 7.47 (7.35-7.45) H 02/22/19 20:47 ABG pCO2 27.6 mmHg (35-45) L 02/22/19 20:47 ABG pO2 72.5 mmHg (80-100) L 02/22/19 20:47 ABG HCO3 19.5 mmol/L (20-24) L 02/22/19 20:47 ABG Total CO2 20.3 mmol/L (23-27) L 02/22/19 20:47 ABG O2 Saturation 95.7 % (94-98) 02/22/19 20:47 ABG Base Excess -3.1 mmol/L 02/22/19 20:47 FiO2 5 02/22/19 20:47 Sodium 141.3 mmol/L (137-145) 02/24/19 04:30 Potassium 4.3 mmol/L (3.6-5.0) 02/24/19 04:30 Chloride 105 mmol/L (98-107) 02/24/19 04:30 Carbon Dioxide 24 mmol/L (22-30) 02/24/19 04:30 Anion Gap 12 (5-19) 02/24/19 04:30 BUN 21 mg/dL (7-20) H 02/24/19 04:30 Creatinine 0.87 mg/dL (0.52-1.25) 02/24/19 04:30 Est GFR ( Amer) > 60 (>60) 02/24/19 04:30 Est GFR (MDRD) Non-Af > 60 (>60) 02/24/19 04:30 Glucose 124 mg/dL (75-110) H 02/24/19 04:30 Lactic Acid 2.1 mmol/L (0.7-2.1) 02/22/19 20:11 Calcium 9.1 mg/dL (8.4-10.2) 02/24/19 04:30 Magnesium 1.6 mg/dL (1.6-2.3) 02/22/19 18:45 Iron 28.8 ug/dL (49-181) L 02/23/19 06:05 TIBC 252 ug/dL (250-450) 02/23/19 06:05 % Saturation 11 % 02/23/19 06:05 Ferritin 71.80 ng/mL (17.9-464.0) 02/23/19 06:05 Total Bilirubin 0.5 mg/dL (0.2-1.3) 02/22/19 18:45 Direct Bilirubin 0.4 mg/dL (0.0-0.4) 02/22/19 18:45 Neonat Total Bilirubin Not Reportable 02/22/19 18:45 Neonat Direct Bilirubin Not Reportable 02/22/19 18:45 Neonat Indirect Bili Not Reportable 02/22/19 18:45 AST 25 U/L (17-59) 02/22/19 18:45 ALT 7 U/L (<50) 02/22/19 18:45 Alkaline Phosphatase 135 U/L (38-126) H 02/22/19 18:45 Creatine Kinase 81 U/L (55-170) 02/22/19 18:45 CK-MB (CK-2) 2.61 ng/mL (<4.55) 02/22/19 18:45 Troponin I 0.153 ng/mL 02/23/19 06:05 NT-Pro-B Natriuret Pep 1180 pg/mL (<450) H 02/22/19 18:45 Total Protein 7.6 g/dL (6.3-8.2) 02/22/19 18:45 Albumin 3.7 g/dL (3.5-5.0) 02/22/19 18:45 Vitamin B12 748.0 pg/mL (239-931) 02/23/19 06:05 Folate 7.89 ng/mL (>2.76) 02/23/19 06:05 Urine Color YELLOW 02/22/19 19:34 Urine Appearance CLOUDY 02/22/19 19:34 Urine pH 5.0 (5.0-9.0) 02/22/19 19:34 Ur Specific [place] 1.006 02/22/19 19:34 Urine Protein NEGATIVE mg/dL (NEGATIVE) 02/22/19 19:34 Urine Glucose (UA) NEGATIVE mg/dL (NEGATIVE) 02/22/19 19:34 Urine Ketones NEGATIVE mg/dL (NEGATIVE) 02/22/19 19:34 Urine Blood SMALL (NEGATIVE) H 02/22/19 19:34 Urine Nitrite NEGATIVE (NEGATIVE) 02/22/19 19:34 Urine Bilirubin NEGATIVE (NEGATIVE) 02/22/19 19:34 Urine Urobilinogen NEGATIVE mg/dL (<2.0) 02/22/19 19:34 Ur Leukocyte Esterase LARGE (NEGATIVE) H 02/22/19 19:34 Urine WBC (Auto) 163 /HPF 02/22/19 19:34 Urine RBC (Auto) 3 /HPF 02/22/19 19:34 Urine WBC Clumps MANY /HPF 02/22/19 19:34 Urine Mucus (Auto) RARE /LPF 02/22/19 19:34 Urine Ascorbic Acid NEGATIVE (NEGATIVE) 02/22/19 19:34 02/22/19 02/22/19 02/23/19 18:45 18:45 06:05 CK-MB (CK-2) 2.61 Troponin I 0.041 0.153 NT-Pro-B Natriuret Pep 1180 H Impressions: Chest X-Ray 02/22/19 18:52 IMPRESSION: Chronic lung changes with no acute cardiopulmonary finding. Abdomen/Pelvis CTA 02/22/19 21:31 IMPRESSION: Significantly limited due to motion however no evidence for acute intrathoracic process. No evidence for acute intra-abdominal/pelvic process. Severe atheromatous changes with stable postsurgical changes. Femorofemoral bypass graft appears patent. TECHNICAL DOCUMENTATION: Quality ID # 436: Final reports with documentation of one or more dose reduction techniques (e.g., Automated exposure control, adjustment of the mA and/or kV according to patient size, use of iterative reconstruction technique) copyright 2010 [employer]- All Rights Reserved Chest/Abdomen CTA 02/22/19 21:31 IMPRESSION: Significantly limited due to motion however no evidence for acute intrathoracic process. No evidence for acute intra-abdominal/pelvic process. Severe atheromatous changes with stable postsurgical changes. Femorofemoral bypass graft appears patent. 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 Plan of Treatment: Discharged home. [facility] will continue Ancef 1 g every 8 hours through March 12. He has an appointment with Dr. Saravia on March 21. He will resume all of his other medications. Goals: As the infection will not be cured, stabilization of his bacteremia is all that can be as expected. Time Spent: Greater than 30 Minutes Stroke Is this a Stroke Patient?: No Acute Heart Failure - Is this a Heart Failure Patient?: No
== END 2019-02-27 14:55 | disposition home health service (06) | DRG 191 ==
LOC: ER 18:33 → EH 02-23 01:57 → 5TH 02-23 12:10 → 4S 02-23 16:16 → OBSVTOIN 02-24 11:31
PROVIDERS: ADMIT Hospitalist; ATTEND Hospitalist
DX: J44.1 Chronic obstructive pulmonary disease with (acute) exacerbation (principal); R78.81 Bacteremia; N30.01 Acute cystitis with hematuria; T82.7XXD Infection and inflammatory reaction due to other cardiac and vascular devices, implants and grafts, subsequent encounter; B95.61 Methicillin susceptible Staphylococcus aureus infection as the cause of diseases classified elsewhere; Y83.2 Surgical operation with anastomosis, bypass or graft as the cause of abnormal reaction of the patient, or of later complication, without mention of misadventure at the time of the procedure; D50.9 Iron deficiency anemia, unspecified; F03.90 Unspecified dementia, unspecified severity, without behavioral disturbance, psychotic disturbance, mood disturbance, and anxiety; N40.0 Benign prostatic hyperplasia without lower urinary tract symptoms; E11.51 Type 2 diabetes mellitus with diabetic peripheral angiopathy without gangrene; I10 Essential (primary) hypertension; G43.009 Migraine without aura, not intractable, without status migrainosus; I25.10 Atherosclerotic heart disease of native coronary artery without angina pectoris; Z66 Do not resuscitate; Z79.02 Long term (current) use of antithrombotics/antiplatelets; Z79.82 Long term (current) use of aspirin; Z79.899 Other long term (current) drug therapy; Z95.5 Presence of coronary angioplasty implant and graft; Z99.81 Dependence on supplemental oxygen; Z95.9 Presence of cardiac and vascular implant and graft, unspecified
CPT/HCPCS: 36415; 36600; 71045; 71275; 74174; 80048; 80053; 81001; 82550; 82553; 82607; 82728; 82746; 82803; 83540; 83550; 83605; 83735; 83880; 84484; 85025; 85045; 85652; 87040; 87070; 87077; 87086; 87150; 87186; 93005; 93010; 94799; 96365; 96375; 99285; G0378; J0690; J0696; J1642; J1644; J2020; J2060; J2543; J2930; J3030; J3490; J7050; J7060; J7512; J7620

== ENCOUNTER 2019-03-14 07:10 | Emergency (ER) | payer MEDICARE ==
--- NOTE | 2019-03-14 10:41 | ER Document Report ---
ED General - General Chief Complaint: Nose Bleed Stated Complaint: NOSE BLEED Time Seen by Provider: 03/14/19 09:43 Primary Care Provider: AMINAH,LAUREL [Primary Care Provider] - Follow up as needed Notes: 78-year-old male presents emergency department stating that he has had a nosebleed since last evening. Also states that he coughed up blood 2 days ago. He has had occasional shortness of breath with this. Patient is taking Brilinta, uses oxygen at home, states it is humidified. Denies any trauma to his nose. Denies picking his nose. TRAVEL OUTSIDE OF THE [place] IN LAST 30 DAYS: No - Related Data Allergies/Adverse Reactions: No Known Allergies Allergy (Verified 01/02/19 01:23) Home Medications: Aspirin, Atorvastatin, Budesonide/Formoter, Doxycycline, Ferrous Sulfate, Pantoprazole, Sertraline, Tamsulosin, Ticagrelor, Tiotropium Past Medical History - General Information source: Patient - Social History Smoking Status: Former Smoker Frequency of alcohol use: None Drug Abuse: None Family History: COPD Patient has suicidal ideation: No Patient has homicidal ideation: No - Past Medical History Cardiac Medical History: Reports: Hx Coronary Artery Disease, Hx Peripheral Vascular Disease Pulmonary Medical History: Reports: Hx COPD Denies: Hx Asthma Neurological Medical History: Denies: Hx Seizures Endocrine Medical History: Reports: Hx Diabetes Mellitus Type 2. Denies: Hx Diabetes Mellitus Type 1 GI Medical History: Denies: Hx Crohn's Disease, Hx Ulcerative Colitis Musculoskeletal Medical History: Denies Hx Fibromyalgia, Denies Hx Gout Skin Medical History: Denies Hx Eczema, Denies Hx Psoriasis Psychiatric Medical History: Reports: Hx Dementia Past Surgical History: Reports: Hx Cardiac Catheterization, Hx Coronary Stent Review of Systems - Review of Systems Constitutional: No symptoms reported EENT: See HPI Cardiovascular: No symptoms reported. denies: Chest pain, Dyspnea Respiratory: See HPI, Cough, Hemoptysis, Short of breath Gastrointestinal: No symptoms reported -: Yes All other systems reviewed and negative Physical Exam - Vital signs Vitals: Temp Pulse BP Pulse Ox 98.4 F 100 150/53 H 90 L 03/14/19 07:15 03/14/19 07:15 03/14/19 07:15 03/14/19 07:15 Interpretation: Hypertensive - Notes Notes: GENERAL: Alert, interacts well. No acute distress. HEAD: Normocephalic, atraumatic EYES: Pupils equal, round and reactive to light, extraocular movements intact. ENT: Oral mucosa moist, tongue midline. Nares patent, moderately sized blood clot noted to the nasal septum on the left, no active bleeding on either side, I am unable to visualize the hole that the patient states he has in his nasal septum. NECK: Full range of motion, supple, trachea midline. LUNGS: no respiratory distress. EXTREMITIES: Moves all 4 extremities spontaneously, no edema. No cyanosis. Akathisia type movements. NEUROLOGICAL: Alert and oriented x3, normal speech. PSYCH: Normal mood, normal affect. SKIN: Warm, Dry, normal turgor. Course - Re-evaluation Re-evalutation: 03/14/19 13:11 CBC shows shows anemia with hemoglobin 9.9, this is not low enough to need transfusion. Chest x-ray does not show any acute process without mass or pneumonia. Nosebleed is stopped on his own, he has been wearing not humidified oxygen here in the emergency department for at least the past hour without recurrence of the nosebleed. Patient is counseled on nosebleed instructions and aftercare, also instructed on the importance of using his humidified O2 at home. - Vital Signs Vital signs: Temp Pulse Resp BP Pulse Ox 98.4 F 100 24 H 101/53 L 88 L 03/14/19 07:15 03/14/19 07:15 03/14/19 09:01 03/14/19 09:00 03/14/19 09:01 - Laboratory Result Diagrams: 03/14/19 12:05 Laboratory results interpreted by me: 03/14/19 12:05 RBC 3.40 L Hgb 9.9 L Hct 28.6 L RDW 17.3 H Lymph % (Auto) 12.0 L Seg Neutrophils % 78.2 H Discharge - Discharge Clinical Impression: Epistaxis not due to trauma Condition: Stable Disposition: HOME, SELF-CARE Additional Instructions: Nosebleed Instructions There is a significant chance of re-bleeding following a nosebleed. Proper care makes this less likely. Do not touch the nose for 24 hours. Do not blow the nose forcefully for one week. After 24 hours, gently apply Vaseline ointment to both nostrils with the tip of a finger, three times a day, for one week. It's normal to have a bloody mucous discharge for a few days. If active bleeding recurs, blow all the blood from the nose, then sit quietly and pinch the nose as firmly as possible for 10 minutes. If this does not stop the bleeding, return for further care. Humidity in the bedroom, and petroleum jelly applied to the nostrils at night may help. Please make sure you are always using humidified oxygen. Do not blow your nose, do not pick your nose, if you continue to have intermittent nosebleeds that are easily controlled at home please follow-up with your primary care physician who may want to refer you to an ear nose and throat doctor as an outpatient. You may use 1 squirt of Afrin in the side of the nose that is bleeding before you hold pressure. This can help to stop the bleeding. Do not use the Afrin unless you are actually bleeding Your chest x-ray did not show any signs of pneumonia or mass. I suspect the blood that she coughed up came from bleeding that was going down the back of your throat from your nose. Your hemoglobin is a little bit lower than it was before at 9.9 however it is not so low that you need a blood transfusion. This is not life-threatening. Referrals: [facility] [Primary Care Provider] - Follow up as needed
--- NOTE | 2019-03-14 11:45 | RADIOLOGY REPORT (SQ) ---
EXAM DESCRIPTION: CHEST 2 VIEWS COMPLETED DATE/TIME: 03/14/2019 10:54 am REASON FOR STUDY: hemoptysis COMPARISON: CT chest 02/22/2019 AP chest 02/22/2019 EXAM PARAMETERS: NUMBER OF VIEWS: two views TECHNIQUE: Digital Frontal and Lateral radiographic views of the chest acquired. RADIATION DOSE: NA LIMITATIONS: none FINDINGS: LUNGS AND PLEURA: Lungs are hyperinflated but free of focal infiltrates. No pleural effusion. No pneumothorax. MEDIASTINUM AND HILAR STRUCTURES: No masses or contour abnormalities. HEART AND VASCULAR STRUCTURES: Heart normal size. No evidence for failure. BONES: No acute findings. HARDWARE: None in the chest. OTHER: No other significant finding. IMPRESSION: NO ACUTE RADIOGRAPHIC FINDING IN THE CHEST. TECHNICAL DOCUMENTATION: JOB ID: [id number] [employer]- All Rights Reserved Reading location - IP/workstation name: [email or web address]
[2019-03-14 12:16] LABS: ABSOLUTE EOSINOPHILS # (AUTO) 0.1 10^3/uL (0.0-0.6); ABSOLUTE LYMPHOCYTES (AUTO) 0.8 10^3/uL (0.5-4.7); ABSOLUTE MONOCYTES (AUTO) 0.6 10^3/uL (0.1-1.4); ABSOLUTE NEUT (AUTO) 5.5 10^3/uL (1.7-8.2); BASOPHILS % (AUTO) 0.3 % (0-2); EOSINOPHILS % (AUTO) 0.9 % (0-6); HEMATOCRIT 28.6 % (37.9-51.0); HEMOGLOBIN 9.9 g/dL (13.5-17.0); MEAN CORPUSCULAR HEMOGLOBIN 29.1 pg (27.0-33.4); MEAN CORPUSCULAR HGB CONC 34.7 g/dL (32.0-36.0); MEAN CORPUSCULAR VOLUME 84 fl (80-97); MONOCYTES % (AUTO) 8.6 % (3-13); PLATELET COUNT 226 10^3/uL (150-450); RED CELL DISTRIBUTION WIDTH 17.3 % (11.5-14.0); SEGMENTED NEUTROPHILS % (AUTO) 78.2 % (42-78); TOTAL CELLS COUNTED % (AUTO) 100 %
[2019-03-14 14:03] VITALS: BP 116/78
== END 2019-03-14 14:03 | disposition home or self-care (01) ==
LOC: ER 07:10
DX: R04.0 Epistaxis (principal); D64.9 Anemia, unspecified; J44.9 Chronic obstructive pulmonary disease, unspecified; R04.2 Hemoptysis; R06.02 Shortness of breath; E11.51 Type 2 diabetes mellitus with diabetic peripheral angiopathy without gangrene; I25.10 Atherosclerotic heart disease of native coronary artery without angina pectoris; Z99.81 Dependence on supplemental oxygen; Z79.02 Long term (current) use of antithrombotics/antiplatelets; Z79.82 Long term (current) use of aspirin; Z79.899 Other long term (current) drug therapy; Z79.2 Long term (current) use of antibiotics; Z87.891 Personal history of nicotine dependence; Z95.5 Presence of coronary angioplasty implant and graft; Z79.51 Long term (current) use of inhaled steroids
CPT/HCPCS: 36415; 71046; 85025; 99283

== ENCOUNTER 2019-04-09 08:21 | Inpatient (IN) | payer OTHER, MEDICARE ==
--- NOTE | 2019-04-09 08:31 | ER Document Report ---
ED General - General Stated Complaint: THROWING UP BLOOD/DIFFICULTY BREATHING Time Seen by Provider: 04/09/19 08:29 Primary Care Provider: AMINAH,LAUREL [Primary Care Provider] - Follow up as needed Notes: 78-year-old male with a history of oxygen dependent COPD history of bacteremia and dementia who was dropped off by his family member who has now left, presenting with either throwing up blood or shortness of breath. All he says that he cannot breathe but when I am talking with him he is being transferred to the bed off of oxygen. He has been coughing up blood versus vomiting blood. No diarrhea or blood per rectum. No other information are available at this time. Further history: Says he is coughing up blood and has been worsening him with his cough and hemoptysis for about 2 days TRAVEL OUTSIDE OF THE [place] IN LAST 30 DAYS: No - Related Data Allergies/Adverse Reactions: No Known Allergies Allergy (Verified 01/02/19 01:23) Past Medical History - General Cannot obtain history due to: Dementia - Social History Smoking Status: Former Smoker Family History: COPD - Past Medical History Cardiac Medical History: Reports: Hx Coronary Artery Disease, Hx Peripheral Vascular Disease Pulmonary Medical History: Reports: Hx COPD Denies: Hx Asthma Neurological Medical History: Denies: Hx Seizures Endocrine Medical History: Reports: Hx Diabetes Mellitus Type 2. Denies: Hx Diabetes Mellitus Type 1 GI Medical History: Denies: Hx Crohn's Disease, Hx Ulcerative Colitis Musculoskeletal Medical History: Denies Hx Fibromyalgia, Denies Hx Gout Skin Medical History: Denies Hx Eczema, Denies Hx Psoriasis Psychiatric Medical History: Reports: Hx Dementia Past Surgical History: Reports: Hx Cardiac Catheterization, Hx Coronary Stent Review of Systems - Review of Systems Notes: REVIEW OF SYSTEMS PHYSICAL EXAMINATION General: Ill and deconditioned Head: Atraumatic, normocephalic ENT: Mouth normal, oropharynx moist, no exudates or tonsillar enlargement Eyes: Conjunctiva normal, pupils equal, lids normal Neck: No JVD, supple, no guarding CVS: Normal rate, regular rhythm, no murmurs Resp: Prolonged expiratory phase with obvious dyspnea on moving from wheelchair to gurney GI: Nondistended, soft, no tenderness to palpation, no rebound or guarding Ext: No deformities, no edema, normal range of motion in upper and lower ext Back: No CVA or midline TTP Skin: No rash, warm Lymphatic: No lymphadeopathy noted Neuro: Awake, alert. Face symmetric. GCS 15. 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 He has worsening shortness of breath as well but is stable on oxygen. Skin exam reveals no source of infection. Could be bronchitis pneumonia or UTI Could also be recurrent hardware implantation/vascular infection/bacteremia We will start cefepime, azithromycin to cover for pneumonia, and vancomycin for MRSA/MSSA We will give judicious fluids, patient is quite elderly and small do not want to cause pulmonary edema. Have sent a whole sepsis work-up as well will give DuoNeb and Solu-Medrol. Chest x-ray is pending. 04/09/19 13:25 Given antibiotics. Chest x-rays not show infiltrate. Given fluids. Urine clean Flu negative Discussed with Dr. Carmona for admission. - Vital Signs Vital signs: Temp Pulse Resp BP Pulse Ox 100.1 F 24 H 113/93 H 85 L 04/09/19 11:44 04/09/19 10:01 04/09/19 10:00 04/09/19 10:01 - Laboratory Result Diagrams: 04/09/19 09:20 04/09/19 09:20 Laboratory results interpreted by me: 04/09/19 04/09/19 09:20 09:20 WBC 12.6 H RBC 3.45 L Hgb 8.9 L Hct 27.0 L MCV 78 L D MCH 25.9 L RDW 18.4 H Sodium 134.4 L Carbon Dioxide 20 L Glucose 114 H - Diagnostic Test Radiology reviewed: Image reviewed, Reports reviewed Discharge - Discharge Clinical Impression: Sepsis Qualifiers: Sepsis type: sepsis due to unspecified organism Sepsis acute organ dysfunction status: unspecified Qualified Code(s): A41.9 - Sepsis, unspecified organism Pneumonia Qualifiers: Pneumonia type: due to unspecified organism Laterality: unspecified laterality Lung location: unspecified part of lung Qualified Code(s): J18.9 - Pneumonia, unspecified organism Condition: Fair Disposition: ADMITTED INPATIENT Admitting Provider: Kristine (Hospitalist) Unit Admitted: Telemetry [facility] [[facility] - Follow up as needed
[2019-04-09] MEDS ORDERED: ACETAMINOPHEN 325 MG TABLET PO ONE (08:44)
[2019-04-09] MEDS ORDERED: VANCOMYCIN HCL INJ 1000 MG VIAL IV ONE (08:45)
[2019-04-09] MEDS ORDERED: CEFEPIME 2 GM/D5W RTU 2 GM/50 ML RTUPB IV ONE (08:46)
[2019-04-09] MEDS ORDERED: NORMAL SALINE 1000 ML 1,000 ML IV ONE ×2 (08:46→12:26)
[2019-04-09] MEDS ORDERED: AZITHROMYCIN 250 MG TABLET PO ONE (08:47)
[2019-04-09] MEDS ORDERED: METHYLPREDNISOLONE INJ 125 MG/2 ML SDV IV ONE (08:49)
[2019-04-09] MEDS ORDERED: IPRATROPIUM/ALBUTEROL 0.5-2.5 MG/3 ML AMPUL NEB ONE (08:49)
--- NOTE | 2019-04-09 09:04 | RADIOLOGY REPORT (SQ) ---
EXAM DESCRIPTION: CHEST SINGLE VIEW COMPLETED DATE/TIME: 04/09/2019 8:40 am REASON FOR STUDY: SOB, COPD O2 COMPARISON: 03/14/2019 EXAM PARAMETERS: NUMBER OF VIEWS: One view. TECHNIQUE: Single frontal radiographic view of the chest acquired. RADIATION DOSE: NA LIMITATIONS: None. FINDINGS: LUNGS AND PLEURA: No opacities, masses or pneumothorax. No pleural effusion. MEDIASTINUM AND HILAR STRUCTURES: No masses. Contour normal. HEART AND VASCULAR STRUCTURES: Heart normal in size. Normal vasculature. BONES: No acute findings. HARDWARE: None in the chest. OTHER: No other significant finding. IMPRESSION: NO ACUTE RADIOGRAPHIC FINDING IN THE CHEST. TECHNICAL DOCUMENTATION: JOB ID: [id number] 2011 [employer]- All Rights Reserved Reading location - IP/workstation name: [email or web address]
[2019-04-09 09:22] LABS: INTERNATIONAL RATION (INR) 1.05; PROTHROMBIN TIME 13.7 SEC (11.4-15.4)
[2019-04-09 09:38] LABS: HEMOGLOBIN 8.9 g/dL (13.5-17.0); MEAN CORPUSCULAR HEMOGLOBIN 25.9 pg (27.0-33.4); MEAN CORPUSCULAR HGB CONC 33.1 g/dL (32.0-36.0); PLATELET COUNT 404 10^3/uL (150-450); RED BLOOD COUNT 3.45 10^6/uL (4.35-5.55); RED CELL DISTRIBUTION WIDTH 18.4 % (11.5-14.0); WHITE BLOOD COUNT 12.6 10^3/uL (4.0-10.5)
[2019-04-09 09:42] LABS: MEAN CORPUSCULAR VOLUME 78 fl (80-97)
[2019-04-09 10:01] LABS: ANION GAP 12 (5-19); BLOOD UREA NITROGEN 16 mg/dL (7-20); CALCIUM 8.9 mg/dL (8.4-10.2); CARBON DIOXIDE 20 mmol/L (22-30); CHLORIDE 102 mmol/L (98-107); GLUCOSE 114 mg/dL (75-110); POTASSIUM 3.8 mmol/L (3.6-5.0)
--- NOTE | 2019-04-09 10:41 | EKG REPORT ---
SEVERITY:- ABNORMAL ECG - SINUS TACHYCARDIA NONSPECIFIC INTRAVENTRICULAR CONDUCTION DELAY LOW VOLTAGE IN FRONTAL LEADS ST DEPRESSION, CONSIDER ISCHEMIA, LAT LEADS : Confirmed by: Teresita Brady 09-Apr-2019 10:41:05
[2019-04-09 10:59] LABS: APPEARANCE,URINE CLEAR; BILIRUBIN,URINE NEGATIVE (NEGATIVE); COLOR,URINE YELLOW; GLUCOSE, URINE NEGATIVE (NEGATIVE); KETONES,URINE NEGATIVE (NEGATIVE); LEUKOCYTE ESTERASE,URINE NEGATIVE (NEGATIVE); NITRITE,URINE NEGATIVE (NEGATIVE); PROTEIN,URINE NEGATIVE (NEGATIVE); URINE SPECIFIC GRAVITY 1.014; UROBILINOGEN,URINE NEGATIVE mg/dL (<2.0)
[2019-04-09 12:18] LABS: A TYPE INFLUENZA AG NEGATIVE (NEGATIVE); B INFLUENZA AG NEGATIVE (NEGATIVE)
[2019-04-09] MEDS ORDERED: ALBUTEROL SULFATE HFA (90 MCG/PUFF) 8 GM MDI IH PRN (13:55)
--- NOTE | 2019-04-09 14:22 | PDOC H&P ---
History of Present Illness Admission Date/PCP: 04/09/19 13:31 [facility] History of Present Illness: GAVINO PEDRAZA is a 78 year old male who is unable to provide any history whatsoever due to his dementia and his son who is his power of commercial litigation attorney was trying to give me most of the story but he himself is a horrible historian. 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 He is on aspirin and Brilinta but the son does not know why, stating that the patient has the aortic graft but has never had any cardiac issues and has never had any coronary stenting. A progress note from Dr. Benitez in October 2018 says that he was treated for a non-ST elevation [place] and is believed to have coronary artery disease but the patient is too poor of a candidate for any testing including cardiac catheterization and it looks like he was put on aspirin and Brilinta empirically. Patient was brought in today by his son because of nosebleeds. Apparently his nose started bleeding yesterday and has continued to bleed. When I saw him in the ER his nose was not bleeding at that time. His hemoglobin seems to have dropped a bit from when he was last here. When he was discharged a little over a month ago his hemoglobin was around 10, today it is around 9. He had a fever in the ER but the patient does not have any respiratory complaints at this time and his chest x-ray was negative. He had no substantial abnormalities on his chest examination and was on his usual 5 L per nasal cannula and his oxygen saturations were in the mid 90s. The patient has not had any fever at home that the patient's son is aware of. The ER empirically treated him for a pneumonia with 3 different antibiotics. The son says that the patient has not been eating well for several weeks and he can usually only get a couple of bottles of Ensure in him a day. Past Medical History Cardiac Medical History: Reports: Coronary Artery Disease, Peripheral Vascular Disease Pulmonary Medical History: Reports: Chronic Obstructive Pulmonary Disease (COPD) Denies: Asthma Neurological Medical History: Denies: Seizures Endocrine Medical History: Reports: Diabetes Mellitus Type 2 Denies: Diabetes Mellitus Type 1 GI Medical History: Denies: Crohn's Disease, Ulcerative Colitis Musculoskeltal Medical History: Denies: Fibromyalgia, Gout Skin Medical History: Denies: Eczema, Psoriasis Psychiatric Medical History: Reports: Dementia Hematology: Reports: Anemia Denies: Bleeding Tendencies Past Surgical History Past Surgical History: Reports: Cardiac Catheterization, Coronary Stent Social History Smoking Status: Former Smoker Electronic Cigarette use?: No Frequency of Alcohol Use: None Hx Recreational Drug Use: Yes Drugs: Marijuana Hx Prescription Drug Abuse: No Family History Family History: COPD Parental Family History Reviewed: Yes Children Family History Reviewed: Yes Sibling(s) Family History Reviewed.: Yes Medication/Allergy Home Medications: Albuterol Sulfate [Ventolin Hfa 8 gm Mdi] 2 puff IH Q6HP PRN 04/09/19 Aspirin [Ecotrin 81 mg EC Tablet] 81 mg PO DAILY 04/09/19 Atorvastatin Calcium [Lipitor 80 mg Tablet] 80 mg PO QHS 04/09/19 Budesonide/Formoterol Fumarate [Symbicort HFA 160-4.5 mcg Inhaler 6 gm] 2 puff IH BID 04/09/19 Doxycycline Hyclate [Vibramycin 100 mg Tablet] 100 mg PO DAILY@199904/09/19 Ferrous Sulfate [Feosol 325 mg Tablet] 324 mg PO QAM 04/09/19 Pantoprazole Sodium [Protonix [address] Tablet] 40 mg PO BID 04/09/19 Sertraline HCl [Zoloft 50 mg Tablet] 25 mg PO DAILY 04/09/19 Tamsulosin HCl [Flomax 0.4 mg Cap.sr] 0.4 mg PO QPM 04/09/19 Ticagrelor [Brilinta 90 mg Tablet] 90 mg PO Q12 04/09/19 Tiotropium Verdigre [Spiriva Handihaler 5 Cap/Kit (18 Mcg/Cap)] 1 puff IH DAILY 04/09/19 Allergies/Adverse Reactions: No Known Allergies Allergy (Verified 01/02/19 01:23) Review of Systems ROS unobtainable: Due to mental status Physical Exam Vital Signs: Temp Pulse Resp BP Pulse Ox 100.1 F 24 H 113/93 H 85 L 04/09/19 11:44 04/09/19 10:01 04/09/19 10:00 04/09/19 10:01 Intake & Output 02/04/09/19 04/10/19 06:59 06:59 06:59 Intake Total 1050 Balance 1050 General appearance: PRESENT: disheveled, mild distress, other - This is a frail, sickly, chronically ill-appearing elderly male Head exam: PRESENT: atraumatic, normocephalic Eye exam: PRESENT: EOMI, PERRLA. ABSENT: conjunctival injection, nystagmus, scleral icterus Ear exam: PRESENT: normal external ear exam Mouth exam: PRESENT: dry mucosa, neck supple Teeth exam: PRESENT: poor dentation Neck exam: ABSENT: carotid bruit, JVD, lymphadenopathy, meningismus, tenderness, thyromegaly Respiratory exam: PRESENT: decreased breath sounds, symmetrical, unlabored. ABSENT: accessory muscle use, chest wall tenderness, crackles, prolonged expiratory phas, retraction, rhonchi, tachypnea, wheezes Cardiovascular exam: PRESENT: RRR, +S1, +S2 Pulses: PRESENT: normal carotid pulses Vascular exam: PRESENT: normal capillary refill GI/Abdominal exam: PRESENT: hypoactive bowel sounds, soft. ABSENT: distended, guarding, rebound, tenderness Extremities exam: ABSENT: clubbing, pedal edema Musculoskeletal exam: PRESENT: normal inspection. ABSENT: deformity Neurological exam: PRESENT: awake - Drowsy but arousable. ABSENT: oriented to person, oriented to place, oriented to time, oriented to situation Skin exam: PRESENT: dry, warm Results Laboratory Results: 04/09/19 09:20 04/09/19 09:20 04/09/19 04/09/19 04/09/19 08:55 08:55 08:55 WBC Cancelled RBC Cancelled Hgb Cancelled Hct Cancelled MCV Cancelled MCH Cancelled MCHC Cancelled RDW Cancelled Plt Count Cancelled Sodium Cancelled Potassium Cancelled Chloride Cancelled Carbon Dioxide Cancelled Anion Gap Cancelled BUN Cancelled Creatinine Cancelled Est GFR ( Amer) Cancelled Est GFR (Non-Af Amer) Cancelled Glucose Cancelled Lactic Acid Cancelled Calcium Cancelled Urine Color Urine Appearance Urine pH Ur Specific [place] Urine Protein Urine Glucose (UA) Urine Ketones Urine Blood Urine Nitrite Ur Leukocyte Esterase Urine WBC (Auto) Urine RBC (Auto) Blood Type Antibody Screen 04/09/19 04/09/19 04/09/19 09:20 09:20 09:27 WBC 12.6 H RBC 3.45 L Hgb 8.9 L Hct 27.0 L MCV 78 L D MCH 25.9 L MCHC 33.1 RDW 18.4 H Plt Count 404 Sodium 134.4 L Potassium 3.8 Chloride 102 Carbon Dioxide 20 L Anion Gap 12 BUN 16 Creatinine 0.84 Est GFR ( Amer) > 60 Est GFR (Non-Af Amer) Glucose 114 H Lactic Acid 1.5 Calcium 8.9 Urine Color Urine Appearance Urine pH Ur Specific [place] Urine Protein Urine Glucose (UA) Urine Ketones Urine Blood Urine Nitrite Ur Leukocyte Esterase Urine WBC (Auto) Urine RBC (Auto) Blood Type Antibody Screen 04/09/19 04/09/19 09:27 10:35 WBC RBC Hgb Hct MCV MCH MCHC RDW Plt Count Sodium Potassium Chloride Carbon Dioxide Anion Gap BUN Creatinine Est GFR ( Amer) Est GFR (Non-Af Amer) Glucose Lactic Acid Calcium Urine Color YELLOW Urine Appearance CLEAR Urine pH 5.0 Ur Specific [place] 1.014 Urine Protein NEGATIVE Urine Glucose (UA) NEGATIVE Urine Ketones NEGATIVE Urine Blood NEGATIVE Urine Nitrite NEGATIVE Ur Leukocyte Esterase NEGATIVE Urine WBC (Auto) 1 Urine RBC (Auto) 1 Blood Type O POSITIVE Antibody Screen NEGATIVE Impressions: Chest X-Ray 04/09/19 08:29 IMPRESSION: NO ACUTE RADIOGRAPHIC FINDING IN THE CHEST. Assessment and Plan - Diagnosis (1) Epistaxis Is this a current diagnosis for this admission?: Yes Plan: He is on 5 L of oxygen, plus he takes aspirin and Brilinta. The high flow of oxygen is likely making his nasal membranes very dry and therefore more susceptible to bleeding. The aspirin and the Brilinta obviously make him more susceptible to bleeding. We will try to have some saline spray for his nasal membranes, and are going to stop his aspirin and Brilinta. (2) Anemia Qualifiers: Anemia type: iron deficiency Iron deficiency anemia type: inadequate dietary iron intake Qualified Code(s): D50.8 - Other iron deficiency anemias Is this a current diagnosis for this admission?: Yes Plan: He probably also had a small amount of blood loss from the epistaxis, but it was not as dramatic as previously felt, because his hemoglobin was only down about a point and the son said he has had a hard time getting iron supplementation into this patient. We will monitor him for any signs of blood loss and will transfuse if he drops below 8. They gave him a 2 liter fluid bolus in the ER so it is probably going to drop his hemoglobin some so I will take that into consideration before I decide to transfuse him. (3) COPD (chronic obstructive pulmonary disease) Qualifiers: COPD type: emphysema Emphysema type: centrilobular Qualified Code(s): J43.2 - Centrilobular emphysema Is this a current diagnosis for this admission?: Yes Plan: Chronic, not acutely exacerbated (4) Chronic dementia without behavioral disturbance Is this a current diagnosis for this admission?: Yes - Plan Summary Summary: I am not convinced that this patient has a pneumonia. I am not going to treat him with antibiotics for now. We will monitor him to see if he develops signs or symptoms of pneumonia. I think that he may have had some of the blood from his nosebleed make its way into his airway which would have caused an inflammatory reaction resulting in the fever we saw in the ER. If he does begin to show signs of a true pneumonia then will start treatment. - Time Time Spent with patient: 35 or more minutes - Inpatient Certification Based on my medical assessment, after consideration of the patient's comorbidities, presenting symptoms, or acuity I expect that the services needed warrant INPATIENT care.: Yes I certify that my determination is in accordance with my understanding of Medicare's requirements for reasonable and necessary INPATIENT services [42 CFR 412.3e].: Yes Medical Necessity: Significant Comorbidiites Make Outpatient Treatment Too Risky, Need Close Monitoring Due to Risk of Patient Decompensation, Need For C ontinuous Telemetry Monitoring, Risk of Complication if Not Cared For in Hospital
[2019-04-09] MEDS: PANTOPRAZOLE SODIUM 40 MG TABLET.DR PO SCH (18:39)
[2019-04-09] MEDS: DOXYCYCLINE HYCLATE 100 MG TABLET PO SCH (21:24)
[2019-04-09] MEDS: ATORVASTATIN CALCIUM 80 MG TABLET PO SCH (21:24)
[2019-04-10 04:53] LABS: HEMATOCRIT 23.4 % (37.9-51.0); MEAN CORPUSCULAR HEMOGLOBIN 25.9 pg (27.0-33.4); MEAN CORPUSCULAR HGB CONC 32.9 g/dL (32.0-36.0); MEAN CORPUSCULAR VOLUME 79 fl (80-97); PLATELET COUNT 337 10^3/uL (150-450); RED BLOOD COUNT 2.98 10^6/uL (4.35-5.55); WHITE BLOOD COUNT 8.4 10^3/uL (4.0-10.5)
[2019-04-10 04:58] LABS: HEMOGLOBIN 7.7 g/dL (13.5-17.0)
[2019-04-10 05:08] LABS: ANION GAP 12 (5-19); BLOOD UREA NITROGEN 20 mg/dL (7-20); CALCIUM 8.5 mg/dL (8.4-10.2); CARBON DIOXIDE 20 mmol/L (22-30); CHLORIDE 108 mmol/L (98-107); GLUCOSE 124 mg/dL (75-110); POTASSIUM 4.5 mmol/L (3.6-5.0)
[2019-04-10] MEDS: ACETAMINOPHEN 325 MG TABLET PO PRN ×3 (09:35→18:53)
[2019-04-10] MEDS: ACETAMINOPHEN 325 MG TABLET ONE ×2 (09:36→10:51)
[2019-04-10] MEDS: FERROUS SULFATE 325 MG TABLET PO SCH (09:40)
[2019-04-10] MEDS: IPRATROPIUM/ALBUTEROL 0.5-2.5 MG/3 ML AMPUL NEB ONE ×2 (09:40→09:41)
[2019-04-10] MEDS ORDERED: (PENDING PHARMACY ID) (Tiotropium Bromide [Spiriva Handihaler 5 Cap/Kit (18 Mcg/Cap)] 1 PU IH SCH (10:00)
[2019-04-10] MEDS: PANTOPRAZOLE SODIUM 40 MG TABLET.DR PO SCH ×2 (10:49→18:53)
[2019-04-10] MEDS: UMECLIDINIUM BROMIDE 62.5 MCG/DOSE IH SCH (10:50)
[2019-04-10] MEDS: FLUTICASONE/VILANTEROL 200-25 MCG/DOSE IH SCH (10:50)
[2019-04-10] MEDS: SERTRALINE HCL 50 MG TABLET PO SCH (10:50)
--- NOTE | 2019-04-10 14:03 | PDOC PROGRESS REPORT ---
Subjective Progress Note for:: 04/10/19 Subjective:: No adverse events overnight. He was sitting up in bed watching television eating cookies. He says his breathing feels a lot better. No fevers. Reason For Visit: ACUTE BLOOD LOSS ANEMIA Physical Exam Vital Signs: Temp Pulse Resp BP Pulse Ox 97.8 F 74 20 98/62 L 91 L 04/10/19 08:47 04/10/19 09:40 04/10/19 09:40 04/10/19 08:47 04/10/19 10:59 Intake & Output 04/09/19 04/10/19 04/11/19 06:59 06:59 06:59 Intake Total 2250 480 Output Total 1082 300 Balance 1168 180 Weight 67.1 kg General appearance: PRESENT: no acute distress, cooperative, disheveled Respiratory exam: PRESENT: crackles - Dry bibasilar crackles consistent with pulmonary fibrosis, decreased breath sounds, symmetrical, unlabored. ABSENT: accessory muscle use, chest wall tenderness, prolonged expiratory phas, retraction, rhonchi, tachypnea, wheezes Cardiovascular exam: PRESENT: RRR, +S1, +S2 Pulses: PRESENT: normal carotid pulses Vascular exam: PRESENT: normal capillary refill GI/Abdominal exam: PRESENT: normal bowel sounds, soft. ABSENT: distended, guarding, rebound, tenderness Extremities exam: ABSENT: clubbing, pedal edema Musculoskeletal exam: PRESENT: normal inspection. ABSENT: deformity Neurological exam: PRESENT: alert, awake, oriented to person, oriented to situation Psychiatric exam: PRESENT: appropriate affect, normal mood Skin exam: PRESENT: dry, warm Results Laboratory Results: 04/10/19 03:49 04/10/19 03:49 04/09/19 04/10/19 04/10/19 11:33 03:49 03:49 WBC 8.4 RBC 2.98 L Hgb 7.7 L Hct 23.4 L MCV 79 L MCH 25.9 L MCHC 32.9 RDW 18.0 H Plt Count 337 Sodium 140.3 Potassium 4.5 Chloride 108 H Carbon Dioxide 20 L Anion Gap 12 BUN 20 Creatinine 0.86 Est GFR ( Amer) > 60 Glucose 124 H Lactic Acid 1.1 Calcium 8.5 04/09/19 09:27 Blood Blood Culture (PCR) - Final Staphylococcus Aureus 04/09/19 08:55 Blood Blood Culture (PCR) - Final Staphylococcus Aureus Impressions: Chest X-Ray 04/09/19 08:29 IMPRESSION: NO ACUTE RADIOGRAPHIC FINDING IN THE CHEST. Assessment and Plan - Diagnosis (1) Epistaxis Is this a current diagnosis for this admission?: Yes Plan: Resolved. No more evidence of nosebleeds. His Brilinta has been discontinued. (2) Anemia Qualifiers: Anemia type: iron deficiency Iron deficiency anemia type: inadequate dietary iron intake Qualified Code(s): D50.8 - Other iron deficiency anemias Is this a current diagnosis for this admission?: Yes Plan: His hemoglobin was a little bit lower today than yesterday, but I think it was in large part due to the large volume of IV fluids he got in the ER. We will monitor him for any signs of bleeding. He does have a history of iron deficiency and inconsistently takes his iron supplement at home. (3) COPD (chronic obstructive pulmonary disease) Qualifiers: COPD type: emphysema Emphysema type: centrilobular Qualified Code(s): J43.2 - Centrilobular emphysema Is this a current diagnosis for this admission?: Yes Plan: Chronic, not acutely exacerbated (4) Chronic dementia without behavioral disturbance Is this a current diagnosis for this admission?: Yes Plan: Mental status at baseline (5) Chronic hypoxemic respiratory failure Is this a current diagnosis for this admission?: Yes Plan: Stable on his usual 5 L per nasal cannula - Plan Summary Summary: I am not convinced that this patient has a pneumonia. I am not going to treat him with antibiotics for now. We will monitor him to see if he develops signs or symptoms of pneumonia. I think that he may have had some of the blood from his nosebleed make its way into his airway which would have caused an inflammatory reaction resulting in the fever we saw in the ER. If he does begin to show signs of a true pneumonia then will start treatment. - Time Time Spent with patient: 15-24 minutes
[2019-04-10] MEDS ORDERED: SUMATRIPTAN SUCCINATE INJ/PF 6 MG/0.5 ML SDV SUBCUT ONE ×2 (21:00→21:13)
--- NOTE | 2019-04-10 21:28 | Progress Note ---
Provider Note Provider Note: Critical care note: 04/10/2019 Critical care start time: 20:49 Critical care issue: Acute migraine headache I was informed by the patient's nurse that he was complaining of an acute migraine headache. Patient has a history of migraine headaches but has not gained relief from the currently prescribed medications. I saw the patient in his room and we discussed his migraine history at length. He has used oral and injectable Imitrex in the past with good success. He describes his headache as a sudden onset, constant, severe throbbing sensation in the left side of his head beginning at the base of his skull and advancing up to the frontal region behind his eye. He states this is his usual migraine pattern. On exam his chest shows minimal wheezes with a few scattered rhonchi but no evidence of consolidation on auscultation or percussion. Heart shows a regular rate and rhythm without murmurs. Abdomen is soft and nontender with bowel sounds present in all 4 quadrants. Extremities feel no clubbing or cyanosis. I have discussed potential treatments with the patient and we have agreed that he will receive Imitrex 6 mg subcu x1 with a repeat dose in 1 hour if his headache is not completely relieved. I will recheck the patient for a progress report after treatment. Critical care end time: 21:27 Total critical care time: 26 minutes
[2019-04-10] MEDS: ATORVASTATIN CALCIUM 80 MG TABLET PO SCH (21:48)
[2019-04-10] MEDS: DOXYCYCLINE HYCLATE 100 MG TABLET PO SCH (21:48)
[2019-04-10] MEDS ORDERED: SUMATRIPTAN SUCCINATE INJ/PF 6 MG/0.5 ML SDV SUBCUT PRN (22:00)
[2019-04-11] MEDS: ACETAMINOPHEN 325 MG TABLET PO PRN ×3 (00:44→17:20)
[2019-04-11] MEDS ORDERED: SUMATRIPTAN SUCCINATE INJ/PF 6 MG/0.5 ML SDV SUBCUT ONE (02:49)
[2019-04-11 06:08] LABS: HEMATOCRIT 29.7 % (37.9-51.0); HEMOGLOBIN 9.4 g/dL (13.5-17.0); MEAN CORPUSCULAR HGB CONC 31.6 g/dL (32.0-36.0); MEAN CORPUSCULAR VOLUME 79 fl (80-97); PLATELET COUNT 396 10^3/uL (150-450); RED BLOOD COUNT 3.75 10^6/uL (4.35-5.55); RED CELL DISTRIBUTION WIDTH 18.5 % (11.5-14.0); WHITE BLOOD COUNT 12.6 10^3/uL (4.0-10.5)
[2019-04-11 06:35] LABS: ANION GAP 13 (5-19); BLOOD UREA NITROGEN 23 mg/dL (7-20); CARBON DIOXIDE 20 mmol/L (22-30); CHLORIDE 105 mmol/L (98-107); GLUCOSE 86 mg/dL (75-110); POTASSIUM 4.4 mmol/L (3.6-5.0)
[2019-04-11] MEDS: IPRATROPIUM/ALBUTEROL 0.5-2.5 MG/3 ML AMPUL NEB PRN (07:47)
[2019-04-11] MEDS: FERROUS SULFATE 325 MG TABLET PO SCH (08:03)
[2019-04-11] MEDS ORDERED: VANCOMYCIN HCL 0 MG in DEXTROSE 5%-WATER 250 ML IV NR (10:45)
[2019-04-11] MEDS: SERTRALINE HCL 50 MG TABLET PO SCH (11:26)
[2019-04-11] MEDS: PANTOPRAZOLE SODIUM 40 MG TABLET.DR PO SCH ×2 (11:27→17:20)
[2019-04-11] MEDS: FLUTICASONE/VILANTEROL 200-25 MCG/DOSE IH SCH (11:27)
[2019-04-11] MEDS: UMECLIDINIUM BROMIDE 62.5 MCG/DOSE IH SCH (11:27)
[2019-04-11] MEDS ORDERED: KETOROLAC TROMETHAMINE INJ/PF 30 MG/1 ML SDV IV ONE (12:30)
[2019-04-11] MEDS: VANCOMYCIN HCL 1,000 MG in DEXTROSE 5%-WATER 250 ML IV SCH ×2 (12:39→21:19)
[2019-04-11] MEDS: PROMETHAZINE HCL INJ 25 MG/1 ML VIAL IM PRN ×2 (12:40→14:01)
--- NOTE | 2019-04-11 15:26 | PDOC PROGRESS REPORT ---
Subjective Progress Note for:: 04/11/19 Subjective:: No adverse events overnight. He was complaining of headache again. He had responded to Imitrex previously but we cannot keep giving Imitrex every day. He says he has had headaches since he was a kid. 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 Reason For Visit: ACUTE BLOOD LOSS ANEMIA Physical Exam Vital Signs: Temp Pulse Resp BP Pulse Ox 97.6 F 85 23 H 105/42 L 94 04/11/19 12:00 04/11/19 12:00 04/11/19 12:00 04/11/19 12:00 04/11/19 12:00 Intake & Output 04/10/19 04/11/19 04/12/19 06:59 06:59 06:59 Intake Total 2250 1050 Output Total 1082 300 Balance 1168 750 Weight 67.1 kg 65.2 kg General appearance: PRESENT: no acute distress, cooperative, disheveled Respiratory exam: PRESENT: crackles - Dry bibasilar crackles consistent with pulmonary fibrosis, decreased breath sounds, symmetrical, unlabored. ABSENT: accessory muscle use, chest wall tenderness, prolonged expiratory phas, retraction, rhonchi, tachypnea, wheezes Cardiovascular exam: PRESENT: RRR, +S1, +S2 Pulses: PRESENT: normal carotid pulses Vascular exam: PRESENT: normal capillary refill GI/Abdominal exam: PRESENT: normal bowel sounds, soft. ABSENT: distended, guarding, rebound, tenderness Extremities exam: ABSENT: clubbing, pedal edema Musculoskeletal exam: PRESENT: normal inspection. ABSENT: deformity Neurological exam: PRESENT: alert, awake, oriented to person, oriented to situation Psychiatric exam: PRESENT: appropriate affect, normal mood Skin exam: PRESENT: dry, warm Results Laboratory Results: 04/11/19 05:20 04/11/19 05:20 04/11/19 04/11/19 04/11/19 05:20 05:20 05:20 WBC 12.6 H RBC 3.75 L Hgb 9.4 L Hct 29.7 L MCV 79 L MCH 25.0 L MCHC 31.6 L RDW 18.5 H Plt Count 396 Sodium 137.5 Potassium 4.4 Chloride 105 Carbon Dioxide 20 L Anion Gap 13 BUN 23 H Creatinine 0.75 Est GFR ( Amer) > 60 Glucose 86 Calcium 9.0 Magnesium 2.0 04/09/19 10:35 Catheterized Urine Urine Culture - Final NO GROWTH 2 DAYS 04/09/19 09:27 Blood Blood Culture (PCR) - Final Staphylococcus Aureus 04/09/19 08:55 Blood Blood Culture (PCR) - Final Staphylococcus Aureus Impressions: Chest X-Ray 04/09/19 08:29 IMPRESSION: NO ACUTE RADIOGRAPHIC FINDING IN THE CHEST. Assessment and Plan - Diagnosis (1) Epistaxis Is this a current diagnosis for this admission?: Yes Plan: Resolved. No more evidence of nosebleeds. His Brilinta has been discontinued. (2) Anemia Qualifiers: Anemia type: iron deficiency Iron deficiency anemia type: inadequate dietary iron intake Qualified Code(s): D50.8 - Other iron deficiency anemias Is this a current diagnosis for this admission?: Yes Plan: His hemoglobin was a little bit lower today than yesterday, but I think it was in large part due to the large volume of IV fluids he got in the ER. We will monitor him for any signs of bleeding. He does have a history of iron deficiency and inconsistently takes his iron supplement at home. (3) COPD (chronic obstructive pulmonary disease) Qualifiers: COPD type: emphysema Emphysema type: centrilobular Qualified Code(s): J43.2 - Centrilobular emphysema Is this a current diagnosis for this admission?: Yes Plan: Chronic, not acutely exacerbated (4) Chronic dementia without behavioral disturbance Is this a current diagnosis for this admission?: Yes Plan: Mental status at baseline (5) Chronic hypoxemic respiratory failure Is this a current diagnosis for this admission?: Yes Plan: Stable on his usual 5 L per nasal cannula (6) Staphylococcus aureus bacteremia Is this a current diagnosis for this admission?: Yes Plan: 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 He is on suppressive doxycycline therapy. However despite being on suppressive therapy right up until he was admitted, his blood cultures both turned positive. He is empirically on vancomycin until we get confirmation that it is indeed susceptible, and were going to probably have to get a ISAEL. We will get infectious disease to weigh in on this situation tomorrow. - Plan Summary Summary: I am not convinced that this patient has a pneumonia. I am not going to treat him with antibiotics for now. We will monitor him to see if he develops signs or symptoms of pneumonia. I think that he may have had some of the blood from his nosebleed make its way into his airway which would have caused an inflammatory reaction resulting in the fever we saw in the ER. If he does begin to show signs of a true pneumonia then will start treatment. - Time Time Spent with patient: 15-24 minutes
[2019-04-11] MEDS: ATORVASTATIN CALCIUM 80 MG TABLET PO SCH (21:19)
[2019-04-12] MEDS: ACETAMINOPHEN 325 MG TABLET PO PRN ×4 (01:53→20:11)
[2019-04-12 06:55] LABS: HEMATOCRIT 23.5 % (37.9-51.0); MEAN CORPUSCULAR HEMOGLOBIN 25.9 pg (27.0-33.4); MEAN CORPUSCULAR HGB CONC 33.5 g/dL (32.0-36.0); MEAN CORPUSCULAR VOLUME 77 fl (80-97); PLATELET COUNT 317 10^3/uL (150-450); RED BLOOD COUNT 3.03 10^6/uL (4.35-5.55); RED CELL DISTRIBUTION WIDTH 18.3 % (11.5-14.0); WHITE BLOOD COUNT 8.7 10^3/uL (4.0-10.5)
[2019-04-12 07:03] LABS: HEMOGLOBIN 7.9 g/dL (13.5-17.0)
[2019-04-12 07:19] LABS: ANION GAP 11 (5-19); BLOOD UREA NITROGEN 18 mg/dL (7-20); CALCIUM 8.4 mg/dL (8.4-10.2); CARBON DIOXIDE 21 mmol/L (22-30); CHLORIDE 105 mmol/L (98-107); GLUCOSE 76 mg/dL (75-110); POTASSIUM 4.1 mmol/L (3.6-5.0)
[2019-04-12] MEDS: FERROUS SULFATE 325 MG TABLET PO SCH (08:30)
[2019-04-12] MEDS: SERTRALINE HCL 50 MG TABLET PO SCH (10:00)
[2019-04-12] MEDS: PANTOPRAZOLE SODIUM 40 MG TABLET.DR PO SCH ×2 (10:01→18:05)
[2019-04-12] MEDS: VANCOMYCIN HCL 1,000 MG in DEXTROSE 5%-WATER 250 ML IV SCH (10:02)
[2019-04-12] MEDS: UMECLIDINIUM BROMIDE 62.5 MCG/DOSE IH SCH (10:08)
[2019-04-12] MEDS: FLUTICASONE/VILANTEROL 200-25 MCG/DOSE IH SCH (10:08)
--- NOTE | 2019-04-12 14:04 | Progress Note ---
Provider Note Provider Note: [facility] Telephone Advice Consultation Chart reviewed. Patient is a 78-yea-old man with dementia, COPD on home O2 who was recently admitted in February due to MSSA bacteremia. 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 Per chart review, at that time his ID provider Dr. Mancilla gave recommendations to treat him with cefazolin for 2 weeks and transition to oral suppressive therapy with doxycycline. He was going to have follow up with his ID provider. He now present ed to the hospital due to epistaxis. His blood cultures on admission were positive for MSSA. He was complaining of headache, he has a history of migraines. He is currently on vancomyci, ID consulted for recommendations. PMH: COPD MSSA bacteremia PSH: Aortic root graft ? per notes Allergies: No Known Allergies Allergy (Verified 01/02/19 01:23) Medications: Albuterol Sulfate [Ventolin Hfa 8 gm Mdi] 2 puff IH Q6HP PRN 04/09/19 Aspirin [Ecotrin 81 mg EC Tablet] 81 mg PO DAILY 04/09/19 Atorvastatin Calcium [Lipitor 80 mg Tablet] 80 mg PO QHS 04/09/19 Budesonide/Formoterol Fumarate [Symbicort HFA 160-4.5 mcg Inhaler 6 gm] 2 puff IH BID 04/09/19 Doxycycline Hyclate [Vibramycin 100 mg Tablet] 100 mg PO DAILY@199904/09/19 Ferrous Sulfate [Feosol 325 mg Tablet] 324 mg PO QAM 04/09/19 Pantoprazole Sodium [Protonix [address] Tablet] 40 mg PO BID 04/09/19 Sertraline HCl [Zoloft 50 mg Tablet] 25 mg PO DAILY 04/09/19 Tamsulosin HCl [Flomax 0.4 mg Cap.sr] 0.4 mg PO QPM 04/09/19 Ticagrelor [Brilinta 90 mg Tablet] 90 mg PO Q12 04/09/19 Tiotropium [place] [Spiriva Handihaler 5 Cap/Kit (18 Mcg/Cap)] 1 puff IH DAILY 04/09/19 Vital Signs: Temp Pulse Resp BP Pulse Ox 97.6 F 83 16 100/41 L 96 04/12/19 12:00 04/12/19 12:00 04/12/19 12:00 04/12/19 12:00 04/12/19 12:00 Intake & Output 04/11/19 04/12/19 04/13/19 06:59 06:59 06:59 Intake Total 1050 1472 250 Output Total 300 Balance 750 1472 250 Weight 65.2 kg 63.7 kg Weight/Height Weight 63.7 kg Height 5 ft 7 in Laboratories: 04/12/19 05:57 04/12/19 05:57 MCV 77 fl (80-97) L 04/12/19 05:57 MCH 25.9 pg (27.0-33.4) L 04/12/19 05:57 MCHC 33.5 g/dL (32.0-36.0) 04/12/19 05:57 RDW 18.3 % (11.5-14.0) H 04/12/19 05:57 Chloride 105 mmol/L (98-107) 04/12/19 05:57 Carbon Dioxide 21 mmol/L (22-30) L 04/12/19 05:57 Anion Gap 11 (5-19) 04/12/19 05:57 Est GFR ( Amer) > 60 (>60) 04/12/19 05:57 Est GFR (Non-Af Amer) Cancelled 04/09/19 08:55 Glucose 76 mg/dL (75-110) 04/12/19 05:57 Lactic Acid 1.1 mmol/L (0.7-2.1) 04/09/19 11:33 Calcium 8.4 mg/dL (8.4-10.2) 04/12/19 05:57 Magnesium 2.0 mg/dL (1.6-2.3) 04/11/19 05:20 Urine Color YELLOW 04/09/19 10:35 Urine Appearance CLEAR 04/09/19 10:35 Urine pH 5.0 (5.0-9.0) 04/09/19 10:35 Ur Specific [place] 1.014 04/09/19 10:35 Urine Protein NEGATIVE mg/dL (NEGATIVE) 04/09/19 10:35 Urine Glucose (UA) NEGATIVE mg/dL (NEGATIVE) 04/09/19 10:35 Urine Ketones NEGATIVE mg/dL (NEGATIVE) 04/09/19 10:35 Urine Blood NEGATIVE (NEGATIVE) 02/21/20 10:35 Urine Nitrite NEGATIVE (NEGATIVE) 04/09/19 10:35 Ur Leukocyte Esterase NEGATIVE (NEGATIVE) 04/09/19 10:35 Urine WBC (Auto) 1 /HPF 04/09/19 10:35 Urine RBC (Auto) 1 /HPF 04/09/19 10:35 Blood Type O POSITIVE 04/09/19 09:27 Antibody Screen NEGATIVE 04/09/19 09:27 04/09/19 09:27 Blood Blood Culture (PCR) - Final Staphylococcus Aureus 04/09/19 09:27 Blood Blood Culture - Final Staphylococcus Aureus 04/09/19 08:55 Blood Blood Culture (PCR) - Final Staphylococcus Aureus 04/09/19 08:55 Blood Blood Culture - Final Staphylococcus Aureus 04/09/19 10:35 Catheterized Urine Urine Culture - Final NO GROWTH 2 DAYS Radiology: Chest X-Ray 04/09/19 08:29 IMPRESSION: NO ACUTE RADIOGRAPHIC FINDING IN THE CHEST. Assessment and recommendations: This is silva complex case due to history of aortic root graft (per notes). He is presenting with recurrent MSSA bacteremia. He only received 2 weeks of antibiotics back in February and transitioned to doxycycline for suppression (apparently he is not a surgical candidate?). Blood cultures on 03/20 are positive for MSSA. Will recommend to repeat blood cultures to assess for clearance of bacteremia. Consider changing antibiotic therapy from vancomycin to cefazolin or nafcillin. He complains of headache, if different from migraine consider CT scan of head. If there is any concerns for septic emboli to the brain, nafcillin would be preferred over cefazolin. A ISAEL is recommended to better assess this graft. A previous CTA from chest on 02/22 was negative, consider repeating if persistent bacteremia. In terms of duration of therapy, this is difficult as we usually treat for 6 weeks followed by suppressive therapy due to vascular involvement. May contact his ID provider Dr. Mancilla for more information and also recommendations. Will follow. Jennifer Shannon MD [facility] [phone]
--- NOTE | 2019-04-12 17:00 | CDI QUERY ---
CDI Query CDI Review: Dear Provider: To better reflect your patients severity of illness, morbidity, and resource utilization Please specify and document in the Progress Notes and Discharge Summary if you are monitoring / treating / evaluating any of the following conditions: Query Clinical indicators Please clarify if the anemia is: Acute blood loss anemia Chronic blood loss anemia Iron deficiency anemia Anemia of chronic disease Unable to determine Other Per Progress Notes: Reason For Visit: ACUTE BLOOD LOSS ANEMIA Anemia Qualifiers: Anemia type: iron deficiency Iron deficiency anemia type: inadequate dietary iron intake Qualified Code(s): D50.8 - Other iron deficiency anemias Is this a current diagnosis for this admission?: Yes Plan: His hemoglobin was a little bit lower today than yesterday, but I think it was in large part due to the large volume of IV fluids he got in the ER. We will monitor him for any signs of bleeding. He does have a history of iron deficiency and inconsistently takes his iron supplement at home. 04/09 04/10 04/11 RBC 3.45 L 2.98 L 3.75 Hgb 8.9 7.7 L 9.4 Hct 23.4 L 27.0 29.7 The terms probable, suspected, likely, possible or still to be ruled out may be used if you are unable to determine the exact nature of a condition. Thank you, Clinical Documentation Physician Advisors GASTON Lacy RN, BSN RN Office [phone] Office [phone]
--- NOTE | 2019-04-12 17:29 | PDOC PROGRESS REPORT ---
Subjective Progress Note for:: 04/12/19 Subjective:: No adverse events overnight. No new complaints. I gave him a dose of Toradol and Phenergan yesterday and his headache is now resolved. Vital signs been stable. He is been afebrile. Reason For Visit: ACUTE BLOOD LOSS ANEMIA Physical Exam Vital Signs: Temp Pulse Resp BP Pulse Ox 97.6 F 83 16 100/41 L 96 04/12/19 12:00 04/12/19 12:00 04/12/19 12:00 04/12/19 12:00 04/12/19 12:00 Intake & Output 04/11/19 04/12/19 04/13/19 06:59 06:59 06:59 Intake Total 1050 1472 250 Output Total 300 Balance 750 1472 250 Weight 65.2 kg 63.7 kg General appearance: PRESENT: no acute distress, cooperative, disheveled Respiratory exam: PRESENT: crackles - Dry bibasilar crackles consistent with pulmonary fibrosis, decreased breath sounds, symmetrical, unlabored. ABSENT: accessory muscle use, chest wall tenderness, prolonged expiratory phas, retraction, rhonchi, tachypnea, wheezes Cardiovascular exam: PRESENT: RRR, +S1, +S2 Pulses: PRESENT: normal carotid pulses Vascular exam: PRESENT: normal capillary refill GI/Abdominal exam: PRESENT: normal bowel sounds, soft. ABSENT: distended, gua rding, rebound, tenderness Extremities exam: ABSENT: clubbing, pedal edema Musculoskeletal exam: PRESENT: normal inspection. ABSENT: deformity Neurological exam: PRESENT: alert, awake, oriented to person, oriented to situation Psychiatric exam: PRESENT: appropriate affect, normal mood Skin exam: PRESENT: dry, warm Results Laboratory Results: 04/12/19 05:57 04/12/19 05:57 04/12/19 04/12/19 05:57 05:57 WBC 8.7 RBC 3.03 L Hgb 7.9 L Hct 23.5 L MCV 77 L MCH 25.9 L MCHC 33.5 RDW 18.3 H Plt Count 317 Sodium 136.6 L Potassium 4.1 Chloride 105 Carbon Dioxide 21 L Anion Gap 11 BUN 18 Creatinine 0.78 Est GFR ( Amer) > 60 Glucose 76 Calcium 8.4 04/09/19 09:27 Blood Blood Culture (PCR) - Final Staphylococcus Aureus 02/21/20 09:27 Blood Blood Culture - Final Staphylococcus Aureus 04/09/19 08:55 Blood Blood Culture (PCR) - Final Staphylococcus Aureus 04/09/19 08:55 Blood Blood Culture - Final Staphylococcus Aureus Impressions: Chest X-Ray 04/09/19 08:29 IMPRESSION: NO ACUTE RADIOGRAPHIC FINDING IN THE CHEST. Assessment and Plan - Diagnosis (1) Epistaxis Is this a current diagnosis for this admission?: Yes Plan: Resolved. No more evidence of nosebleeds. His Brilinta has been discontinued. (2) Anemia Qualifiers: Anemia type: iron deficiency Iron deficiency anemia type: inadequate dietary iron intake Qualified Code(s): D50.8 - Other iron deficiency anemias Is this a current diagnosis for this admission?: Yes Plan: I think this is primarily from iron deficiency as he is on iron supplement at home, I think he had a small volume of anemia due to blood loss. This is mostly a chronic condition for him. (3) COPD (chronic obstructive pulmonary disease) Qualifiers: COPD type: emphysema Emphysema type: centrilobular Qualified Code(s): J43.2 - Centrilobular emphysema Is this a current diagnosis for this admission?: Yes Plan: Chronic, not acutely exacerbated (4) Chronic dementia without behavioral disturbance Is this a current diagnosis for this admission?: Yes Plan: Mental status at baseline (5) Chronic hypoxemic respiratory failure Is this a current diagnosis for this admission?: Yes Plan: Stable on his usual 5 L per nasal cannula (6) Staphylococcus aureus bacteremia Is this a current diagnosis for this admission?: Yes Plan: It is a MSSA. Switch him to Ancef. 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 He has had multiple courses of antibiotics and was on doxycycline suppressive therapy whenever he came in. Infectious disease recommended a ISAEL. That has been ordered. He is only had 1 day of antibiotics and so we probably should not check blood cultures again until at least 48 hours after onset of antibiotics. That will be sometime tomorrow. - Plan Summary Summary: I am not convinced that this patient has a pneumonia. I am not going to treat him with antibiotics for now. We will monitor him to see if he develops signs or symptoms of pneumonia. I think that he may have had some of the blood from his nosebleed make its way into his airway which would have caused an inflammatory reaction resulting in the fever we saw in the ER. If he does begin to show signs of a true pneumonia then will start treatment. - Time Time Spent with patient: 25-34 minutes
[2019-04-12] MEDS ORDERED: CEFAZOLIN 2 GM/D5W RTU 2 GM/50 ML RTUPB IV SCH (18:00)
[2019-04-12] MEDS: CEFAZOLIN SODIUM 2 GM in DEXTROSE 5%-WATER 100 ML IV SCH (21:51)
[2019-04-12] MEDS: ATORVASTATIN CALCIUM 80 MG TABLET PO SCH (21:52)
[2019-04-12 22:02] LABS: VANCOMYCIN,TROUGH 15.9 ug/mL (5.0-20.0)
[2019-04-13] MEDS: CEFAZOLIN SODIUM 2 GM in DEXTROSE 5%-WATER 100 ML IV SCH ×4 (02:36→23:09)
[2019-04-13] MEDS: ACETAMINOPHEN 325 MG TABLET PO PRN ×4 (02:37→22:46)
[2019-04-13] MEDS ORDERED: CEPHALEXIN 500 MG CAPSULE PO SCH (06:00)
[2019-04-13] MEDS: FERROUS SULFATE 325 MG TABLET PO SCH (08:21)
[2019-04-13] MEDS ORDERED: METOPROLOL TARTRATE PF/INJ 5 MG/5 ML SDV IV ONE (09:53)
[2019-04-13] MEDS: KETOROLAC TROMETHAMINE INJ/PF 30 MG/1 ML SDV IV PRN (10:24)
[2019-04-13] MEDS: UMECLIDINIUM BROMIDE 62.5 MCG/DOSE IH SCH (10:25)
[2019-04-13] MEDS: SERTRALINE HCL 50 MG TABLET PO SCH (10:25)
[2019-04-13] MEDS: FLUTICASONE/VILANTEROL 200-25 MCG/DOSE IH SCH (10:25)
[2019-04-13] MEDS: PANTOPRAZOLE SODIUM 40 MG TABLET.DR PO SCH ×2 (10:25→17:22)
[2019-04-13] MEDS: METOPROLOL TARTRATE 25 MG TABLET PO SCH ×2 (11:33→22:46)
--- NOTE | 2019-04-13 13:52 | PDOC PROGRESS REPORT ---
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 Patient has refused previous recommendations for surgery and removal and replacement of aortic graft but has consistently refused intervention. He has been following up with infectious disease specialist and has been placed on chronic suppressive therapy with doxycycline. Patient is scheduled for a ISAEL tomorrow. Upon encounter this morning, he denies shortness of breath and chest pain. He reports of occasional headache from his migraine. He says that he has been on Imitrex for a long time but this [facility] and since then has been having frequent migraine attacks. Patient also developed new onset atrial fibrillation with a heart rate in the 120s. We discussed in length with patient's DPOA on the bedside his CODE STATUS and plan of care. I have previously taken care of this patient in 1 of his previous admissions and one point then he made himself a DNR/DNI. Both verbalized that they have rediscussed his CODE STATUS and have decided that he is amenable with temporary intubation in case he develops acute respiratory failure. He does not want to be on long-term ventilation and does not want to pursue artificial feeding nor tracheostomy. He maintains his decision not to pursue any type of surgery. He only wants to be medically treated with antibiotics. Patient does not want to receive chest compressions or defibrillation if he goes into cardiac arrest. We also discussed in length the need for anticoagulation with his new onset atrial fibrillation including benefits of stroke reduction and risk of bleeding. DPOA expressed that with patient's recent significant nosebleed just being on aspirin and Brilinta, they do not want to pursue anticoagulation at this time. Reason For Visit: ACUTE BLOOD LOSS ANEMIA Physical Exam Vital Signs: Temp Pulse Resp BP Pulse Ox 97.9 F 64 20 60/49 L 95 04/13/19 12:00 04/13/19 12:00 04/13/19 12:00 04/13/19 12:04/13/19 12:00 Intake & Output 04/12/19 04/13/19 04/14/19 06:59 06:59 06:59 Intake Total 1472 460 Balance 1472 460 Weight 140 lb 6.951 oz 140 lb 14.006 oz General appearance: PRESENT: no acute distress, well-developed, well-nourished Head exam: PRESENT: atraumatic, normocephalic Eye exam: PRESENT: conjunctiva pink, EOMI, PERRLA. ABSENT: scleral icterus Ear exam: PRESENT: normal external ear exam Mouth exam: PRESENT: moist, tongue midline Neck exam: ABSENT: carotid bruit, JVD, lymphadenopathy, thyromegaly Respiratory exam: PRESENT: clear to auscultation cristobal. ABSENT: rales, rhonchi, wheezes Cardiovascular exam: PRESENT: irregular rhythm, tachycardia. ABSENT: diastolic murmur, rubs, systolic murmur Pulses: PRESENT: normal dorsalis pedis pul GI/Abdominal exam: PRESENT: normal bowel sounds, soft. ABSENT: distended, guarding, mass, organolmegaly, rebound, tenderness Rectal exam: PRESENT: deferred Extremities exam: PRESENT: full ROM. ABSENT: calf tenderness, clubbing, pedal edema Neurological exam: PRESENT: alert, awake, oriented to person, oriented to place, CN II-XII grossly intact. ABSENT: oriented to time, motor sensory deficit Results Laboratory Results: 04/12/19 05:57 04/12/19 05:57 04/09/19 08:55 Blood Blood Culture (PCR) - Final Staphylococcus Aureus 04/09/19 08:55 Blood Blood Culture - Final Staphylococcus Aureus 04/09/19 09:27 Blood Blood Culture (PCR) - Final Staphylococcus Aureus 04/09/19 09:27 Blood Blood Culture - Final Staphylococcus Aureus Impressions: Chest X-Ray 04/09/19 08:29 IMPRESSION: NO ACUTE RADIOGRAPHIC FINDING IN THE CHEST. Assessment and Plan - Diagnosis (1) Staphylococcus aureus bacteremia Is this a current diagnosis for this admission?: Yes Plan: Patient is scheduled for a ISAEL tomorrow. Switch back to IV Ancef. (2) New onset a-fib Is this a current diagnosis for this admission?: Yes Plan: Patient is scheduled for a ISAEL tomorrow. Cardiology consulted. We also discussed in length the need for anticoagulation with his new onset atrial fibrillation including benefits of stroke reduction and risk of bleeding. DPOA expressed that with patient's recent significant nosebleed just being on aspirin and Brilinta, they do not want to pursue anticoagulation at this time. His HR improved with IV lopressor. Will start him on scheduled PO Lopressor. (3) Epistaxis Is this a current diagnosis for this admission?: Yes Plan: Resolved. (4) Chronic anemia Is this a current diagnosis for this admission?: Yes Plan: Likely a combination from blood loss and iron deficiency. Will check an anemia panel. - Plan Summary Summary: I am not convinced that this patient has a pneumonia. I am not going to treat him with antibiotics for now. We will monitor him to see if he develops signs or symptoms of pneumonia. I think that he may have had some of the blood from his nosebleed make its way into his airway which would have caused an inflammatory reaction resulting in the fever we saw in the ER. If he does begin to show signs of a true pneumonia then will start treatment. - Time Time Spent with patient: 25-34 minutes
[2019-04-13 14:22] LABS: ABSOLUTE EOSINOPHILS # (AUTO) 0.1 10^3/uL (0.0-0.6); ABSOLUTE LYMPHOCYTES (AUTO) 1.1 10^3/uL (0.5-4.7); ABSOLUTE MONOCYTES (AUTO) 0.6 10^3/uL (0.1-1.4); BASOPHILS % (AUTO) 0.5 % (0-2); EOSINOPHILS % (AUTO) 1.4 % (0-6); HEMATOCRIT 26.2 % (37.9-51.0); HEMOGLOBIN 8.6 g/dL (13.5-17.0); LYMPHOCYTES % (AUTO) 11.2 % (13-45); MEAN CORPUSCULAR HEMOGLOBIN 25.9 pg (27.0-33.4); MEAN CORPUSCULAR HGB CONC 32.8 g/dL (32.0-36.0); MEAN CORPUSCULAR VOLUME 79 fl (80-97); MONOCYTES % (AUTO) 5.8 % (3-13); PLATELET COUNT 354 10^3/uL (150-450); RED BLOOD COUNT 3.32 10^6/uL (4.35-5.55); RED CELL DISTRIBUTION WIDTH 18.1 % (11.5-14.0); SEGMENTED NEUTROPHILS % (AUTO) 81.1 % (42-78); TOTAL CELLS COUNTED % (AUTO) 100 %; WHITE BLOOD COUNT 9.8 10^3/uL (4.0-10.5)
[2019-04-13 14:45] LABS: ALBUMIN 3.2 g/dL (3.5-5.0); ALKALINE PHOSPHATASE 152 U/L (38-126); ANION GAP 11 (5-19); ASPARTATE AMINO TRANSFERASE 46 U/L (17-59); BILIRUBIN,TOTAL 0.3 mg/dL (0.2-1.3); BLOOD UREA NITROGEN 15 mg/dL (7-20); CALCIUM 8.6 mg/dL (8.4-10.2); CARBON DIOXIDE 22 mmol/L (22-30); CHLORIDE 104 mmol/L (98-107); GLUCOSE 136 mg/dL (75-110); POTASSIUM 4.5 mmol/L (3.6-5.0); TOTAL PROTEIN 6.5 g/dL (6.3-8.2)
[2019-04-13 15:16] LABS: FREE T3 3.73 pg/mL (2.77-5.27); FREE T4 (FREE THYROXINE) 1.29 ng/dL (0.78-2.19)
[2019-04-13 15:29] LABS: THYROID STIMULATING HORMONE 1.94 uIU/mL (0.47-4.68)
[2019-04-13 16:12] LABS: FOLATE 4.81 ng/mL (>2.76)
--- NOTE | 2019-04-13 17:02 | EKG REPORT ---
SEVERITY:- ABNORMAL ECG - ATRIAL FIBRILLATION NONSPECIFIC INTRAVENTRICULAR CONDUCTION DELAY ST DEPRESSION, CONSIDER ISCHEMIA, ANT-LAT LDS : Confirmed by: Elvira Benitez MD 13-Apr-2019 17:01:25
--- NOTE | 2019-04-13 18:48 | PDOC CONSULTATION ---
Consultation Consult Date: 04/13/19 Attending physician:: ARIA STAPLETON Provider Consulted: TRE LUDWIG Consult reason:: Atrial fibrillation History of Present Illness Admission Date/PCP: 04/09/19 13:[facility] Patient complains of: No complaints History of Present Illness: GAVINO PEDRAZA is a 78 year old male Active problems 1. Dementia 2. COPD 3. Coronary artery disease 4. Aortic aneurysm with graft repair 5. MSSA bacteremia 6. Benign prostate hypertrophy 7. Congestive heart failure 8. Systemic hypertension Patient is very confused and has dementia with poor recall. He was admitted on account of MSSA bacteremia and I have been already consulted to perform a transesophageal echocardiogram on this patient. Apparently during the day patient developed atrial fibrillation with rapid ventricular response. There was reportedly heavy epistaxis on account of dual antiplatelet therapy which is been stopped on account of this. Thus no anticoagulation is being currently pursued based on discussion with the family. At the time of my evaluation however patient has switched back to sinus rhythm. At the time of my evaluation patient voices no complaints whatsoever. Past Medical History Cardiac Medical History: Reports: Coronary Artery Disease, Peripheral Vascular Disease Pulmonary Medical History: Reports: Chronic Obstructive Pulmonary Disease (COPD) Denies: Asthma Neurological Medical History: Denies: Seizures Endocrine Medical History: Reports: Diabetes Mellitus Type 2 Denies: Diabetes Mellitus Type 1 GI Medical History: Denies: Crohn's Disease, Ulcerative Colitis Musculoskeltal Medical History: Denies: Fibromyalgia, Gout Skin Medical History: Denies: Eczema, Psoriasis Psychiatric Medical History: Reports: Dementia Hematology: Reports: Anemia Denies: Bleeding Tendencies Past Surgical History Past Surgical History: Reports: Cardiac Catheterization, Coronary Stent Social History Smoking Status: Former Smoker Electronic Cigarette use?: No Frequency of Alcohol Use: None Hx Recreational Drug Use: Yes Drugs: Marijuana Hx Prescription Drug Abuse: No - Advance Directive Resuscitation Status: Do Not Resuscitate Family History Family History: COPD Parental Family History Reviewed: No - Unable to obtain. Poor recall Children Family History Reviewed: NA Sibling(s) Family History Reviewed.: NA Medication/Allergy Home Medications: Albuterol Sulfate [Ventolin Hfa 8 gm Mdi] 2 puff IH Q6HP PRN 04/09/19 Aspirin [Ecotrin 81 mg EC Tablet] 81 mg PO DAILY 04/09/19 Atorvastatin Calcium [Lipitor 80 mg Tablet] 80 mg PO QHS 04/09/19 Budesonide/Formoterol Fumarate [Symbicort HFA 160-4.5 mcg Inhaler 6 gm] 2 puff IH BID 04/09/19 Doxycycline Hyclate [Vibramycin 100 mg Tablet] 100 mg PO DAILY@199904/09/19 Ferrous Sulfate [Feosol 325 mg Tablet] 324 mg PO QAM 04/09/19 Pantoprazole Sodium [Protonix [address] Tablet] 40 mg PO BID 04/09/19 Sertraline HCl [Zoloft 50 mg Tablet] 25 mg PO DAILY 04/09/19 Tamsulosin HCl [Flomax 0.4 mg Cap.sr] 0.4 mg PO QPM 04/09/19 Ticagrelor [Brilinta 90 mg Tablet] 90 mg PO Q12 04/09/19 Tiotropium [place] [Spiriva Handihaler 5 Cap/Kit (18 Mcg/Cap)] 1 puff IH DAILY 04/09/19 Allergies/Adverse Reactions: No Known Allergies Allergy (Verified 01/02/19 01:23) Review of Systems ROS unobtainable: Due to mental status Physical Exam Vital Signs: Temp Pulse Resp BP Pulse Ox 97.9 F 79 16 100/50 L 92 04/13/19 16:00 04/13/19 16:00 04/13/19 16:00 04/13/19 16:00 04/13/19 16:00 Intake & Output 04/12/19 04/13/19 04/14/19 06:59 06:59 06:59 Intake Total 1472 460 866 Balance 1472 460 866 Weight 63.7 kg 63.9 kg General appearance: PRESENT: no acute distress, cooperative, thin, well- developed Head exam: PRESENT: atraumatic, normocephalic Eye exam: PRESENT: conjunctiva pink, EOMI Mouth exam: PRESENT: moist Respiratory exam: PRESENT: clear to auscultation cristobal, symmetrical, unlabored Cardiovascular exam: PRESENT: RRR, +S1, +S2, systolic murmur Pulses: PRESENT: normal radial pulses GI/Abdominal exam: PRESENT: soft Rectal exam: PRESENT: deferred Musculoskeletal exam: PRESENT: normal inspection Neurological exam: PRESENT: alert, awake, oriented to person, oriented to place Psychiatric exam: PRESENT: appropriate affect Skin exam: PRESENT: intact, normal color Results Laboratory Results: 04/13/19 14:02 04/13/19 14:02 04/13/19 04/13/19 04/13/19 14:02 14:02 14:02 WBC 9.8 RBC 3.32 L Hgb 8.6 L Hct 26.2 L MCV 79 L MCH 25.9 L MCHC 32.8 RDW 18.1 H Plt Count 354 Seg Neutrophils % 81.1 H Retic Count (auto) 2.40 Sodium 137.4 Potassium 4.5 Chloride 104 Carbon Dioxide 22 Anion Gap 11 BUN 15 Creatinine 0.93 Est GFR ( Amer) > 60 Glucose 136 H Calcium 8.6 Iron 27.0 L TIBC 265 % Saturation 10 Ferritin 43.30 Total Bilirubin 0.3 AST 46 Alkaline Phosphatase 152 H Total Protein 6.5 Albumin 3.2 L Vitamin B12 802.0 Folate 4.81 TSH 1.94 Free T4 1.29 Free T3 pg/mL 3.73 04/09/19 08:55 Blood Blood Culture (PCR) - Final Staphylococcus Aureus 04/09/19 08:55 Blood Blood Culture - Final Staphylococcus Aureus 04/09/19 09:27 Blood Blood Culture (PCR) - Final Staphylococcus Aureus 04/09/19 09:27 Blood Blood Culture - Final Staphylococcus Aureus EKG Comments: 07/07/2019. Independently reviewed by me. Atrial fibrillation with rapid ventricular response 121 bpm. Nonspecific IVCD. Telemetry at the time of my evaluation shows sinus rhythm at 62 bpm. Most recent echocardiogram 11/06/2018 that showed preserved ejection fraction with moderate to severe mitral regurgitation Impressions: Chest X-Ray 04/09/19 08:29 IMPRESSION: NO ACUTE RADIOGRAPHIC FINDING IN THE CHEST. Assessment & Plan - Diagnosis (1) New onset a-fib Is this a current diagnosis for this admission?: Yes Plan: Given the fact that patient had recent significant bleeding while on antiplatelet therapy and due to the fact that family wishes not to pursue systemic anticoagulation rate control measures are preferred for this patient Agree with use of metoprolol oral. At the time of my evaluation patient has converted back to sinus rhythm. Would recommend continuing low-dose beta- abner to suppress triggers for atrial fibrillation. (2) Staphylococcus aureus bacteremia Is this a current diagnosis for this admission?: Yes Plan: Patient is presently receiving intravenous antibiotic therapy for bacteremia. Transesophageal echocardiogram is being planned for tomorrow with anesthesia support to exclude valvular vegetations as cause of bacteremia.
[2019-04-13] MEDS: HEPARIN SOD (PORCINE) 5,000 UNIT/ML 1 ML VIAL SUBCUT SCH (22:00)
[2019-04-13] MEDS: ATORVASTATIN CALCIUM 80 MG TABLET PO SCH (22:46)
[2019-04-14] MEDS: CEFAZOLIN SODIUM 2 GM in DEXTROSE 5%-WATER 100 ML IV SCH ×3 (07:51→17:33)
[2019-04-14] MEDS ORDERED: FERROUS SULFATE 325 MG TABLET PO SCH (08:00)
[2019-04-14] MEDS: FERROUS SULFATE 325 MG TABLET PO SCH ×2 (08:15→17:33)
[2019-04-14] MEDS: FLUTICASONE/VILANTEROL 200-25 MCG/DOSE IH SCH (10:14)
[2019-04-14] MEDS: HEPARIN SOD (PORCINE) 5,000 UNIT/ML 1 ML VIAL SUBCUT SCH ×2 (10:17→22:19)
[2019-04-14] MEDS: SERTRALINE HCL 50 MG TABLET PO SCH (10:17)
[2019-04-14] MEDS: METOPROLOL TARTRATE 25 MG TABLET PO SCH ×2 (10:17→22:27)
[2019-04-14] MEDS: UMECLIDINIUM BROMIDE 62.5 MCG/DOSE IH SCH (10:17)
[2019-04-14] MEDS: PANTOPRAZOLE SODIUM 40 MG TABLET.DR PO SCH ×2 (10:17→17:33)
[2019-04-14] MEDS: KETOROLAC TROMETHAMINE INJ/PF 30 MG/1 ML SDV IV PRN ×2 (11:24→20:08)
[2019-04-14] MEDS ORDERED: PROPOFOL INJ 200 MG/20 ML VIAL IV ONE (12:42)
--- NOTE | 2019-04-14 13:55 | RADIOLOGY REPORT (SQ) ---
EXAM DESCRIPTION: CT HEAD WITHOUT COMPLETED DATE/TIME: 04/14/2019 1:41 pm REASON FOR STUDY: headache, bacteremia, poss infective endocarditis COMPARISON: 01/02/2019 TECHNIQUE: Axial images acquired through the brain without intravenous contrast. Images reviewed wi th bone, brain and subdural windows. Additional sagittal and coronal reconstructions were generated. Images stored on PACS. All CT scanners at this facility use dose modulation, iterative reconstruction, and/or weight based d osing when appropriate to reduce radiation dose to as low as reasonably achievable (ALARA). [facility]: Dose Right [facility]: CareDose [facility]: Dose Right [facility]: Teradose 4D [facility]: [employer] RADIATION DOSE: CT Rad equipment meets quality standard of care and radiation dose reduction techniq ues were employed. CTDIvol: 48.6 mGy. DLP: 881 mGy-cm.mGy. LIMITATIONS: None. FINDINGS: VENTRICLES: Prominent. CEREBRUM: No masses. No hemorrhage. No midline shift. Areas of low density in the white matter mos t likely due to chronic micro-vascular ischemic change. No evidence for acute infarction. CEREBELLUM: No masses. No hemorrhage. No alteration of density. No evidence for acute infarction. EXTRAAXIAL SPACES: Age-related involutional change. No fluid collections. No masses. ORBITS AND GLOBE: No intra- or extraconal masses. Normal contour of globe without masses. CALVARIUM: No fracture. PARANASAL SINUSES: Persistent sphenoid sinusitis. SOFT TISSUES: No mass or hematoma. OTHER: No other significant finding. IMPRESSION: CHRONIC CHANGES OF ATROPHY AND MICROVASCULAR ISCHEMIA. NO ACUTE PROCESS. EVIDENCE OF ACUTE STROKE: NO. TECHNICAL DOCUMENTATION: JOB ID: [id number] Quality ID # [id number]: Final reports with documentation of one or more dose reduction techniques (e.g., Au tomated exposure control, adjustment of the mA and/or kV according to patient size, use of iterative reconstruction technique) 2010 [employer]- All Rights Reserved Reading location - IP/workstation name: [email or web address]
--- NOTE | 2019-04-14 15:34 | PDOC PROGRESS REPORT ---
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 Patient has refused previous recommendations for surgery and removal and replacement of aortic graft but has consistently refused intervention. He has been following up with infectious disease specialist and has been placed on chronic suppressive therapy with doxycycline. 04/13: Patient is scheduled for a ISAEL tomorrow. Upon encounter this morning, he denies shortness of breath and chest pain. He reports of occasional headache from his migraine. He says that he has been on Imitrex for a long time but this was [facility] and since then has been having frequent migraine attacks. Patient also developed new onset atrial fibrillation with a heart rate in the 120s. We discussed in length with patient's DPOA on the bedside his CODE STATUS and plan of care. I have previously taken care of this patient in 1 of his previous admissions and one point then he made himself a DNR/DNI. Both verbalized that they have rediscussed his CODE STATUS and have decided that he is amenable with temporary intubation in case he develops acute respiratory failure. He does not want to be on long-term ventilation and does not want to pursue artificial feeding nor tracheostomy. He maintains his decision not to pursue any type of surgery. He only wants to be medically treated with antibiotics. Patient does not want to receive chest compressions or defibrillation if he goes into cardiac arrest. We also discussed in length the need for anticoagulation with his new onset atrial fibrillation including benefits of stroke reduction and risk of bleeding. DPOA expressed that with patient's recent significant nosebleed just being on aspirin and Brilinta, they do not want to pursue anticoagulation at this time. 04/14: No acute event overnight. Patient has converted spontaneously to normal sinus rhythm. Denies chest pain or shortness of breath. This morning, he was amenable to pursuing the previously scheduled ISAEL. However when patient was in the procedure room for the ISAEL, he became very anxious and refused to undergo the procedure. ISAEL deferred. Will order for TTE instead. Reason For Visit: ACUTE BLOOD LOSS ANEMIA Physical Exam Vital Signs: Temp Pulse Resp BP Pulse Ox 98.4 F 87 18 100/50 L 99 04/14/19 11:57 04/14/19 14:30 04/14/19 14:30 04/14/19 11:57 04/14/19 11:57 Intake & Output 04/13/19 04/14/19 04/15/19 06:59 06:59 06:59 Intake Total 460 1366 200 Balance 460 1366 200 Weight 140 lb 14.006 oz 138 lb 7.205 oz General appearance: PRESENT: no acute distress, well-developed, well-nourished Head exam: PRESENT: atraumatic, normocephalic Eye exam: PRESENT: conjunctiva pink, EOMI, PERRLA. ABSENT: scleral icterus Ear exam: PRESENT: normal external ear exam Mouth exam: PRESENT: moist, tongue midline Neck exam: ABSENT: carotid bruit, JVD, lymphadenopathy, thyromegaly Respiratory exam: PRESENT: clear to auscultation cristobal. ABSENT: rales, rhonchi, wheezes Cardiovascular exam: PRESENT: RRR. ABSENT: diastolic murmur, rubs, systolic murmur Pulses: PRESENT: normal dorsalis pedis pul GI/Abdominal exam: PRESENT: normal bowel sounds, soft. ABSENT: distended, guarding, mass, organolmegaly, rebound, tenderness Rectal exam: PRESENT: deferred Extremities exam: PRESENT: full ROM. ABSENT: calf tenderness, clubbing, pedal edema Neurological exam: PRESENT: alert, awake, oriented to person, oriented to place, oriented to time, oriented to situation, CN II-XII grossly intact. ABSENT: motor sensory deficit Results Laboratory Results: 04/13/19 14:02 04/13/19 14:02 04/13/19 04/13/19 14:02 14:02 Sodium 137.4 Potassium 4.5 Chloride 104 Carbon Dioxide 22 Anion Gap 11 BUN 15 Creatinine 0.93 Est GFR ( Amer) > 60 Glucose 136 H Calcium 8.6 Iron 27.0 L TIBC 265 % Saturation 10 Ferritin 43.30 Total Bilirubin 0.3 AST 46 Alkaline Phosphatase 152 H Total Protein 6.5 Albumin 3.2 L Vitamin B12 802.0 Folate 4.81 TSH 1.94 Free T4 1.29 Free T3 pg/mL 3.73 04/09/19 09:27 Blood Blood Culture (PCR) - Final Staphylococcus Aureus 04/09/19 09:27 Blood Blood Culture - Final Staphylococcus Aureus Impressions: Chest X-Ray 04/09/19 08:29 IMPRESSION: NO ACUTE RADIOGRAPHIC FINDING IN THE CHEST. Head CT 04/14/19 00:00 IMPRESSION: CHRONIC CHANGES OF ATROPHY AND MICROVASCULAR ISCHEMIA. NO ACUTE PROCESS. EVIDENCE OF ACUTE STROKE: NO. Assessment and Plan - Diagnosis (1) Staphylococcus aureus bacteremia Is this a current diagnosis for this admission?: Yes Plan: 04/13: Patient is scheduled for a ISAEL tomorrow. Currently yon PO Keflex. Switch back to IV Ancef. 04/14: This morning, he was amenable to pursuing the previously scheduled ISAEL. However when patient was in the procedure room for the ISAEL, he became very anxious and refused to undergo the procedure. ISAEL deferred. Will order for TTE instead. Continue Ancef. (2) New onset a-fib Is this a current diagnosis for this admission?: Yes Plan: 04/13: Patient is scheduled for a ISAEL tomorrow. Cardiology consulted. We also discussed in length the need for anticoagulation with his new onset atrial fibrillation including benefits of stroke reduction and risk of bleeding. DPOA expressed that with patient's recent significant nosebleed just being on aspirin and Brilinta, they do not want to pursue anticoagulation at this time. His HR improved with IV lopressor. Will start him on scheduled PO Lopressor. 04/14: Converted to normal sinus rhythm. Continue p.o. Lopressor. (3) Epistaxis Is this a current diagnosis for this admission?: Yes Plan: Resolved. (4) Chronic anemia Is this a current diagnosis for this admission?: Yes Plan: Likely a combination from blood loss and iron deficiency. Iron level low. - Plan Summary Summary: I am not convinced that this patient has a pneumonia. I am not going to treat him with antibiotics for now. We will monitor him to see if he develops signs or symptoms of pneumonia. I think that he may have had some of the blood from his nosebleed make its way into his airway which would have caused an inflammatory reaction resulting in the fever we saw in the ER. If he does begin to show signs of a true pneumonia then will start treatment. - Time Time Spent with patient: 25-34 minutes
[2019-04-14] MEDS: ACETAMINOPHEN 325 MG TABLET PO PRN (17:33)
[2019-04-14] MEDS: PROMETHAZINE HCL INJ 25 MG/1 ML VIAL IM PRN (20:08)
[2019-04-14] MEDS: ATORVASTATIN CALCIUM 80 MG TABLET PO SCH (22:19)
[2019-04-15] MEDS: CEFAZOLIN SODIUM 2 GM in DEXTROSE 5%-WATER 100 ML IV SCH ×4 (00:35→17:06)
--- NOTE | 2019-04-15 09:09 | XCELERA REPORT ---
[address] [address] Transthoracic Echocardiogram Report Name: GAVINO PEDRAZA Age: 78 yrs Gender: Male : 1940 Patient Status: Inpatient Patient Location: [address] [place] [address] Study Date: 04/14/2019 03:09 PM History: Bacteremia Height: 67 in Weight: 138 lb BSA: 1.7 m2 Procedure: A complete two-dimensional transthoracic echocardiogram was performed (2D, M-mode, spectral and color flow Doppler). The study was technically difficult with many images being suboptimal in quality. Reason For Study: assess for vegetations,refused ISAEL,Dr. Luis Angel pulido History: Bacteremia. Ordering Physician: ARIA STAPLETON Performed By: Lina Sheriff Interpretation Summary Left ventricular systolic function is mildly reduced. The Ejection Fraction estimate is 40-45% The right ventricle is normal in size and function. There is a mild to moderate amount of mitral regurgitation There is a mild to moderate amount of aortic regurgitation There is no aortic valve stenosis Possible vegetation on the septal leaflet of the tricuspid valve. There is a mild amount of tricuspid regurgitation There is no pericardial effusion. MMode/2D Measurements & Calculations RVDd: 2.1 cm LVIDd: 5.3 cm FS: 15.8 % Ao root diam: 3.6 cm IVSd: 1.3 cm LVIDs: 4.4 cm EDV(Teich): 134.2 ml Ao root area: 10.2 cm2 LVPWd: 0.84 cm ESV(Teich): 89.8 ml LA dimension: 2.5 cm EF(Teich): 33.1 % Doppler Measurements & Calculations MV E max jerod: MV P1/2t max jerod: Ao V2 max: AI max jerod: 95.8 cm/sec 102.5 cm/sec 138.8 cm/sec 389.9 cm/sec MV A max jerod: MV P1/2t: 88.1 msec Ao max PG: AI max P.9 mmHg 90.3 cm/sec MVA(P1/2t): 2.5 cm2 7.7 mmHg AI dec slope: MV E/A: 1.1 MV dec slope: 211.1 cm/sec2 AI P1/2t: 540.9 msec 340.7 cm/sec2 MV dec time: 0.19 sec LV V1 max PG: PA V2 max: TR max jerod: AV P1/2t-pr_phl: 2.3 mmHg 59.7 cm/sec 344.2 cm/sec 542.3 msec LV V1 max: PA max P.4 mmHg TR max P.0 cm/sec 47.4 mmHg MV P1/2t-pr_phl: 88.1 msec Left Ventricle The left ventricle is borderline dilated. There is mild concentric left ventricular hypertrophy. Left ventricular systolic function is mildly reduced. The Ejection Fraction estimate is 40-45%. Doppler measurements suggest pseudonormalized left ventricular relaxation, which is associated with grade II/IV or mild to moderate diastolic dysfunction. There is mild global hypokinesis of the left ventricle. Right Ventricle The right ventricle is normal in size and function. Atria The right atrium is normal. The left atrial size is normal. Mitral Valve The mitral valve leaflets are sclerotic, but show no functional abnormalities. There is no evidence of mitral valve prolapse. There is no mitral valve stenosis. There is a mild to moderate amount of mitral regurgitation. Aortic Valve The aortic valve is sclerotic and shows some degree of functional abnormality. The aortic valve is mildly calcified. The aortic valve is not well visualized secondary to technical limitations. There is no aortic valve stenosis. There is a mild to moderate amount of aortic regurgitation. Tricuspid Valve The septal leaflet is thickened. Possible vegetation on the septal leaflet of the tricuspid valve. There is a mild amount of tricuspid regurgitation. There is mild to moderate pulmonary hypertension by echo. Right ventricular systolic pressure is estimated to be elevated at 40-50mmHg. Pulmonic Valve The pulmonic valve is not well visualized. There is a mild amount of pulmonic regurgitation. Great Vessels The aortic root is normal size. Effusions There is no pericardial effusion. : ARIA STAPLETON Anil
[2019-04-15] MEDS: METOPROLOL TARTRATE 25 MG TABLET PO SCH (09:13)
[2019-04-15] MEDS: PANTOPRAZOLE SODIUM 40 MG TABLET.DR PO SCH ×2 (09:13→17:06)
[2019-04-15] MEDS: SERTRALINE HCL 50 MG TABLET PO SCH (09:13)
[2019-04-15] MEDS: HEPARIN SOD (PORCINE) 5,000 UNIT/ML 1 ML VIAL SUBCUT SCH ×2 (09:13→21:46)
[2019-04-15] MEDS: FERROUS SULFATE 325 MG TABLET PO SCH ×2 (09:13→17:06)
[2019-04-15] MEDS: UMECLIDINIUM BROMIDE 62.5 MCG/DOSE IH SCH (09:14)
[2019-04-15] MEDS: FLUTICASONE/VILANTEROL 200-25 MCG/DOSE IH SCH (09:14)
--- NOTE | 2019-04-15 15:11 | PDOC PROGRESS REPORT ---
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 Patient has refused previous recommendations for surgery and removal and replacement of aortic graft but has consistently refused intervention. He has been following up with infectious disease specialist and has been placed on chronic suppressive therapy with doxycycline. 04/13: Patient is scheduled for a ISAEL tomorrow. Upon encounter this morning, he denies shortness of breath and chest pain. He reports of occasional headache from his migraine. He says that he has been on Imitrex for a long time but this was [facility] and since then has been having frequent migraine attacks. Patient also developed new onset atrial fibrillation with a heart rate in the 120s. We discussed in length with patient's DPOA on the bedside his CODE STATUS and plan of care. I have previously taken care of this patient in 1 of his previous admissions and one point then he made himself a DNR/DNI. Both verbalized that they have rediscussed his CODE STATUS and have decided that he is amenable with temporary intubation in case he develops acute respiratory failure. He does not want to be on long-term ventilation and does not want to pursue artificial feeding nor tracheostomy. He maintains his decision not to pursue any type of surgery. He only wants to be medically treated with antibiotics. Patient does not want to receive chest compressions or defibrillation if he goes into cardiac arrest. We also discussed in length the need for anticoagulation with his new onset atrial fibrillation including benefits of stroke reduction and risk of bleeding. DPOA expressed that with patient's recent significant nosebleed just being on aspirin and Brilinta, they do not want to pursue anticoagulation at this time. 04/14: No acute event overnight. Patient has converted spontaneously to normal sinus rhythm. Denies chest pain or shortness of breath. This morning, he was amenable to pursuing the previously scheduled ISAEL. However when patient was in the procedure room for the ISAEL, he became very anxious and refused to undergo the procedure. ISAEL deferred. Will order for TTE instead. 04/15: No acute event overnight. Patient appears comfortable on encounter. Denies acute complaints. TTE shows possible vegetation on the septal leaflet of the tricuspid valve. TTE also shows slightly reduced EF of 40-45%. Repeat blood cultures have been negative so far. Plan for PICC line placement tomorrow if repeat blood cultures remain negative for growth tomorrow and complete home IV antibiotics for total 6 weeks therapy. Reason For Visit: ACUTE BLOOD LOSS ANEMIA Physical Exam Vital Signs: Temp Pulse Resp BP Pulse Ox 97.8 F 69 21 H 99/48 L 92 04/15/19 12:04 04/15/19 12:04 04/15/19 12:04 04/15/19 12:04 04/15/19 12:04 Intake & Output 04/14/19 04/15/19 04/16/19 06:59 06:59 06:59 Intake Total 1366 1250 600 Balance 1366 1250 600 Weight 138 lb 7.205 oz 135 lb 2.294 oz General appearance: PRESENT: no acute distress, well-developed, well-nourished Head exam: PRESENT: atraumatic, normocephalic Eye exam: PRESENT: conjunctiva pink, EOMI, PERRLA. ABSENT: scleral icterus Ear exam: PRESENT: normal external ear exam Mouth exam: PRESENT: moist, tongue midline Neck exam: ABSENT: carotid bruit, JVD, lymphadenopathy, thyromegaly Respiratory exam: PRESENT: clear to auscultation cristobal. ABSENT: rales, rhonchi, wheezes Cardiovascular exam: PRESENT: RRR. ABSENT: diastolic murmur, rubs, systolic murmur Pulses: PRESENT: normal dorsalis pedis pul GI/Abdominal exam: PRESENT: normal bowel sounds, soft. ABSENT: distended, guarding, mass, organolmegaly, rebound, tenderness Rectal exam: PRESENT: deferred Extremities exam: PRESENT: full ROM. ABSENT: calf tenderness, clubbing, pedal edema Neurological exam: PRESENT: alert, awake, oriented to person, CN II-XII grossly intact. ABSENT: motor sensory deficit Results Laboratory Results: 04/13/19 14:02 04/13/19 14:02 04/09/19 09:27 Blood Blood Culture (PCR) - Final Staphylococcus Aureus 04/09/19 09:27 Blood Blood Culture - Final Staphylococcus Aureus Impressions: Chest X-Ray 04/09/19 08:29 IMPRESSION: NO ACUTE RADIOGRAPHIC FINDING IN THE CHEST. Head CT 04/14/19 00:00 IMPRESSION: CHRONIC CHANGES OF ATROPHY AND MICROVASCULAR ISCHEMIA. NO ACUTE PROCESS. EVIDENCE OF ACUTE STROKE: NO. Assessment and Plan - Diagnosis (1) Infective endocarditis Is this a current diagnosis for this admission?: Yes Plan: 04/15: TTE shows possible vegetation on the septal leaflet of the tricuspid valve. TTE also shows slightly reduced EF of 40-45%. Repeat blood cultures have been negative so far. Plan for PICC line placement tomorrow if repeat blood cultures remain negative for growth tomorrow and complete home IV antibiotics for total 6 weeks therapy. (2) Staphylococcus aureus bacteremia Is this a current diagnosis for this admission?: Yes Plan: 04/13: Patient is scheduled for a ISAEL tomorrow. Switch back to IV Ancef. 04/14: This morning, he was amenable to pursuing the previously scheduled ISAEL. However when patient was in the procedure room for the ISAEL, he became very anxious and refused to undergo the procedure. ISAEL deferred. Will order for TTE instead. Continue Ancef. (3) New onset a-fib Is this a current diagnosis for this admission?: Yes Plan: 04/13: Patient is scheduled for a ISAEL tomorrow. Cardiology consulted. We also discussed in length the need for anticoagulation with his new onset atrial fibrillation including benefits of stroke reduction and risk of bleeding. DPOA expressed that with patient's recent significant nosebleed just being on aspirin and Brilinta, they do not want to pursue anticoagulation at this time. His HR improved with IV lopressor. Will start him on scheduled PO Lopressor. 04/14: Converted to normal sinus rhythm. Continue p.o. Lopressor. (4) Epistaxis Is this a current diagnosis for this admission?: Yes (5) Chronic anemia Is this a current diagnosis for this admission?: Yes (6) CHF (congestive heart failure) Qualifiers: Heart failure type: systolic Heart failure chronicity: acute on chronic Qualified Code(s): I50.23 - Acute on chronic systolic (congestive) heart failure Is this a current diagnosis for this admission?: Yes Plan: Will be started on Toprol and lisinopril. - Plan Summary Summary: I am not convinced that this patient has a pneumonia. I am not going to treat him with antibiotics for now. We will monitor him to see if he develops signs or symptoms of pneumonia. I think that he may have had some of the blood from his nosebleed make its way into his airway which would have caused an inflammatory reaction resulting in the fever we saw in the ER. If he does begin to show signs of a true pneumonia then will start treatment. - Time Time Spent with patient: 25-34 minutes
[2019-04-15] MEDS: LISINOPRIL 5 MG TABLET PO SCH (16:16)
[2019-04-15] MEDS: ACETAMINOPHEN 325 MG TABLET PO PRN (17:34)
[2019-04-15] MEDS: ATORVASTATIN CALCIUM 80 MG TABLET PO SCH (21:46)
[2019-04-15] MEDS: KETOROLAC TROMETHAMINE INJ/PF 30 MG/1 ML SDV IV PRN (21:46)
[2019-04-15] MEDS: PROMETHAZINE HCL INJ 25 MG/1 ML VIAL IM PRN (21:48)
[2019-04-16] MEDS: CEFAZOLIN SODIUM 2 GM in DEXTROSE 5%-WATER 100 ML IV SCH ×6 (06:00→22:42)
[2019-04-16] MEDS: ACETAMINOPHEN 325 MG TABLET PO PRN ×3 (06:04→20:22)
--- NOTE | 2019-04-16 07:07 | Progress Note ---
Provider Note Provider Note: [facility] Telephone Advice Follow Up Chart reviewed. Patient is a 78-year-old man with dementia, COPD on home O2 who was recently admitted in February due to MSSA bacteremia. 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 Per chart review, at that time his ID provider Dr. Mancilla gave recommendations to treat him with cefazolin for 2 weeks and transition to oral suppressive therapy with doxycycline. He was going to have follow up with his ID provider. He now presented to the hospital due to epistaxis. His blood cultures on admission were positive for MSSA. He was complaining of headache, he has a history of migraines. He was previously on vancomycin now on cefazolin. A ISAEL was recommended, patient finally agreed with the test but in the end refused. New blood cultures from 04/14 remain negative in 24 hr. Allergies: No Known Allergies Allergy (Verified 01/02/19 01:23) Medications: Albuterol Sulfate [Ventolin Hfa 8 gm Mdi] 2 puff IH Q6HP PRN 04/09/19 Aspirin [Ecotrin 81 mg EC Tablet] 81 mg PO DAILY 04/09/19 Atorvastatin Calcium [Lipitor 80 mg Tablet] 80 mg PO QHS 04/09/19 Budesonide/Formoterol Fumarate [Symbicort HFA 160-4.5 mcg Inhaler 6 gm] 2 puff IH BID 04/09/19 Doxycycline Hyclate [Vibramycin 100 mg Tablet] 100 mg PO DAILY@199904/09/19 Ferrous Sulfate [Feosol 325 mg Tablet] 324 mg PO QAM 04/09/19 Pantoprazole Sodium [Protonix [address] Tablet] 40 mg PO BID 04/09/19 Sertraline HCl [Zoloft 50 mg Tablet] 25 mg PO DAILY 04/09/19 Tamsulosin HCl [Flomax 0.4 mg Cap.sr] 0.4 mg PO QPM 04/09/19 Ticagrelor [Brilinta 90 mg Tablet] 90 mg PO Q12 04/09/19 Tiotropium [place] [Spiriva Handihaler 5 Cap/Kit (18 Mcg/Cap)] 1 puff IH DAILY 04/09/19 Vital Signs: Temp Pulse Resp BP Pulse Ox 97.8 F 69 21 H 99/48 L 92 04/15/19 12:04 04/15/19 12:04 04/15/19 12:04 04/15/19 12:04 04/15/19 12:04 Intake & Output 04/14/19 04/15/19 04/16/19 06:59 06:59 06:59 Intake Total 1366 1250 100 Balance 1366 1250 100 Weight 62.8 kg 61.3 kg Weight/Height Weight 61.3 kg Height 5 ft 7 in Laboratories: 04/13/19 14:02 04/13/19 14:02 MCV 79 fl (80-97) L 04/13/19 14:02 MCH 25.9 pg (27.0-33.4) L 04/13/19 14:02 MCHC 32.8 g/dL (32.0-36.0) 04/13/19 14:02 RDW 18.1 % (11.5-14.0) H 04/13/19 14:02 Seg Neutrophils % 81.1 % (42-78) H 04/13/19 14:02 Retic Count (auto) 2.40 % (0.66-2.85) 04/13/19 14:02 Chloride 104 mmol/L (98-107) 04/13/19 14:02 Carbon Dioxide 22 mmol/L (22-30) 04/13/19 14:02 Anion Gap 11 (5-19) 04/13/19 14:02 Est GFR ( Amer) > 60 (>60) 04/13/19 14:02 Est GFR (Non-Af Amer) Cancelled 04/09/19 08:55 Glucose 136 mg/dL (75-110) H 04/13/19 14:02 Lactic Acid 1.1 mmol/L (0.7-2.1) 04/09/19 11:33 Calcium 8.6 mg/dL (8.4-10.2) 04/13/19 14:02 Magnesium 2.0 mg/dL (1.6-2.3) 04/11/19 05:20 Iron 27.0 ug/dL (49-181) L 04/13/19 14:02 TIBC 265 ug/dL (250-450) 04/13/19 14:02 % Saturation 10 % 04/13/19 14:02 Ferritin 43.30 ng/mL (17.9-464.0) 04/13/19 14:02 Total Bilirubin 0.3 mg/dL (0.2-1.3) 04/13/19 14:02 AST 46 U/L (17-59) 04/13/19 14:02 Alkaline Phosphatase 152 U/L (38-126) H 04/13/19 14:02 Total Protein 6.5 g/dL (6.3-8.2) 04/13/19 14:02 Albumin 3.2 g/dL (3.5-5.0) L 04/13/19 14:02 Vitamin B12 802.0 pg/mL (239-931) 04/13/19 14:02 Folate 4.81 ng/mL (>2.76) 04/13/19 14:02 TSH 1.94 uIU/mL (0.47-4.68) 04/13/19 14:02 Free T4 1.29 ng/dL (0.78-2.19) 04/13/19 14:02 Free T3 pg/mL 3.73 pg/mL (2.77-5.27) 04/13/19 14:02 Urine Color YELLOW 04/09/19 10:35 Urine Appearance CLEAR 04/09/19 10:35 Urine pH 5.0 (5.0-9.0) 04/09/19 10:35 Ur Specific [place] 1.014 04/09/19 10:35 Urine Protein NEGATIVE mg/dL (NEGATIVE) 04/09/19 10:35 Urine Glucose (UA) NEGATIVE mg/dL (NEGATIVE) 04/09/19 10:35 Urine Ketones NEGATIVE mg/dL (NEGATIVE) 04/09/19 10:35 Urine Blood NEGATIVE (NEGATIVE) 04/09/19 10:35 Urine Nitrite NEGATIVE (NEGATIVE) 04/09/19 10:35 Ur Leukocyte Esterase NEGATIVE (NEGATIVE) 04/09/19 10:35 Urine WBC (Auto) 1 /HPF 04/09/19 10:35 Urine RBC (Auto) 1 /HPF 04/09/19 10:35 Blood Type O POSITIVE 04/09/19 09:27 Antibody Screen NEGATIVE 04/09/19 09:27 04/09/19 09:27 Blood Blood Culture (PCR) - Final Staphylococcus Aureus 04/09/19 09:27 Blood Blood Culture - Final Staphylococcus Aureus 04/14 In process - NGTD Radiology: Chest X-Ray 04/09/19 08:29 IMPRESSION: NO ACUTE RADIOGRAPHIC FINDING IN THE CHEST. Head CT 04/14/19 00:00 IMPRESSION: CHRONIC CHANGES OF ATROPHY AND MICROVASCULAR ISCHEMIA. NO ACUTE PROCESS. EVIDENCE OF ACUTE STROKE: NO. Assessment and Recommendations: Patient evaluated due to MSSA bacteremia suspected to be from a chronically inf ected aortic graft. He was previously on suppressive therapy with doxycycline but had recurrence of bacteremia. Per notes, he has refused surgery and any other procedures, therefore will need to continue suppressive therapy. For now, will recommend 6 weeks of cefazolin 2g every 8 hr (EOT 05/26/2019 if blood cultures from 04/14 remain negative), followed by cefadroxil 500 mg po bid or cephalexin 500 mg po tid for suppression. He needs to continue follow up with his ID provider for further monitoring (surveillance blood cultures) and management. Please call back if any questions. Jennifer Shannon MD [facility] [phone]
[2019-04-16] MEDS: LISINOPRIL 5 MG TABLET PO SCH (10:00)
[2019-04-16] MEDS: HEPARIN SOD (PORCINE) 5,000 UNIT/ML 1 ML VIAL SUBCUT SCH ×2 (10:00→22:42)
--- NOTE | 2019-04-16 10:57 | PDOC DISCHARGE SUMMARY ---
Impression - Admit/DC Date/PCP Admission Date/Primary Care Provider: 04/09/19 13:31 [facility] Discharge Date: 04/16/19 - Discharge Diagnosis (1) Infective endocarditis Is this a current diagnosis for this admission?: Yes (2) Staphylococcus aureus bacteremia Is this a current diagnosis for this admission?: Yes (3) New onset a-fib Is this a current diagnosis for this admission?: Yes (4) Epistaxis Is this a current diagnosis for this admission?: Yes (5) Chronic anemia Is this a current diagnosis for this admission?: Yes (6) CHF (congestive heart failure) Is this a current diagnosis for this admission?: Yes - Assessment Summary: I am not convinced that this patient has a pneumonia. I am not going to treat him with antibiotics for now. We will monitor him to see if he develops signs or symptoms of pneumonia. I think that he may have had some of the blood from his nosebleed make its way into his airway which would have caused an inflammatory reaction resulting in the fever we saw in the ER. If he does begin to show signs of a true pneumonia then will start treatment. - Additional Information Resuscitation Status: Do Not Resuscitate Referrals: [facility] [Primary Care Provider] - 04/21/19 11:00 am (The [facility]: [facility] Apr 14 1015 [place] April 20 11 [place] April [facility] April 20 115 [place] June 23 [facility] ) Prescriptions: Cefazolin 1 gm/D5w RTU [Ancef RTU 1 gm/D5w 50 ml Premix Bag] 2 gm IV Q8H #126 ml Cefadroxil 500 mg PO BID #60 capsule Lisinopril [Prinivil 5 mg Tablet] 2.5 mg PO DAILY #30 tablet Metoprolol Succinate [Toprol Xl 25 mg Tab.sr] 25 mg PO DAILY #30 tab.sr.24h Home Medications: Albuterol Sulfate [Ventolin Hfa 8 gm Mdi] 2 puff IH Q6HP PRN 04/09/19 Aspirin [Ecotrin 81 mg EC Tablet] 81 mg PO DAILY 04/09/19 Atorvastatin Calcium [Lipitor 80 mg Tablet] 80 mg PO QHS 04/09/19 Budesonide/Formoterol Fumarate [Symbicort HFA 160-4.5 mcg Inhaler 6 gm] 2 puff IH BID 04/09/19 Ferrous Sulfate [Feosol 325 mg Tablet] 324 mg PO QAM 04/09/19 Pantoprazole Sodium [Protonix [address] Tablet] 40 mg PO BID 04/09/19 Sertraline HCl [Zoloft 50 mg Tablet] 25 mg PO DAILY 04/09/19 Tamsulosin HCl [Flomax 0.4 mg Cap.sr] 0.4 mg PO QPM 04/09/19 Tiotropium [place] [Spiriva Handihaler 5 Cap/Kit (18 Mcg/Cap)] 1 puff IH DAILY 04/09/19 Acetaminophen [Tylenol 325 mg Tablet] 650 mg PO Q4HP PRN tablet 04/16/19 Cefadroxil 500 mg PO BID #60 capsule 04/16/19 Cefazolin 1 gm/D5w RTU [Ancef RTU 1 gm/D5w 50 ml Premix Bag] 2 gm IV Q8H #126 ml 04/16/19 Lisinopril [Prinivil 5 mg Tablet] 2.5 mg PO DAILY #30 tablet 04/16/19 Metoprolol Succinate [Toprol Xl 25 mg Tab.sr] 25 mg PO DAILY #30 tab.sr.24h 04/16/19 History of Present Illiness History of Present Illness: Admitting hospitalist's H&P: GAVINO PEDRAZA is a 78 year old male who is unable to provide any history whatsoever due to his dementia and his son who is his power of can dragger was trying to give me most of the story but he himself is a horrible historian. 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 He is on aspirin and Brilinta but the son does not know why, stating that the patient has the aortic graft but has never had any cardiac issues and has never had any coronary stenting. A progress note from Dr. Benitez in October 2018 says that he was treated for a non-ST elevation VT and is believed to have coronary artery disease but the patient is too poor of a candidate for any testing including cardiac catheterization and it looks like he was put on aspirin and Brilinta empirically. Patient was brought in today by family because of nosebleeds. Apparently his nose started bleeding yesterday and has continued to bleed. When I saw him in the ER his nose was not bleeding at that time. His hemoglobin seems to have dropped a bit from when he was last here. When he was discharged a little over a month ago his hemoglobin was around 10, today it is around 9. He had a fever in the ER but the patient does not have any respiratory complaints at this time and his chest x-ray was negative. He had no substantial abnormalities on his chest examination and was on his usual 5 L per nasal cannula and his oxygen saturations were in the mid 90s. The patient has not had any fever at home that the patient's son is aware of. The ER empirically treated him for a pneumonia with 3 different antibiotics. The son says that the patient has not been eating well for several weeks and he can usually only get a couple of bottles of Ensure in him a day. 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 Patient has refused previous recommendations for surgery and removal and replacement of his infected aortic graft and has consistently refused intervention. He has been following up with infectious disease specialist in [facility] and has been placed on chronic suppressive therapy with doxycycline. Patient was started on IV antibiotics. Infectious disease was also consulted. Patient was also initially scheduled for a ISAEL. However, while patient was on the table for ISAEL, he refused to go ahead with the procedure hence ISAEL was deferred. TTE was pursued instead and did show a vegetation on the septal leaflet of the tricuspid valve. TTE also shows slightly reduced EF of 40-45%. Patient has dementia but does have lucid intervals where he is coherent and AAO x3. He has episodes of sundowning and episodic confusion throughout the day. On his lucid intervals, he has expressed good understanding of his condition. We have rediscussed in length and he has verbalized understanding that he has a chronically infected aortic graft. He understands that his recurrent bacteremia is likely because of this. We rediscussed in length recommendations from [facility] about the need for aortic graft replacement. Patient has co nsistently refused any form of surgical intervention to replace his aortic graft. Patient's DPOA is Naveed Bah who goes by the name "Rik". Patient has verbalized Rik is not his biological son but rather his long-term close friend and caregiver and has considered him his son hence he has made him his POA. I have met with patient's brother, Mingo on the bedside who also has expressed that Rik is indeed Mr. Pedraza's DPOA and long time caregiver. Patient's POA, Rik as well as Mingo recognizes patient's consistent decision not to pursue any form of surgical intervention to replace his aortic graft. I have taken care of this patient before in one of his previous admissions for bacteremia and they were previously told that antibiotics can only do so much for his chronically infected aortic graft. I have previously discussed with them in prior admissions the risk of developing infective endocarditis which he has developed at the moment. We discussed the anticipated possible future complications of recurrence of bacteremia and infective endocarditis as well septic embolism. Patient and POA expressed that they would just stick to medical management particularly antibiotics. Patient's repeat blood cultures did come back negative after 48 hours. PICC line was placed. He will be discharged home with home health and home IV antibiotics to complete a total of 6 weeks of Ancef. After which he will be switched to suppressive therapy with cefadroxil per ID recommendation. They will closely follow-up with patient's ID in [place], Dr. Mancilla in a week. Patient also had episodes of A. fib during this course. We also discussed in length the need for anticoagulation with his new onset atrial fibrillation including benefits of stroke reduction and risk of bleeding. DPOA expressed that with patient's recent significant nosebleed just being on aspirin and Brilinta, they do not want to pursue anticoagulation at this time. He did not have any bleeding episode or recurrence of epistaxis during this hospital course. POA expressed their apprehensive about him being resumed on aspirin and Brilinta. Patient will be kept on just aspirin instead. We also rediscussed his CODE STATUS with POA and with patient's brother on the bedside. He has maintained that he does not want any chest compressions or defibrillation but is amenable to temporary or short-term intubation. He has expressed he does not want PEG tube placement, tracheostomy or long-term ventilatory support. Possible options including hospice transition in the future if he ever develops worsening clinical deterioration or complications was also discussed. Patient expressed he knows what hospice is as his mother went through it and will think about this "when he gets there". Physical Exam Vital Signs: Temp Pulse Resp BP Pulse Ox 98.6 F 83 19 96/68 L 100 04/16/19 07:19 04/16/19 07:19 04/16/19 07:19 04/16/19 07:19 04/16/19 07:19 Intake & Output 04/15/19 04/16/19 04/17/19 06:59 06:59 06:59 Intake Total 1250 1660 Balance 1250 1660 Weight 135 lb 2.294 oz 138 lb 14.259 oz General appearance: PRESENT: no acute distress, well-developed, well-nourished Head exam: PRESENT: atraumatic, normocephalic Eye exam: PRESENT: conjunctiva pink, EOMI, PERRLA. ABSENT: scleral icterus Ear exam: PRESENT: normal external ear exam Mouth exam: PRESENT: moist, tongue midline Neck exam: ABSENT: carotid bruit, JVD, lymphadenopathy, thyromegaly Respiratory exam: PRESENT: clear to auscultation cristobal. ABSENT: rales, rhonchi, wheezes Cardiovascular exam: PRESENT: RRR. ABSENT: irregular rhythm Pulses: PRESENT: normal dorsalis pedis pul GI/Abdominal exam: PRESENT: normal bowel sounds, soft. ABSENT: distended, guarding, mass, organolmegaly, rebound, tenderness Rectal exam: PRESENT: deferred Neurological exam: PRESENT: alert, awake, oriented to person, oriented to place, CN II-XII grossly intact. ABSENT: motor sensory deficit Results Laboratory Results: WBC 9.8 10^3/uL (4.0-10.5) 04/13/19 14:02 RBC 3.32 10^6/uL (4.35-5.55) L 04/13/19 14:02 Hgb 8.6 g/dL (13.5-17.0) L 04/13/19 14:02 Hct 26.2 % (37.9-51.0) L 04/13/19 14:02 MCV 79 fl (80-97) L 04/13/19 14:02 MCH 25.9 pg (27.0-33.4) L 04/13/19 14:02 MCHC 32.8 g/dL (32.0-36.0) 04/13/19 14:02 RDW 18.1 % (11.5-14.0) H 04/13/19 14:02 Plt Count 354 10^3/uL (150-450) 04/13/19 14:02 Lymph % (Auto) 11.2 % (13-45) L 04/13/19 14:02 [place] % (Auto) 5.8 % (3-13) 04/13/19 14:02 Eos % (Auto) 1.4 % (0-6) 04/13/19 14:02 Baso % (Auto) 0.5 % (0-2) 04/13/19 14:02 Reticulocyte # 0.080 10^6/uL (0.028-0.122) 04/13/19 14:02 Absolute Neuts (auto) 8.0 10^3/uL (1.7-8.2) 04/13/19 14:02 Absolute Lymphs (auto) 1.1 10^3/uL (0.5-4.7) 04/13/19 14:02 Absolute Monos (auto) 0.6 10^3/uL (0.1-1.4) 04/13/19 14:02 Absolute Eos (auto) 0.1 10^3/uL (0.0-0.6) 04/13/19 14:02 Absolute Basos (auto) 0.0 10^3/uL (0.0-0.2) 04/13/19 14:02 Seg Neutrophils % 81.1 % (42-78) H 04/13/19 14:02 Platelet Estimate Cancelled 04/09/19 08:55 Retic Count (auto) 2.40 % (0.66-2.85) 04/13/19 14:02 PT 13.7 SEC (11.4-15.4) 04/09/19 08:55 INR 1.05 04/09/19 08:55 Sodium 137.4 mmol/L (137-145) 04/13/19 14:02 Potassium 4.5 mmol/L (3.6-5.0) 04/13/19 14:02 Chloride 104 mmol/L (98-107) 04/13/19 14:02 Carbon Dioxide 22 mmol/L (22-30) 04/13/19 14:02 Anion Gap 11 (5-19) 04/13/19 14:02 BUN 15 mg/dL (7-20) 04/13/19 14:02 Creatinine 0.93 mg/dL (0.52-1.25) 04/13/19 14:02 Est GFR ( Amer) > 60 (>60) 04/13/19 14:02 Est GFR (Non-Af Amer) Cancelled 04/09/19 08:55 Est GFR (MDRD) Non-Af > 60 (>60) 04/13/19 14:02 Glucose 136 mg/dL (75-110) H 04/13/19 14:02 Lactic Acid 1.1 mmol/L (0.7-2.1) 04/09/19 11:33 Calcium 8.6 mg/dL (8.4-10.2) 04/13/19 14:02 Magnesium 2.0 mg/dL (1.6-2.3) 04/11/19 05:20 Iron 27.0 ug/dL (49-181) L 04/13/19 14:02 TIBC 265 ug/dL (250-450) 04/13/19 14:02 % Saturation 10 % 04/13/19 14:02 Ferritin 43.30 ng/mL (17.9-464.0) 04/13/19 14:02 Total Bilirubin 0.3 mg/dL (0.2-1.3) 04/13/19 14:02 Direct Bilirubin 0.0 mg/dL (0.0-0.4) 04/13/19 14:02 Neonat Total Bilirubin Not Reportable 04/13/19 14:02 Neonat Direct Bilirubin Not Reportable 04/13/19 14:02 Neonat Indirect Bili Not Reportable 04/13/19 14:02 AST 46 U/L (17-59) 04/13/19 14:02 ALT 20 U/L (<50) 04/13/19 14:02 Alkaline Phosphatase 152 U/L (38-126) H 04/13/19 14:02 Total Protein 6.5 g/dL (6.3-8.2) 04/13/19 14:02 Albumin 3.2 g/dL (3.5-5.0) L 04/13/19 14:02 EGFR Cancelled 04/09/19 08:55 Vitamin B12 802.0 pg/mL (239-931) 04/13/19 14:02 Folate 4.81 ng/mL (>2.76) 04/13/19 14:02 TSH 1.94 uIU/mL (0.47-4.68) 04/13/19 14:02 Free T4 1.29 ng/dL (0.78-2.19) 04/13/19 14:02 Free T3 pg/mL 3.73 pg/mL (2.77-5.27) 04/13/19 14:02 Urine Color YELLOW 04/09/19 10:35 Urine Appearance CLEAR 04/09/19 10:35 Urine pH 5.0 (5.0-9.0) 04/09/19 10:35 Ur Specific [place] 1.014 04/09/19 10:35 Urine Protein NEGATIVE mg/dL (NEGATIVE) 04/09/19 10:35 Urine Glucose (UA) NEGATIVE mg/dL (NEGATIVE) 04/09/19 10:35 Urine Ketones NEGATIVE mg/dL (NEGATIVE) 04/09/19 10:35 Urine Blood NEGATIVE (NEGATIVE) 04/09/19 10:35 Urine Nitrite NEGATIVE (NEGATIVE) 04/09/19 10:35 Urine Bilirubin NEGATIVE (NEGATIVE) 04/09/19 10:35 Urine Urobilinogen NEGATIVE mg/dL (<2.0) 04/09/19 10:35 Ur Leukocyte Esterase NEGATIVE (NEGATIVE) 04/09/19 10:35 Urine WBC (Auto) 1 /HPF 04/09/19 10:35 Urine RBC (Auto) 1 /HPF 04/09/19 10:35 Squamous Epi Cells Auto <1 /HPF 04/09/19 10:35 Urine Mucus (Auto) RARE /LPF 04/09/19 10:35 Urine Ascorbic Acid NEGATIVE (NEGATIVE) 04/09/19 10:35 Time Trough Drawn 211604/12/19 21:17 Vancomycin Trough 15.9 ug/mL (5.0-20.0) 04/12/19 21:17 Influenza A (Rapid) NEGATIVE (NEGATIVE) 04/09/19 11:40 Influenza B (Rapid) NEGATIVE (NEGATIVE) 04/09/19 11:40 Slides for Path Review Cancelled 04/09/19 08:55 Blood Type O POSITIVE 04/09/19 09:27 Antibody Screen NEGATIVE 04/09/19 09:27 Impressions: Chest X-Ray 04/09/19 08:29 IMPRESSION: NO ACUTE RADIOGRAPHIC FINDING IN THE CHEST. Head CT 04/14/19 00:00 IMPRESSION: CHRONIC CHANGES OF ATROPHY AND MICROVASCULAR ISCHEMIA. NO ACUTE PROCESS. EVIDENCE OF ACUTE STROKE: NO. Stroke Is this a Stroke Patient?: No Acute Heart Failure - Is this a Heart Failure Patient?: Yes Documentation of LVEF assessment?: Yes LVEF < 40%?: No- if no continue to question #3 3. Anticoagulant therapy for permanect/persistent/paraoxysmal Afib or Aflutter: N/A
[2019-04-16] MEDS: SERTRALINE HCL 50 MG TABLET PO SCH (11:36)
[2019-04-16] MEDS: FLUTICASONE/VILANTEROL 200-25 MCG/DOSE IH SCH (11:38)
[2019-04-16] MEDS: PANTOPRAZOLE SODIUM 40 MG TABLET.DR PO SCH ×2 (11:38→16:18)
[2019-04-16] MEDS: UMECLIDINIUM BROMIDE 62.5 MCG/DOSE IH SCH (11:38)
[2019-04-16] MEDS: FERROUS SULFATE 325 MG TABLET PO SCH ×2 (11:47→18:10)
--- NOTE | 2019-04-16 15:10 | RADIOLOGY REPORT (SQ) ---
EXAM DESCRIPTION: PICC INSERTION; FLUORO/CV PLACEMENT; U/S GUIDE FOR VASCULAR ACCESS COMPLETED DATE/TIME: 04/16/2019 1:45 pm REASON FOR STUDY: retirement IV antibiotics; IV ABX COMPARISON: 04/09/2019 FLUOROSCOPY TIME: 18 seconds 1 images saved to PACS. TECHNIQUE: Fluoroscopic and ultrasound guided PICC placement. LIMITATIONS: None. PROCEDURE: After written consent and assessment were obtained, the patient was brought into the fluo roscopy room and placed supine on the table. Ultrasound evaluation of potential access sites were per formed. After successfully identifying a patent left basilic vein, the left arm was prepped and drape d in a sterile fashion along with the ultrasound probe. The entry site was anesthetized with 1% lidoc zechariah. A 21 gauge 7 cm needle was advanced through the skin and into the basilic vein under live ultra sound guidance. An ultrasound image was saved to PACS confirming access site. A .018 guide wire was then inserted through the needle and into the venous system. The needle was then removed and an 11 b lade scalpel was used to make a 1cm skin incision. A 5 fr peel-away sheath was advanced over the wir e and into the venous system. A measurement was then made using the existing wire and live fluoroscop ic guidance. The wire was then removed and trimmed. The PICC was advanced through the peel-away sheat h and into the venous system. The peel-away sheath was removed and the catheter was adhered to the pa tients arm with a stat lock. The catheter was then aspirated and flushed and a sterile bandage was pl aced over the access site. A fluoroscopic spot image was saved to PACS confirming the catheter tip w ithin the superior vena cava. IMPRESSION: SUCCESSFUL PLACEMENT OF A 5 FR DUAL LUMEN 41 CM PICC IN THE LEFT BASILIC VEIN. COMMENT: Patient medication list reviewed: Yes- Quality ID# 130:Eligible professional attests to doc umenting in the medical record they obtained, updated, or reviewed the patient's current medications. . Quality ID 145: Final reports for procedures using fluoroscopy that document radiation exposure ginny vargas, or exposure time and number of fluorographic images (if radiation exposure indices are not avail able) Quality ID #76: The patient was prepped and draped using maximum sterile barrier technique including cap, mask, sterile gown, sterile gloves, a large sterile sheet, hand hygiene, and 2% Chlorhexidine fo r cutaneous antisepsis. When ultrasound is used, sterile ultrasound techniques are followed requiring sterile gel and sterile probes. TECHNICAL DOCUMENTATION: JOB ID: [id number] 2010 [employer]- All Rights Reserved rev-07/04 Reading location - IP/workstation name: [email or web address]
[2019-04-16] MEDS ORDERED: NORMAL SALINE 10 ML SDV (AFTER EACH USE) IV PRN (16:30)
[2019-04-16] MEDS: METOPROLOL SUCCINATE 25 MG TAB.SR.24H PO SCH (17:51)
[2019-04-16] MEDS: PROMETHAZINE HCL INJ 25 MG/1 ML VIAL IM PRN (18:07)
[2019-04-16] MEDS: KETOROLAC TROMETHAMINE INJ/PF 30 MG/1 ML SDV IV PRN (18:12)
[2019-04-16] MEDS ORDERED: GLYCERIN/WITCH HAZEL LEAF 1 EACH MED..WIPE TP PRN (20:32)
[2019-04-16] MEDS: SUMATRIPTAN SUCCINATE INJ/PF 6 MG/0.5 ML SDV SUBCUT PRN (22:42)
[2019-04-16] MEDS: NORMAL SALINE 10 ML SDV (SCHEDULED) IV SCH (22:43)
[2019-04-16] MEDS: ATORVASTATIN CALCIUM 80 MG TABLET PO SCH (22:43)
[2019-04-16] MEDS ORDERED: MORPHINE SULFATE 10 MG/ML INJ IV ONE (23:00)
[2019-04-16] MEDS ORDERED: MORPHINE SULFATE 10 MG/ML INJ ONE (23:31)
[2019-04-16] MEDS ORDERED: LORAZEPAM INJ 2 MG/1 ML VIAL ONE (23:39)
[2019-04-17] MEDS ORDERED: LORAZEPAM INJ 2 MG/1 ML VIAL IV ONE (01:15)
[2019-04-17] MEDS: CEFAZOLIN SODIUM 2 GM in DEXTROSE 5%-WATER 100 ML IV SCH ×3 (05:03→21:28)
[2019-04-17] MEDS: ACETAMINOPHEN 325 MG TABLET PO PRN ×3 (07:54→23:43)
[2019-04-17] MEDS: PANTOPRAZOLE SODIUM 40 MG TABLET.DR PO SCH ×2 (07:55→17:00)
[2019-04-17] MEDS: SUMATRIPTAN SUCCINATE INJ/PF 6 MG/0.5 ML SDV SUBCUT PRN (08:06)
[2019-04-17 08:13] LABS: ABSOLUTE LYMPHOCYTES (AUTO) 0.8 10^3/uL (0.5-4.7); ABSOLUTE MONOCYTES (AUTO) 0.6 10^3/uL (0.1-1.4); ABSOLUTE NEUT (AUTO) 8.1 10^3/uL (1.7-8.2); BASOPHILS % (AUTO) 0.3 % (0-2); EOSINOPHILS % (AUTO) 0.5 % (0-6); HEMATOCRIT 21.4 % (37.9-51.0); LYMPHOCYTES % (AUTO) 7.9 % (13-45); MEAN CORPUSCULAR HEMOGLOBIN 26.1 pg (27.0-33.4); MEAN CORPUSCULAR HGB CONC 33.8 g/dL (32.0-36.0); MEAN CORPUSCULAR VOLUME 77 fl (80-97); MONOCYTES % (AUTO) 6.5 % (3-13); PLATELET COUNT 255 10^3/uL (150-450); RED BLOOD COUNT 2.77 10^6/uL (4.35-5.55); RED CELL DISTRIBUTION WIDTH 18.3 % (11.5-14.0); SEGMENTED NEUTROPHILS % (AUTO) 84.8 % (42-78); TOTAL CELLS COUNTED % (AUTO) 100 %; WHITE BLOOD COUNT 9.6 10^3/uL (4.0-10.5)
[2019-04-17 08:22] LABS: ALKALINE PHOSPHATASE 268 U/L (38-126); ANION GAP 12 (5-19); ASPARTATE AMINO TRANSFERASE 37 U/L (17-59); BILIRUBIN,DIRECT 0.2 mg/dL (0.0-0.4); BILIRUBIN,TOTAL 0.2 mg/dL (0.2-1.3); BLOOD UREA NITROGEN 14 mg/dL (7-20); CALCIUM 8.2 mg/dL (8.4-10.2); CARBON DIOXIDE 22 mmol/L (22-30); CHLORIDE 106 mmol/L (98-107); GLUCOSE 94 mg/dL (75-110); POTASSIUM 4.1 mmol/L (3.6-5.0); TOTAL PROTEIN 6.5 g/dL (6.3-8.2)
[2019-04-17 08:52] LABS: HEMOGLOBIN 7.2 g/dL (13.5-17.0)
[2019-04-17] MEDS: FERROUS SULFATE 325 MG TABLET PO SCH ×2 (10:00→17:00)
--- NOTE | 2019-04-17 10:00 | RADIOLOGY REPORT (SQ) ---
EXAM DESCRIPTION: CTA CHEST COMPLETED DATE/TIME: 04/17/2019 9:39 am REASON FOR STUDY: SOB, right sided endocarditis COMPARISON: 02/22/2019. TECHNIQUE: CT scan of the chest performed using helical scanning technique with dynamic intravenous contrast injection. Images reviewed with lung, soft tissue and bone windows. Reconstructed coronal and sagittal MPR images reviewed. Additional 3 dimensional post-processing performed to develop Maximal Intensity Projection images (OR P). All images stored on PACS. All CT scanners at this facility use dose modulation, iterative reconstruction, and/or weight based d osing when appropriate to reduce radiation dose to as low as reasonably achievable (ALARA). [facility]: Dose Right [facility]: CareDose [facility]: Dose Right [facility]: Teradose 4D [facility]: Kypha CONTRAST TYPE AND DOSE: contrast/concentration: Isovue 350.00 mg/ml; Total Contrast Delivered: 52.0 ml; Total Saline Delivered: 75.0 ml Contrast bolus adequate for pulmonary arteries and aorta. RENAL FUNCTION: BUN 14 creatinine 0.73. RADIATION DOSE: CT Rad equipment meets quality standard of care and radiation dose reduction technThe American Academy ues were employed. CTDIvol: 6.6 - 14.3 mGy. DLP: 534 mGy-cm. . LIMITATIONS: None. FINDINGS: LUNGS AND PLEURA: Diffuse interstitial prominence. Bilateral pleural effusions. No lobar infiltrates. No pneumothorax. AORTA AND GREAT VESSELS: No aneurysm. No dissection. HEART: No pericardial effusion. No significant coronary artery calcifications. PULMONARY ARTERIES: No emboli visualized in the main pulmonary arteries or the segmental branches. HILAR AND MEDIASTINAL STRUCTURES: No identified masses or abnormal nodes. HARDWARE: Central line. Vascular graft in the soft tissues on the right side of the chest and upper abdomen. Abdominal aortic graft incompletely imaged. UPPER ABDOMEN: No significant findings. Limited exam. THYROID AND OTHER SOFT TISSUES: No masses. No adenopathy. BONES: No acute or significant finding. 3D MIPS: Confirm above findings. OTHER: No other significant finding. IMPRESSION: 1. NORMAL CTA OF THE CHEST. NO PULMONARY EMBOLI. 2. INTERVAL DEVELOPMENT OF INTERSTITIAL EDEMA AND BILATERAL PLEURAL EFFUSIONS. COMMENT: Quality ID # 436: Final reports with documentation of one or more dose reduction techniques (e.g., Automated exposure control, adjustment of the mA and/or kV according to patient size, use of iterative reconstruction technique) TECHNICAL DOCUMENTATION: JOB ID: [id number] 2011 [employer]- All Rights Reserved Reading location - IP/workstation name: [email or web address]
[2019-04-17] MEDS: HEPARIN SOD (PORCINE) 5,000 UNIT/ML 1 ML VIAL SUBCUT SCH ×2 (10:15→21:28)
[2019-04-17] MEDS: LISINOPRIL 5 MG TABLET PO SCH (10:15)
[2019-04-17] MEDS: FLUTICASONE/VILANTEROL 200-25 MCG/DOSE IH SCH (10:17)
[2019-04-17] MEDS: METOPROLOL SUCCINATE 25 MG TAB.SR.24H PO SCH (10:17)
[2019-04-17] MEDS: SERTRALINE HCL 50 MG TABLET PO SCH (10:17)
[2019-04-17] MEDS: UMECLIDINIUM BROMIDE 62.5 MCG/DOSE IH SCH (10:19)
[2019-04-17] MEDS: NORMAL SALINE 10 ML SDV (SCHEDULED) IV SCH ×2 (10:19→21:29)
[2019-04-17] MEDS: KETOROLAC TROMETHAMINE INJ/PF 30 MG/1 ML SDV IV PRN ×2 (11:16→21:25)
--- NOTE | 2019-04-17 13:47 | Progress Note ---
Provider Note Provider Note: 04/16: Patient is awaiting home health and home IV antibiotics [facility] Last night, he had a transient episode of shortness of breath or desaturation in the 80s. He quickly recovered with breathing treatments. Upon encounter this morning, he appears to be at his baseline mentation and breathing. Denies chest pain or shortness of breath. CTA of the chest was pursued to rule out septic emboli from his right-sided endocarditis. CTA is negative for PE but did show some interstitial edema. He will be started on PO Lasix as he does have an EF of 40% discovered on his recent echo. Proceed with discharge once home IV antibiotics is set-up.
[2019-04-17] MEDS: FUROSEMIDE 20 MG TABLET PO SCH (14:06)
[2019-04-17] MEDS: TOPIRAMATE 25 MG TABLET PO SCH (14:13)
--- NOTE | 2019-04-17 17:24 | EKG REPORT ---
SEVERITY:- ABNORMAL ECG - SINUS RHYTHM LOW VOLTAGE IN FRONTAL LEADS REPOL ABNRM SUGGESTS ISCHEMIA, DIFFUSE LEADS PROLONGED QT INTERVAL : Confirmed by: Elvira Benitez MD 17-Apr-2019 17:24:12
[2019-04-17] MEDS: ATORVASTATIN CALCIUM 80 MG TABLET PO SCH (21:42)
[2019-04-18] MEDS: CEFAZOLIN SODIUM 2 GM in DEXTROSE 5%-WATER 100 ML IV SCH ×3 (05:40→21:23)
[2019-04-18] MEDS: PANTOPRAZOLE SODIUM 40 MG TABLET.DR PO SCH ×2 (09:00→16:12)
[2019-04-18] MEDS: METOPROLOL SUCCINATE 25 MG TAB.SR.24H PO SCH (09:10)
[2019-04-18] MEDS: ACETAMINOPHEN 325 MG TABLET PO PRN (09:10)
[2019-04-18] MEDS: TOPIRAMATE 25 MG TABLET PO SCH (09:11)
[2019-04-18] MEDS: FERROUS SULFATE 325 MG TABLET PO SCH ×2 (09:11→18:12)
[2019-04-18] MEDS: LISINOPRIL 5 MG TABLET PO SCH (09:12)
[2019-04-18] MEDS: SERTRALINE HCL 50 MG TABLET PO SCH (09:14)
[2019-04-18] MEDS: HEPARIN SOD (PORCINE) 5,000 UNIT/ML 1 ML VIAL SUBCUT SCH ×2 (09:14→21:21)
[2019-04-18] MEDS: FLUTICASONE/VILANTEROL 200-25 MCG/DOSE IH SCH (10:29)
[2019-04-18] MEDS: UMECLIDINIUM BROMIDE 62.5 MCG/DOSE IH SCH (10:30)
[2019-04-18] MEDS: NORMAL SALINE 10 ML SDV (SCHEDULED) IV SCH ×2 (10:31→21:24)
[2019-04-18] MEDS: FUROSEMIDE 20 MG TABLET PO SCH ×2 (10:32→18:12)
--- NOTE | 2019-04-18 14:17 | Progress Note ---
Provider Note Provider Note: 04/16: Patient is awaiting home health and home IV antibiotics [facility] Last night, he had a transient episode of shortness of breath or desaturation in the 80s. He quickly recovered with breathing treatments. Upon encounter this morning, he appears to be at his baseline mentation and breathing. Denies chest pain or shortness of breath. CTA of the chest was pursued to rule out septic emboli from his right-sided endocarditis. CTA is negative for PE but did show some interstitial edema. He will be started on PO Lasix as he does have an EF of 40% discovered on his recent echo. Proceed with discharge once home IV antibiotics is set-up. 04/17: No acute event overnight. Denies acute complaints. Patient is at baseline. Awaiting for home IV antibiotics to be set up.
[2019-04-18] MEDS: KETOROLAC TROMETHAMINE INJ/PF 30 MG/1 ML SDV IV PRN (18:13)
[2019-04-18] MEDS: IPRATROPIUM/ALBUTEROL 0.5-2.5 MG/3 ML AMPUL NEB PRN (20:59)
[2019-04-18] MEDS: ATORVASTATIN CALCIUM 80 MG TABLET PO SCH (21:23)
[2019-04-19] MEDS: CEFAZOLIN SODIUM 2 GM in DEXTROSE 5%-WATER 100 ML IV SCH ×3 (06:00→21:35)
[2019-04-19] MEDS: LISINOPRIL 5 MG TABLET PO SCH (09:07)
[2019-04-19] MEDS: SERTRALINE HCL 50 MG TABLET PO SCH (09:07)
[2019-04-19] MEDS: TOPIRAMATE 25 MG TABLET PO SCH (09:07)
[2019-04-19] MEDS: METOPROLOL SUCCINATE 25 MG TAB.SR.24H PO SCH (09:07)
[2019-04-19] MEDS: PANTOPRAZOLE SODIUM 40 MG TABLET.DR PO SCH ×2 (09:07→17:08)
[2019-04-19] MEDS: FERROUS SULFATE 325 MG TABLET PO SCH ×2 (09:07→17:09)
[2019-04-19] MEDS: FUROSEMIDE 20 MG TABLET PO SCH ×2 (09:07→17:09)
[2019-04-19] MEDS: FLUTICASONE/VILANTEROL 200-25 MCG/DOSE IH SCH (09:08)
[2019-04-19] MEDS: UMECLIDINIUM BROMIDE 62.5 MCG/DOSE IH SCH (09:08)
[2019-04-19] MEDS: HEPARIN SOD (PORCINE) 5,000 UNIT/ML 1 ML VIAL SUBCUT SCH ×2 (09:09→21:40)
[2019-04-19] MEDS: NORMAL SALINE 10 ML SDV (SCHEDULED) IV SCH ×2 (09:10→21:37)
[2019-04-19] MEDS ORDERED: IPRATROPIUM/ALBUTEROL 0.5-2.5 MG/3 ML AMPUL NEB ONE (09:19)
[2019-04-19] MEDS: IPRATROPIUM/ALBUTEROL 0.5-2.5 MG/3 ML AMPUL NEB SCH ×4 (11:51→23:39)
--- NOTE | 2019-04-19 13:21 | Progress Note ---
Provider Note Provider Note: 04/16: Patient is awaiting home health and home IV antibiotics [facility] Last night, he had a transient episode of shortness of breath or desaturation in the 80s. He quickly recovered with breathing treatments. Upon encounter this morning, he appears to be at his baseline mentation and breathing. Denies chest pain or shortness of breath. CTA of the chest was pursued to rule out septic emboli from his right-sided endocarditis. CTA is negative for PE but did show some interstitial edema. He will be started on PO Lasix as he does have an EF of 40% discovered on his recent echo. Proceed with discharge once home IV antibiotics is set-up. : No acute event overnight. Denies acute complaints. Patient is at baseline. 04/18: No acute event overnight. Patient is just awaiting for home IV antibiotics to be set up pending [facility].
[2019-04-19] MEDS: LORAZEPAM INJ 2 MG/1 ML VIAL IV PRN (14:42)
[2019-04-19] MEDS: ACETAMINOPHEN 325 MG TABLET PO PRN ×2 (17:11→21:37)
[2019-04-19] MEDS: ATORVASTATIN CALCIUM 80 MG TABLET PO SCH (21:40)
[2019-04-20] MEDS: LORAZEPAM INJ 2 MG/1 ML VIAL IV PRN (03:02)
[2019-04-20] MEDS: IPRATROPIUM/ALBUTEROL 0.5-2.5 MG/3 ML AMPUL NEB SCH ×6 (03:33→23:27)
[2019-04-20] MEDS: CEFAZOLIN SODIUM 2 GM in DEXTROSE 5%-WATER 100 ML IV SCH ×3 (06:11→22:21)
[2019-04-20] MEDS: ACETAMINOPHEN 325 MG TABLET PO PRN ×3 (06:11→22:21)
[2019-04-20] MEDS: KETOROLAC TROMETHAMINE INJ/PF 30 MG/1 ML SDV IV PRN (09:09)
[2019-04-20] MEDS: FERROUS SULFATE 325 MG TABLET PO SCH ×2 (09:10→17:25)
[2019-04-20] MEDS: NORMAL SALINE 10 ML SDV (SCHEDULED) IV SCH ×2 (09:10→22:22)
[2019-04-20] MEDS: TOPIRAMATE 25 MG TABLET PO SCH (09:10)
[2019-04-20] MEDS: PANTOPRAZOLE SODIUM 40 MG TABLET.DR PO SCH ×2 (09:10→17:25)
[2019-04-20] MEDS: METOPROLOL SUCCINATE 25 MG TAB.SR.24H PO SCH (09:10)
[2019-04-20] MEDS: FUROSEMIDE 20 MG TABLET PO SCH ×2 (09:10→17:24)
[2019-04-20] MEDS: SERTRALINE HCL 50 MG TABLET PO SCH (09:10)
[2019-04-20] MEDS: HEPARIN SOD (PORCINE) 5,000 UNIT/ML 1 ML VIAL SUBCUT SCH ×2 (09:11→22:22)
[2019-04-20] MEDS: LISINOPRIL 5 MG TABLET PO SCH (09:11)
[2019-04-20] MEDS: FLUTICASONE/VILANTEROL 200-25 MCG/DOSE IH SCH (09:11)
[2019-04-20] MEDS: UMECLIDINIUM BROMIDE 62.5 MCG/DOSE IH SCH (09:11)
--- NOTE | 2019-04-20 15:28 | Progress Note ---
Provider Note Provider Note: Patient is stable. He denies any new complaints. He is awaiting home IV antibiotics to be set up. His family did tell me that they [facility] and this is apparently needed to been set up. Temp Pulse Resp BP Pulse Ox 97.5 F 87 18 119/60 89 L 04/20/19 11:05 04/20/19 14:00 04/20/19 12:00 04/20/19 11:05 04/20/19 12:00 Intake & Output 04/19/19 04/20/19 04/21/19 06:59 06:59 06:59 Intake Total 1260 700 680 Balance 1260 700 680 Weight 64.3 kg 64.6 kg Weight/Height Weight 64.6 kg Height 5 ft 7 in
[2019-04-20] MEDS: ATORVASTATIN CALCIUM 80 MG TABLET PO SCH (22:21)
[2019-04-21] MEDS: IPRATROPIUM/ALBUTEROL 0.5-2.5 MG/3 ML AMPUL NEB SCH ×3 (03:46→11:49)
[2019-04-21] MEDS: CEFAZOLIN SODIUM 2 GM in DEXTROSE 5%-WATER 100 ML IV SCH ×2 (06:03→13:42)
[2019-04-21] MEDS: PANTOPRAZOLE SODIUM 40 MG TABLET.DR PO SCH (08:11)
[2019-04-21] MEDS: FLUTICASONE/VILANTEROL 200-25 MCG/DOSE IH SCH (10:38)
[2019-04-21] MEDS: LISINOPRIL 5 MG TABLET PO SCH (10:39)
[2019-04-21] MEDS: UMECLIDINIUM BROMIDE 62.5 MCG/DOSE IH SCH (10:39)
[2019-04-21] MEDS: FUROSEMIDE 20 MG TABLET PO SCH (10:40)
[2019-04-21] MEDS: TOPIRAMATE 25 MG TABLET PO SCH (10:40)
[2019-04-21] MEDS: METOPROLOL SUCCINATE 25 MG TAB.SR.24H PO SCH (10:41)
[2019-04-21] MEDS: FERROUS SULFATE 325 MG TABLET PO SCH (10:41)
[2019-04-21] MEDS: HEPARIN SOD (PORCINE) 5,000 UNIT/ML 1 ML VIAL SUBCUT SCH (10:42)
[2019-04-21] MEDS: SERTRALINE HCL 50 MG TABLET PO SCH (11:10)
[2019-04-21] MEDS: NORMAL SALINE 10 ML SDV (SCHEDULED) IV SCH (11:10)
[2019-04-21] MEDS: LORAZEPAM INJ 2 MG/1 ML VIAL IV PRN (12:20)
[2019-04-21] MEDS ORDERED: BENZOCAINE/MENTHOL SORE THROAT LOZENGE BUCCAL PRN (12:31)
[2019-04-21] MEDS: ACETAMINOPHEN 325 MG TABLET PO PRN (12:35)
[2019-04-21 14:37] VITALS: BP 98/69
--- NOTE | 2019-04-21 17:06 | PDOC DISCHARGE SUMMARY ---
Impression - Admit/DC Date/PCP Admission Date/Primary Care Provider: 04/09/19 13:31 [facility] Discharge Date: 04/21/19 - Discharge Diagnosis (1) Aortic regurgitation Is this a current diagnosis for this admission?: Yes (2) Infective endocarditis Is this a current diagnosis for this admission?: Yes (3) CHF (congestive heart failure) Is this a current diagnosis for this admission?: Yes (4) Chronic anemia Is this a current diagnosis for this admission?: Yes (5) Epistaxis Is this a current diagnosis for this admission?: Yes (6) New onset a-fib Is this a current diagnosis for this admission?: Yes (7) Staphylococcus aureus bacteremia Is this a current diagnosis for this admission?: Yes - Assessment Summary: I am not convinced that this patient has a pneumonia. I am not going to treat him with antibiotics for now. We will monitor him to see if he develops signs or symptoms of pneumonia. I think that he may have had some of the blood from his nosebleed make its way into his airway which would have caused an inflammatory reaction resulting in the fever we saw in the ER. If he does begin to show signs of a true pneumonia then will start treatment. - Additional Information Resuscitation Status: Do Not Resuscitate Discharge Diet: As Tolerated Discharge Activity: Activity As Tolerated [facility]errals: [facility] [Primary Care Provider] - 04/28/19 2:30 pm () Prescriptions: Alprazolam [Xanax 0.5 mg Tablet] 0.5 mg PO Q8HP PRN #20 tab PRN Reason: Cefazolin Sodium [Ancef Inj 1 gm Vial] 2 gm IV Q8 #210 vial Cefazolin 1 gm/D5w RTU [Ancef RTU 1 gm/D5w 50 ml Premix Bag] 2 gm IV Q8H #126 ml Cefadroxil 500 mg PO BID #60 capsule Furosemide [Lasix 20 mg Tablet] 20 mg PO BID #60 tablet Lisinopril [Prinivil 5 mg Tablet] 2.5 mg PO DAILY #30 tablet Topiramate [Topamax 25 mg Tablet] 25 mg PO DAILY #30 tablet Metoprolol Succinate [Toprol Xl 25 mg Tab.sr] 25 mg PO DAILY #30 tab.sr.24h Home Medications: Albuterol Sulfate [Ventolin Hfa 8 gm Mdi] 2 puff IH Q6HP PRN 04/09/19 Aspirin [Ecotrin 81 mg EC Tablet] 81 mg PO DAILY 04/09/19 Atorvastatin Calcium [Lipitor 80 mg Tablet] 80 mg PO QHS 04/09/19 Budesonide/Formoterol Fumarate [Symbicort HFA 160-4.5 mcg Inhaler 6 gm] 2 puff IH BID 04/09/19 Ferrous Sulfate [Feosol 325 mg Tablet] 324 mg PO QAM 04/09/19 Pantoprazole Sodium [Protonix [address] Tablet] 40 mg PO BID 04/09/19 Sertraline HCl [Zoloft 50 mg Tablet] 25 mg PO DAILY 04/09/19 Tamsulosin HCl [Flomax 0.4 mg Cap.sr] 0.4 mg PO QPM 04/09/19 Tiotropium [place] [Spiriva Handihaler 5 Cap/Kit (18 Mcg/Cap)] 1 puff IH DAILY 04/09/19 Acetaminophen [Tylenol 325 mg Tablet] 650 mg PO Q4HP PRN tablet 04/16/19 Cefadroxil 500 mg PO BID #60 capsule 04/16/19 Cefazolin 1 gm/D5w RTU [Ancef RTU 1 gm/D5w 50 ml Premix Bag] 2 gm IV Q8H #126 ml 04/16/19 Lisinopril [Prinivil 5 mg Tablet] 2.5 mg PO DAILY #30 tablet 04/16/19 Metoprolol Succinate [Toprol Xl 25 mg Tab.sr] 25 mg PO DAILY #30 tab.sr.24h 04/16/19 Alprazolam [Xanax 0.5 mg Tablet] 0.5 mg PO Q8HP PRN #20 tab 04/21/19 Cefazolin Sodium [Ancef Inj 1 gm Vial] 2 gm IV Q8 #210 vial 04/21/19 Furosemide [Lasix 20 mg Tablet] 20 mg PO BID #60 tablet 04/21/19 Topiramate [Topamax 25 mg Tablet] 25 mg PO DAILY #30 tablet 04/21/19 History of Present Illiness History of Present Illness: GAVINO PEDRAZA is a 78 year old male his is a 78-year-old male who was admitted with MSSA 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 Patient has refused previous recommendations for surgery and removal and replacement of his infected aortic graft and has consistently refused intervention. He has been following up with infectious disease specialist in [facility] and has been placed on chronic suppressive therapy with doxycycline. Patient was started on IV antibiotics. Infectious disease was also consulted. Patient was also initially scheduled for a ISAEL. However, while patient was on the table for ISAEL, he refused to go ahead with the procedure hence ISAEL was deferred. TTE was pursued instead and did show a vegetation on the septal leaflet of the tricuspid valve. TTE also shows slightly reduced EF of 40-45%. Patient has dementia but does have lucid intervals where he is coherent and AAO x3. He has episodes of sundowning and episodic confusion throughout the day. On his lucid intervals, he has expressed good understanding of his condition. We have rediscussed in length and he has verbalized understanding that he has a chronically infected aortic graft. He understands that his recurrent bacteremia is likely because of this. We rediscussed in length recommendations from [facility] about the need for aortic graft replacement. Patient has consistently refused any form of surgical intervention to replace his aortic graft. Patient's DPOA is Naveed Bah who goes by the name "Rik". Patient has verbalized Rik is not his biological son but rather his long-term close friend and caregiver and has considered him his son hence he has made him his POA. I have met with patient's brother, Mingo on the bedside who also has expressed that Rik is indeed Mr. Pedraza's DPOA and long time caregiver. Patient's POA, Rik as well as Mingo recognizes patient's consistent decision not to pursue any form of surgical intervention to replace his aortic graft. I have taken care of this patient before in one of his previous admissions for bacteremia and they were previously told that antibiotics can only do so much for his chronically infected aortic graft. I have previously discussed with them in prior admissions the risk of developing infective endocarditis which he has developed at the moment. We discussed the anticipated possible future complications of recurrence of bacteremia and infective endocarditis as well septic embolism. Patient and POA expressed that they would just stick to medical management particularly antibiotics. Patient's repeat blood cultures did come back negative after 48 hours. PICC line was placed. He will be discharged home with home health and home IV antibiotics to complete a total of 6 weeks of Ancef. After which he will be switched to suppressive therapy with cefadroxil per ID recommendation. They will closely follow-up with patient's ID in [place], Dr. Mancilla in a week. Patient also had episodes of A. fib during this course. We also discussed in length the need for anticoagulation with his new onset atrial fibrillation including benefits of stroke reduction and risk of bleeding. DPOA expressed that with patient's recent significant nosebleed just being on aspirin and Brilinta, they do not want to pursue anticoagulation at this time. He did not have any bleeding episode or recurrence of epistaxis during this hospital course. POA expressed their apprehensive about him being resumed on aspirin and Brilinta. Patient will be kept on just aspirin instead. We also rediscussed his CODE STATUS with POA and with patient's brother on the bedside. He has maintained that he does not want any chest compressions or defibrillation but is amenable to temporary or short-term intubation. He has expressed he does not want PEG tube placement, tracheostomy or long-term ventilatory support. Possible options including hospice transition in the future if he ever develops worsening clinical deterioration or complications was also discussed. 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 Patient has refused previous recommendations for surgery and removal and replacement of his infected aortic graft and has consistently refused intervention. He has been following up with infectious disease specialist in [facility] and has been placed on chronic suppressive therapy with doxycycline. Patient was started on IV antibiotics. Infectious disease was also consulted. Patient was also initially scheduled for a ISAEL. However, while patient was on the table for ISAEL, he refused to go ahead with the procedure hence ISAEL was deferred. TTE was pursued instead and did show a vegetation on the septal leaflet of the tricuspid valve. TTE also shows slightly reduced EF of 40-45%. Patient has dementia but does have lucid intervals where he is coherent and AAO x3. He has episodes of sundowning and episodic confusion throughout the day. On his lucid intervals, he has expressed good understanding of his condition. We have rediscussed in length and he has verbalized understanding that he has a chronically infected aortic graft. He understands that his recurrent bacteremia is likely because of this. We rediscussed in length recommendations from [facility] about the need for aortic graft replacement. Patient has consistently refused any form of surgical intervention to replace his aortic graft. Patient's DPOA is Naveed Bah who goes by the name "Rik". Patient has verbalized Rik is not his biological son but rather his long-term close friend and caregiver and has considered him his son hence he has made him his POA. I have met with patient's brother, Mingo on the bedside who also has expressed that Rik is indeed Mr. Pedraza's DPOA and long time caregiver. Patient's POA, Rik as well as Mingo recognizes patient's consistent decision not to pursue any form of surgical intervention to replace his aortic graft. I have taken care of this patient before in one of his previous admissions for bacteremia and they were previously told that antibiotics can only do so much for his chronically infected aortic graft. I have previously discussed with them in prior admissions the risk of developing infective endocarditis which he has developed at the moment. We discussed the anticipated possible future complications of recurrence of bacteremia and infective endocarditis as well septic embolism. Patient and POA expressed that they would just stick to medical management particularly antibiotics. Patient's repeat blood cultures did come back negative after 48 hours. PICC line was placed. He will be discharged home with home health and home IV ant ibiotics to complete a total of 6 weeks of Ancef. After which he will be switched to suppressive therapy with cefadroxil per ID recommendation. They will closely follow-up with patient's ID in [place], Dr. Mancilla in a week. Patient also had episodes of A. fib during this course. We also discussed in length the need for anticoagulation with his new onset atrial fibrillation including benefits of stroke reduction and risk of bleeding. DPOA expressed that with patient's recent significant nosebleed just being on aspirin and Brilinta, they do not want to pursue anticoagulation at this time. He did not have any bleeding episode or recurrence of epistaxis during this hospital course. POA expressed their apprehensive about him being resumed on aspirin and Brilinta. Patient will be kept on just aspirin instead. We also rediscussed his CODE STATUS with POA and with patient's brother on the bedside. He has maintained that he does not want any chest compressions or defibrillation but is amenable to temporary or short-term intubation. He has expressed he does not want PEG tube placement, tracheostomy or long-term ventilatory support. Possible options including hospice transition in the future if he ever develops worsening clinical deterioration or complications was also discussed. Patient expressed he knows what hospice is as his mother went through it and will think about this "when he gets there". 3/4Please see the excellent detailed discharge summary as dictated by Dr. Adams I discussed with the patient's POA regarding hospice referral on April 16. Stormy valdivia has remained hemodynamically stable and no change in her medical status. His discharge was delayed as arrangements will be made for his home IV antibiotics. This was finally completed today and so patient is been discharged home I discussed with patient's POA regarding hospice referral. Patient is hospice appropriate. The family seem to be interested in that and they have been given information and resources as well as follow-up so that patient can be appropriately evaluated and referred for hospice care Physical Exam Vital Signs: Temp Pulse Resp BP Pulse Ox 98.5 F 89 20 98/69 L 97 04/21/19 14:35 04/21/19 14:35 04/21/19 14:35 04/21/19 14:35 04/21/19 14:35 Intake & Output 04/20/19 04/21/19 04/22/19 06:59 06:59 06:59 Intake Total 700 1577 220 Balance 700 1577 220 Weight 64.6 kg 63.4 kg General appearance: PRESENT: no acute distress - Ill looking, cachectic, other - Ill looking Head exam: PRESENT: atraumatic Neck exam: PRESENT: full ROM. ABSENT: JVD Cardiovascular exam: PRESENT: RRR, +S1, +S2 GI/Abdominal exam: PRESENT: soft. ABSENT: tenderness Rectal exam: PRESENT: deferred Extremities exam: ABSENT: calf tenderness Musculoskeletal exam: PRESENT: ambulatory Neurological exam: PRESENT: alert, awake, oriented to person, oriented to place, oriented to time - Somewhat confused Results Laboratory Results: WBC 9.6 10^3/uL (4.0-10.5) 04/17/19 07:48 RBC 2.77 10^6/uL (4.35-5.55) L 04/17/19 07:48 Hgb 7.2 g/dL (13.5-17.0) L 04/17/19 07:48 Hct 21.4 % (37.9-51.0) L 04/17/19 07:48 MCV 77 fl (80-97) L 04/17/19 07:48 MCH 26.1 pg (27.0-33.4) L 04/17/19 07:48 MCHC 33.8 g/dL (32.0-36.0) 04/17/19 07:48 RDW 18.3 % (11.5-14.0) H 04/17/19 07:48 Plt Count 255 10^3/uL (150-450) 04/17/19 07:48 Lymph % (Auto) 7.9 % (13-45) L 04/17/19 07:48 Terrell % (Auto) 6.5 % (3-13) 04/17/19 07:48 Eos % (Auto) 0.5 % (0-6) 04/17/19 07:48 Baso % (Auto) 0.3 % (0-2) 04/17/19 07:48 Reticulocyte # 0.080 10^6/uL (0.028-0.122) 04/13/19 14:02 Absolute Neuts (auto) 8.1 10^3/uL (1.7-8.2) 04/17/19 07:48 Absolute Lymphs (auto) 0.8 10^3/uL (0.5-4.7) 04/17/19 07:48 Absolute Monos (auto) 0.6 10^3/uL (0.1-1.4) 04/17/19 07:48 Absolute Eos (auto) 0.0 10^3/uL (0.0-0.6) 04/17/19 07:48 Absolute Basos (auto) 0.0 10^3/uL (0.0-0.2) 04/17/19 07:48 Seg Neutrophils % 84.8 % (42-78) H 04/17/19 07:48 Platelet Estimate Cancelled 04/09/19 08:55 Retic Count (auto) 2.40 % (0.66-2.85) 04/13/19 14:02 PT 13.7 SEC (11.4-15.4) 04/09/19 08:55 INR 1.05 04/09/19 08:55 Sodium 139.8 mmol/L (137-145) 04/17/19 07:48 Potassium 4.1 mmol/L (3.6-5.0) 04/17/19 07:48 Chloride 106 mmol/L (98-107) 04/17/19 07:48 Carbon Dioxide 22 mmol/L (22-30) 04/17/19 07:48 Anion Gap 12 (5-19) 04/17/19 07:48 BUN 14 mg/dL (7-20) 04/17/19 07:48 Creatinine 0.73 mg/dL (0.52-1.25) 04/17/19 07:48 Est GFR ( Amer) > 60 (>60) 04/17/19 07:48 Est GFR (Non-Af Amer) Cancelled 04/09/19 08:55 Est GFR (MDRD) Non-Af > 60 (>60) 04/17/19 07:48 Glucose 94 mg/dL (75-110) 04/17/19 07:48 Lactic Acid 1.1 mmol/L (0.7-2.1) 04/09/19 11:33 Calcium 8.2 mg/dL (8.4-10.2) L 04/17/19 07:48 Magnesium 2.0 mg/dL (1.6-2.3) 04/11/19 05:20 Iron 27.0 ug/dL (49-181) L 04/13/19 14:02 TIBC 265 ug/dL (250-450) 04/13/19 14:02 % Saturation 10 % 04/13/19 14:02 Ferritin 43.30 ng/mL (17.9-464.0) 04/13/19 14:02 Total Bilirubin 0.2 mg/dL (0.2-1.3) 04/17/19 07:48 Direct Bilirubin 0.2 mg/dL (0.0-0.4) 04/17/19 07:48 Neonat Total Bilirubin Not Reportable 04/17/19 07:48 Neonat Direct Bilirubin Not Reportable 04/17/19 07:48 Neonat Indirect Bili Not Reportable 04/17/19 07:48 AST 37 U/L (17-59) 04/17/19 07:48 ALT 12 U/L (<50) 04/17/19 07:48 Alkaline Phosphatase 268 U/L (38-126) H 04/17/19 07:48 Total Protein 6.5 g/dL (6.3-8.2) 04/17/19 07:48 Albumin 3.0 g/dL (3.5-5.0) L 04/17/19 07:48 EGFR Cancelled 04/09/19 08:55 Vitamin B12 802.0 pg/mL (239-931) 04/13/19 14:02 Folate 4.81 ng/mL (>2.76) 04/13/19 14:02 TSH 1.94 uIU/mL (0.47-4.68) 04/13/19 14:02 Free T4 1.29 ng/dL (0.78-2.19) 04/13/19 14:02 Free T3 pg/mL 3.73 pg/mL (2.77-5.27) 04/13/19 14:02 Urine Color YELLOW 04/09/19 10:35 Urine Appearance CLEAR 04/09/19 10:35 Urine pH 5.0 (5.0-9.0) 04/09/19 10:35 Ur Specific [place] 1.014 04/09/19 10:35 Urine Protein NEGATIVE mg/dL (NEGATIVE) 04/09/19 10:35 Urine Glucose (UA) NEGATIVE mg/dL (NEGATIVE) 04/09/19 10:35 Urine Ketones NEGATIVE mg/dL (NEGATIVE) 04/09/19 10:35 Urine Blood NEGATIVE (NEGATIVE) 04/09/19 10:35 Urine Nitrite NEGATIVE (NEGATIVE) 04/09/19 10:35 Urine Bilirubin NEGATIVE (NEGATIVE) 04/09/19 10:35 Urine Urobilinogen NEGATIVE mg/dL (<2.0) 04/09/19 10:35 Ur Leukocyte Esterase NEGATIVE (NEGATIVE) 04/09/19 10:35 Urine WBC (Auto) 1 /HPF 04/09/19 10:35 Urine RBC (Auto) 1 /HPF 04/09/19 10:35 Squamous Epi Cells Auto <1 /HPF 04/09/19 10:35 Urine Mucus (Auto) RARE /LPF 04/09/19 10:35 Urine Ascorbic Acid NEGATIVE (NEGATIVE) 04/09/19 10:35 Time Trough Drawn 211604/12/19 21:17 Vancomycin Trough 15.9 ug/mL (5.0-20.0) 04/12/19 21:17 Influenza A (Rapid) NEGATIVE (NEGATIVE) 04/09/19 11:40 Influenza B (Rapid) NEGATIVE (NEGATIVE) 04/09/19 11:40 Slides for Path Review Cancelled 04/09/19 08:55 Blood Type O POSITIVE 04/09/19 09:27 Antibody Screen NEGATIVE 04/09/19 09:27 Impressions: Chest X-Ray 04/09/19 08:29 IMPRESSION: NO ACUTE RADIOGRAPHIC FINDING IN THE CHEST. Head CT 04/14/19 00:00 IMPRESSION: CHRONIC CHANGES OF ATROPHY AND MICROVASCULAR ISCHEMIA. NO ACUTE PROCESS. EVIDENCE OF ACUTE STROKE: NO. Guidance Fluoroscopy 04/16/19 00:00 IMPRESSION: SUCCESSFUL PLACEMENT OF A 5 FR DUAL LUMEN 41 CM PICC IN THE LEFT BASILIC VEIN. Interventional Vascular Procedure 04/16/19 00:00 IMPRESSION: SUCCESSFUL PLACEMENT OF A 5 FR DUAL LUMEN 41 CM PICC IN THE LEFT BASILIC VEIN. PICC Line Insertion 04/16/19 10:30 IMPRESSION: SUCCESSFUL PLACEMENT OF A 5 FR DUAL LUMEN 41 CM PICC IN THE LEFT BASILIC VEIN. Chest/Abdomen CTA 04/17/19 08:43 IMPRESSION: 1. NORMAL CTA OF THE CHEST. NO PULMONARY EMBOLI. 2. INTERVAL DEVELOPMENT OF INTERSTITIAL EDEMA AND BILATERAL PLEURAL EFFUSIONS. Plan Health Concerns: Follow-up as detailed on the discharge summary from April 16 Plan of Treatment: This is an addendum to the discharge summary just dictated by Dr. Almanza Stroke Is this a Stroke Patient?: No Acute Heart Failure - Is this a Heart Failure Patient?: No
== END 2019-04-21 15:00 | disposition home health service (06) | DRG 288 ==
LOC: ER 08:21 → EH 13:31 → 5 17:40
PROVIDERS: ADMIT Family Medicine; ATTEND Family Medicine
PROC: 02HV33Z Insertion of Infusion Device into Superior Vena Cava, Percutaneous Approach (ICD-10-PCS; principal; 2019-04-16)
PROC: B518ZZA Fluoroscopy of Superior Vena Cava, Guidance (ICD-10-PCS; 2019-04-16)
PROC: B548ZZA Ultrasonography of Superior Vena Cava, Guidance (ICD-10-PCS; 2019-04-16)
DX: I33.0 Acute and subacute infective endocarditis (principal); I50.23 Acute on chronic systolic (congestive) heart failure; T82.7XXA Infection and inflammatory reaction due to other cardiac and vascular devices, implants and grafts, initial encounter; J96.11 Chronic respiratory failure with hypoxia; R78.81 Bacteremia; R04.0 Epistaxis; D50.8 Other iron deficiency anemias; I48.91 Unspecified atrial fibrillation; J43.9 Emphysema, unspecified; E11.8 Type 2 diabetes mellitus with unspecified complications; I25.10 Atherosclerotic heart disease of native coronary artery without angina pectoris; I73.9 Peripheral vascular disease, unspecified; G43.909 Migraine, unspecified, not intractable, without status migrainosus; B95.61 Methicillin susceptible Staphylococcus aureus infection as the cause of diseases classified elsewhere; F03.90 Unspecified dementia, unspecified severity, without behavioral disturbance, psychotic disturbance, mood disturbance, and anxiety; Y71.8 Miscellaneous cardiovascular devices associated with adverse incidents, not elsewhere classified; Y92.018 Other place in single-family (private) house as the place of occurrence of the external cause; Z53.29 Procedure and treatment not carried out because of patient's decision for other reasons; Z99.81 Dependence on supplemental oxygen; Z79.82 Long term (current) use of aspirin; Z79.51 Long term (current) use of inhaled steroids; Z79.899 Other long term (current) drug therapy
CPT/HCPCS: 36415; 36569; 70450; 71045; 71275; 76937; 77001; 80048; 80053; 80202; 81001; 82607; 82728; 82746; 83540; 83550; 83605; 83735; 84439; 84443; 84481; 85025; 85027; 85045; 85610; 86850; 86900; 86901; 87040; 87077; 87086; 87150; 87186; 87804; 93005; 93010; 93306; 94640; 96365; 96366; 96367; 96375; 99285; J0690; J0692; J1642; J1644; J1885; J2060; J2550; J2704; J2930; J3030; J3370; J3490; J7030; J7060; J7620

== ENCOUNTER 2019-05-02 07:05 | Emergency (ER) | payer MEDICARE ==
[2019-05-02] MEDS ORDERED: IPRATROPIUM/ALBUTEROL 0.5-2.5 MG/3 ML AMPUL NEB ONE ×2 (07:15→07:26)
[2019-05-02] MEDS ORDERED: LORAZEPAM INJ 2 MG/1 ML VIAL IV ONE ×3 (07:18→11:12)
[2019-05-02] MEDS ORDERED: METHYLPREDNISOLONE INJ 125 MG/2 ML SDV IV ONE (07:21)
--- NOTE | 2019-05-02 07:26 | ER Document Report ---
ED Medical Screen (RME) - General Stated Complaint: DIFFICULTY BREATHING Time Seen by Provider: 05/02/19 07:18 Primary Care Provider: LINDSEY HOLLAND MD [Primary Care Provider] - Follow up as needed Notes: Patient is a 78-year-old male with a past history of chronic medical conditions, specifically CHF and COPD who presents the emergency department with shortness of breath. Patient also patient fell this morning and states that he cannot feel his legs. States that he is unable to move his legs. Patient was also recently admitted for anemia back on April 09. Exam: Tachypneic; unable to move lower extremities. I have greeted and performed a rapid initial assessment of this patient. A comprehensive ED assessment and evaluation of the patient, analysis of test results and completion of medical decision making process will be conducted by an additional ED providers. TRAVEL OUTSIDE OF THE [place] IN LAST 30 DAYS: No - Related Data Allergies/Adverse Reactions: No Known Allergies Allergy (Verified 01/02/19 01:23) Past Medical History - Past Medical History Cardiac Medical History: Reports: Hx Coronary Artery Disease, Hx Peripheral Vascular Disease Pulmonary Medical History: Reports: Hx COPD Denies: Hx Asthma Neurological Medical History: Denies: Hx Seizures Endocrine Medical History: Reports: Hx Diabetes Mellitus Type 2. Denies: Hx Diabetes Mellitus Type 1 GI Medical History: Denies: Hx Crohn's Disease, Hx Ulcerative Colitis Musculoskeltal Medical History: Denies Hx Fibromyalgia, Denies Hx Gout Skin Medical History: Denies Hx Eczema, Denies Hx Psoriasis Psychiatric Medical History: Reports: Hx Dementia Past Surgical History: Reports: Hx Cardiac Catheterization, Hx Coronary Stent Doctor's Discharge - Discharge Referrals: LINDSEY HOLLAND MD [Primary Care Provider] - Follow up as needed
[2019-05-02] MEDS ORDERED: ONDANSETRON HCL INJ/PF 4 MG/2 ML SDV IV ONE (07:35)
[2019-05-02] MEDS ORDERED: HYDROMORPHONE HCL INJ/PF 2 MG/ML AMPULE IV ONE (07:35)
[2019-05-02] MEDS ORDERED: NORMAL SALINE 500 ML IV ONE (07:40)
[2019-05-02 07:42] LABS: ABSOLUTE BASOPHILS # (AUTO) 0.1 10^3/uL (0.0-0.2); ABSOLUTE EOSINOPHILS # (AUTO) 0.1 10^3/uL (0.0-0.6); ABSOLUTE LYMPHOCYTES (AUTO) 1.6 10^3/uL (0.5-4.7); ABSOLUTE MONOCYTES (AUTO) 0.8 10^3/uL (0.1-1.4); ABSOLUTE NEUT (AUTO) 9.5 10^3/uL (1.7-8.2); BASOPHILS % (AUTO) 0.5 % (0-2); EOSINOPHILS % (AUTO) 0.9 % (0-6); HEMATOCRIT 26.9 % (37.9-51.0); HEMOGLOBIN 8.3 g/dL (13.5-17.0); LYMPHOCYTES % (AUTO) 13.5 % (13-45); MEAN CORPUSCULAR HEMOGLOBIN 24.5 pg (27.0-33.4); MEAN CORPUSCULAR VOLUME 79 fl (80-97); MONOCYTES % (AUTO) 6.6 % (3-13); PLATELET COUNT 303 10^3/uL (150-450); RED CELL DISTRIBUTION WIDTH 19.3 % (11.5-14.0); SEGMENTED NEUTROPHILS % (AUTO) 78.5 % (42-78); TOTAL CELLS COUNTED % (AUTO) 100 %; WHITE BLOOD COUNT 12.1 10^3/uL (4.0-10.5)
[2019-05-02 07:52] LABS: INTERNATIONAL RATION (INR) 1.16; PROTHROMBIN TIME 14.8 SEC (11.4-15.4)
--- NOTE | 2019-05-02 07:52 | RADIOLOGY REPORT (SQ) ---
Chest one view on 05/02/2019 at 7:29 AM CLINICAL INDICATION: Shortness of breath COMPARISON: Chest x-ray from 04/09/[address] from 04/17/2019 FINDINGS: Left-sided PICC line tip is in the SVC. There has been development of bilateral lower lung opacities consistent with edema and/or pneumonia. Vascular calcification is noted in the aorta. Emphysematous changes of the lungs are noted. Cardiac, hilar and mediastinal contours are within normal limits. IMPRESSION: Bilateral lower lung opacities consistent with edema and/or pneumonia.
[2019-05-02 07:53] LABS: PARTIAL THROMBOPLASTIN TIME 32.3 SEC (23.5-35.8)
[2019-05-02 07:55] LABS: ALKALINE PHOSPHATASE 160 U/L (38-126); ASPARTATE AMINO TRANSFERASE 31 U/L (17-59); BILIRUBIN,DIRECT 0.3 mg/dL (0.0-0.4); BILIRUBIN,TOTAL 0.4 mg/dL (0.2-1.3); BLOOD UREA NITROGEN 17 mg/dL (7-20); CALCIUM 8.9 mg/dL (8.4-10.2); GLUCOSE 296 mg/dL (75-110); POTASSIUM 5.2 mmol/L (3.6-5.0); TOTAL PROTEIN 7.8 g/dL (6.3-8.2)
[2019-05-02 08:01] LABS: CARBON DIOXIDE 11 mmol/L (22-30); CHLORIDE 86 mmol/L (98-107)
[2019-05-02 08:04] LABS: ANION GAP 25 (5-19)
[2019-05-02 08:08] LABS: TROPONIN I 0.044 ng/mL
[2019-05-02 08:32] LABS: APPEARANCE,URINE CLEAR; BILIRUBIN,URINE NEGATIVE (NEGATIVE); COLOR,URINE YELLOW; GLUCOSE, URINE 50 mg/dL (NEGATIVE); KETONES,URINE NEGATIVE (NEGATIVE); LEUKOCYTE ESTERASE,URINE NEGATIVE (NEGATIVE); NITRITE,URINE NEGATIVE (NEGATIVE); PROTEIN,URINE NEGATIVE (NEGATIVE); URINE SPECIFIC GRAVITY 1.015; UROBILINOGEN,URINE NEGATIVE mg/dL (<2.0)
[2019-05-02] MEDS ORDERED: PIPERACILLIN/TAZOBACTAM 4.5 GM VIAL IV ONE (08:33)
[2019-05-02] MEDS ORDERED: VANCOMYCIN HCL INJ 1000 MG VIAL IV ONE (08:33)
[2019-05-02] MEDS ORDERED: NORMAL SALINE 1000 ML 1,000 ML IV ONE ×2 (08:35→13:00)
[2019-05-02 08:47] LABS: URINE AMPHETAMINES SCREEN NEGATIVE; URINE BARBITURATES SCREEN NEGATIVE; URINE BENZODIAZEPINES SCREEN NEGATIVE; URINE COCAINE SCREEN NEGATIVE; URINE MARIJUANA (THC) SCREEN NEGATIVE; URINE METHADONE SCREEN NEGATIVE; URINE PHENCYCLIDINE SCREEN NEGATIVE
[2019-05-02] MEDS ORDERED: ATROPINE SULFATE INJ 1 MG/10 ML DISP.SYRIN IV ONE ×2 (09:05→12:58)
[2019-05-02] MEDS ORDERED: NOREPINEPHRINE BITARTRATE INJ/PF 4 MG/4 ML SDV IV ONE (09:05)
--- NOTE | 2019-05-02 09:14 | RADIOLOGY REPORT (SQ) ---
EXAM DESCRIPTION: CT HEAD WITHOUT COMPLETED DATE/TIME: 05/02/2019 9:00 am REASON FOR STUDY: fall COMPARISON: 04/14/2019 TECHNIQUE: Axial images acquired through the brain without intravenous contrast. Images reviewed wi th bone, brain and subdural windows. Additional sagittal and coronal reconstructions were generated. Images stored on PACS. All CT scanners at this facility use dose modulation, iterative reconstruction, and/or weight based d osing when appropriate to reduce radiation dose to as low as reasonably achievable (ALARA). [facility]: Dose Right [facility]: CareDose [facility]: Dose Right [facility]: Teradose 4D [facility]: Smart [employer] RADIATION DOSE: CT Rad equipment meets quality standard of care and radiation dose reduction techniq ues were employed. CTDIvol: 53.2 mGy. DLP: 964 mGy-cm. mGy. LIMITATIONS: Patient motion artifact limits evaluation of the base of the brain. FINDINGS: VENTRICLES: Prominent. CEREBRUM: No masses. No hemorrhage. No midline shift. Areas of low density in the white matter mos t likely due to chronic micro-vascular ischemic change. No evidence for acute infarction. CEREBELLUM: No masses. No hemorrhage. No alteration of density. No evidence for acute infarction. EXTRAAXIAL SPACES: Mild age-related involutional change. No fluid collections. No masses. ORBITS AND GLOBE: No intra- or extraconal masses. Normal contour of globe without masses. CALVARIUM: No fracture. PARANASAL SINUSES: No fluid or mucosal thickening. SOFT TISSUES: No mass or hematoma. OTHER: No other significant finding. IMPRESSION: Examination limited by patient motion artifact. No evidence of calvarial injury or intr acranial hemorrhage. Background of mild microvascular ischemic and age-related involutional changes. EVIDENCE OF ACUTE STROKE: NO. TECHNICAL DOCUMENTATION: JOB ID: [id number] Quality ID # [id number]: Final reports with documentation of one or more dose reduction techniques (e.g., Au tomated exposure control, adjustment of the mA and/or kV according to patient size, use of iterative reconstruction technique) 2010 [employer]- All Rights Reserved Reading location - IP/workstation name: [email or web address]
--- NOTE | 2019-05-02 09:17 | RADIOLOGY REPORT (SQ) ---
EXAM DESCRIPTION: CT CERVICAL SPINE WITHOUT COMPLETED DATE/TIME: 05/02/2019 9:00 am REASON FOR STUDY: fall COMPARISON: 01/10/2018 TECHNIQUE: Axial images acquired through the cervical spine without intravenous contrast. Images re viewed with lung, soft tissue and bone windows. Reconstructed coronal and sagittal MPR images review ed. Images stored on PACS. All CT scanners at this facility use dose modulation, iterative reconstruction, and/or weight based d osing when appropriate to reduce radiation dose to as low as reasonably achievable (ALARA). [facility]: Dose Right [facility]: CareDose [facility]: Dose Right [facility]: Teradose 4D [facility]: [employer] RADIATION DOSE: CT Rad equipment meets quality standard of care and radiation dose reduction techniq ues were employed. CTDIvol: 22.8 mGy. DLP: 1045 mGy-cm. mGy. LIMITATIONS: Patient motion artifact. FINDINGS: ALIGNMENT: Anatomic. MINERALIZATION: Normal. VERTEBRAL BODIES: No fractures or dislocation. DISCS: Multilevel disc space narrowing with osteophytes. FACETS, LATERAL MASSES, POSTERIOR ELEMENTS: Facet arthropathy. No fractures. No dislocation. No ac lyndon findings. HARDWARE: None in the spine. VISUALIZED RIBS: No fractures. LUNG APICES AND SOFT TISSUES: No significant or acute findings. OTHER: No other significant finding. IMPRESSION: Limited by patient motion artifact. No evidence of acute osseous injury. Background of severe multilevel spondylotic changes. TECHNICAL DOCUMENTATION: JOB ID: [id number] Quality ID # [id number]: Final reports with documentation of one or more dose reduction techniques (e.g., Au tomated exposure control, adjustment of the mA and/or kV according to patient size, use of iterative reconstruction technique) 2010 [employer]- All Rights Reserved Reading location - IP/workstation name: [email or web address]
--- NOTE | 2019-05-02 09:27 | RADIOLOGY REPORT (SQ) ---
EXAM DESCRIPTION: CT CHEST WITHOUT COMPLETED DATE/TIME: 05/02/2019 9:00 am REASON FOR STUDY: shortness of breath COMPARISON: 04/16/2019 TECHNIQUE: CT scan performed of the chest without intravenous contrast. Images reviewed with lung, soft tissue and bone windows. Reconstructed coronal and sagittal MPR images reviewed. All images st ored on PACS. All CT scanners at this facility use dose modulation, iterative reconstruction, and/or weight based d osing when appropriate to reduce radiation dose to as low as reasonably achievable (ALARA). [facility]: Dose Right [facility]: CareDose [facility]: Dose Right [facility]: Teradose 4D [facility]: [employer] RADIATION DOSE: CT Rad equipment meets quality standard of care and radiation dose reduction techniq ues were employed. CTDIvol: 11.2 mGy. DLP: 716 mGy-cm. mGy. LIMITATIONS: Patient motion artifact limits evaluation of the osseous structures. FINDINGS: LUNGS AND PLEURA: Trace bilateral pleural effusions. No pneumothorax. Background of emph ysematous changes. HILAR AND MEDIASTINAL STRUCTURES: No identified masses or abnormal nodes. No obvious aneurysm. HEART AND VASCULAR STRUCTURES: No aneurysm. No pericardial effusion. UPPER ABDOMEN: See separate report of the CT of the abdomen. THYROID AND OTHER SOFT TISSUES: No masses. No adenopathy. BONES: There appears to be mildly displaced transverse fractures of the upper sternum. The lower rib s demonstrate symmetric abnormal findings which is favored to be on the basis of patient motion artif act. Mildly displaced rib fractures are not excluded. Stable background of degenerative changes. HARDWARE: Left upper extremity PICC terminates in the superior vena cava. OTHER: No other significant findings. IMPRESSION: Patient motion artifact limits examination. There appears to be mildly displaced transv erse fractures of the upper sternum. Cannot exclude bilateral lower rib fractures. Recommend correl ation with mechanism of injury and physical exam findings. No pneumothorax. Left upper extremity PI CC demonstrates appropriate positioning. Chronic and incidental findings as detailed above. TECHNICAL DOCUMENTATION: JOB ID: [id number] Quality ID # [id number]: Final reports with documentation of one or more dose reduction techniques (e.g., Au tomated exposure control, adjustment of the mA and/or kV according to patient size, use of iterative reconstruction technique) 2010 [employer]- All Rights Reserved Reading location - IP/workstation name: [email or web address]
--- NOTE | 2019-05-02 09:33 | RADIOLOGY REPORT (SQ) ---
EXAM DESCRIPTION: CT ABD/PELVIS NO ORAL OR IV COMPLETED DATE/TIME: 05/02/2019 9:00 am REASON FOR STUDY: abdominal pain/flacid bilatlower ext COMPARISON: 02/22/2019 TECHNIQUE: CT scan of the abdomen and pelvis performed without intravenous or oral contrast. Images reviewed with lung, soft tissue, and bone windows. Reconstructed coronal and sagittal MPR images revi ewed. All images stored on PACS. All CT scanners at this facility use dose modulation, iterative reconstruction, and/or weight based d osing when appropriate to reduce radiation dose to as low as reasonably achievable (ALARA). [facility]: Dose Right [facility]: CareDose [facility]: Dose Right [facility]: Teradose 4D [facility]: [employer] RADIATION DOSE: mGy. LIMITATIONS: None. FINDINGS: LOWER CHEST: See separate report of the CT of the chest. NON-CONTRASTED LIVER, SPLEEN, ADRENALS: Evaluation limited by lack of IV contrast. No identified sign ificant masses. PANCREAS: No masses. No peripancreatic inflammatory changes. GALLBLADDER: No identified stones by CT criteria. No inflammatory changes to suggest cholecystitis. RIGHT KIDNEY AND URETER: No suspicious masses. Assessment limited by lack of IV contrast. No signif icant calcifications. No hydronephrosis or hydroureter. LEFT KIDNEY AND URETER: No suspicious masses. Assessment limited by lack of IV contrast. No signifi cant calcifications. No hydronephrosis or hydroureter. 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 BOWEL AND PERITONEAL CAVITY: No obvious masses or inflammatory changes. No free fluid. APPENDIX: Not visualized. PELVIS, BLADDER, AND ABDOMINAL WALL:The bladder is decompressed with a Garcia catheter. Small fat con taining umbilical hernia. Small fat containing right paramedian supraumbilical hernia. BONES: Stable appearance of a L1 vertebral body compression fracture. No evidence of acute osseous i njury. OTHER: No other significant finding. IMPRESSION: No evidence of acute osseous or visceral injury. Stable chronic and incidental findings as detailed above. COMMENT: Quality ID # [id number]: Final reports with documentation of one or more dose reduction techniques (e.g., Automated exposure control, adjustment of the mA and/or kV according to patient size, use of iterative reconstruction technique) TECHNICAL DOCUMENTATION: JOB ID: [id number] [employer]- All Rights Reserved Reading location - IP/workstation name: [email or web address]
--- NOTE | 2019-05-02 09:39 | RADIOLOGY REPORT (SQ) ---
EXAM DESCRIPTION: CT LUMBAR SPINE WITHOUT COMPLETED DATE/TIME: 05/02/2019 9:00 am REASON FOR STUDY: FALL/UNABLE TO MOVE LOWER EXTREMETIES COMPARISON: 02/22/2027 and 01/10/2019 TECHNIQUE: Axial images acquired through the lumbar spine without intravenous contrast. Images revie wed with lung, soft tissue and bone windows. Reconstructed coronal and sagittal MPR images reviewed. Images stored on PACS. All CT scanners at this facility use dose modulation, iterative reconstruction, and/or weight based d osing when appropriate to reduce radiation dose to as low as reasonably achievable (ALARA). [facility]: Dose Right [facility]: CareDose [facility]: Dose Right [facility]: Teradose 4D [facility]: [employer] RADIATION DOSE: mGy. LIMITATIONS: Patient motion artifact. FINDINGS: SOFT TISSUES: No soft tissue swelling. No masses. SEGMENTATION: Normal. No transitional anatomy. ALIGNMENT: Normal. VERTEBRAL BODIES: Stable appearance of an L1 vertebral body compression fracture. Background of moderate to severe multilevel spondylotic changes noting marginal osteophytes at all le vels. DISCS: Moderate to severe loss of intervertebral disc heights with vacuum disc phenomenon at the L3/4 level. PEDICLES, TRANSVERSE PROCESSES: No fractures. No dislocation. No acute findings. FACETS, POSTERIOR ELEMENTS: Facet arthropathy is seen at all levels. HARDWARE: None in the spine. VISUALIZED RIBS: No fractures. OTHER: Abdominal findings as detailed on concomitant CT of the abdomen and pelvis. IMPRESSION: No evidence of acute osseous injury. Background of L1 vertebral body compression fractu re, chronic and multilevel spondylotic changes. TECHNICAL DOCUMENTATION: JOB ID: [id number] Quality ID # [id number]: Final reports with documentation of one or more dose reduction techniques (e.g., Au tomated exposure control, adjustment of the mA and/or kV according to patient size, use of iterative reconstruction technique) 2010 [employer]- All Rights Reserved Reading location - IP/workstation name: [email or web address]
[2019-05-02 09:48] LABS: ARTERIAL BLOOD BASE EXCESS -11.4 mmol/L; ARTERIAL BLOOD H2CO3 0.92 mmol/L (1.05-1.35); ARTERIAL BLOOD HCO3 14.1 mmol/L (20-24); ARTERIAL BLOOD O2 SATURATION 90.8 % (94-98); ARTERIAL BLOOD PCO2 30.6 mmHg (35-45); ARTERIAL BLOOD PH 7.28 (7.35-7.45); ARTERIAL BLOOD PO2 65.3 mmHg (80-100); ARTERIAL BLOOD TOTAL CO2 15.1 mmol/L (23-27)
[2019-05-02 09:50] LABS: ARTERIAL BLOOD FIO2 4L
[2019-05-02] MEDS: DEXTROSE 5%-WATER 250 ML with NOREPINEPHRINE BITARTRATE 4 MG IV PRN ×4 (12:53→13:15)
[2019-05-02] MEDS ORDERED: PANTOPRAZOLE SODIUM 40 MG VIAL IV ONE (12:58)
[2019-05-02] MEDS ORDERED: ETOMIDATE INJ/PF 20 MG/10 ML SDV IV ONE (12:59)
[2019-05-02] MEDS ORDERED: SUCCINYLCHOLINE CHLORIDE INJ 200 MG/10 ML VIAL IV ONE (13:00)
[2019-05-02] MEDS: MIDAZOLAM 2 MG/2 ML INJ IV ONE (13:11)
--- NOTE | 2019-05-02 13:23 | RADIOLOGY REPORT (SQ) ---
EXAM DESCRIPTION: CHEST SINGLE VIEW COMPLETED DATE/TIME: 05/02/2019 1:10 pm REASON FOR STUDY: INTUBATION COMPARISON: 05/02/2019 EXAM PARAMETERS: NUMBER OF VIEWS: One view. TECHNIQUE: Single frontal radiographic view of the chest acquired. RADIATION DOSE: NA LIMITATIONS: None. FINDINGS: LUNGS AND PLEURA: Increased interstitial markings are seen at the lung bases. Low lung vo lumes results in bronchovascular crowding. MEDIASTINUM AND HILAR STRUCTURES: Grossly stable. HEART AND VASCULAR STRUCTURES: Cardiomegaly with central vascular congestion. BONES: No acute findings. HARDWARE: An endotracheal tube terminates approximately 1.8 cm cranial to the soledad. An enteric tub e terminates subdiaphragmatically out of the imaged field of view. Left upper extremity PICC termina paulina in the region of the superior vena cava. OTHER: No other significant finding. IMPRESSION: 1. Stable pulmonary exam demonstrating bibasilar interstitial markings. 2. The the short interval appearance of increased cardiac silhouette with central vascular congestio n likely on the basis of intravenous hydration. 3. Lines and tubes as above; no evidence of complication. TECHNICAL DOCUMENTATION: JOB ID: [id number] 2010 [employer]- All Rights Reserved Reading location - IP/workstation name: [email or web address]
[2019-05-02] MEDS: MIDAZOLAM HCL 50 MG/100 ML RTUINJ IV PRN ×2 (13:32→14:11)
[2019-05-02] MEDS ORDERED: DEXTROSE 5%-WATER 250 ML with EPINEPHRINE/PF 1 MG IV PRN ×2 (13:34)
[2019-05-02] MEDS ORDERED: EPINEPHRINE INJ/PF 1 MG/1 ML AMPULE ONE (13:40)
[2019-05-02] MEDS ORDERED: VECURONIUM BROMIDE INJ 10 MG VIAL IV ONE (13:58)
[2019-05-02] MEDS ORDERED: SUCCINYLCHOLINE CHLORIDE INJ 200 MG/10 ML VIAL ONE (14:52)
[2019-05-02 15:08] VITALS: BP 104/62
--- NOTE | 2019-05-02 16:42 | ER Document Report ---
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 Patient has dementia and was unable to obtain history. Patient's power of senior attorney is at bedside and states the patient was discharged x11 days ago from having a nose bleed and infection. POA states the patient fell after he was discharged x11 days ago and fell again x3 times between last night and this morning. POA states that the patient heard a popping noise after his last fall this morning at 4 am and complained about loss of felling in his legs. TRAVEL OUTSIDE OF THE [place] 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 - Social History Smoking Status: Unknown if Ever Smoked Family History: COPD Patient has suicidal ideation: No Patient has homicidal ideation: No - Past Medical History Cardiac Medical History: Reports: Hx Coronary Artery Disease, Hx Peripheral Vascular Disease Pulmonary Medical History: Reports: Hx COPD Endocrine Medical History: Reports: Hx Diabetes Mellitus Type 2 Psychiatric Medical History: Reports: Hx Dementia Past Surgical History: Reports: Hx Cardiac Catheterization, Hx Coronary Stent Review of Systems - Review of Systems -: Yes ROS unobtainable due to patient's medical condition Physical Exam - Vital signs Vitals: Resp Pulse Ox 32 H 88 L 05/02/19 07:05 05/02/19 07:05 - General General appearance: Combative - HEENT Head: Normocephalic, Atraumatic Eyes: Normal Pupils: PERRL Mucous membranes: Dry Neck: Supple - Respiratory Respiratory status: Respiratory distress Breath sounds: Other - Diminished breath sounds. - Cardiovascular Rhythm: Tachycardia Heart sounds: Normal auscultation Murmur: No - Abdominal Tenderness: Tender. No: Rebound - Rectal Notes: Rectal tone absent. - Extremities General upper extremity: Normal inspection. No: Edema General lower extremity: Other - Flacid lower extremities. - Neurological Cognition: Confused Orientation: Disoriented to person, Disoriented to place, Disoriented to time, Disoriented to events Speech: Normal Cranial nerves: Normal Cerebellar coordination: Other - Unable to test. - Psychological Associated symptoms: Combative, Uncooperative - Skin Skin Temperature: Cold Skin Color: Pale Course - Re-evaluation Re-evalutation: 05/02/19 13:22 Patient's course started deteriorating and since his heart rate became bradycardic and saturations pulse oximetry became less than 90. Patient was electively intubated with a 7.5 ET tube. Post chest x-ray. ET tube in place. Patient had been given 1 mg atropine just prior to intubation because of a heart rate of 45. Heart rate did increase to about 65 just prior to intubation. Postintubation patient became hypotensive requiring nor epi drip. Patient has responded well to norepinephrine drip and fluid bolus systolic blood pressure is now greater than 100. Patient now has an NG tube present as well and Versed ordered for sedation as well as a Versed drip at this time. Repeat twelve-lead EKG shows atrial fibrillation with a ventricular response of bradycardic at 53 Patient has been accepted to [facility] at who is indicated that they are sending helicopter for [facility] - Vital Signs Vital signs: Temp Pulse Resp BP Pulse Ox 94.2 F L 14 104/62 94 05/02/19 08:03 05/02/19 14:26 05/02/19 14:26 05/02/19 14:26 - Laboratory Result Diagrams: 05/02/19 07:22 05/02/19 07:22 Laboratory results interpreted by me: 05/02/19 05/02/19 05/02/19 07:22 07:22 07:22 WBC 12.1 H RBC 3.40 L Hgb 8.3 L Hct 26.9 L MCV 79 L MCH 24.5 L MCHC 31.0 L RDW 19.3 H Absolute Neuts (auto) 9.5 H Seg Neutrophils % 78.5 H Carbonic Acid ABG pH ABG pCO2 ABG pO2 ABG HCO3 ABG Total CO2 ABG O2 Saturation Sodium 121.8 L Potassium 5.2 H Chloride 86 L Carbon Dioxide 11 L Anion Gap 25 H Glucose 296 H POC Glucose Lactic Acid 10.3 H Alkaline Phosphatase 160 H NT-Pro-B Natriuret Pep Urine Glucose (UA) Urine Ascorbic Acid 05/02/19 05/02/19 05/02/19 07:22 08:12 09:22 WBC RBC Hgb Hct MCV MCH MCHC RDW Absolute Neuts (auto) Seg Neutrophils % Carbonic Acid 0.92 L ABG pH 7.28 L ABG pCO2 30.6 L ABG pO2 65.3 L ABG HCO3 14.1 L ABG Total CO2 15.1 L ABG O2 Saturation 90.8 L Sodium Potassium Chloride Carbon Dioxide Anion Gap Glucose POC Glucose Lactic Acid Alkaline Phosphatase NT-Pro-B Natriuret Pep 4700 H Urine Glucose (UA) 50 H Urine Ascorbic Acid 20 H 05/02/19 05/02/19 12:10 13:15 WBC RBC Hgb Hct MCV MCH MCHC RDW Absolute Neuts (auto) Seg Neutrophils % Carbonic Acid ABG pH ABG pCO2 ABG pO2 ABG HCO3 ABG Total CO2 ABG O2 Saturation Sodium Potassium Chloride Carbon Dioxide Anion Gap Glucose POC Glucose 286 H Lactic Acid 10.8 H Alkaline Phosphatase NT-Pro-B Natriuret Pep Urine Glucose (UA) Urine Ascorbic Acid - Diagnostic Test Radiology reviewed: Image reviewed, Reports reviewed Radiology results interpreted by me: 05/02/19 13:[address] negative for acute stroke Cervical CT scan multilevel spondylitic changes no acute fracture or subluxation Chest CT bilateral lower rib fractures no pneumothorax mildly displaced transverse fracture of the upper sternum Lumbar spine CT no osseous acute fractures noted chronic L1 vertebral body fracture and multilevel spondylitic changes. 05/02/19 13:32 Chest x-ray #1 bilateral lower lung opacities with edema questionable pneumonia. Chest x-ray post intubation shows increased interstitial markings ET tube above the soledad no pneumothorax - EKG Interpretation by Me Additional EKG results interpreted by me: 05/02/19 13:33 EKG 12-lead 816 sinus tachycardia rate of 115 nonspecific interval ventricular conduction delay ST depression consider ischemia anterior lateral leads Second EKG 1320 atrial fibrillation with a bradycardic ventricular response at 53 multiform ventricular PVCs nonspecific intraventricular conduction delay and borderline ST depression in anterior lateral leads Procedures - Intubation Orotracheal Airway evaluation: Normal anatomy Medications: Etomidate, Succinylcholine Intubation method: Orotracheal Blade type: Peña, Coni Blade size: 3 ETT size: 7.5 ETT secured at: Lips ETT secured at (cm): 23 Breath Sounds after Intubation: Equal Ventilator settings: CMV Tidal volume: 450 FiO2: 50 Respirations: 14 PEEP: 5 Post Intubation Xray: Yes - ET tube in place above the soledad no pneumothorax NG tube goes below the di Critical Care Note - Critical Care Note Total time excluding time spent on procedures (mins): 69 - Monitoring respiratory and cardiovascular status and neuro status. Also treating for sepsis. Discharge - Discharge Clinical Impression: Sepsis, Multiple rib fractures, Pneumonia, Suspected cauda equina syndrome, MSSA bacteremia, Elevated troponin I level, Chronic a-fib, CHF (congestive heart failure), NSTEMI (non-ST elevated myocardial infarction) Condition: Critical Disposition: [facility] Referrals: LINDSEY HOLLAND MD [NO LOCAL MD] - Follow up as needed ED NIH Stroke Scale - NIH Stroke Scale *: 1. NIH scale should be completed with appropriate accompanying assessment tools. *: 2. The NIH should reflect what the patient is capable of doing and should not be coached by the clinician. 1a. Level of Consciousness: 0=Alert;keenly responsive -: 1=Drowsy -: 2=Obtunded -: 3=Coma/unresponsive or reflex to noxious stimuli. 1b. Orientation Questions: a. What month is it? -: b. How old are you? -: 0=Answers both questions correctly. -: 1=Answers one question correctly or patient is intubated or has orotracheal trauma. -: 2=Answers neither question correctly. 1b. Responses: 2 1c. Response to commands: a. Open and close eyes? -: b. Supervisor Covering [employer] Lining and release hand? -: Credit is given despite weakness. Demonstration of task is permitted. Substitute command if hands cannot be used. -: 0=Performs both tasks correctly -: 1=Performs one task correctly -: 2=Performs neither task correctly 1c. Responses: 0 2. Gaze: Establish eye contact and instruct patient to "Follow my finger" -: 0=Normal -: 1=Partial gaze palsy. Gaze is abnormal in one or both eyes, but where forced deviation or total gaze paresis is not present. -: 2=Forced deviation or total gaze paresis. 2. Responses: 0 3. Visual White: Sees fingers in all four quadrants. -: 0=No visual loss. -: 1=Partial hemianopsia. -: 2=Complete hemianopsia. -: 3=Bilateral hemianopsia (including Cortical blindness) 4. Facial Movement: Instruct patient to: -: a. Show me your teeth -: b. Raise your eyebrows -: c. Close your eyes -: d. Smile -: 0=Normal symmetrical movement -: 1=Minor paralysis (flattened nasolabial fold, asymmetry on smiling). -: 2=Partial paralysis (total or near total paralysis of lower face). -: 3=Complete paralysis of upper and lower face 4. Responses: 0 5. Motor functions (left arm): Alternate sides and extend each arm with palms down (90 degrees if sitting or 45 degrees for supine). -: 0=No drift;limb holds for full 10 seconds. -: 1=Drift; limb holds but drifts down before full 10 seconds, but does not hit bed. -: 2=Some effort against gravity; limb cannot get to or maintain position. -: 3=No effort against gravity; limb falls. -: 4=No movement. -: UN=Amputation, joint fusion, explain in comments. 5. Responses (left arm): 0 5. Motor Functions (right arm): Alternate sides and extend each arm with palms down (90 degrees if sitting or 45 degrees for supine). -: 0=No drift;limb holds for full 10 seconds. -: 1=Drift; limb holds but drifts down before full 10 seconds, but does not hit bed. -: 2=Some effort against gravity; limb cannot get to or maintain position. -: 3=No effort against gravity; limb falls. -: 4=No movement. -: UN=Amputation, joint fusion, explain in comments. 5. Responses (right arm): 0 6. Motor Functions (left leg): With patient lying supine, alternate sides and extend each leg (30 degrees always while supine). -: 0=No drift, leg holds position for full 5 seconds -: 1=Drift; leg falls before full 5 seconds but does not hit bed. -: 2=Some effort against gravity, leg falls to bed but some effort against gravity. -: 3=No effort against gravity, leg falls to bed immediately. -: 4=No movement. -: UN=Amputation, joint fusion; explain in comments. 6. Responses (left leg): 4 6. Motor Functions (right leg): With patient lying supine, alternate sides and extend each leg (30 degrees always while supine). -: 0=No drift, leg holds position for full 5 seconds -: 1=Drift; leg falls before full 5 seconds but does not hit bed. -: 2=Some effort against gravity, leg falls to bed but some effort against gra vity. -: 3=No effort against gravity, leg falls to bed immediately. -: 4=No movement. -: UN=Amputation, joint fusion; explain in comments. 6. Responses (right leg): 4 7. Limb Ataxia: With eyes open instruct patient to: -: a. "Touch your finger to your nose". -: b. "Touch your heel to your laurent" -: 0=Absent -: 1=Present in one limb. -: 2=Present in two limbs. -: UN=Amputation or joint fusion; explain in comments. 8. Sensory: Test sensation using pinprick or noxious stimuli. Test as many body parts as possible. -: 0=Normal;no sensory loss -: 1=Mile to moderate sensory loss (patient feels pin prick but is less sharp on affected side). -: 2=Severe or total sensory loss. 9. Best Language: Instruct patient to: -: a. "Describe what you see in this picture." -: b. "Name the items in this picture." -: c. "Read these sentences." -: 0=No aphasia, normal -: 1=Mild to moderate aphasia. -: 2=Severe aphasia -: 3=Mute, global aphasia, no usable speech or auditory comprehension. 10. Articulation, Dysarthia: Instruct patient to: -: "Read these words" or "Repeat these words" -: 0=Normal -: 1=Mild to moderate; patient may slur some words but can be understood without difficulty. -: 2=Severe; patients speech so slurred as to be unintelligible in the absence of dysphasia. -: UN=Intubated or other physical barrier, explain in comments. 11. Extinction or inattention: 0=No abnormality -: 1= Visual, tactile, auditory, spatial, or personal inattention or extinction to bilateral simulation in one or the sensory modalities. -: 2=Profound ortega-inattention or ortega-inattention to more than one modality; does not recognize own hand. Total Score: 10 Notes: NIH score is altered inasmuch as patient is totally uncooperative with exam. Patient does have demonstrated flaccidity of both lower extremities and a lack of sensation to lower extremities. Bilateral in addition patient has an absent rectal tone. Most likely patient has suffered from some type of neurological injury at this time. Many of the sections of the NIH score was on interpretable inasmuch as patient was uncooperative. I personally performed the services described in the documentation, reviewed and edited the documentation which was dictated to the scribe in my presence, and it accurately records my words and actions.
--- NOTE | 2019-05-03 00:24 | EKG REPORT ---
SEVERITY:- ABNORMAL ECG - ATRIAL FIBRILLATION VS JUNCTINAL RHYTHM, REC REPEAT EKG MULTIFORM VENTRICULAR PREMATURE COMPLEXES NONSPECIFIC INTRAVENTRICULAR CONDUCTION DELAY BORDERLINE ST DEPRESSION, ANTEROLATERAL LEADS : Confirmed by: Teresita Brady 03-May-2019 00:23:30
--- NOTE | 2019-05-03 00:25 | EKG REPORT ---
SEVERITY:- ABNORMAL ECG - SINUS TACHYCARDIA CANNOT R/O A FLUTTER ARTIFACTS NOTED NONSPECIFIC INTRAVENTRICULAR CONDUCTION DELAY ST DEPRESSION, CONSIDER ISCHEMIA, ANT-LAT LDS : Confirmed by: Teresita Brady 03-May-2019 00:24:54
== END 2019-05-02 15:16 | disposition short-term general hospital (02) ==
LOC: ER 07:05
DX: A41.9 Sepsis, unspecified organism (principal); J15.211 Pneumonia due to Methicillin susceptible Staphylococcus aureus; I21.4 Non-ST elevation (NSTEMI) myocardial infarction; S22.43XA Multiple fractures of ribs, bilateral, initial encounter for closed fracture; W19.XXXA Unspecified fall, initial encounter; R79.89 Other specified abnormal findings of blood chemistry; R29.710 NIHSS score 10; I48.20 Chronic atrial fibrillation, unspecified; J44.9 Chronic obstructive pulmonary disease, unspecified; I50.9 Heart failure, unspecified; E11.9 Type 2 diabetes mellitus without complications; F03.90 Unspecified dementia, unspecified severity, without behavioral disturbance, psychotic disturbance, mood disturbance, and anxiety; Z91.81 History of falling
CPT/HCPCS: 93005; 96376; 94640; 99291; 96361; 51702; 96375; 96365; 36415; 87040; 82962; 82803; 83605; 83690; 85025; 85610; 85730; 80053; 81001; 84484; 80307; 83880; 71045; 70450; 71250; 72125; 72131; 74176; 94660; 93010; 36600; 31500; J2250 ×2; J0461; J0171; J3490 ×3; J2930; J1170; J2060; C9113; J0330; J2405; J7060; J7030; J7040; J3370; A9270; J2543; J7620